=== PATIENT | male | born 1960 | race Hispanic/Latino ===

== ENCOUNTER 2017-12-07 10:29 | Inpatient (IN) | payer OTHER ==
[2017-12-07 11:51] LABS: Absolute Lymphocytes (CBC) 1.6 K/uL (0.7-4.9); Absolute Monocytes 0.4 K/uL (0.1-1.3); Absolute Neutrophil 6.9 K/uL (1.8-8.0); Basophils % 0.6 % (0-1.3); Eosinophils % 3.2 % (0-4.4); Hematocrit 33.4 % (39.6-49.0); Lymphocytes % 16.8 % (15.3-44.8); MCH 28.4 pg (27.0-35.0); MCV 85.5 fL (80-100); MPV 9.4 fL (7.6-11.3); Monocytes % 4.8 % (3.3-12.3); RBC Red Blood Cell Count 3.91 M/uL (4.33-5.43)
[2017-12-07 11:57] LABS: Protime INR 0.93
[2017-12-07 12:02] LABS: Potassium 3.6 mEq/L (3.6-5.0)
[2017-12-07] MEDS ORDERED: FENTANYL CITR 100 MCG/2 ML ONE (12:09)
--- NOTE | 2017-12-07 12:12 | RAD REPORT ---
EXAM DESCRIPTION: Bill Single View12/07/2017 11:59 am CLINICAL HISTORY: Chest pain COMPARISON: 2016 FINDINGS: The left base is hazy. The right lung appears clear. . The heart is normal size IMPRESSION: The left base is hazy. This could be secondary to pleural thickening or small pleural ef fusion.
--- NOTE | 2017-12-07 12:24 | RAD REPORT ---
EXAM DESCRIPTION: CT - Head Brain Wo Cont - 12/07/2017 12:04 pm CLINICAL HISTORY: Alteration of consciousness/memory loss COMPARISON: December 2016 TECHNIQUE: Computed axial tomography of the head was obtained. IV contrast was not requested. All CT scans are performed using dose optimization technique as appropriate and may include automated exposure control or mA/KV adjustment according to patient size. FINDINGS: An intracranial bleed is not seen . The ventricles are normal in caliber. No extra-axial fluid collection is noted. An 8 centimeter low-density areas present within predominantly the left occipital lobe. It portions o f the left temporal and left parietal lobes. Fluid within the sinuses/ mastoids is not seen. IMPRESSION: Large prominently left occipital lobe infarct. It appears relatively acute. The exam was discussed with the Sam Castro in the Emergency Room 12:20 p.m. December 07, 2017
[2017-12-07] MEDS ORDERED: CLOPIDOGREL 75 MG TABLET ONE (12:52)
[2017-12-07] MEDS ORDERED: ONDANSETRON 4 MG/2 ML VIAL ONE (12:52)
[2017-12-07] MEDS ORDERED: ASPIRIN 81 MG CHEWABLE TABLET ONE (12:52)
[2017-12-07] MEDS ORDERED: MEPERIDINE HCL 50 MG/ML AMP ONE ×2 (12:52→17:01)
[2017-12-07] MEDS ORDERED: FOLIC ACID 5 MG/ML VIAL ONE (12:54)
--- NOTE | 2017-12-07 13:07 | EDPHYS ---
Physician Documentation [facility] Name: Sami Garcias Age: 57 yrs Sex: Male : 1960 Arrival Date: 12/07/2017 Time: 10:32 Bed 25 Private MD: Michael Marshall E ED Physician Saeid Li HPI: 12/07 12:50 This 57 yrs old Male presents to ER via Ambulatory with complaints of jr8 Confusion. 12:51 The patient's problem is reported as altered mental status, confused, weakness, in the jr8 right upper extremity. Onset: The symptoms/episode began/occurred acutely, 2 day(s) ago. Duration: This was a single incident. Context: the episode(s) was witnessed, by family. The symptoms are alleviated by nothing. The symptoms are aggravated by nothing. Associated signs and symptoms: The patient has no apparent associated signs or symptoms. Severity of symptoms: At their worst the symptoms were moderate in the emergency department the symptoms are unchanged. Patient's baseline: Neuro: alert and fully oriented, Motor: no deficits, Ambulation: unable to walk, uses wheelchair, Speech: normal. The patient has not experienced similar symptoms in the past. The patient has been recently seen by a physician:. Family stated that on Sunday he had sudden onset of right arm weakness and confusion. Weakness lasted for approximately 10-15 minutes but had continued to have confused episodes. Had gone to [facility] for evaluation but discharged patient. Came today because of confusion that has yet to resolve . Historical: - Allergies: 10:46 BACLOFEN; hj 10:46 Latex, Natural Rubber; hj - Home Meds: 10:46 metformin 1,000 mg Oral tr24 1 tab twice a day [Active]; Lantus 100 unit/mL Sub-Q soln hj 28 unit daily [Active]; Humalog 100 unit/mL Sub-Q crtg 7 unit with meals [Active]; carvedilol 3.125 mg Oral tab 1 tab 2 times per day [Active]; bumetanide 1 mg Oral tab 2 tabs once daily [Active]; atorvastatin 40 mg Oral tab once daily [Active]; aspirin 81 mg Oral TbEC 1 tab once daily [Active]; - PMHx: 10:46 blood clots in legs; Diabetes - IDDM; dka; failed heart cath; heart blockage; hj Hypertension; sepsis with L leg; - PSHx: 10:46 Below the knee amputations sabrina; open heart sx- single bypass; staph sx; hj - Immunization history:: Adult Immunizations up to date. - Social history:: Smoking status: Patient uses tobacco products. ROS: 12:51 Eyes: Negative for injury, pain, redness, and discharge, ENT: Negative for injury, jr8 pain, and discharge, Neck: Negative for injury, pain, and swelling, Cardiovascular: Negative for chest pain, palpitations, and edema, Respiratory: Negative for shortness of breath, cough, wheezing, and pleuritic chest pain, Abdomen/GI: Negative for abdominal pain, nausea, vomiting, diarrhea, and constipation, Back: Negative for injury and pain, MS/Extremity: Negative for injury and deformity, Skin: Negative for injury, rash, and discoloration. 12:51 Neuro: Positive for altered mental status, weakness. Exam: 12:51 Radiologist reports: Large subacute CVA noted jr8 12:51 Head/Face: Normocephalic, atraumatic. Eyes: Pupils equal round and reactive to light, extra-ocular motions intact. Lids and lashes normal. Conjunctiva and sclera are non-icteric and not injected. Cornea within normal limits. Periorbital areas with no swelling, redness, or edema. ENT: Nares patent. No nasal discharge, no septal abnormalities noted. Tympanic membranes are normal and external auditory canals are clear. Oropharynx with no redness, swelling, or masses, exudates, or evidence of obstruction, uvula midline. Mucous membranes moist. Neck: Trachea midline, no thyromegaly or masses palpated, and no cervical lymphadenopathy. Supple, full range of motion without nuchal rigidity, or vertebral point tenderness. No Meningismus. Cardiovascular: Regular rate and rhythm with a normal S1 and S2. No gallops, murmurs, or rubs. Normal PMI, no JVD. No pulse deficits. Respiratory: Lungs have equal breath sounds bilaterally, clear to auscultation and percussion. No rales, rhonchi or wheezes noted. No increased work of breathing, no retractions or nasal flaring. Abdomen/GI: Soft, non-tender, with normal bowel sounds. No distension or tympany. No guarding or rebound. No evidence of tenderness throughout. Back: No spinal tenderness. No costovertebral tenderness. Full range of motion. Skin: Warm, dry with normal turgor. Normal color with no rashes, no lesions, and no evidence of cellulitis. MS/ Extremity: Pulses equal, no cyanosis. Neurovascular intact. Full, normal range of motion. 12:51 Neuro: Orientation: to person, place \T\ time. Mentation: points of confusion , Memory: is normal, Cranial nerves: CN I not tested, CN II- XII are normal as tested, visual rosas are intact. extraocular movements are intact, Facial palsy and sensory deficits are absent. Nystagmus is absent. Speech is clear and appropriate. Tongue strength is normal, Cerebellar function: dysmetria is noted on the right, Motor: moves all fours, Sensation: no obvious gross deficits, Gait: not tested. seizure activity, is not displayed by the patient, Abnormal movements: there are no abnormal movements. Vital Signs: 10:46 BP 145 / 81; Pulse 70; Resp 18; Temp 98.8; Pulse Ox 100% on R/A; Weight 108.86 kg; Height 6 ft. 5 in. (195.58 cm); Pain 8/10; 11:00 BP 161 / 88; Pulse 72; Resp 18; Pulse Ox 99% on R/A; aj1 12:00 BP 153 / 84; Pulse 97; Resp 18; Pulse Ox 100% on R/A; aj1 13:00 BP 142 / 69; Pulse 70; Resp 18; Pulse Ox 100% on R/A; aj1 14:00 BP 160 / 82; Pulse 82; Resp 18; Pulse Ox 99% ; aj1 15:30 BP 145 / 80; Pulse 78; Resp 18; Pulse Ox 99% ; aj1 16:30 BP 152 / 87; Pulse 73; Resp 18; Pulse Ox 95% on R/A; aj1 17:30 BP 170 / 86; Pulse 70; Resp 18; Pulse Ox 100% ; aj1 18:30 BP 174 / 89; Pulse 71; Resp 18; Pulse Ox 100% on R/A; aj1 19:30 BP 169 / 86; Pulse 73; Resp 18; Pulse Ox 100% on R/A; aj1 10:46 Body Mass Index 28.46 (108.86 kg, 195.58 cm) NIH Stroke Scale Scores: 12:51 NIHSS Score: 2 jr8 MDM: 10:58 Patient medically screened. [facility] 12:51 Data reviewed: vital signs, nurses notes, lab test result(s), EKG, radiologic studies, [facility] CT scan, MRI, plain films, and as a result, I will admit patient. Data interpreted: Pulse oximetry: on room air is 100 %. Interpretation: normal. Counseling: I had a detailed discussion with the patient and/or guardian regarding: the historical points, exam findings, and any diagnostic results supporting the discharge/admit diagnosis, lab results, radiology results, the need for further work-up and treatment in the hospital. Physician consultation: Bebeto Medel MD was called at 13:06, was contacted at 13:06, regarding consult, patient's condition, and will see patient. 12/07 11:19 Order name: BNP [facility] 12/07 11:19 Order name: Basic Metabolic Panel; Complete Time: 12:11 [facility] 12/07 11:19 Order name: CBC with Diff; Complete Time: 12:11 [facility] 12/07 11:19 Order name: Protime (+inr); Complete Time: 12:11 [facility] 12/07 11:19 Order name: Ptt, Activated; Complete Time: 12:11 [facility] 12/07 11:19 Order name: Urine Microscopic Only; Complete Time: 17:15 [facility] 12/07 11:19 Order name: Stroke CXR 1 View; Complete Time: 12:20 [facility] 12/07 11:19 Order name: TS; Complete Time: 12:48 [facility] 12/07 11:19 Order name: CT Head Brain wo Cont; Complete Time: 12:28 [facility] 12/07 11:20 Order name: BNP B-Type Natriuretic Peptide; Complete Time: 12:20 [facility] 12/07 12:31 Order name: MRI - Brain Wo Cont [facility] 12/07 13:41 Order name: Carotid Artery Bilateral; Complete Time: 14:42 [facility] 12/07 16:56 Order name: Urine Dipstick--Ancillary (enter results) 12/07 17:03 Order name: Urine Dipstick-Ancillary; Complete Time: 17:15 [facility] 12/07 11:19 Order name: EKG; Complete Time: 11:20 [facility] 12/07 13:27 Order name: CONS Physician Consult [facility] 12/07 13:41 Order name: Echo with Doppler [facility] 12/07 13:41 Order name: NPO [facility] 12/07 13:41 Order name: Stroke Protocol [facility] 12/07 15:56 Order name: MRI; Complete Time: 16:10 [facility] 12/07 16:01 Order name: MRI; Complete Time: 16:10 [facility] 12/07 11:19 Order name: Accucheck; Complete Time: 11:37 [facility] 12/07 11:19 Order name: Cardiac monitoring; Complete Time: 11:38 [facility] 12/07 11:19 Order name: EKG - Nurse/Tech; Complete Time: 11:38 [facility] 12/07 11:19 Order name: IV Saline Lock; Complete Time: 11:37 [facility] 12/07 11:19 Order name: Labs collected and sent; Complete Time: 11:37 [facility] 12/07 11:19 Order name: NPO; Complete Time: 11:37 [facility] 12/07 11:19 Order name: O2 Per Protocol; Complete Time: 11:37 [facility] 12/07 11:19 Order name: O2 Sat Monitoring; Complete Time: 11:37 [facility] 12/07 11:19 Order name: Stroke Swallow Screen; Complete Time: 17:24 [facility] 12/07 11:19 Order name: Urine Dipstick-Ancillary (obtain specimen); Complete Time: 17:24 [facility] 12/07 13:41 Order name: Physical Therapy Consult [facility] 12/07 13:41 Order name: Social Service Consult [facility] 12/07 13:41 Order name: Speech Therapy Consult [facility] Administered Medications: 12:13 Drug: fentaNYL (PF) 25 mcg Route: IVP; Site: right forearm; aj1 12:20 CANCELLED (Physician Discretion): PlaVIX 300 mg PO once 13:03 Drug: Aspirin Chewable Tablet 162 mg Route: PO; aj1 20:09 Follow up: Response: No adverse reaction aj1 13:03 Drug: PlaVIX 75 mg Route: PO; aj1 20:08 Follow up: Response: No adverse reaction aj1 13:03 Drug: Demerol 50 mg Route: IVP; Site: right antecubital; aj1 20:09 Follow up: Response: No adverse reaction aj1 13:03 Drug: Zofran 4 mg Route: IVP; Site: right antecubital; aj1 20:08 Follow up: Response: No adverse reaction aj1 13:04 Drug: foLIC Acid 1 mg Route: IVPB; Site: right antecubital; aj1 20:09 Follow up: IV Status: Completed infusion aj1 17:11 Drug: Demerol 50 mg Route: IVP; Site: right antecubital; aj1 19:51 Follow up: Response: No adverse reaction aj1 19:51 Drug: [place] 10 mg-325 mg 1 tabs Route: PO; aj1 20:08 Follow up: Response: No adverse reaction aj1 Point of Care Testing: Blood Glucose: 20:06 Blood Glucose: 370 mg/dL; aj1 Ranges: Critical Glucose Levels:Adult <50 mg/dl or >400 mg/dl <40 mg/dl or >180 mg/dl Disposition: 12/07/17 13:07 Hospitalization ordered by Alissa Howard for Inpatient Admission. Preliminary diagnosis is Cerebral infarction. - Bed requested for Intensive Care Unit. - Status is Inpatient Admission. aj1 - Condition is Fair. - Problem is new. - Symptoms are unchanged. UTI on Admission? No NIH Stroke Scale - NIH Stroke Score Date: 12/07/2017 Time: 12:51 Total Score = 2 1a. Level of Consciousness (LOC) - 0(Alert) 1b. Level of Consciousness (LOC) (Year \T\ Age) - 0(Both) 1c. LOC Commands (Open \T\ Closes Eyes/Intraoperative Neuro Tech) - 0(Both) 2. Best Gaze (Lateral Gaze Paresis) - 0(Normal) 3. Visual Field Loss - 0(No visual loss) 4. Facial Palsy - 0(Normal) 5a. Left Arm: Motor (10-second hold) - 0(No drift) 5b. Right Arm: Motor (10-second hold) - 0(No drift) 6a. Left Leg: Motor (5-second hold - always test supine) - 0(No drift) 6b. Right Leg: Motor (5-second hold - always test supine) - 0(No drift) 7. Limb Ataxia (finger/nose \T\ heel/[place] - test with eyes open) - 1(Present in one limb) 8. Sensory Loss (pinprick arms/legs/face) - 0(Normal) 9. Best Language: Aphasia (description/naming/reading) - 1(Mild to moderate aphasia) 10. Dysarthria (speech clarity - read or repeat words) - 0(Normal) 11. Extinction and Inattention (visual/tactile/auditory/spatial/personal) - 0(No abnormality) Initials: jr8 Addendum: 12/15/2017 19:59 Co-signature as Attending Physician, Saeid Li MD I agree with the kdr assessment and plan of care. Signatures: Dispatcher [employer] EDMS Rosanne Strange RN RN aj1 Chelsie Foster RN RN dw Saeid Li MD MD [facility] Sam Castro PA PA jr8 Reggie Brown RN RN Shu See Corrections: (The following items were deleted from the chart) 12/07 12:20 12:20 PlaVIX 300 mg PO once ordered. jr8 jr8 13:09 13:07 Hospitalization Ordered by Alissa Howard MD for Inpatient Admission. eb Preliminary diagnosis is Cerebral infarction. Bed requested for Telemetry/MedSurg (Inpatient). Status is Inpatient Admission. Condition is Fair. Problem is new. Symptoms are unchanged. UTI on Admission? No. jr8 16:11 13:09 12/07/2017 13:07 Hospitalization Ordered by Alissa Howard MD for jr8 Inpatient Admission. Preliminary diagnosis is Cerebral infarction. Bed requested for Telemetry/MedSurg (Inpatient). Status is Inpatient Admission. Condition is Fair. Problem is new. Symptoms are unchanged. UTI on Admission? No. eb 17:25 16:11 12/07/2017 13:07 Hospitalization Ordered by Alissa Howard MD for dw Inpatient Admission. Preliminary diagnosis is Cerebral infarction. Bed requested for Intensive Care Unit. Status is Inpatient Admission. Condition is Fair. Problem is new. Symptoms are unchanged. UTI on Admission? No. jr8 20:41 17:25 12/07/2017 13:07 Hospitalization Ordered by Alissa Howard MD for aj1 Inpatient Admission. Preliminary diagnosis is Cerebral infarction. Bed requested for Intensive Care Unit. Status is Inpatient Admission. Condition is Fair. Problem is new. Symptoms are unchanged. UTI on Admission? No. dw
--- NOTE | 2017-12-07 13:07 | ER ---
Nurse's Notes [facility] Name: Sami Garcias Age: 57 yrs Sex: Male : 1960 Arrival Date: 12/07/2017 Time: 10:32 Bed 25 Private MD: Michael Marshall E Diagnosis: Cerebral infarction Presentation: 12/07 10:40 Presenting complaint: fiance, he started having confusion episode 2 days ago, he's R hj arm is weak, went to [place], was D/C'd, per pt, reports weakness on L arm, bilateral BKA: reports headache, reports chills;. Transition of care: patient was not received from another setting of care. Onset of symptoms was December 05, 2017. Initial Sepsis Screen: Does the patient meet any 2 criteria? No. Patient's initial sepsis screen is negative. Does the patient have a suspected source of infection? No. Patient's initial sepsis screen is negative. Care prior to arrival: None. 10:40 Method Of Arrival: Ambulatory 10:40 Acuity: THAD 3 hj Triage Assessment: 10:46 General: Appears in no apparent distress. uncomfortable, Behavior is cooperative, hj appropriate for age, drowsy. Pain: Complains of pain in head. Historical: - Allergies: 10:46 BACLOFEN; hj 10:46 Latex, Natural Rubber; hj - Home Meds: 10:46 metformin 1,000 mg Oral tr24 1 tab twice a day [Active]; Lantus 100 unit/mL Sub-Q soln hj 28 unit daily [Active]; Humalog 100 unit/mL Sub-Q crtg 7 unit with meals [Active]; carvedilol 3.125 mg Oral tab 1 tab 2 times per day [Active]; bumetanide 1 mg Oral tab 2 tabs once daily [Active]; atorvastatin 40 mg Oral tab once daily [Active]; aspirin 81 mg Oral TbEC 1 tab once daily [Active]; - PMHx: 10:46 blood clots in legs; Diabetes - IDDM; dka; failed heart cath; heart blockage; hj Hypertension; sepsis with L leg; - PSHx: 10:46 Below the knee amputations sabrina; open heart sx- single bypass; staph sx; hj - Immunization history:: Adult Immunizations up to date. - Social history:: Smoking status: Patient uses tobacco products. Screenin:00 Abuse screen: Denies threats or abuse. Denies injuries from another. Nutritional aj1 screening: No deficits noted. Tuberculosis screening: No symptoms or risk factors identified. 12:30 Patient has been NPO before screening. The patient is alert, able to follow commands. aj1 The patient does not exhibit slurred or garbled speech The patient is not exhibiting difficulty speaking. The patient does not exhibit difficulty understanding words. The patient is able to swallow own secretions with no drooling or need for suction. Patient tolerated one teaspoon of water. No drooling, immediate coughing, gurgling, or clearing of the throat was noted. The patient tolerated 90mL of water. No drooling, immediate coughing, gurgling, or clearing of the throat was noted. The patient passed the bedside swallow screening. Oral medications may be given as ordered. Contact Physician for further diet orders. Provider notified of bedside swallow screening results: Sam RIVAS. 16:28 Fall Risk No fall in past 12 months (0 pts). Secondary diagnosis (15 points) CVA, IV aj1 access (20 points). Ambulatory Aid- None/Bed Rest/Nurse Assist (0 pts). Gait- Impaired (20 pts.). Mental Status- Oriented to own ability (0 pts). Total Burr Fall Scale indicates High Risk Score (45 or more points). Fall prevention measures have been instituted. Side Rails Up X 2 Family Present and informed to notify staff if the need to leave the bedside As available patient and family educated on Fall Prevention Program and Strategies. Assessment: 11:00 General: Appears in no apparent distress. uncomfortable, Behavior is calm, cooperative. aj1 Pain: Complains of pain in forehead, right eye and left eye Pain does not radiate. Pain currently is 10 out of 10 on a pain scale. Quality of pain is described as aching. Neuro: Level of Consciousness is awake, alert, obeys commands, Oriented to person, place, time, situation, Food Service Manager are equal bilaterally Moves all extremities. Full function Speech slow. Facial symmetry appears normal, Pupils are PERRLA, Numbness in right arm and left arm Reports headache Patient's states that he has been confused, had periods where he was severely weak on the right side, had trouble doing basic things such as using his wheelchair or eating cereal. . Cardiovascular: Denies chest pain, Heart tones S1 S2 present Patient's skin is warm and dry. Rhythm is sinus rhythm. Respiratory: Airway is patent Respiratory effort is even, unlabored, Respiratory pattern is regular, symmetrical, Breath sounds are clear bilaterally. GI: No signs and/or symptoms were reported involving the gastrointestinal system. : No signs and/or symptoms were reported regarding the genitourinary system. EENT: No signs and/or symptoms were reported regarding the EENT system. Derm: No signs and/or symptoms reported regarding the dermatologic system. Skin is pale. Musculoskeletal: Range of motion: intact in all extremities. 12:18 Reassessment: Patient appears in no apparent distress at this time. No changes from aj1 previously documented assessment. Patient and/or family updated on plan of care and expected duration. Pain level reassessed. Patient is alert, oriented x 3, equal unlabored respirations, skin warm/dry/pink. 13:00 Reassessment: Patient appears in no apparent distress at this time. No changes from aj1 previously documented assessment. Patient and/or family updated on plan of care and expected duration. Pain level reassessed. Patient is alert, oriented x 3, equal unlabored respirations, skin warm/dry/pink. 14:00 Reassessment: Patient appears in no apparent distress at this time. No changes from aj1 previously documented assessment. Patient and/or family updated on plan of care and expected duration. Pain level reassessed. Patient is alert, oriented x 3, equal unlabored respirations, skin warm/dry/pink. Neuro: Level of Consciousness is awake, alert, obeys commands, Oriented to person, place, time, situation, Food Service Manager are equal bilaterally Moves all extremities. Full function Facial symmetry appears normal, Pupils are PERRLA, Numbness in right arm and left arm. 14:14 Reassessment: Patient transported to MRI via stretcher. aj1 15:30 Reassessment: Patient appears in no apparent distress at this time. No changes from aj1 previously documented assessment. Patient and/or family updated on plan of care and expected duration. Pain level reassessed. Patient is alert, oriented x 3, equal unlabored respirations, skin warm/dry/pink. 15:32 Reassessment: Speech therapy at bedside. aj1 16:27 Reassessment: Patient appears in no apparent distress at this time. No changes from aj1 previously documented assessment. Patient and/or family updated on plan of care and expected duration. Pain level reassessed. Patient is alert, oriented x 3, equal unlabored respirations, skin warm/dry/pink. 16:27 Reassessment: Echo at bedside. aj1 17:43 Reassessment: Patient appears in no apparent distress at this time. No changes from aj1 previously documented assessment. Patient and/or family updated on plan of care and expected duration. Pain level reassessed. Patient is alert, oriented x 3, equal unlabored respirations, skin warm/dry/pink. Neuro: Level of Consciousness is awake, alert, obeys commands, Oriented to person, place, time, situation, Food Service Manager are equal bilaterally Moves all extremities. Full function Speech is normal, Facial symmetry appears normal, Pupils are PERRLA, Numbness in right arm and left arm. 18:32 Reassessment: Patient appears in no apparent distress at this time. No changes from aj1 previously documented assessment. Patient and/or family updated on plan of care and expected duration. Pain level reassessed. Patient is alert, oriented x 3, equal unlabored respirations, skin warm/dry/pink. Neuro: Level of Consciousness is awake, alert, obeys commands, Oriented to person, place, time, situation, Food Service Manager are equal bilaterally Moves all extremities. Full function Speech is normal, Facial symmetry appears normal, Pupils are PERRLA. 19:30 Reassessment: Patient states that he is hurting again and needs some pain medication. aj1 No pain medication noted in [employer] orders. Notified Dr. Rowe of patient request, order received. 19:53 Reassessment: Patient is upset that he was ordered [place] for his pain. States "This aj1 isn't going to help at all. I take way more than this at home everyday. I know the pain I'm in this isn't going to help!" Patient agreed to take [place] and see if it helps rather than waiting for staff to contact admitting physician again. Vital Signs: 10:46 BP 145 / 81; Pulse 70; Resp 18; Temp 98.8; Pulse Ox 100% on R/A; Weight 108.86 kg; hj Height 6 ft. 5 in. (195.58 cm); Pain 8/10; 11:00 BP 161 / 88; Pulse 72; Resp 18; Pulse Ox 99% on R/A; aj1 12:00 BP 153 / 84; Pulse 97; Resp 18; Pulse Ox 100% on R/A; aj1 13:00 BP 142 / 69; Pulse 70; Resp 18; Pulse Ox 100% on R/A; aj1 14:00 BP 160 / 82; Pulse 82; Resp 18; Pulse Ox 99% ; aj1 15:30 BP 145 / 80; Pulse 78; Resp 18; Pulse Ox 99% ; aj1 16:30 BP 152 / 87; Pulse 73; Resp 18; Pulse Ox 95% on R/A; aj1 17:30 BP 170 / 86; Pulse 70; Resp 18; Pulse Ox 100% ; aj1 18:30 BP 174 / 89; Pulse 71; Resp 18; Pulse Ox 100% on R/A; aj1 19:30 BP 169 / 86; Pulse 73; Resp 18; Pulse Ox 100% on R/A; aj1 10:46 Body Mass Index 28.46 (108.86 kg, 195.58 cm) NIH Stroke Scale Scores: 12:51 NIHSS Score: 2 [facility] ED Course: 10:32 Patient arrived in ED. mr 10:33 Michael Marshall MD is Private Physician. mr 10:44 Triage completed. hj 10:46 Arm band placed on right wrist. hj 10:58 Sam Castro PA is PHCP. jr8 10:58 Saeid Li MD is Attending Physician. jr8 11:00 Patient has correct armband on for positive identification. Bed in low position. Call aj1 light in reach. Side rails up X 1. pvc monitor on. Pulse ox on. NIBP on. 11:00 No provider procedures requiring assistance completed. aj1 11:37 Rosanne Strange, RN is Primary Nurse. aj1 11:44 Initial lab(s) drawn, by me, sent to lab. T\\T\\S collected, blood band applied to patient. jb1 Inserted saline lock: 22 gauge in right antecubital area, using aseptic technique. Blood collected. 12:00 Stroke CXR 1 View In Process Unspecified. EDMS 12:01 EKG done, reviewed by Sam RIVAS. tc 12:05 CT Head Brain wo Cont In Process Unspecified. EDMS 13:06 Alissa Howard MD is Hospitalizing Provider. jr8 14:11 Patient moved to MRI via stretcher. ka 15:40 MRI completed. Patient tolerated well. em2 15:44 Patient moved back from MRI. em2 16:28 Patient admitted, IV remains in place. aj1 20:40 Report given to Courtney Lawrence RN in ICU. aj1 Administered Medications: 12:13 Drug: fentaNYL (PF) 25 mcg Route: IVP; Site: right forearm; aj1 12:20 CANCELLED (Physician Discretion): PlaVIX 300 mg PO once jr8 13:03 Drug: Aspirin Chewable Tablet 162 mg Route: PO; aj1 20:09 Follow up: Response: No adverse reaction aj1 13:03 Drug: PlaVIX 75 mg Route: PO; aj1 20:08 Follow up: Response: No adverse reaction aj1 13:03 Drug: Demerol 50 mg Route: IVP; Site: right antecubital; aj1 20:09 Follow up: Response: No adverse reaction aj1 13:03 Drug: Zofran 4 mg Route: IVP; Site: right antecubital; aj1 20:08 Follow up: Response: No adverse reaction aj1 13:04 Drug: foLIC Acid 1 mg Route: IVPB; Site: right antecubital; aj1 20:09 Follow up: IV Status: Completed infusion aj1 17:11 Drug: Demerol 50 mg Route: IVP; Site: right antecubital; aj1 19:51 Follow up: Response: No adverse reaction aj1 19:51 Drug: [place] 10 mg-325 mg 1 tabs Route: PO; aj1 20:08 Follow up: Response: No adverse reaction aj1 Point of Care Testing: Blood Glucose: 20:06 Blood Glucose: 370 mg/dL; aj1 Ranges: Outcome: 13:07 Decision to Hospitalize by Provider. jr8 20:40 Admitted to ICU accompanied by nurse, via stretcher, room 2, on monitor, with chart. aj1 20:40 Condition: stable 20:40 Discharge instructions given to patient, Instructed on the need for admit, Demonstrated understanding of instructions. 20:41 Patient left the ED. aj1 NIH Stroke Scale - NIH Stroke Score Date: 12/07/2017 Time: 12:51 Total Score = 2 1a. Level of Consciousness (LOC) - 0(Alert) 1b. Level of Consciousness (LOC) (Year \\T\\ Age) - 0(Both) 1c. LOC Commands (Open \\T\\ Closes Eyes/Shredder Tender Peat) - 0(Both) 2. Best Gaze (Lateral Gaze Paresis) - 0(Normal) 3. Visual Field Loss - 0(No visual loss) 4. Facial Palsy - 0(Normal) 5a. Left Arm: Motor (10-second hold) - 0(No drift) 5b. Right Arm: Motor (10-second hold) - 0(No drift) 6a. Left Leg: Motor (5-second hold - always test supine) - 0(No drift) 6b. Right Leg: Motor (5-second hold - always test supine) - 0(No drift) 7. Limb Ataxia (finger/nose \\T\\ heel/[place] - test with eyes open) - 1(Present in one limb) 8. Sensory Loss (pinprick arms/legs/face) - 0(Normal) 9. Best Language: Aphasia (description/naming/reading) - 1(Mild to moderate aphasia) 10. Dysarthria (speech clarity - read or repeat words) - 0(Normal) 11. Extinction and Inattention (visual/tactile/auditory/spatial/personal) - 0(No abnormality) Initials: jr8 Signatures: Dispatcher [employer] Eduardo Rowland jb1 Rosanne Strange RN RN aj1 Dorene Billingsley Josh, PA PA jr8 Yeison Carter em2 Sammie Thompson, computer network support specialist EKG Ttc Reggie Brown RN RN hj Aguilera, Katelyn ka Corrections: (The following items were deleted from the chart) 10:49 10:46 Pulse 70bpm; Resp 18bpm; Pulse Ox 100% RA; Temp 98.8F; 108.86 kg; Height hj 6 ft. 5 in.; BMI: 28.4; Pain 03/22; hj 19:53 19:52 Reassessment: Patient states that he is hurting again and needs some pain aj1 medication. No pain medication noted in [employer] orders. Notified Dr. Rowe of patient request, order received aj1
[2017-12-07] MEDS ORDERED: ACETAMINOPHEN 500 MG TAB PO PRN (13:33)
[2017-12-07] MEDS ORDERED: GLUCAGON 1 MG/VIAL IM PRN (13:47)
[2017-12-07] MEDS ORDERED: D50W 25 GM/50 ML SYRINGE IV PRN (13:47)
--- NOTE | 2017-12-07 14:40 | RAD REPORT ---
EXAM DESCRIPTION: RACHAEL - SREEKANTH - 12/07/2017 2:09 pm CLINICAL HISTORY: Stroke COMPARISON: None. TECHNIQUE: Real-time sonographic evaluation of both carotid systems was performed. Doppler interroga tion was performed with waveform tracing bilaterally. FINDINGS: Normal high resistance waveforms are noted in both external carotid arteries. The common c arotid arteries and internal carotid arteries show normal low resistance waveforms. Plaquing changes are present in the right internal carotid, left distal common carotid and left proxi mal internal carotid artery's. . Right internal carotid artery peak systolic velocity was 116 cm/seco nd. No abnormal velocity elevation in the left internal carotid artery. The right internal carotid pe ak systolic velocity is not within a hemodynamically significant range. However, the ICA/CCA ratio is abnormal at 1.9 due to a relatively low common carotid artery velocity. A 0.8 left-side ICA/CCA rati o noted. Left external carotid velocity is elevated though stenosis of an external carotid artery is generally not clinically significant. Antegrade flow seen in both vertebral arteries. Velocity values and ratios were recorded and are retained in the patient's imaging records. IMPRESSION: Bilateral calcified and noncalcified plaquing changes are present. Although the right-side ICA/CCA ratio is abnormally elevated, true hemodynamically significant stenos is is doubtful. No evidence of a hemodynamically significant stenosis on the left.
--- NOTE | 2017-12-07 15:56 | RAD REPORT ---
EXAM DESCRIPTION: MRI - MRA Head Wo Cont - 12/07/2017 3:42 pm CLINICAL HISTORY: Left-sided stroke COMPARISON: None. TECHNIQUE: Axial and coronal 3D [id number] image acquisition was performed. 3D rotational images were generated with source and reconstruction images reviewed. FINDINGS: Exam is limited by motion degradation. Vertebrobasilar tortuosity is present without stenosis. There is truncation of the left posterior cer ebral artery at its origin. This matches the large left DIE TESTER distribution infarction on the MRI examin ation. Patient has a moderate-sized posterior communicating artery on the left. Superior cerebellar a rteries are unremarkable in appearance. There is evidence for significant atherosclerotic change within the horizontal and vertical petrous p ortions of the left internal carotid artery. Significant atherosclerotic changes are present as well with greater than 50% stenosis at the right M1 middle cerebral artery origin and at the right A1 -A2 anterior cerebral artery junction. No aneurysm or vascular malformation. 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 This matches the MRI study that showed a CVA in the vascular distribution of the left DIE TESTER. Significant atherosclerotic changes in the petrous portion of the left internal carotid artery, origi n of the right middle cerebral artery and the right anterior cerebral artery A1 -A2 junction.
--- NOTE | 2017-12-07 16:01 | RAD REPORT ---
EXAM DESCRIPTION: MRI - Brain Wo Cont - 12/07/2017 3:42 pm CLINICAL HISTORY: CVA, abnormal CT study COMPARISON: CT head December 07, 2017 TECHNIQUE: Sagittal T1-weighted images were obtained along with axial PD, heavily T2-weighted and T2 -FLAIR images. Axial DWI and ADC mapping sequences were also obtained along with coronal heavily T2-w eighted images. FINDINGS: Diffusion-weighted imaging shows extensive abnormal signal in the medial aspect of the lef t occipital lobe continuing anteriorly to involve most of the medial margin of the temporal lobe. The re are few punctate areas of signal abnormality more superiorly in the medial left occipital lobe as well as into the splenium of the corpus callosum on the left and punctate areas of signal abnormality in the medial left thalamus. All of the diffusion signal abnormalities have a corresponding diminish ed signal on ADC mapping sequence. There is corresponding hyperintense T2/IR signal as well as hypoin tense T1 signal. Findings are those of an acute stroke in the left posterior cerebral artery distribu tion and involving thalamo perforating branches from the posterior communicating artery Elsewhere in the brain parenchyma there is no acute infarction. Atrophy changes are mild to moderate but relatively prominent for patient age. Scattered chronic ischemic changes in the cerebral white ma tter. There is mild edema along the stroke pathway. This does not cause midline shift or significant mass effect. No extra-axial fluid collections. No globe or orbital content abnormality seen. Mastoid air cells and paranasal sinuses are clear. IMPRESSION: Acute nonhemorrhagic CVA involving the left posterior cerebral artery distribution an ad jacent thalamo perforating branches. There is edema along the course of this CVA but no significant mass effect.
--- NOTE | 2017-12-07 16:25 | EKG ---
Test Date: 2017-12-07 Test Time: 11:39:21 Delicatessen Manager: KENNEDY MEASUREMENT RESULTS: Intervals: Rate: 71 DE: 192 QRSD: 128 QT: 410 QTc: 445 [place]: P: 39 DE: 192 QRS: -50 T: 148 INTERPRETIVE STATEMENTS: Sinus rhythm with occasional premature ventricular complexes Left axis deviation Left ventricular hypertrophy with QRS widening and repolarization abnormality Abnormal ECG Compared to ECG 05/29/2016 12:06:07 Ventricular premature complex(es) now present Left-axis deviation now present Left ventricular hypertrophy now present Early repolarization now present Myocardial infarct finding no longer present ST (T wave) deviation no longer present Possible ischemia no longer present Electronically Signed On 12-07-17 16:23:33 CDT by Xander Ruelas
[2017-12-07] MEDS: INSULIN -REGULAR HUMAN 50 UNIT/0.5 ML ML SQ SCH ×2 (16:30→21:33)
[2017-12-07 17:02] LABS: Urine Blood 2+ (NEG); Urine Glucose 2+ (NEG); Urine Protein 3+ (NEG)
[2017-12-07 17:08] LABS: Urine Bacteria <20 /HPF (NONE SEEN); Urine Culture Reflex Order REFLEXED; Urine RBC <5 /HPF (NONE SEEN)
--- NOTE | 2017-12-07 17:55 | P.HP ---
Certification for Inpatient Patient admitted to: Inpatient With expected LOS: >2 Midnights Patient will require the following post-hospital care: None Practitioner: I am a practitioner with admitting privileges, knowledge of patient current condition, hospital course, and medical plan of care. Services: Services provided to patient in accordance with Admission requirements found in Title 42 Section 412.3 of the Code of Federal Regulations Patient History Date of Service: 12/07/17 Primary Care Provider: Dr Marshall Reason for admission: Stroke History of Present Illness: This is a 57-year-old male with significant past medical history of diabetes, hypertension, CAD, vasculopathy, who presented to the ED complaining of having some altered mental status confusion weakness in the right upper extremity with started about 2 days ago. Patient at baseline is unable to walk we uses wheelchair to get around the house however he has been feeling so weak that he is not been able to do that and is well. Family stated that on sunday he had sudden onset of right arm weakness and confusion. Weakness lasted for approximately 10-15 min but had continued to have confusion throughout the 2 days. Patient did go to [facility] for evaluation however was discharged home. The family brought the patient over to the hospital as his symptoms were not getting resolved especially the confusion. The patient also had some problem with speech. Which now per family is getting better. patient is currently a smoker and smoke for over 10 years. Occ alcohol. In the ER patient had extensive workup done which was consistent with a large CVA on the left side and thus medical team was consulted to admit the patient for further workup. Allergies hydromorphone HCl [From Dilaudid] Allergy (Severe, Verified 10/25/14 12:25) Nausea/Vomiting morphine Allergy (Severe, Verified 10/25/14 12:25) Nausea/Vomiting latex Allergy (Verified 12/14/14 17:33) Rash Latex, Natural Rubber Allergy (Verified 05/29/16 17:55) Unknown BACLOFEN Allergy (Uncoded 01/22/17 14:45) Unknown No Allergy (Uncoded 11/09/15 20:22) Unknown Home Medications: Atorvastatin Calcium [Lipitor] 20 mg PO DAILY 05/29/16 Dextroamphetamine/Amphetamine [Adderall 30 mg Tablet] 30 mg PO BID 05/29/16 Insulin Glargine Human [Lantus*] 28 units SQ BEDTIME 05/29/16 Insulin Lispro [Humalog] 7 units SQ AC 05/29/16 Metformin HCl [Glucophage] 1,000 mg PO BID 05/29/16 Bumetanide [Bumex] 2 mg PO BID 05/30/16 Carisoprodol [Soma] 350 mg PO TID 05/30/16 Hydrocodone 10/APAP 325 [[place] [id number]*] 2 tab PO TID 05/30/16 - Past Medical/Surgical History Diabetic: Yes -: DM -: HTN -: herniation of neck -: [place] insufficiency, HD -: UTI -: OSTEOMYELITIS -: CELLULITIS -: MRSA blood/wound -: left shoulder rotator cuff tear -: sabrina leg below knee amputation -: I&D, debridement sabrina feet -: bypass -: staph infection on back I&D. -: staph infection to scrotum I&D. - Family History Father -: Heart disease, Hypertension, Diabetes Mother -: Heart disease, Hypertension, Diabetes Brother -: Heart disease, Hypertension, Diabetes Sister -: Diabetes - Social History Alcohol use: No CD- Drugs: No Caffeine use: Yes Review of Systems General: As per HPI Physical Examination - Physical Exam General: Alert, In no apparent distress, Oriented x2 (Oritented to Person and place. Not to time) HEENT: Atraumatic Neck: Supple Respiratory: Clear to auscultation bilaterally, Normal air movement Cardiovascular: Regular rate/rhythm, Normal S1 S2 Gastrointestinal: Normal bowel sounds, Soft and benign, Non-distended Musculoskeletal: No clubbing Integumentary: No rashes Neurological: Normal gait, Normal speech, Normal tone, Sensation intact, Cranial nerves 3-12 intact, Normal reflexes 2+, Other (Dymetria noted. ) - Studies Laboratory Data (last 24 hrs) 12/07/17 11:40: PT 11.0, INR 0.93, APTT 28.5 12/07/17 11:40: WBC 9.3, Hgb 11.1 L, Hct 33.4 L, Plt Count 244 12/07/17 11:40: Sodium 131 L, Potassium 3.6, BUN 17, Creatinine 1.56 H, Glucose 325 H 12/07/17 11:40: B-Natriuretic Peptide 585 H Assessment and Plan - Problems (Diagnosis) (1) CVA (cerebral vascular accident) Current Visit: Yes Status: Acute Plan: Subacute Infarct on the left Cerebral region -Neurology consulted. Appreciated reccs -ASA, plavix, Lipitor and Resume Home medication -PT/OT and Speech consulted. -CM consult for Inpatient rehab placement -Carotid, MRI and ECHO pending -Will f/u with Lab work as well Qualifiers: CVA mechanism: stenosis Precerebral and cerebral artery: middle cerebral artery Laterality of affected vessel: left Qualified Code(s): I63.512 - Cerebral infarction due to unspecified occlusion or stenosis of left middle cerebral artery (2) CAD (coronary artery disease) Current Visit: Yes Status: Chronic Plan: Restart Home medication Qualifiers: Coronary Disease-Associated Artery/Lesion type: [place] artery [place] vs. transplanted heart: [place] heart Associated angina: with stable angina Qualified Code(s): I25.118 - Atherosclerotic heart disease of [place] coronary artery with other forms of angina pectoris (3) DM type 2 (diabetes mellitus, type 2) Onset Date: 05/31/16 Current Visit: No Status: Chronic Plan: Will place on ISS Qualifiers: Diabetes mellitus terminal worker insulin use: with care home use Diabetes mellitus complication status: with neurologic complications Diabetes mellitus complication detail: with polyneuropathy Qualified Code(s): E11.42 - Type 2 diabetes mellitus with diabetic polyneuropathy; Z79.4 - [facility] (current) use of insulin; Z79.4 - terminal system operator (current) use of insulin; Z79.4 - [facility] ( current) use of insulin; Z79.4 - [facility] (current) use of insulin (4) Hypertension Onset Date: 12/15/14 Current Visit: No Status: Chronic Plan: Restart on Home medication Qualifiers: Hypertension type: essential hypertension Qualified Code(s): I10 - Essential (primary) hypertension (5) Chronic pain syndrome Onset Date: 08/03/14 Current Visit: No Status: Chronic - Advance Directives Does patient have a Living Will: Yes Does patient have a Durable POA for Healthcare: Yes
[2017-12-07] MEDS ORDERED: HYDROCODONE/APAP 10/325 TAB ONE (19:47)
[2017-12-07] MEDS: ATORVASTATIN 80 MG TAB PO SCH (21:33)
[2017-12-07] MEDS: HYDROCODONE/APAP 10/325 TAB PO PRN (21:34)
[2017-12-07 22:39] VITALS: BMI 27.3
[2017-12-08] MEDS: HYDROCODONE/APAP 10/325 TAB PO PRN ×4 (01:59→22:50)
[2017-12-08 06:18] LABS: Absolute Lymphocytes (CBC) 1.8 K/uL (0.7-4.9); Absolute Monocytes 0.5 K/uL (0.1-1.3); Absolute Neutrophil 6.8 K/uL (1.8-8.0); Basophils % 0.6 % (0-1.3); Eosinophils % 3.4 % (0-4.4); Hematocrit 32.2 % (39.6-49.0); Lymphocytes % 19.1 % (15.3-44.8); MCV 85.5 fL (80-100); MPV 9.4 fL (7.6-11.3); Monocytes % 5.7 % (3.3-12.3); RBC Red Blood Cell Count 3.77 M/uL (4.33-5.43)
[2017-12-08 06:33] LABS: Albumin 2.2 g/dL (3.2-5.5); Bilirubin Total 0.4 mg/dL (0.3-1.2); Potassium 3.6 mEq/L (3.6-5.0)
[2017-12-08 07:22] LABS: Magnesium 1.7 mg/dL (1.8-2.5); Phosphorus 3.3 mg/dL (2.5-4.3)
[2017-12-08] MEDS: INSULIN -REGULAR HUMAN 50 UNIT/0.5 ML ML SQ SCH ×4 (08:05→22:43)
[2017-12-08] MEDS: ASPIRIN EC 81 MG TAB PO SCH (08:07)
[2017-12-08] MEDS: CLOPIDOGREL 75 MG TABLET PO SCH (08:07)
[2017-12-08] MEDS: ONDANSETRON 4 MG/2 ML VIAL IV PRN ×2 (08:20→14:48)
[2017-12-08] MEDS: NA CHLORIDE 0.9% 1,000 ML IV SCH ×2 (10:51→22:50)
--- NOTE | 2017-12-08 12:24 | P.PN ---
Subjective Date of Service: 12/08/17 Primary Care Provider: Dr Marshall Chief Complaint: Stroke Pt seen and examined at bedside with RN. Doing well overall. No c/o overnight. Worked with PT and has been doing well. Review of Systems General: As per HPI Physical Examination - Vital Signs Temperature: 97.3 F Blood Pressure: 157/78 Pulse: 75 Respirations: 16 Pulse Ox (%): 96 - Physical Exam General: Alert, In no apparent distress, Oriented x3 HEENT: Atraumatic Neck: Supple, JVD not distended Respiratory: Clear to auscultation bilaterally, Normal air movement Cardiovascular: Regular rate/rhythm, Normal S1 S2 Gastrointestinal: Normal bowel sounds, No tenderness Musculoskeletal: Other (BL BKA) Integumentary: No rashes Neurological: Normal speech, Normal strength at 5/5 x4 extr, Normal tone, Sensation intact, Normal affect Lymphatics: No axilla or inguinal lymphadenopathy - Studies Medications List Reviewed: Yes Assessment & Plan - Problems (Diagnosis) (1) CVA (cerebral vascular accident) Current Visit: Yes Status: Acute Plan: Subacute Infarct on the left Cerebral region -Neurology consulted. Appreciated reccs -ASA, plavix, Lipitor and Resume Home medication -PT/OT and Speech consulted. -CM consult for Inpatient rehab placement -MRA and MRI consistent with Left EXPOSURE MACHINE OPERATOR occulsion and Atherosclerosis at the MCA. -ECHO pending. Qualifiers: CVA mechanism: stenosis Precerebral and cerebral artery: middle cerebral artery Laterality of affected vessel: left Qualified Code(s): I63.512 - Cerebral infarction due to unspecified occlusion or stenosis of left middle cerebral artery (2) CAD (coronary artery disease) Current Visit: Yes Status: Chronic Plan: Restart Home medication Qualifiers: Coronary Disease-Associated Artery/Lesion type: [place] artery [place] vs. transplanted heart: [place] heart Associated angina: with stable angina Qualified Code(s): I25.118 - Atherosclerotic heart disease of [place] coronary artery with other forms of angina pectoris (3) DM type 2 (diabetes mellitus, type 2) Onset Date: 05/31/16 Current Visit: No Status: Chronic Plan: Will place on ISS Qualifiers: Diabetes mellitus chcf insulin use: with chcf use Diabetes mellitus complication status: with neurologic complications Diabetes mellitus complication detail: with polyneuropathy Qualified Code(s): E11.42 - Type 2 diabetes mellitus with diabetic polyneuropathy; Z79.4 - laborer marine terminal (current) use of insulin; Z79.4 - care home (current) use of insulin; Z79.4 - care home ( current) use of insulin; Z79.4 - care home (current) use of insulin (4) Hypertension Onset Date: 12/15/14 Current Visit: No Status: Chronic Plan: Restart on Home medication Qualifiers: Hypertension type: essential hypertension Qualified Code(s): I10 - Essential (primary) hypertension (5) Chronic pain syndrome Onset Date: 08/03/14 Current Visit: No Status: Chronic Discharge Plan: Other Plan to discharge in: 48 Hours - Code Status/Comfort Care Code Status Assessed: Yes Critical Care: No
[2017-12-08] MEDS ORDERED: CARVEDILOL 3.125 MG TAB PO ONE (16:18)
[2017-12-08] MEDS: ENOXAPARIN 40 MG/0.4 ML SQ SCH (16:38)
--- NOTE | 2017-12-08 18:04 | CON ---
Date of Consultation: 12/08/2017 Time: 1330. Reason For Consultation: Stroke. History: A 57-year-old gentleman with a history of diabetes and hypertension and bilateral [id number] amputation. He was in his usual state of health until Sunday when noted sudden onset of right arm weakness and some confusion, he could not roll his wheelchair probably, but problem improved quite rapidly within 5-10 minutes. EMS was summoned and he was brought to the Emergency Department in [facility] where the family tells me that he did not even have a CT scan. He was seen, treated, and released, and continued to notice that the patient was confused, had word-finding difficulties, did not seem himself and remained fairly constant throughout the day and then by Sunday when the problem had not resolved, she decided to bring him to the emergency department where a CT scan demonstrated hypodensity in left occipital region. Brain MRI confirmed a proximal HOUSING SPECIALIST stroke with involvement of the thalamus as well as truncation of the left HOUSING SPECIALIST on MRA, no stenosis in the vertebrobasilar system proper, had significant intracranial atherosclerosis in the middle cerebral arteries, right greater than left. The patient has not gotten worse, although he has not really improved either. Consultation was requested. Past Medical History: As alluded to. Medications: Routine home medications; carvedilol, aspirin, Lipitor 40, Bumex, Soma, insulin, [place], and metformin. Here, he is on both Plavix and aspirin. Allergies: DILAUDID, MORPHINE, LATEX, BACLOFEN. Social History: . Does not drive. Smokes. Normally has bilateral lower extremity prosthesis to ambulate. Family History: Noncontributory. Review of Systems: General: Headache on the left. Eyes: Vision loss on the right. Also with a history of proliferative diabetic retinopathy. Ears, Nose, and Throat: No dysphagia. Cardiovascular: Hypertension. Pulmonary: Negative. GI: Negative. : Negative. Musculoskeletal: Bilateral sukbt-fsj-[id number] amputation. Neurologic: As noted. Psychiatric: Negative. Endocrine: Diabetes. Hematologic: Negative. Physical Examination: Vital Signs: 97.3, 75, 16, 157/78. General: Pleasant gentleman, lying in bed, in no distress. Awake, alert, oriented. Follows commands. No definitive aphasia on NIH testing, but does have some slight word-finding difficulties consistent with a deep thalamic type aphasia. HEENT: Pupils reactive. Ocular motion full. Dense right homonymous and hemianopia to confrontation. Decreased right nasolabial fold. Extremities: Examination of his extremities reveals drift in the right upper extremity with 4/5 interphalangeal weakness on the right. Interphalangeal weakness is more consistent with an ulnar neuropathy. Cortical extinction on the right on sensory exam. Reflexes are absent. Cannot check Babinski. No tviauj-ssig-wkduaz ataxia. Stroke scale is 6. Impression: Cerebral infarction, proximal HOUSING SPECIALIST stroke. Plan: Agree with aspirin and Plavix. There is no proximal basilar stenosis on MRA Unfortunately, at this juncture, greater than 72 hour infarct by the time he presented, he was not a candidate for tPA. Continue with good glycemic control, intensive statin therapy, speech therapy evaluation, DVT prophylaxis. May be a good candidate for inpatient rehab. We will continue to follow with you. PAULINE Voice ID: [id number] Report ID: [id number] [place]
[2017-12-08] MEDS: FENTANYL CITR 100 MCG/2 ML IV PRN (20:47)
[2017-12-08] MEDS: BUMETANIDE 1 MG TABLET PO SCH (20:50)
[2017-12-08] MEDS: TOPIRAMATE 25 MG TAB PO SCH (20:52)
[2017-12-08] MEDS: CARVEDILOL 3.125 MG TAB PO SCH (20:52)
[2017-12-08] MEDS: ATORVASTATIN 80 MG TAB PO SCH (20:52)
[2017-12-09] MEDS: FENTANYL CITR 100 MCG/2 ML IV PRN ×3 (03:10→19:42)
[2017-12-09] MEDS: ONDANSETRON 4 MG/2 ML VIAL IV PRN ×2 (03:11→15:42)
[2017-12-09 06:37] LABS: Albumin 2.1 g/dL (3.2-5.5); Bilirubin Total 0.4 mg/dL (0.3-1.2); Magnesium 1.5 mg/dL (1.8-2.5); Potassium 3.7 mEq/L (3.6-5.0); Protein, Total 4.8 g/dL (6.0-8.3); Thyroid Stimulating Hormone 1.6 uIU/mL (0.34-5.60)
[2017-12-09 07:39] LABS: Absolute Lymphocytes (CBC) 1.6 K/uL (0.7-4.9); Absolute Monocytes 0.5 K/uL (0.1-1.3); Absolute Neutrophil 7.1 K/uL (1.8-8.0); Basophils % 0.6 % (0-1.3); Hematocrit 32.5 % (39.6-49.0); Lymphocytes % 16.8 % (15.3-44.8); MCH 28.4 pg (27.0-35.0); MCV 85.6 fL (80-100); MPV 9.6 fL (7.6-11.3); Monocytes % 5.7 % (3.3-12.3)
[2017-12-09] MEDS: CLOPIDOGREL 75 MG TABLET PO SCH (08:56)
[2017-12-09] MEDS: BUMETANIDE 1 MG TABLET PO SCH ×2 (08:56→20:28)
[2017-12-09] MEDS: TOPIRAMATE 25 MG TAB PO SCH ×3 (08:56→20:26)
[2017-12-09] MEDS: ASPIRIN EC 81 MG TAB PO SCH (08:56)
[2017-12-09] MEDS: CARVEDILOL 3.125 MG TAB PO SCH ×2 (08:59→20:27)
[2017-12-09] MEDS: INSULIN -REGULAR HUMAN 50 UNIT/0.5 ML ML SQ SCH ×4 (09:00→21:42)
[2017-12-09 09:57] LABS: Blood Morphology Comment NOT SEEN (NOT SEEN); Platelet Estimate ADEQ; Urine White Blood Cell Casts OK
--- NOTE | 2017-12-09 10:49 | P.PN ---
Subjective Date of Service: 12/09/17 Primary Care Provider: Dr Marshall Chief Complaint: Stroke Pt seen and examined at bedside with RN. Doing well overall. No c/o overnight. Worked with PT and has been doing well. Review of Systems General: As per HPI Physical Examination - Vital Signs Temperature: 97.6 F Blood Pressure: 163/80 Pulse: 81 Respirations: 15 Pulse Ox (%): 95 - Physical Exam General: Alert, In no apparent distress HEENT: Atraumatic, PERRLA, EOMI Neck: Supple, JVD not distended Respiratory: Clear to auscultation bilaterally, Normal air movement Cardiovascular: Regular rate/rhythm, Normal S1 S2 Gastrointestinal: Normal bowel sounds, No tenderness Musculoskeletal: No tenderness Integumentary: No rashes, Other (BL BKA) Neurological: Normal speech, Normal tone, Normal affect Lymphatics: No axilla or inguinal lymphadenopathy - Studies Medications List Reviewed: Yes Assessment & Plan - Problems (Diagnosis) (1) CVA (cerebral vascular accident) Current Visit: Yes Status: Acute Plan: Subacute Infarct on the left Cerebral region -Neurology consulted. Appreciated reccs -ASA, plavix, Lipitor -PT/OT and Speech consulted. -CM consult for Inpatient rehab placement -MRA and MRI consistent with Left TRAFFIC PERSONNEL SUPERVISOR occulsion and Atherosclerosis at the MCA. -ECHO pending. Qualifiers: CVA mechanism: stenosis Precerebral and cerebral artery: middle cerebral artery Laterality of affected vessel: left Qualified Code(s): I63.512 - Cerebral infarction due to unspecified occlusion or stenosis of left middle cerebral artery (2) CAD (coronary artery disease) Current Visit: Yes Status: Chronic Plan: Restart Home medication Qualifiers: Coronary Disease-Associated Artery/Lesion type: [place] artery [place] vs. transplanted heart: [place] heart Associated angina: with stable angina Qualified Code(s): I25.118 - Atherosclerotic heart disease of [place] coronary artery with other forms of angina pectoris (3) DM type 2 (diabetes mellitus, type 2) Onset Date: 05/31/16 Current Visit: No Status: Chronic Plan: Will place on ISS Qualifiers: Diabetes mellitus chcf insulin use: with chcf use Diabetes mellitus complication status: with neurologic complications Diabetes mellitus complication detail: with polyneuropathy Qualified Code(s): E11.42 - Type 2 diabetes mellitus with diabetic polyneuropathy; Z79.4 - [facility] (current) use of insulin; Z79.4 - detention (current) use of insulin; Z79.4 - detention ( current) use of insulin; Z79.4 - detention (current) use of insulin (4) Hypertension Onset Date: 12/15/14 Current Visit: No Status: Chronic Plan: Restart on Home medication Qualifiers: Hypertension type: essential hypertension Qualified Code(s): I10 - Essential (primary) hypertension (5) Chronic pain syndrome Onset Date: 08/03/14 Current Visit: No Status: Chronic Discharge Plan: Other (Inpatient Rehab) Plan to discharge in: 24 Hours - Code Status/Comfort Care Code Status Assessed: Yes Critical Care: No
[2017-12-09 10:56] VITALS: O2SAT 95
[2017-12-09] MEDS: NICOTINE 7 MG/PAT TD SCH (12:11)
[2017-12-09] MEDS: NA CHLORIDE 0.9% 1,000 ML IV SCH (12:19)
[2017-12-09] MEDS: HYDROCODONE/APAP 10/325 TAB PO PRN ×2 (12:19→20:27)
--- NOTE | 2017-12-09 15:57 | PN ---
Date of Progress Note: 12/09/2017 Time: 1350. Reason: Stroke. Interval History: The patient is stable. No new problems. Still awaiting results to further workup . Vision loss is unchanged. Physical Examination: General: He is awake, alert. HEENT: Dense right homonymous hemianopia. Ocular motion full. Face symmetric. Extremities: Strength 4+, interphalangeal weakness on the right. Cortical extinction on the right. Reflexes are absent. Bilateral wgwwk-[id number]-cpop amputations. Impression: Cerebral infarction. Plan: PT evaluation and echocardiogram in the morning. We will continue to follow. ROB/MODL Voice ID: [id number] Report ID: [id number]
[2017-12-09] MEDS: ENOXAPARIN 40 MG/0.4 ML SQ SCH (16:40)
[2017-12-09] MEDS: ATORVASTATIN 80 MG TAB PO SCH (20:27)
[2017-12-09] MEDS ORDERED: METOPROLOL TAR 50 MG TAB PO ONE (23:10)
[2017-12-10] MEDS: FENTANYL CITR 100 MCG/2 ML IV PRN ×4 (00:09→14:25)
[2017-12-10] MEDS: NA CHLORIDE 0.9% 1,000 ML IV SCH (00:09)
[2017-12-10] MEDS: ONDANSETRON 4 MG/2 ML VIAL IV PRN (01:40)
[2017-12-10] MEDS: HYDROCODONE/APAP 10/325 TAB PO PRN (01:40)
[2017-12-10 05:46] LABS: Absolute Lymphocytes (CBC) 1.7 K/uL (0.7-4.9); Absolute Monocytes 0.6 K/uL (0.1-1.3); Absolute Neutrophil 4.7 K/uL (1.8-8.0); Basophils % 0.6 % (0-1.3); Eosinophils % 3.2 % (0-4.4); Hematocrit 31.5 % (39.6-49.0); Lymphocytes % 23.8 % (15.3-44.8); MCH 28.5 pg (27.0-35.0); MCV 85.5 fL (80-100); MPV 9.6 fL (7.6-11.3); Monocytes % 7.6 % (3.3-12.3); RBC Red Blood Cell Count 3.69 M/uL (4.33-5.43)
[2017-12-10 06:11] LABS: Albumin 2.3 g/dL (3.2-5.5); Bilirubin Total 0.5 mg/dL (0.3-1.2); Potassium 4.1 mEq/L (3.6-5.0); Protein, Total 5.3 g/dL (6.0-8.3)
--- NOTE | 2017-12-10 08:13 | ECHO ---
HEIGHT: 6 ft 5 in WEIGHT: 230 lb 5 oz DATE OF STUDY: 12/07/[address]: Alissa Howard MD 2-DIMENSIONAL: YES M.MODE: YES DOPPLER: YES COLOR FLOW: YES TDS: YES PORTABLE: NO DEFINITY: NO BUBBLE STUDY: NO DIAGNOSIS: STROKE CARDIAC HISTORY: CATHERIZATION: NO SURGERY: YES PROSTHETIC VALVE: NO PACEMAKER: NO MEASUREMENTS (cm) DIASTOLIC (NORMALS) SYSTOLIC (NORMALS) IVSd 1.4 (0.6-1.2) LA Diam (1.9-4.0) LVEF 59% LVIDd 4.4 (3.5-5.7) LVIDs 3.0 (2.0-3.5) %FS 31% LVPWd 1.4 (0.6-1.2) Ao Diam 3.5 (2.0-3.7) 2 DIMENSIONAL ASSESSMENT: RIGHT ATRIUM: NORMAL LEFT ATRIUM: NORMAL RIGHT VENTRICLE: NORMAL LEFT VENTRICLE: NORMAL TRICUSPID VALVE: NORMAL MITRAL VALVE: MITRAL ANNULAR CALCIFICATION PULMONIC VALVE: NORMAL AORTIC VALVE: NORMAL PERICARDIAL EFFUSION: NONE AORTIC ROOT: NORMAL LEFT VENTRICULAR WALL MOTION: NORMAL DOPPLER/COLOR FLOW: MILD MITRAL AND TRICUSPID REGURGITATION. COMMENTS: MILD MITRAL AND TRICUSPID REGURGITATION. NORMAL LEFT VENTRICULAR SIZE AND FUNCTINO. TECHNICALLY DIFFICULT STUDY. MITRAL ANNULAR CALCIFICATION. TECHNOLOGIST: Peggy PORTER
--- NOTE | 2017-12-10 09:36 | P.PN ---
Subjective Date of Service: 12/10/17 Primary Care Provider: Dr Marshall Chief Complaint: Stroke Subjective: Improving (Patient doing well this time. No significant weakness noted. Slight confusion) Physical Examination - Vital Signs Temperature: 97.6 F Blood Pressure: 162/81 Pulse: 68 Respirations: 18 Pulse Ox (%): 97 - Physical Exam General: Alert, In no apparent distress, Other (Overall improved. Slight confusion noted.) HEENT: Atraumatic, Mucous membr. moist/pink, Other (Vision loss improved.) Neck: Supple Respiratory: Clear to auscultation bilaterally, Normal air movement Cardiovascular: Normal pulses, Regular rate/rhythm Gastrointestinal: Normal bowel sounds, Soft and benign, Non-distended, No masses , No rebound, No guarding Musculoskeletal: No erythema, No tenderness, No warmth, Other (Below-knee amputations bilateral) Integumentary: No tenderness/swelling, No erythema, No warmth, No cyanosis Neurological: Normal speech, Normal tone, Normal affect, Abnormal strength ( Some weakness to the right side.) - Studies Medications List Reviewed: Yes Assessment & Plan - Problems (Diagnosis) (1) Hyperlipidemia Current Visit: Yes Status: Chronic Plan: Will continue with Lipitor. Patient to be assessed for inpatient rehab. Qualifiers: Hyperlipidemia type: unspecified Qualified Code(s): E78.5 - Hyperlipidemia , unspecified (2) Chronic renal disease Current Visit: Yes Status: Chronic Plan: Patient with history of chronic renal disease. Medications will need to be renally dosed. Will monitor closely. Overall stable. Qualifiers: Chronic kidney disease stage: stage 2 (mild) Qualified Code(s): N18.2 - Chronic kidney disease, stage 2 (mild) (3) CHF (congestive heart failure) Current Visit: Yes Status: Suspected Plan: Will monitor closely. ECHO reviewed. Patient currently on Bumex. Will continue with a 1500 cc per day fluid restriction. Qualifiers: Heart failure type: diastolic Heart failure chronicity: chronic Qualified Code(s): I50.32 - Chronic diastolic (congestive) heart failure (4) CVA (cerebral vascular accident) Current Visit: Yes Status: Acute Plan: Left posterior cerebral artery distribution CVA noted. Will continue physical therapy and occupational therapy. Will check to see if the patient qualifies for inpatient rehab. Patient on aspirin and Plavix. Qualifiers: CVA mechanism: stenosis Precerebral and cerebral artery: middle cerebral artery Laterality of affected vessel: left Qualified Code(s): I63.512 - Cerebral infarction due to unspecified occlusion or stenosis of left middle cerebral artery (5) CAD (coronary artery disease) Current Visit: Yes Status: Chronic Plan: Will continue with current medications. Qualifiers: Coronary Disease-Associated Artery/Lesion type: [place] artery [place] vs. transplanted heart: [place] heart Associated angina: with stable angina Qualified Code(s): I25.118 - Atherosclerotic heart disease of [place] coronary artery with other forms of angina pectoris (6) Anemia Onset Date: 05/31/16 Current Visit: No Status: Chronic Plan: This is likely chronic disease. Will check iron and B12 studies. Qualifiers: Anemia type: other cause (7) Diabetes mellitus Onset Date: 10/26/14 Current Visit: No Status: Chronic Plan: Patient needs better diabetic control. Will continue with basal insulin. Will monitor closely and adjust. Patient previously taking metformin. This will be discontinued due to renal disease. Qualifiers: Diabetes mellitus type: type 2 Diabetes mellitus laborer marine terminal insulin use: with correction use Diabetes mellitus complication status: with other specified complication Qualified Code(s): E11.69 - Type 2 diabetes mellitus with other specified complication; Z79.4 - [facility] (current) use of insulin; Z79.4 - terminal operator (current) use of insulin; Z79.4 - [facility] (current) use of insulin; Z79.4 - terminal operator (current) use of insulin (8) Chronic pain syndrome Onset Date: 08/03/14 Current Visit: No Status: Chronic Plan: Will continue with pain control medication (9) Hypertension Onset Date: 12/15/14 Current Visit: No Status: Chronic Plan: Will continue with carvedilol. Qualifiers: Hypertension type: essential hypertension Qualified Code(s): I10 - Essential (primary) hypertension Discharge Plan: Other (Inpatient rehab) Plan to discharge in: 24 Hours Time Spent Managing Pts Care (In Minutes): 55
[2017-12-10] MEDS: TOPIRAMATE 25 MG TAB PO SCH ×2 (09:58→13:20)
[2017-12-10] MEDS: CLOPIDOGREL 75 MG TABLET PO SCH (09:58)
[2017-12-10] MEDS: CARVEDILOL 3.125 MG TAB PO SCH (09:58)
[2017-12-10] MEDS: ASPIRIN EC 81 MG TAB PO SCH (09:59)
[2017-12-10] MEDS: NICOTINE 7 MG/PAT TD SCH (10:00)
[2017-12-10] MEDS: INSULIN -REGULAR HUMAN 50 UNIT/0.5 ML ML SQ SCH ×2 (10:09→13:18)
[2017-12-10] MEDS: BUMETANIDE 1 MG TABLET PO SCH (10:14)
[2017-12-10] MEDS ORDERED: Magnesium Sulfate 2gm IVPB 2 G/50 ML BAG IV ONE (12:16)
[2017-12-10 13:36] VITALS: BP 138/79; TEMP 97.4
[2017-12-10] MEDS ORDERED: INSULIN DETEMIR 100 UNIT/1 ML INSULIN SQ SCH (21:00)
--- NOTE | 2017-12-18 14:36 | P.DS ---
Admission Date: 12/07/17 Discharge Date: 12/10/17 Primary Care Provider: Dr Marshall Disposition: TRANSFER TO INPATIENT REHAB Discharge Condition: GOOD Reason for Admission: Stroke Consultations: Neurology - Problems (1) Hyperlipidemia Onset Date: 12/10/17 Status: Chronic Qualifiers: Hyperlipidemia type: unspecified Qualified Code(s): E78.5 - Hyperlipidemia , unspecified (2) Chronic renal disease Onset Date: 12/10/17 Status: Chronic Qualifiers: Chronic kidney disease stage: stage 2 (mild) Qualified Code(s): N18.2 - Chronic kidney disease, stage 2 (mild) (3) CHF (congestive heart failure) Onset Date: 12/10/17 Status: Suspected Qualifiers: Heart failure type: diastolic Heart failure chronicity: chronic Qualified Code(s): I50.32 - Chronic diastolic (congestive) heart failure (4) CVA (cerebral vascular accident) Onset Date: 12/10/17 Status: Acute Qualifiers: CVA mechanism: stenosis Precerebral and cerebral artery: middle cerebral artery Laterality of affected vessel: left Qualified Code(s): I63.512 - Cerebral infarction due to unspecified occlusion or stenosis of left middle cerebral artery (5) CAD (coronary artery disease) Onset Date: 12/10/17 Status: Chronic Qualifiers: Coronary Disease-Associated Artery/Lesion type: kn[place] artery [place] vs. transplanted heart: knik heart Associated angina: with stable angina Qualified Code(s): I25.118 - Atherosclerotic heart disease of knik coronary artery with other forms of angina pectoris (6) Anemia Onset Date: 05/31/16 Status: Chronic Qualifiers: Anemia type: other cause (7) Diabetes mellitus Onset Date: 10/26/14 Status: Chronic Qualifiers: Diabetes mellitus type: type 2 Diabetes mellitus care home insulin use: with care home use Diabetes mellitus complication status: with other specified complication Qualified Code(s): E11.69 - Type 2 diabetes mellitus with other specified complication; Z79.4 - moth exterminator (current) use of insulin; Z79.4 - residential (current) use of insulin; Z79.4 - moth exterminator (current) use of insulin; Z79.4 - residential (current) use of insulin (8) Chronic pain syndrome Onset Date: 08/03/14 Status: Chronic (9) Hypertension Onset Date: 12/15/14 Status: Chronic Qualifiers: Hypertension type: essential hypertension Qualified Code(s): I10 - Essential (primary) hypertension Brief History of Present Illness: 57-year-old female present emergency room with right upper extremity weakness and confusion. Patient found to have CVA. Patient was admitted for further evaluation. Patient has multiple medical problems. Hospital Course: Patient presented with right arm weakness and confusion. Patient found to have left posterior cerebral artery distribution CVA. Patient evaluated by neurology. At discharge to inpatient rehab the patient will continue with aspirin 81 mg daily and Plavix 75 mg 1 pill daily. Lipitor has been increased to 80 mg 1 pill daily. Patient will continue with physical therapy, speech therapy and occupational therapy. Patient with history of bilateral below-knee amputations, diabetes, hypertension, hyperlipidemia. Tobacco cessation addressed in detail. Patient has diabetes. This remained stable during her stay. Patient will continue with his regular regimen of Lantus 28 units at bedtime. Patient also sliding scale. Metformin has been discontinued due to his chronic renal disease is to maintain blood sugars less 140 fasting and less than 200 after meals. Further adjustment can be done by his PCP. Patient has hypertension. This remained stable during her stay. Patient will continue with carvedilol 3.125 mg 1 pill twice daily. Recommendation is to maintain blood pressures less 150/80. Further adjustment can be done by his PCP. Patient has hyperlipidemia. Lipitor has been increased to 80 mg 1 pill once daily. Patient with history of chronic pain. Patient will continue with [place] as needed for pain. Patient with tobacco abuse. Patient will be provided nicotine patch to be use. Tobacco cessation education will be provided. Patient with chronic renal disease. This will need to be monitored as an outpatient. Recommendation to recheck lab-BMP in 1 week. Patient will continue with Bumex 1 mg 1 pill twice daily. Patient continue with a 1500 cc per day fluid restriction. Future medications will need to be renally dosed. Recommendation on no further use of nonsteroidal anti-inflammatories. Patient with bilateral below-knee amputations. Patient will continue with therapy. Patient likely has underlying diastolic CHF. Patient continue with a 1500 cc per day fluid restriction and Bumex 1 mg 1 pill twice daily. Further adjustment can be done by his PCP. Patient with anemia likely of chronic disease is to recheck CBC in 1-2 weeks to follow up and monitor. Patient may continue with DVT prophylaxis in inpatient rehab. Vital Signs/Physical Exam: Temp Pulse Resp BP Pulse Ox 97.4 F 68 18 138/79 97 12/10/17 12:00 12/10/17 12:00 12/10/17 12:00 12/10/17 12:00 12/10/17 12:00 General: Alert, In no apparent distress, Cooperative HEENT: Atraumatic Neck: Supple Respiratory: Clear to auscultation bilaterally, Normal air movement Cardiovascular: Normal pulses, Regular rate/rhythm Gastrointestinal: Normal bowel sounds, Soft and benign, Non-distended, No masses , No rebound, No guarding Musculoskeletal: Other ( upper extremity weakness improved) Laboratory Data at Discharge: WBC 7.3 K/uL (4.3-10.9) D 12/10/17 05:03 Hgb 10.5 g/dL (13.6-17.9) L 12/10/17 05:03 Hct 31.5 % (39.6-49.0) L 12/10/17 05:03 Plt Count 261 K/uL (152-406) 12/10/17 05:03 PT 11.0 SECONDS (9.5-12.5) 12/07/17 11:40 INR 0.93 12/07/17 11:40 APTT 28.5 SECONDS (24.3-36.9) 12/07/17 11:40 Sodium 132 mEq/L (135-145) L 12/10/17 05:03 Potassium 4.1 mEq/L (3.6-5.0) 12/10/17 05:03 BUN 16 mg/dL (6-20) 12/10/17 05:03 Creatinine 1.67 mg/dL (0.61-1.24) H 12/10/17 05:03 Glucose 146 mg/dL (65-120) H 12/10/17 05:03 Phosphorus 3.3 mg/dL (2.5-4.3) 12/08/17 05:50 Magnesium 1.5 mg/dL (1.8-2.5) L 12/10/17 05:03 Total Bilirubin 0.5 mg/dL (0.3-1.2) 12/10/17 05:03 AST 12 IU/L (10-42) 12/10/17 05:03 ALT 8 IU/L (10-60) L 12/10/17 05:03 Alkaline Phosphatase 60 IU/L (42-121) 12/10/17 05:03 B-Natriuretic Peptide 585 pg/ml (<=100) H 12/07/17 11:40 Triglycerides 214 mg/dL (35-160) H 12/08/17 05:50 Cholesterol 141 mg/dL (<200) 12/08/17 05:50 HDL Cholesterol 26 mg/dL (27-67) L 12/08/17 05:50 Cholesterol/HDL Ratio 5.42 12/08/17 05:50 Home Medications: Insulin Glargine Human [Lantus*] 28 units SQ BEDTIME 05/29/16 Insulin Lispro [Humalog] 7 units SQ AC 05/29/16 Hydrocodone 10/APAP 325 [[place] 10/325*] 2 tab PO TID 05/30/16 Aspirin [Aspirin EC 81 MG] 1 tab PO DAILY 12/07/17 Carvedilol 1 tab PO BID 12/07/17 Atorvastatin Calcium [Lipitor] 80 mg PO BEDTIME #30 tab 12/10/17 Clopidogrel Bisulfate [Plavix*] 75 mg PO DAILY #30 tablet 12/10/17 Folic Acid 1 mg PO DAILY #30 tablet 12/10/17 Nicotine [Nicoderm*] 7 mg TD DAILY #30 patch.td24 12/10/17 Amox/Clavulanate [Augmentin 500-125 mg Tab] 500 mg PO BID #3 tab 12/18/17 Bumetanide [Bumex] 0.5 mg PO BID #30 tablet 12/18/17 New Medications: Atorvastatin Calcium [Lipitor] 80 mg PO BEDTIME #30 tab Clopidogrel Bisulfate [Plavix*] 75 mg PO DAILY #30 tablet Folic Acid 1 mg PO DAILY #30 tablet Nicotine [Nicoderm*] 7 mg TD DAILY #30 patch.td24 Patient Discharge Instructions: 1. Patient will be transferred to inpatient rehab to continue his rehabilitation and care. 2. Patient presented with right arm weakness and confusion. Patient found to have left posterior cerebral artery distribution CVA. Patient evaluated by neurology. At discharge to inpatient rehab the patient will continue with aspirin 81 mg daily and Plavix 75 mg 1 pill daily. Lipitor has been increased to 80 mg 1 pill daily. Patient will continue with physical therapy, speech therapy and occupational therapy. Patient with history of bilateral below-knee amputations , diabetes, hypertension, hyperlipidemia. Tobacco cessation addressed in detail. 3. Patient has diabetes. Patient will continue with his regular regimen of Lantus 28 units at bedtime. Patient also sliding scale. Metformin has been discontinued due to his chronic renal disease is to maintain blood sugars less 140 fasting and less than 200 after meals. Further adjustment can be done by his PCP. 4. Patient has hypertension. Patient will continue with carvedilol 3.125 mg 1 pill twice daily. Recommendation is to maintain blood pressures less 150/80. Further adjustment can be done by his PCP. 5. Patient has hyperlipidemia. Lipitor has been increased to 80 mg 1 pill once daily. 6. Patient with history of chronic pain. Patient will continue with [place] as needed for pain. 7. Patient with tobacco abuse. Patient will be provided nicotine patch to be use. Tobacco cessation education will be provided. 8. Patient with chronic renal disease. This will need to be monitored as an outpatient. Recommendation to recheck lab-BMP in 1 week. Patient will continue with Bumex 1 mg 1 pill twice daily. Patient continue with a 1500 cc per day fluid restriction. Future medications will need to be renally dosed. Recommendation on no further use of nonsteroidal anti-inflammatories. 9. Patient with bilateral below-knee amputations. Patient will continue with therapy. 10. Patient likely has underlying diastolic CHF. Patient continue with a 1500 cc per day fluid restriction and Bumex 1 mg 1 pill twice daily. Further adjustment can be done by his PCP. 11. Patient with anemia likely of chronic disease is to recheck CBC in 1-2 weeks to follow up and monitor. 12. Patient may continue with DVT prophylaxis in inpatient rehab. Diet: Continue current diet Activity: Fall precautions Time spent managing pt's care (in minutes): 55
== END 2017-12-10 15:31 | DRG 65 ==
LOC: ER 10:29 → ERHOLD 13:07 → 3RD-ICU 19:33 → 4TH 12-08 10:50
PROVIDERS: ADMIT Family Medicine; ATTEND Family Medicine
DX: I63.9 Cerebral infarction, unspecified (principal); I13.0 Hypertensive heart and chronic kidney disease with heart failure and stage 1 through stage 4 chronic kidney disease, or unspecified chronic kidney disease; I50.32 Chronic diastolic (congestive) heart failure; E11.22 Type 2 diabetes mellitus with diabetic chronic kidney disease; N18.2 Chronic kidney disease, stage 2 (mild); Z79.4 Long term (current) use of insulin; G89.4 Chronic pain syndrome; E78.5 Hyperlipidemia, unspecified; F17.210 Nicotine dependence, cigarettes, uncomplicated; Z89.512 Acquired absence of left leg below knee; Z89.511 Acquired absence of right leg below knee; D64.9 Anemia, unspecified; I25.10 Atherosclerotic heart disease of native coronary artery without angina pectoris; Z91.040 Latex allergy status
CPT/HCPCS: 36415; 70450; 70544; 70551; 71045; 80048; 80053; 80061; 81003; 81015; 82306; 82607; 82962; 83735; 83880; 84100; 84443; 85025; 85610; 85652; 85730; 86850; 86900; 86901; 87077; 87086; 87088; 87186; 93005; 93306; 93880; 97163; 99285; A9577; J1650; J2175; J2405; J3010; J3475; J7030

== ENCOUNTER 2017-12-10 09:28 | Inpatient (IN) | payer OTHER ==
--- NOTE | 2017-12-10 14:21 | R.PREADM ---
SCREENING DATE AND TIME 12/10/2017 10:48 (CDT) ANTICIPATED REHAB ADMISSION DATE 12/12/2017 REFERRING FACILITY [facility] REFERRAL DATE AND TIME 12/10/2017 10:49 (CDT) ACUTE ADMIT DATE 12/07/2017 Previous Rehabilitation(s): No. REFERRING PHYSICIAN PRES REHAB FACILITY [facility] CLINICAL LIAISON Candace Shaikh PHYSICIAN REVIEWER Dr. Mandeep Nicole M.D. MR# [id number] NAME KAMERON KOHLI ADDRESS [address] [facility] PHONE [facility] [id number] DATE OF 1960 AGE 57 SSN# [id number] GENDER male MARITAL STATUS Single (Never ) RACE ADMIT FROM 02 - [facility] PRE-HOSPITAL LIVING SETTING 01 - Home (private home/apt. board/care, assisted living, fpc, transitional living) HOME TYPE AND DETAILS Type of home: single family house # of steps to enter the residence: 0 # of steps within the residence: 0 # of levels in the residence: 1 PRE-HOSPITAL LIVING WITH Family/Relatives FAMILY SUPPORT Yes PRIMARY FAMILY CONTACT NAME Lizzy Vanessa PRIMARY FAMILY CONTACT PHONE PHONE PRIMARY FAMILY CONTACT ON ADM.? no IS PRIMARY FAMILY CONTACT AUTH. REP.? no 1ST EMERGENCY CONTACT Lizzy Vanessa 1ST CONTACT PHONE PHONE 1ST CONTACT ON ADM. no IS 1ST CONTACT AUTH. REP.? no PHONE 2ND CONTACT ON ADM.? no PATIENT EMPLOYMENT STATUS Employed [employer] PAYOR INFORMATION: 1ST PAYOR NAME MEDICARE 1ST PAYOR PHONE 1ST PAYOR INJURY/ILLNESS DUE TO ACCIDENT? No ANOTHER GREEN PARTY RESPONSIBLE? 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 COMORBID REHAB/ACUTE DIAGNOSES: - N/A diabetes mellitus type 2 hypertension CONGESTIVE HEART FAILURE coronary artery disease HYPERLIPIDEMIA chronic renal disease INTERVENTIONS: - Hypertension Fluid management Medications VS RISK FOR COMPLICATIONS: - Hypertension CVA Hypotension OH TIA SUMMARY OF ACUTE HOSPITALIZATION: Pt. is a 57 yo Right-handed male. On 12/07/2017 Pt. presented to [facility] with sudden onset of right-side weakn ess. On 12/07/2017 he was admitted to [facility] with diagnosis acute nonhemorrhagic CVA involving the left posterior cerebral artery distribution an adjecent thalamo perforating branch es. His impairment category is Stroke 01 - Right Body (Left Brain) (01.2). Pre-morbidly, Pt. was independent/mod-I in Sphincter Control, Transfers Control, Communication, Socia l Cognition, Self-Care, and Locomotion; and he had good Sphincter Control. Currently, he has deficits of Endurance, Safety Awareness, Transfers Control, Communication, Social C ognition, Balance, Locomotion, and Self-Care. Pt. is now referred to [facility] for acute in-patient rehabilitation in order to maximize patient's functional independence in activities of daily living, strength, ROM, and mobi lity. Patient has realistic goal of being discharged at assistance level 4-Zainab to reside at Home with Fam issa/Relatives. PAST MEDICAL HISTORY CONGESTIVE HEART FAILURE HYPERLIPIDEMIA chronic renal disease coronary artery disease diabetes mellitus type 2 hypertension bilateral BKA MEDICATION ALLERGIES: hydromorphone morphine latex allergy latex, natural rubber allergy baclofen ENVIRONMENTAL ALLERGIES: - Substance Allergies None Known - Other Allergies None Known CODE STATUS: Other (details in "Legal Documents") WEIGHT/HEIGHT/BMI: WEIGHT 230 lbs HEIGHT 6' 5" BMI 27.3 DIET: - Diet Type Regular - Diet - Solid Texture Regular - Diet - Liquid Texture Regular - Tube Feed N/A REVIEW OF SYSTEMS: - Gen Alert and awake Lying in bed No apparent distress Oriented to: person, time, and place - Vital Signs Vital signs stable, afebrile - CVS RRR VITAL SIGNS Temperature: 97.6 F SBP/DBP: 162/81 Pulse: 18 Resp: 18 Vital signs stable, afebrile CURRENT SPHINCTER CONTROL: Pre-hospital bladder status: continent # of bladder accidents in the last 7 days prior to screenin Pre-hospital bowel status: continent # of bowel accidents in the last 7 days prior to screenin Last Bowel Movement Date: 12/10/2017 DETAILED CURRENT FUNCTIONAL STATUS: - Bladder accident frequency: Ind - No accidents in the past 7 days - Bowel accident frequency: Ind - No accidents in the past 7 days - Walking score based on distance walked: 0(N/A) - Wheelchair score based on distance traveled: 0(N/A) FUNCTIONAL STATUS: - Self-Care A. Eating Ind Ind B. Grooming Rush Rush C. Bathing Rush Rush D. Dressing - Upper Rush Rush E. Dressing - Lower Rush Zainab F. Toileting Rush Ind - Sphincter Control G: Bladder control Ind Ind H: Bowel control Ind Ind - Transfers Control I. Bed/Chair/Wheelchair Rush Zainab J. Toilet Rush Zainab K. Tub/Shower Rush Zainab - Locomotion L. Walk/Wheelchair (W) Rush Zainab M. Stairs ADNO ADNO - Communication N. Comprehension (B) Ind sup O. Expression (B) Ind sup - Social Cognition P. Social Interaction Ind sup Q. Problem Solving Ind sup R. Memory Ind sup - Endurance Fair - Balance Fair - Safety Awareness Fair CURRENT FUNC. DEFICITS: Endurance, Safety Awareness, Transfers Control, Communication, Social Cognition, Balance, Locomotion, and Self-Care THERAPY NOTES FROM ACUTE CARE: Attached. SPECIAL NEEDS: - Safety Concerns Skin breakdown precautions needed due to skin breakdown risk PRECAUTIONS: - Weight Bearing Precaution NWB both LE PATIENT NEEDS ACTIVE AND ONGOING THERAPEUTIC INTERVENTION OF MULTIPLE THERAPY DISCIPLINES, INCLUDING: - Occupational Therapy Evaluate and Treat. Cognitive Retraining. Visual Perceptual Training. - Speech Therapy Memory Strategies. Expressive Language Skills. Speech Intelligibility Training. Cognitive Training. R eceptive Language Skills. - Physical Therapy Evaluate and Treat. PATIENT NEEDS CLOSE MEDICAL SUPERVISION BY A REHABILITATION PHYSICIAN FOR: Bowel and Bladder Management Coordination of Treatment Team Diabetes Management Medical and Co-Morbidity Management PATIENT REQUIRES 24X7 REHAB NURSING FOR MEDICAL AND FUNCTIONAL MGT. OF THE FOLLOWING DEFICITS: ADL's Ambulation Bowel and Bladder Management Cognition Communication Disease Management Medication Management Patient/Family Education Providing Safe Environment Transfers PATIENT REQUIRES INTENSIVE, COORDINATED INTERDISCIPLINARY APPROACH TO REHAB: Arranging Home Equipment/Services Discharge Planning Family Intervention/Training Buckle Inspector/Case Management PATIENT REHAB POTENTIAL: Expected level of measurable improvement will be of a practical value to patient's functional capacit y or adaptations to impairments Has a viable Discharge Plan Medically appropriate; condition is sufficiently stable to participate in intensive rehab program Patient is able and expected to receive 3 hours of individualized therapy daily on at least 5 of ever y 7 days Patient's prognosis for significant practical improvement within a reasonable period of time appears Good DISCHARGE PLAN: - Estimated Length of Stay (days) 17. - Consensus on plan Discharge plan has been discussed with primary caregiver. Patient/Family is in agreement with the kelly n. Primary caregiver is in agreement with the plan. - Patient/Family Goals Return home with assistance. - Planned Living Setting Upon Discharge Home, to live with Family/Relatives. RECOMMENDED CARE LEVEL: IRF RECOMMENDATION DETAILS: Recommended Admission to Comprehensive Rehabilitation Program to Increase Functional [place] SCREENER'S COMPLETENESS CONFIRMATION: - Screening Confirmation The patient data collection on this preadmission screening form is finished PHYSICIANS REVIEW AND ADMISSION DETERMINATION Admit - Based on my review of the Pre-Admission Screening results, in my medical judgment and experie nce, I concur with the findings and recommend admission to [facility], as this patient requires an IRF level of care. SIGNATURE PANEL: Clinical Liaison - [electronically] signed by Vale Biggs on 12/10/2017 at 11:39 (CDT) Clinical Liaison - [electronically] signed by Candace Shaikh on 12/10/2017 at 11:43 (CDT) Physician Reviewer - [electronically] signed by Dr. Mandeep Nicole M.D. on 12/10/2017 at 13:23 (CDT )
[2017-12-10] MEDS ORDERED: GLUCAGON 1 MG/VIAL IM PRN (16:28)
[2017-12-10] MEDS ORDERED: D50W 25 GM/50 ML SYRINGE IV PRN (16:28)
[2017-12-10] MEDS: INSULIN LISPRO 100 UNIT/1 ML SQ SCH (17:21)
[2017-12-10] MEDS: CARVEDILOL 3.125 MG TAB PO SCH (17:21)
[2017-12-10] MEDS ORDERED: PNEUMOCOCCAL VACCINE 0.5 ML IMVAC ONE (19:00)
[2017-12-10] MEDS: HYDROCODONE/APAP 10/325 TAB PO SCH (21:00)
[2017-12-10] MEDS: INSULIN DETEMIR 100 UNIT/1 ML INSULIN SQ SCH ×2 (21:00→22:24)
[2017-12-10] MEDS: ATORVASTATIN 80 MG TAB PO SCH (22:23)
[2017-12-10] MEDS: BUMETANIDE 1 MG TABLET PO SCH (22:23)
--- NOTE | 2017-12-11 04:29 | FAST ---
SHIFT START DATE/TIME: 12/10/2017 19:00 (CDT) SHIFT END DATE/TIME: 12/11/2017 07:00 (CDT) NAME KAMERON KOHLI DATE OF : 1960 DATE OF ADMISSION: 12/10/2017 15:50 (CDT) PHONE: AGE: 57 N# [id number] GENDER: Male ENCOUNTER PHYSICIAN: Dr. Mandeep Nicole M.D. 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 EATING: EATING - STEP 1: Does the patient require assistance when eating? Yes. EATING - STEP 2: Does the patient require the assistance of a helper? Yes. EATING - STEP 3: Does the patient perform half or more of the eating tasks? Yes. EATING - STEP 4: Does the patient need only supervision, cuing, coaxing OR help to apply an orthosis OR help to cut fo od, open containers, pour liquids, or butter bread? No. EATING - SCORE: 4-MIN GROOMING: Comb/brush hair Oral care Wash, rinse, and dry face Wash, rinse, and dry hands GROOMING - STEP 1: Does the patient require assistance when grooming? Yes. GROOMING - STEP 2: Does the patient require the assistance of a helper? Yes. GROOMING - STEP 3: How much assistance does the patient require from the helper? More than incidental help GROOMING - STEP 4: How many grooming tasks does the patient perform WITHOUT the assistance of the helper? Half or more o f the grooming tasks GROOMING - SCORE: 3-MOD BATHING: Activity did not occur on this shift BATHING - SCORE: 0-UNK DRESSING - UPPER BODY: Patient is not dressing in public clothing ARTICLES SCORE Total number of steps: 0 DRESSING - UPPER BODY - SCORE: 0-UNK DRESSING - LOWER BODY: Patient is not dressing in public clothing ARTICLES SCORE Total number of steps: 0 DRESSING - LOWER BODY - SCORE: 0-UNK TOILETING: TOILETING - STEP 1: Does the patient require assistance with toileting? Yes. TOILETING - STEP 2: Does the patient require the assistance of a helper? Yes. TOILETING - STEP 3: How much assistance does the patient require from the helper? Hands-on assistance from the helper TOILETING - STEP 4: Of the 3 tasks: 1) Adjusting clothing prior to use, 2) Cleansing of perineal area, 3) Adjusting clot donita after use; How many tasks does the patient perform WITHOUT assistance of the helper? Two tasks TOILETING - SCORE: 3-MOD BLADDER MANAGEMENT: BLADDER MANAGEMENT - STEP 1: Does the patient control the bladder completely and intentionally without equipment or devices or med ications, and is always continent? No. BLADDER MANAGEMENT - STEP 2: Does the patient require the assistance of a helper? Yes. BLADDER MANAGEMENT - STEP 3: How much assistance does the patient require from the helper? Patient requires contact assistance fro m the helper BLADDER MANAGEMENT - STEP 4: How much contact assistance does the patient require from the helper? Patient requires minimal assist ance to maintain an external device - by positioning, and the patient performs 75% or more of bladder management tasks, while the helper provides less than 25% of the assistance to position patient on / off bedpan BLADDER MANAGEMENT - SCORE: 4-MIN BLADDER MANAGEMENT - FREQUENCY OF ACCIDENTS: BLADDER MANAGEMENT(FA) - STEP 1: How many accidents has the patient had during the current shift? 1 BOWEL MANAGEMENT: Activity did not occur on this shift BOWEL MANAGEMENT - SCORE: 7-IND TRANSFERS: BED, CHAIR, WHEELCHAIR: Activity did not occur on this shift TRANSFERS: BED, CHAIR, WHEELCHAIR - SCORE: 0-UNK TRANSFERS: TOILET: Activity did not occur on this shift TRANSFERS: TOILET - SCORE: 0-UNK TRANSFERS: SHOWER: Activity did not occur on this shift TRANSFERS: SHOWER - SCORE: 0-UNK TRANSFERS: TUB: Activity did not occur on this shift TRANSFERS: TUB - SCORE: 0-UNK LOCOMOTION: WALK: Activity did not occur on this shift LOCOMOTION: WALK - SCORE: 0-UNK LOCOMOTION: WHEELCHAIR: Activity did not occur on this shift LOCOMOTION: WHEELCHAIR - SCORE: 0-UNK COMPREHENSION: COMPREHENSION: TYPE: Both COMPREHENSION - STEP 1: Does the patient require help to understand complex and abstract ideas (such as current events, finan gurinder, discharge planning, medical issues, relationships, etc)? Yes. COMPREHENSION - STEP 2: Does the patient require help to understand questions or statements about basic needs or ideas (such as hunger, thirst, sleep, safety, daily schedule, room location, or discomfort) half or more of the t annia? Yes. COMPREHENSION - STEP 3: Is the patient basically able to understand and respond appropriately and consistently? Yes. COMPREHENSION - SCORE: 2-MAX EXPRESSION EXPRESSION: TYPE: Both EXPRESSION - STEP 1: Does the patient require help expressing complex and abstract ideas (such as current events, finances , discharge planning, medical issues, relationships, etc)? Yes. EXPRESSION - STEP 2: Does the patient require help to express basic necessities or ideas (such as hunger, thirst, sleep, s afety, daily schedule, room location, or discomfort) half or more of the time? Yes. EXPRESSION - STEP 3: Is the patient basically unable to express or does s/he express inappropriately or inconsistently oz pite prompting? No. EXPRESSION - SCORE: 2-MAX SOCIAL INTERACTION: SOCIAL INTERACTION - STEP 1: Does the patient require a helper to interact with others in social and therapeutic situations? Yes. SOCIAL INTERACTION - STEP 2: Does the patient interact appropriately half or more of the time? No. SOCIAL INTERACTION - STEP 3: How often does the patient interact appropriately? More than 25% of the time SOCIAL INTERACTION - SCORE: 2-MAX PROBLEM SOLVING: PROBLEM SOLVING - STEP 1: Does the patient need help to solve complex problems such as managing a checking account or confronti ng interpersonal problems? Yes. PROBLEM SOLVING - STEP 2: Does the patient solve basic routine problems half or more of the time? No. PROBLEM SOLVING - STEP 3: Does the patient need help to solve problems all the time or is s/he unable to solve problems? Yes. P atient needs help to solve problems all the time or is unable to solve problems PROBLEM SOLVING - SCORE: 1-DEP MEMORY: MEMORY - STEP 1: Does the patient need help to remember frequently encountered people, daily routines, and executing r equests? Yes. MEMORY - STEP 2: How often does the patient need help to remember frequently encountered people, daily routines, and e xecuting requests? More than 50% of the time MEMORY - STEP 3: Does the patient need help to remember all of the time OR does s/he not effectively recognize and rem ember? No. Patient does not need help all the time MEMORY - SCORE: 2-MAX SIGNATURE PANEL: The following modified sections: Eating - Score, Grooming - Score, Bathing - Score, Dressing - Upper Body - Score, Dressing - Lower Body - Score, Toileting - Score, Bladder Management - Score, Bowel Man agement - Score, Transfers: Bed, Chair, Wheelchair - Score, Transfers: Toilet - Score, Transfers: Gladys wer - Score, Transfers: Tub - Score, Locomotion: Walk - Score, Locomotion: Wheelchair - Score, Compre hension - Score, Expression - Score, Social Interaction - Score, Problem Solving - Score, Memory - Sc ore were [electronically] signed by Nasreen Amezquita CLynnNYue on SunDec 11 2017 03:31:10 T-0500 ( Central Daylight Time)
[2017-12-11] MEDS: CARVEDILOL 3.125 MG TAB PO SCH ×2 (05:19→17:02)
[2017-12-11 06:25] LABS: Absolute Lymphocytes (CBC) 1.5 K/uL (0.7-4.9); Absolute Monocytes 0.6 K/uL (0.1-1.3); Absolute Neutrophil 5.6 K/uL (1.8-8.0); Basophils % 0.5 % (0-1.3); Lymphocytes % 19.3 % (15.3-44.8); MCH 29.4 pg (27.0-35.0); MCV 85.2 fL (80-100); MPV 9.3 fL (7.6-11.3); Monocytes % 7.3 % (3.3-12.3); RBC Red Blood Cell Count 3.64 M/uL (4.33-5.43)
[2017-12-11 06:27] LABS: Albumin 2.3 g/dL (3.2-5.5); Magnesium 1.8 mg/dL (1.8-2.5); Potassium 3.9 mEq/L (3.6-5.0); Prealbumin 18.3 mg/dl (18-38)
[2017-12-11 06:57] LABS: Urine Appearance TURBID; Urine Bilirubin NEGATIVE (NEG); Urine Blood TRACE (NEG); Urine Color YELLOW; Urine Glucose NEGATIVE (NEG); Urine Protein 2+ (NEG); Urine Urobilinogen 0.2 mg/dL (0.2-1.0)
[2017-12-11 07:08] LABS: Urine Bacteria <20 /HPF (NONE SEEN); Urine Culture Reflex Order REFLEXED; Urine RBC <5 /HPF (NONE SEEN)
[2017-12-11] MEDS: INSULIN LISPRO 100 UNIT/1 ML SQ SCH ×3 (08:30→17:02)
[2017-12-11] MEDS: NICOTINE 7 MG/PAT TD SCH ×2 (08:32→16:15)
[2017-12-11] MEDS: BUMETANIDE 1 MG TABLET PO SCH ×2 (08:32→20:37)
[2017-12-11] MEDS: ASPIRIN EC 81 MG TAB PO SCH (08:32)
[2017-12-11] MEDS: HYDROCODONE/APAP 10/325 TAB PO SCH ×3 (08:33→20:37)
[2017-12-11] MEDS: CLOPIDOGREL 75 MG TABLET PO SCH (08:33)
[2017-12-11] MEDS: FOLIC ACID 1 MG TABLET PO SCH (08:33)
[2017-12-11 09:39] VITALS: BMI 45.7
--- NOTE | 2017-12-11 16:05 | FAST ---
ENCOUNTER DATE AND TIME: 12/11/2017 08:00 (CDT) NAME KAMERON KOHLI DATE OF : 1960 DATE OF ADMISSION: 12/10/2017 15:50 (CDT) PHONE: AGE: 57 N# [id number] GENDER: Male ENCOUNTER PHYSICIAN: Dr. Mandeep Nicole M.D. 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 EATING: Activity did not occur on this shift EATING - SCORE: 0-UNK GROOMING: Activity did not occur on this shift GROOMING - SCORE: 0-UNK BATHING: Abdomen Buttocks Chest Left arm Left upper leg Perineal area Right arm Right upper leg BATHING - STEP 1: Does the patient require assistance when bathing? Yes. BATHING - STEP 2: Does the patient require the assistance of a helper? Yes. BATHING - STEP 3: How much assistance does the patient require from the helper? More than just incidental help BATHING - STEP 4: What percent of the body parts did the patient bathe WITHOUT the helper? Less than half of the body p arts BATHING - SCORE: 2-MAX DRESSING - UPPER BODY: T-shirt/pullover shirt (four steps) ARTICLES SCORE Total number of steps: 4 DRESSING - UPPER BODY - STEP 1: Does the patient require help when dressing above the waist? Yes. DRESSING - UPPER BODY - STEP 2: Does the patient require the assistance of a helper? Yes. DRESSING - UPPER BODY - STEP 3: Does the helper touch the patient while dressing? No. DRESSING - UPPER BODY - SCORE: 5-SUP DRESSING - LOWER BODY: Elastic waist pants (three steps) Underwear (three steps) ARTICLES SCORE Total number of steps: 6 DRESSING - LOWER BODY - STEP 1: Does the patient require help when dressing below the waist? Yes. DRESSING - LOWER BODY - STEP 2: Does the patient require the assistance of a helper? Yes. DRESSING - LOWER BODY - STEP 3: Does the helper touch the patient while dressing? Yes. DRESSING - LOWER BODY - STEP 4: How many of the total steps does the patient complete on his/her own? 0 DRESSING - LOWER BODY - STEP 5: Does patient require total assistance for dressing below the waist such as the helper holding clothin g and performing basically all the activities? Yes. DRESSING - LOWER BODY - SCORE: 1-DEP TOILETING: Activity did not occur on this shift TOILETING - SCORE: 0-UNK BLADDER MANAGEMENT: Activity did not occur on this shift BLADDER MANAGEMENT - SCORE: 7-IND BOWEL MANAGEMENT: Activity did not occur on this shift BOWEL MANAGEMENT - SCORE: 7-IND TRANSFERS: BED, CHAIR, WHEELCHAIR: Activity did not occur on this shift TRANSFERS: BED, CHAIR, WHEELCHAIR - SCORE: 0-UNK TRANSFERS: TOILET: Activity did not occur on this shift TRANSFERS: TOILET - SCORE: 0-UNK TRANSFERS: SHOWER: TRANSFERS: SHOWER - STEP 1: Does the patient require assistance with shower transfers? Yes. TRANSFERS: SHOWER - STEP 2: Does the patient require the assistance of a helper? Yes. TRANSFERS: SHOWER - STEP 3: How much assistance does the patient require from the helper? More than incidental help TRANSFERS: SHOWER - STEP 4: How much more help does the patient require from the helper? Lifting the patient up AND down from the wheelchair onto the shower chair TRANSFERS: SHOWER - SCORE: 2-MAX TRANSFERS: TUB: Activity did not occur on this shift TRANSFERS: TUB - SCORE: 0-UNK LOCOMOTION: WALK: Activity did not occur on this shift LOCOMOTION: WALK - SCORE: 0-UNK LOCOMOTION: WHEELCHAIR: Activity did not occur on this shift LOCOMOTION: WHEELCHAIR - SCORE: 0-UNK LOCOMOTION: STAIRS: Activity did not occur on this shift LOCOMOTION: STAIRS - SCORE: 0-UNK COMPREHENSION: COMPREHENSION: TYPE: Both COMPREHENSION - STEP 1: Does the patient require help to understand complex and abstract ideas (such as current events, finan gurinder, discharge planning, medical issues, relationships, etc)? Yes. COMPREHENSION - STEP 2: Does the patient require help to understand questions or statements about basic needs or ideas (such as hunger, thirst, sleep, safety, daily schedule, room location, or discomfort) half or more of the t annia? No. COMPREHENSION - STEP 3: How often does the patient need help to understand directions and conversation about basic needs? 10% - 24% of the time COMPREHENSION - SCORE: 4-MIN EXPRESSION EXPRESSION: TYPE: Both EXPRESSION - STEP 1: Does the patient require help expressing complex and abstract ideas (such as current events, finances , discharge planning, medical issues, relationships, etc)? Yes. EXPRESSION - STEP 2: Does the patient require help to express basic necessities or ideas (such as hunger, thirst, sleep, s afety, daily schedule, room location, or discomfort) half or more of the time? No. EXPRESSION - STEP 3: How often does the patient need help to express directions and conversation about basic needs? 10-24% of the time EXPRESSION - SCORE: 4-MIN SOCIAL INTERACTION: SOCIAL INTERACTION - STEP 1: Does the patient require a helper to interact with others in social and therapeutic situations? Yes. SOCIAL INTERACTION - STEP 2: Does the patient interact appropriately half or more of the time? Yes. SOCIAL INTERACTION - STEP 3: How often does the patient need help to interact appropriately? Less than 10% of the time SOCIAL INTERACTION - SCORE: 5-SUP PROBLEM SOLVING: PROBLEM SOLVING - STEP 1: Does the patient need help to solve complex problems such as managing a checking account or confronti ng interpersonal problems? Yes. PROBLEM SOLVING - STEP 2: Does the patient solve basic routine problems half or more of the time? No. PROBLEM SOLVING - STEP 3: Does the patient need help to solve problems all the time or is s/he unable to solve problems? No. Vignesh treviño can sometimes solve problems PROBLEM SOLVING - SCORE: 2-MAX MEMORY: MEMORY - STEP 1: Does the patient need help to remember frequently encountered people, daily routines, and executing r equests? Yes. MEMORY - STEP 2: How often does the patient need help to remember frequently encountered people, daily routines, and e xecuting requests? More than 50% of the time MEMORY - STEP 3: Does the patient need help to remember all of the time OR does s/he not effectively recognize and rem ember? No. Patient does not need help all the time MEMORY - SCORE: 2-MAX SIGNATURE PANEL: The following modified sections: Eating - Score, Grooming - Score, Bathing - Score, Dressing - Upper Body - Score, Toileting - Score, Dressing - Lower Body - Score, Transfers: Bed, Chair, Wheelchair - S core, Transfers: Toilet - Score, Transfers: Tub - Score, Transfers: Shower - Score, Comprehension - S core, Expression - Score, Social Interaction - Score, Problem Solving - Score, Memory - Score were [e lectronically] signed by Lanette Loaiza OT on SunDec 11 2017 15:07:40 GMT-0500 (Central Daylight T annia)
--- NOTE | 2017-12-11 16:39 | FAST ---
SHIFT START DATE/TIME: 12/11/2017 07:00 (CDT) SHIFT END DATE/TIME: 12/11/2017 19:00 (CDT) NAME KAMERON KOHLI DATE OF : 1960 DATE OF ADMISSION: 12/10/2017 15:50 (CDT) PHONE: AGE: 57 [facility]# [id number] GENDER: Male ENCOUNTER PHYSICIAN: Dr. Mandeep Nicole M.D. 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 EATING: EATING - STEP 1: Does the patient require assistance when eating? Yes. EATING - STEP 2: Does the patient require the assistance of a helper? Yes. EATING - STEP 3: Does the patient perform half or more of the eating tasks? Yes. EATING - STEP 4: Does the patient need only supervision, cuing, coaxing OR help to apply an orthosis OR help to cut fo od, open containers, pour liquids, or butter bread? No. EATING - SCORE: 4-MIN GROOMING: Activity did not occur on this shift GROOMING - SCORE: 0-UNK BATHING: Activity did not occur on this shift BATHING - SCORE: 0-UNK DRESSING - UPPER BODY: Activity did not occur on this shift ARTICLES SCORE Total number of steps: 0 DRESSING - UPPER BODY - SCORE: 0-UNK DRESSING - LOWER BODY: Activity did not occur on this shift ARTICLES SCORE Total number of steps: 0 DRESSING - LOWER BODY - SCORE: 0-UNK TOILETING: TOILETING - STEP 1: Does the patient require assistance with toileting? Yes. TOILETING - STEP 2: Does the patient require the assistance of a helper? Yes. TOILETING - STEP 3: How much assistance does the patient require from the helper? Hands-on assistance from the helper TOILETING - STEP 4: Of the 3 tasks: 1) Adjusting clothing prior to use, 2) Cleansing of perineal area, 3) Adjusting clot donita after use; How many tasks does the patient perform WITHOUT assistance of the helper? Two tasks TOILETING - SCORE: 3-MOD BLADDER MANAGEMENT: BLADDER MANAGEMENT - STEP 1: Does the patient control the bladder completely and intentionally without equipment or devices or med ications, and is always continent? No. BLADDER MANAGEMENT - STEP 2: Does the patient require the assistance of a helper? No, patient requires and independently uses an a ssistive device, such as a urinal, bedpan, bedside commode, catheter, absorbent pad, or collecting de vice BLADDER MANAGEMENT - SCORE: 6-EILEEN BOWEL MANAGEMENT: Activity did not occur on this shift BOWEL MANAGEMENT - SCORE: 7-IND TRANSFERS: BED, CHAIR, WHEELCHAIR: TRANSFERS: BED, CHAIR, WHEELCHAIR - STEP 1: Does the patient require assistance with bed, chair, or wheelchair transfers? Yes. TRANSFERS: BED, CHAIR, WHEELCHAIR - STEP 2: Does the patient require the assistance of a helper? Yes. TRANSFERS: BED, CHAIR, WHEELCHAIR - STEP 3: How much assistance does the patient require from the helper? Lifting of the patient TRANSFERS: BED, CHAIR, WHEELCHAIR - STEP 4: Does the helper lift the patient ONLY up? ONLY down? Up AND Down? ONLY up. TRANSFERS: BED, CHAIR, WHEELCHAIR - SCORE: 3-MOD TRANSFERS: TOILET: Activity did not occur on this shift TRANSFERS: TOILET - SCORE: 0-UNK TRANSFERS: SHOWER: Activity did not occur on this shift TRANSFERS: SHOWER - SCORE: 0-UNK TRANSFERS: TUB: Activity did not occur on this shift TRANSFERS: TUB - SCORE: 0-UNK LOCOMOTION: WALK: Activity did not occur on this shift LOCOMOTION: WALK - SCORE: 0-UNK LOCOMOTION: WHEELCHAIR: Activity did not occur on this shift LOCOMOTION: WHEELCHAIR - SCORE: 0-UNK COMPREHENSION: COMPREHENSION - STEP 1: Does the patient require help to understand complex and abstract ideas (such as current events, finan gurinder, discharge planning, medical issues, relationships, etc)? Yes. COMPREHENSION - STEP 2: Does the patient require help to understand questions or statements about basic needs or ideas (such as hunger, thirst, sleep, safety, daily schedule, room location, or discomfort) half or more of the t annia? Yes. COMPREHENSION - STEP 3: Is the patient basically able to understand and respond appropriately and consistently? Yes. COMPREHENSION - SCORE: 2-MAX EXPRESSION EXPRESSION - STEP 1: Does the patient require help expressing complex and abstract ideas (such as current events, finances , discharge planning, medical issues, relationships, etc)? Yes. EXPRESSION - STEP 2: Does the patient require help to express basic necessities or ideas (such as hunger, thirst, sleep, s afety, daily schedule, room location, or discomfort) half or more of the time? Yes. EXPRESSION - STEP 3: Is the patient basically unable to express or does s/he express inappropriately or inconsistently oz pite prompting? No. EXPRESSION - SCORE: 2-MAX SOCIAL INTERACTION: SOCIAL INTERACTION - STEP 1: Does the patient require a helper to interact with others in social and therapeutic situations? Yes. SOCIAL INTERACTION - STEP 2: Does the patient interact appropriately half or more of the time? Yes. SOCIAL INTERACTION - STEP 3: How often does the patient need help to interact appropriately? 25-49% of the time SOCIAL INTERACTION - SCORE: 3-MOD PROBLEM SOLVING: PROBLEM SOLVING - STEP 1: Does the patient need help to solve complex problems such as managing a checking account or confronti ng interpersonal problems? Yes. PROBLEM SOLVING - STEP 2: Does the patient solve basic routine problems half or more of the time? No. PROBLEM SOLVING - STEP 3: Does the patient need help to solve problems all the time or is s/he unable to solve problems? No. Vignesh treviño can sometimes solve problems PROBLEM SOLVING - SCORE: 2-MAX MEMORY: MEMORY - STEP 1: Does the patient need help to remember frequently encountered people, daily routines, and executing r equests? Yes. MEMORY - STEP 2: How often does the patient need help to remember frequently encountered people, daily routines, and e xecuting requests? More than 50% of the time MEMORY - STEP 3: Does the patient need help to remember all of the time OR does s/he not effectively recognize and rem ember? No. Patient does not need help all the time MEMORY - SCORE: 2-MAX SIGNATURE PANEL: The following modified sections: Eating - Score, Grooming - Score, Bathing - Score, Dressing - Upper Body - Score, Dressing - Lower Body - Score, Toileting - Score, Bladder Management - Score, Bowel Man agement - Score, Transfers: Bed, Chair, Wheelchair - Score, Transfers: Toilet - Score, Transfers: Gladys wer - Score, Transfers: Tub - Score, Locomotion: Walk - Score, Locomotion: Wheelchair - Score, Compre hension - Score, Expression - Score, Social Interaction - Score, Problem Solving - Score, Memory - Sc ore were [electronically] signed by Garcia Khan on SunDec 11 2017 15:41:21 GMT-0500 (Central Daylight Time)
--- NOTE | 2017-12-11 18:31 | FAST ---
ENCOUNTER DATE AND TIME: 12/11/2017 08:00 (CDT) NAME KAMERON KOHLI DATE OF : 1960 DATE OF ADMISSION: 12/10/2017 15:50 (CDT) PHONE: AGE: 57 N# [id number] GENDER: Male ENCOUNTER PHYSICIAN: Dr. Mandeep Nicole M.D. 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 EATING: Activity did not occur on this shift EATING - SCORE: 0-UNK GROOMING: Activity did not occur on this shift GROOMING - SCORE: 0-UNK BATHING: Activity did not occur on this shift BATHING - SCORE: 0-UNK DRESSING - UPPER BODY: Activity did not occur on this shift Patient is not dressing in public clothing ARTICLES SCORE Total number of steps: 0 DRESSING - UPPER BODY - SCORE: 0-UNK DRESSING - LOWER BODY: Activity did not occur on this shift Patient is not dressing in public clothing ARTICLES SCORE Total number of steps: 0 DRESSING - LOWER BODY - SCORE: 0-UNK TOILETING: Activity did not occur on this shift TOILETING - SCORE: 0-UNK BLADDER MANAGEMENT: Activity did not occur on this shift BLADDER MANAGEMENT - SCORE: 7-IND BOWEL MANAGEMENT: Activity did not occur on this shift BOWEL MANAGEMENT - SCORE: 7-IND TRANSFERS: BED, CHAIR, WHEELCHAIR: Activity did not occur on this shift TRANSFERS: BED, CHAIR, WHEELCHAIR - SCORE: 0-UNK TRANSFERS: TOILET: Activity did not occur on this shift TRANSFERS: TOILET - SCORE: 0-UNK TRANSFERS: SHOWER: Activity did not occur on this shift TRANSFERS: SHOWER - SCORE: 0-UNK TRANSFERS: TUB: Activity did not occur on this shift TRANSFERS: TUB - SCORE: 0-UNK LOCOMOTION: WALK: Activity did not occur on this shift LOCOMOTION: WALK - SCORE: 0-UNK LOCOMOTION: WHEELCHAIR: Activity did not occur on this shift LOCOMOTION: WHEELCHAIR - SCORE: 0-UNK LOCOMOTION: STAIRS: Activity did not occur on this shift LOCOMOTION: STAIRS - SCORE: 0-UNK COMPREHENSION: COMPREHENSION - STEP 1: Does the patient require help to understand complex and abstract ideas (such as current events, finan gurinder, discharge planning, medical issues, relationships, etc)? Yes. COMPREHENSION - STEP 2: Does the patient require help to understand questions or statements about basic needs or ideas (such as hunger, thirst, sleep, safety, daily schedule, room location, or discomfort) half or more of the t annia? Yes. COMPREHENSION - STEP 3: Is the patient basically able to understand and respond appropriately and consistently? Yes. COMPREHENSION - SCORE: 2-MAX EXPRESSION EXPRESSION - STEP 1: Does the patient require help expressing complex and abstract ideas (such as current events, finances , discharge planning, medical issues, relationships, etc)? Yes. EXPRESSION - STEP 2: Does the patient require help to express basic necessities or ideas (such as hunger, thirst, sleep, s afety, daily schedule, room location, or discomfort) half or more of the time? Yes. EXPRESSION - STEP 3: Is the patient basically unable to express or does s/he express inappropriately or inconsistently oz pite prompting? No. EXPRESSION - SCORE: 2-MAX SOCIAL INTERACTION: SOCIAL INTERACTION - STEP 1: Does the patient require a helper to interact with others in social and therapeutic situations? Yes. SOCIAL INTERACTION - STEP 2: Does the patient interact appropriately half or more of the time? Yes. SOCIAL INTERACTION - STEP 3: How often does the patient need help to interact appropriately? 25-49% of the time SOCIAL INTERACTION - SCORE: 3-MOD PROBLEM SOLVING: PROBLEM SOLVING - STEP 1: Does the patient need help to solve complex problems such as managing a checking account or confronti ng interpersonal problems? Yes. PROBLEM SOLVING - STEP 2: Does the patient solve basic routine problems half or more of the time? No. PROBLEM SOLVING - STEP 3: Does the patient need help to solve problems all the time or is s/he unable to solve problems? Yes. P atient needs help to solve problems all the time or is unable to solve problems PROBLEM SOLVING - SCORE: 1-DEP MEMORY: MEMORY - STEP 1: Does the patient need help to remember frequently encountered people, daily routines, and executing r equests? Yes. MEMORY - STEP 2: How often does the patient need help to remember frequently encountered people, daily routines, and e xecuting requests? More than 50% of the time MEMORY - STEP 3: Does the patient need help to remember all of the time OR does s/he not effectively recognize and rem ember? Yes. Patient needs help to remember ALL the time OR does not effectively recognize and remembe r MEMORY - SCORE: 1-DEP SIGNATURE PANEL: The following modified sections: Comprehension - Score, Expression - Score, Social Interaction - Scor e, Problem Solving - Score, Memory - Score were [electronically] signed by CHACHO Renae on Sun 17:33:01 GMT-0500 (Central Daylight Time)
--- NOTE | 2017-12-11 18:42 | FAST ---
ENCOUNTER DATE AND TIME: 12/11/2017 08:00 (CDT) NAME KAMERON KOHLI DATE OF : 1960 DATE OF ADMISSION: 12/10/2017 15:50 (CDT) PHONE: AGE: 57 N# [id number] GENDER: Male ENCOUNTER PHYSICIAN: Dr. Mandeep Nicole M.D. 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 EATING: Activity did not occur on this shift EATING - SCORE: 0-UNK GROOMING: Activity did not occur on this shift GROOMING - SCORE: 0-UNK BATHING: Activity did not occur on this shift BATHING - SCORE: 0-UNK DRESSING - UPPER BODY: Activity did not occur on this shift Patient is not dressing in public clothing ARTICLES SCORE Total number of steps: 0 DRESSING - UPPER BODY - SCORE: 0-UNK DRESSING - LOWER BODY: Activity did not occur on this shift Patient is not dressing in public clothing ARTICLES SCORE Total number of steps: 0 DRESSING - LOWER BODY - SCORE: 0-UNK TOILETING: Activity did not occur on this shift TOILETING - SCORE: 0-UNK BLADDER MANAGEMENT: Activity did not occur on this shift BLADDER MANAGEMENT - SCORE: 7-IND BOWEL MANAGEMENT: Activity did not occur on this shift BOWEL MANAGEMENT - SCORE: 7-IND TRANSFERS: BED, CHAIR, WHEELCHAIR: TRANSFERS: BED, CHAIR, WHEELCHAIR - STEP 1: Does the patient require assistance with bed, chair, or wheelchair transfers? Yes. TRANSFERS: BED, CHAIR, WHEELCHAIR - STEP 2: Does the patient require the assistance of a helper? Yes. TRANSFERS: BED, CHAIR, WHEELCHAIR - STEP 3: How much assistance does the patient require from the helper? Lifting of the patient TRANSFERS: BED, CHAIR, WHEELCHAIR - STEP 4: Does the helper lift the patient ONLY up? ONLY down? Up AND Down? ONLY up. TRANSFERS: BED, CHAIR, WHEELCHAIR - SCORE: 3-MOD TRANSFERS: TOILET: Activity did not occur on this shift TRANSFERS: TOILET - SCORE: 0-UNK TRANSFERS: SHOWER: Activity did not occur on this shift TRANSFERS: SHOWER - SCORE: 0-UNK TRANSFERS: TUB: Activity did not occur on this shift TRANSFERS: TUB - SCORE: 0-UNK LOCOMOTION: WALK: Patient walks less than 50 feet LOCOMOTION: WALK - SCORE: 1-DEP LOCOMOTION: WHEELCHAIR: LOCOMOTION: WHEELCHAIR - STEP 1: Does the patient need help to go 150 feet in a wheelchair? Yes. LOCOMOTION: WHEELCHAIR - STEP 2: How much assistance does the patient need from the helper? Patient goes less than 150 feet - but more than 50 feet - with the assistance of only one helper LOCOMOTION: WHEELCHAIR - SCORE: 2-MAX LOCOMOTION: STAIRS: Activity did not occur on this shift LOCOMOTION: STAIRS - SCORE: 0-UNK COMPREHENSION: COMPREHENSION - SCORE: 0-UNK EXPRESSION EXPRESSION - SCORE: 0-UNK SOCIAL INTERACTION: SOCIAL INTERACTION - SCORE: 0-UNK PROBLEM SOLVING: PROBLEM SOLVING - SCORE: 0-UNK MEMORY: MEMORY - SCORE: 0-UNK SIGNATURE PANEL: The following modified sections: Transfers: Bed, Chair, Wheelchair - Score, Transfers: Toilet - Score , Locomotion: Walk - Score, Locomotion: Wheelchair - Score, Locomotion: Stairs - Score were [electron carrington] signed by Carroll Bentley PT on SunDec 11 2017 17:44:11 T-0500 (Central Daylight Time)
--- NOTE | 2017-12-11 18:49 | R.HP ---
FACILITY: [facility] ENCOUNTER DATE AND TIME: 12/11/2017 17:42 (CDT) MR#: [id number] NAME KAMERON KOHLI [address]: [address] [address] CITY: [place] [address] PHONE: DATE OF : 1960 AGE: 57 SSN# [id number] GENDER: Male DEXTERITY Right-handed MARITAL STATUS Single (Never ) [facility]PITAL LIVING SETTING 01 - Home (private home/apt. board/care, assisted living, half-way, transitional living) PRE-HOSPITAL LIVING WITH Family/Relatives ENCOUNTER PHYSICIAN: Dr. Mandeep Nicole M.D. 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 SECONDARY/COMORBID DIAGNOSES (TIERED): - N/A diabetes mellitus type 2 hypertension CONGESTIVE HEART FAILURE coronary artery disease HYPERLIPIDEMIA chronic renal disease HISTORY OF PRESENT ILLNESS (HPI): Pt. is a 57 yo Right-handed male. On 12/07/2017 Pt. presented to [facility] with sudden onset of right-side weakn ess. On 12/07/2017 he was admitted to [facility] with diagnosis acute nonhemorrhagic CVA involving the left posterior cerebral artery distribution an adjecent thalamo perforating branch es. His impairment category is Stroke 01 - Right Body (Left Brain) (01.2). Pre-morbidly, Pt. was independent/mod-I in Sphincter Control, Transfers Control, Communication, Socia l Cognition, Self-Care, and Locomotion; and he had good Sphincter Control. Currently, he has deficits of Endurance, Safety Awareness, Transfers Control, Communication, Social C ognition, Balance, Locomotion, and Self-Care. Pt. is now referred to [facility] for acute in-patient rehabilitation in order to maximize patient's functional independence in activities of daily living, strength, ROM, and mobi lity. Patient has realistic goal of being discharged at assistance level 4-Zainab to reside at Home with Fam issa/Relatives. MEDICATION ALLERGIES: hydromorphone morphine latex allergy latex, natural rubber allergy baclofen ENVIRONMENTAL ALLERGIES: - Substance Allergies None Known - Other Allergies None Known PAST MEDICAL HISTORY: CONGESTIVE HEART FAILURE HYPERLIPIDEMIA chronic renal disease coronary artery disease diabetes mellitus type 2 hypertension bilateral BKA FAMILY HISTORY: Family history is not contributory. SOCIAL HISTORY: - Home Living Family/Relatives REVIEW OF SYSTEMS: - Gen No Chills No Fatigue No Fever - Eyes No Double Vision No itchiness - ENMT No Difficulty Swallowing - CVS No Chest Discomfort No Chest Pain No Fatigue No Weight Gain - Resp No Cough No Shortness of Breath - GI Continent No Abdominal Pain No Constipation No Diarrhea - Continent No Kidney Pain No Painful Urination No Urinary Urgency - MSK No Joint Pain No Muscle Cramps No Stiffness Bilateral below knee amputations - Skin No Itching No Rash No Suspicious Lesions - Neuro Coordination Difficulty Difficulty with Concentration Memory Loss No Seizures Weakness - Psych No Anxiety No Depression No HIV Exposure No Persistent Infections No Seasonal Allergies - Endo No Cold/Heat Intolerance No Excessive Hunger No Excessive Thirst No Excessive Urination PHYSICAL EXAM - Gen Alert and awake Lying in bed No apparent distress Oriented to: person, time, and place - Skin No skin breakdown. Normacephalic - Eyes Right visual field deficit. - Neck No abnormalities - CVS RRR - Chest Clear - Resp Clear to auscultation - Abd Soft - GI Non distended Deferred - No abnormalities - Ext Bilateral below the knee amputation. - MSK Mild diffuse upper extremity weakness 5-/5. - Neuro Mild diffuse upper extremity weakness 5-/5. - Psych No abnormalities VITAL SIGNS Temperature: 97.6 F SBP/DBP: 162/81 Pulse: 18 Resp: 18 NURSING: - Shower allowing shower - Lab Results blood Sugar Check ACHS - Bladder care per protocol - Skin care per protocol PRECAUTIONS: - Weight Bearing Precaution NWB both LE ACTIVITIES OOB only with supervision FUNCTIONAL STATUS: - Self-Care A. Eating Ind Ind B. Grooming Rush Rush C. Bathing Rush Rush D. Dressing - Upper Rush Rush E. Dressing - Lower Rush Zainab F. Toileting Rush Ind - Sphincter Control G: Bladder control Ind Ind H: Bowel control Ind Ind - Transfers Control I. Bed/Chair/Wheelchair Rush Zainab J. Toilet Rush Zainab K. Tub/Shower Rush Zainab - Locomotion L. Walk/Wheelchair (W) Rush Zainab M. Stairs ADNO ADNO - Communication N. Comprehension (B) Ind sup O. Expression (B) Ind sup - Social Cognition P. Social Interaction Ind sup Q. Problem Solving Ind sup R. Memory Ind sup - Endurance Fair - Balance Fair - Safety Awareness Fair CURRENT [facility]. DEFICITS: Endurance, Safety Awareness, Transfers Control, Communication, Social Cognition, Balance, Locomotion, and Self-Care ASSESSMENT: Pt. is a 57 yo Right-handed male.On 12/07/2017 Pt. presented to [facility] with sudden onset of right-side weakness.On 12/07/2017 he was admitted to [facility] with diagnosis acute nonhemorrhagic CVA involving the left posterior cerebral artery distr ibution an adjecent thalamo perforating branches.His impairment category is Stroke 01 - Right Body ( Left Brain) (01.2).Pre-morbidly, Pt. was independent/mod-I in Sphincter Control, Transfers Control, C ommunication, Social Cognition, Self-Care, and Locomotion; and he had good Sphincter Control.Currentl y, he has deficits of Endurance, Safety Awareness, Transfers Control, Communication, Social Cognition , Balance, Locomotion, and Self-Care.Pt. is now referred to [facility] for acu te in-patient rehabilitation in order to maximize patient's functional independence in activities of daily living, strength, ROM, and mobility.- Rehab Goal Patient has realistic goal of being discharged at assistance level 4-Zainab to reside at Home with Fam issa/Relatives. REHAB PLAN: for Dementia, TBI, Stroke, or others - Physical Therapy Gait dysfunction - to improve, our physical therapists will perform initial evaluation of pt's statu s upon admission and devise an individualized program for Gait Training, and Wheel Chair mobility Inability to transfer - to improve, our physical therapists will perform initial evaluation of pt's status upon admission and devise an individualized program for Bed mobility Need for home safety evaluation - to improve, our physical therapists will perform initial evaluatio n of pt's status upon admission and devise an individualized program for Home Evaluation Need in caregiver upon discharge - to improve, our physical therapists will perform initial evaluati on of pt's status upon admission and devise an individualized program for Caregiver Training New precaution - to improve, our physical therapists will perform initial evaluation of pt's status upon admission and devise an individualized program for Patient precaution education Poor balance - to improve, our physical therapists will perform initial evaluation of pt's status up on admission and devise an individualized program for Balance Training Poor endurance - to improve, our physical therapists will perform initial evaluation of pt's status upon admission and devise an individualized program for Endurance Training Weakness - to improve, our physical therapists will perform initial evaluation of pt's status upon a dmission and devise an individualized program for Aquatic Therapy, Neuromuscular Reeducation, and Str engthening - Occupational Therapy ADL deficits - to improve, our occupation therapists will perform initial evaluation of pt's status upon admission and devise an individualized program for Bathing, Bed mobility, Community Reintegratio n, Cooking, Dressing, Eating, Fine Motor Skills, Grooming, Homemaking, Kitchen Mobility, Laundry, Pat ient Education, Safety Awareness, Splinting - Positioning, Transfers(Toilet, Tub, Shower), and Wheel Chair Management Cognitive deficits - to improve, our occupation therapists will perform initial evaluation of pt's s tatus upon admission and devise an individualized program for Cognition - orientation Need for wound care center consultant - to improve, our occupation therapists will perform initial evaluation of pt's status upon admission and devise an individualized program for Caregiver Training Weakness - to improve, our occupation therapists will perform initial evaluation of pt's status upon admission and devise an individualized program for Aquatic Therapy, Balance, Endurance, UE ROM, and UE strengthening MEDICAL PLAN: - Lab Results blood Sugar Check ACHS - Bladder care per protocol - Weight Bearing Precaution WBAT right LE - Skin care per protocol - Diet - Solid Texture Start Regular - Shower allowing shower DISCHARGE PLAN: - Estimated Length of Stay (days) 17. - Consensus on plan Discharge plan has been discussed with primary caregiver. Patient/Family is in agreement with the kelly n. Primary caregiver is in agreement with the plan. - Patient/Family Goals Return home with assistance. - Planned Living Setting Upon Discharge Home, to live with Family/Relatives. SIGNATURE PANEL: (CDT)
--- NOTE | 2017-12-11 18:50 | PAPE ---
PATIENT: [facility] MR# [id number] REFERRING DOCTOR DALILA EVALUATION DATE AND TIME 12/11/2017 17:51 (CDT) NAME KAMERON KOHLI DATE OF 1960 AGE 57 PHONE N# [id number] GENDER male EVALUATING PHYSICIAN Dr. Mandeep Nicole M.D. 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 ONSET DATE 12/07/2017 SECONDARY/COMORBID DIAGNOSES TIERED: - N/A diabetes mellitus type 2 hypertension CONGESTIVE HEART FAILURE coronary artery disease HYPERLIPIDEMIA chronic renal disease POST-ADMISSION FUNCTIONAL/MEDICAL STATUS: - Bladder Same accident frequency: Ind - No accidents in the past 7 days - Bowel Same accident frequency: Ind - No accidents in the past 7 days - Walking Same score based on distance walked: 0(N/A) - Wheelchair Same score based on distance traveled: 0(N/A) STATUS CHANGE EVALUATION: No change in Functional or Medical Status is identified compared with Pre-Admission screening. PATIENT NEEDS CLOSE MEDICAL SUPERVISION BY A REHABILITATION PHYSICIAN FOR: Bowel and Bladder Management Coordination of Treatment Team Diabetes Management Medical and Co-Morbidity Management PATIENT REQUIRES 24X7 REHAB NURSING FOR MEDICAL AND FUNCTIONAL MGT. OF THE FOLLOWING DEFICITS: ADL's Ambulation Bowel and Bladder Management Cognition Communication Disease Management Medication Management Patient/Family Education Providing Safe Environment Transfers PATIENT REQUIRES INTENSIVE, COORDINATED INTERDISCIPLINARY APPROACH TO REHAB: Arranging Home Equipment/Services Discharge Planning Family Intervention/Training Supervisor Mixing/Case Management LIST OF IDENTIFIED AND POTENTIAL PROBLEMS: Alteration in leisure activities Bladder, Incontinence Blood Pressure, Hypertension/hypotension Issues Bowel, Incontinence Diabetes, Hyperglycemia/hypoglycemia Issues Fluid volume overload related to Congestive Heart Failure (CHF) Infection, Actual or Potential Mobility Impaired Pain, Alteration in Comfort Self Care Deficit Skin Integrity, Actual or Potential Urinary Tract Infection (UTI), Actual or Potential RISK FOR COMPLICATIONS - Hypertension CVA. Hypotension. OR. TIA. INTERVENTIONS - Hypertension PATIENT COULD BE AT RISK FOR COMPLICATIONS FROM ADVERSE MEDICAL CONDITIONS DUE TO HIS/HER COMORBIDITI ES AND THE RIGORS OF THE INTENSIVE REHABILLITATION PROGRAM. METHODS OR INTERVENTIONS TO AVOID COMPLIC ATIONS INCLUDE: - Bleeding Stroke patients assessed for lethargy or change in status. - Infection Clinical staff to assess and manage the signs and symptoms of infection including fever, redness, war mth, etc. - Urinary Tract Infection - Aspiration Clinical staff will assess and manage coughing, drooling, congestion. - Falls Patient will be evaluated for Fall Precautions and will be placed on Fall Precautions as indicated pe r protocol. - Skin Breakdown Nursing will assess skin daily using assessment tool and will place on Skin Breakdown Precautions as indicated per protocol. - Pain Clinical staff may employ non-medication methods such as massage, distraction, decrease stimulus, etc . as needed. Clinical staff will assess patient's pain level every shift per protocol to assess and e nsure pain management effectiveness. Medications will be given and the pain level re-assessed. PRELIMINARY PLAN OF CARE: - Physical Therapy Patient needs Physical Therapy for a daily minimum of 1.5 hours at least 5 out of 7 days, to improve: Mobility, Strengthening, Transfers, Stretching, ROM, Endurance, Ability to manage stairs, Gait, and Balance. - Speech Therapy Patient needs Speech Therapy for a daily minimum of 0.5 hours at least 5 out of 7 days, to improve: S wallowing, Cognition, Language Skills, and Compensatory Strategies. - Rehabilitation Nursing Patient requires 24x7 Rehabilitation Nursing for: Pain Issues, Identifying and preventing risk factor s, Monitoring and reporting current medical conditions, Assisting with ambulation and transfer, Mary ting with all ADL-s, Teaching patients about disease process and medications, Family teaching, Provid ing safe environment, Bowel and Bladder Issues, Skin Integrity, and Medication Management. Patient needs Supervisor Mixing and/or Case Management for: Discharge Planning, Arranging Home Equipmen t or Services, and Family Interventions. - Dietary and Nutrition Services Patient needs Dietary and Nutrition Services for: Adequate Nutrition, Nutritional Supplements, and Nu tritional Education. - Occupational Therapy Patient needs Occupational Therapy for a daily minimum of 1.5 hours at least 5 out of 7 days, to impr ove Activities of Daily Living, including: Eating, Grooming, Bathing, Dressing, Toileting, Toilet Tra nsfers, Community Reintegration, Higher functional activities, Adaptive Equipment, Splinting, Househo ld Tasks, and Other activities as determined. POTENTIAL FUNCTIONAL GOALS FOR PATIENT TO ACHIEVE BY DISCHARGE: - Safety Precaution Patient will remain free from falls or injury at time of discharge. - Bed Mobility Patient will perform bed mobility at 4-Zainab level of assistance. - Transfers Patient will complete transfers from bed to chair at 4-Zainab level of assistance. - Mobility Patient will ambulate 150 ft with 4-Zainab level of assistance with RW. PATIENT REHAB POTENTIAL Expected level of measurable improvement will be of a practical value to patient's functional capacit y or adaptations to impairments Has a viable Discharge Plan Medically appropriate; condition is sufficiently stable to participate in intensive rehab program Patient is able and expected to receive 3 hours of individualized therapy daily on at least 5 of ever y 7 days Patient's prognosis for significant practical improvement within a reasonable period of time appears Good DISCHARGE PLAN: - Estimated Length of Stay (days) 17. - Consensus on plan Discharge plan has been discussed with primary caregiver. Patient/Family is in agreement with the kelly n. Primary caregiver is in agreement with the plan. - Patient/Family Goals Return home with assistance. - Planned Living Setting Upon Discharge Home, to live with Family/Relatives. CONCLUSION ON REHABILITATION NECESSITY: I have evaluated patient's pre-admission functional status and, comparing it to the patient's post-ad mission functional status now, I conclude that the pre-admission assessment was accurate. Patient's c ondition on admission supports the medical necessity of admission to IR[facility]. It is safe to proceed with patient's therapy program. SIGNATURE PANEL: (CDT)
[2017-12-11] MEDS: ATORVASTATIN 80 MG TAB PO SCH (20:37)
[2017-12-11] MEDS: PROMOD 30 ML DOSE PO SCH (20:38)
[2017-12-11] MEDS: INSULIN DETEMIR 100 UNIT/1 ML INSULIN SQ SCH (22:50)
--- NOTE | 2017-12-12 04:31 | FAST ---
SHIFT START DATE/TIME: 12/11/2017 19:00 (CDT) SHIFT END DATE/TIME: 12/12/2017 07:00 (CDT) NAME KAMERON KOHLI DATE OF : 1960 DATE OF ADMISSION: 12/10/2017 15:50 (CDT) PHONE: AGE: 57 N# [id number] GENDER: Male ENCOUNTER PHYSICIAN: Dr. Mandeep Nicole M.D. 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 EATING: Activity did not occur on this shift EATING - SCORE: 0-UNK GROOMING: Activity did not occur on this shift GROOMING - SCORE: 0-UNK BATHING: Activity did not occur on this shift BATHING - SCORE: 0-UNK DRESSING - UPPER BODY: Patient is not dressing in public clothing ARTICLES SCORE Total number of steps: 0 DRESSING - UPPER BODY - SCORE: 0-UNK DRESSING - LOWER BODY: Patient is not dressing in public clothing ARTICLES SCORE Total number of steps: 0 DRESSING - LOWER BODY - SCORE: 0-UNK TOILETING: TOILETING - STEP 1: Does the patient require assistance with toileting? Yes. TOILETING - STEP 2: Does the patient require the assistance of a helper? Yes. TOILETING - STEP 3: How much assistance does the patient require from the helper? Hands-on assistance from the helper TOILETING - STEP 4: Of the 3 tasks: 1) Adjusting clothing prior to use, 2) Cleansing of perineal area, 3) Adjusting clot donita after use; How many tasks does the patient perform WITHOUT assistance of the helper? Two tasks TOILETING - SCORE: 3-MOD BLADDER MANAGEMENT: BLADDER MANAGEMENT - STEP 1: Does the patient control the bladder completely and intentionally without equipment or devices or med ications, and is always continent? No. BLADDER MANAGEMENT - STEP 2: Does the patient require the assistance of a helper? Yes. BLADDER MANAGEMENT - STEP 3: How much assistance does the patient require from the helper? Patient requires contact assistance fro m the helper BLADDER MANAGEMENT - STEP 4: How much contact assistance does the patient require from the helper? Patient requires moderate benito tance, and performs 50% to 75% of bladder management tasks - Proctor positions AND holds urinal or bed dow BLADDER MANAGEMENT - SCORE: 3-MOD BOWEL MANAGEMENT: Activity did not occur on this shift BOWEL MANAGEMENT - SCORE: 7-IND TRANSFERS: BED, CHAIR, WHEELCHAIR: TRANSFERS: BED, CHAIR, WHEELCHAIR - STEP 1: Does the patient require assistance with bed, chair, or wheelchair transfers? Yes. TRANSFERS: BED, CHAIR, WHEELCHAIR - STEP 2: Does the patient require the assistance of a helper? Yes. TRANSFERS: BED, CHAIR, WHEELCHAIR - STEP 3: How much assistance does the patient require from the helper? Steadying/guiding assistance TRANSFERS: BED, CHAIR, WHEELCHAIR - SCORE: 4-MIN TRANSFERS: TOILET: Activity did not occur on this shift TRANSFERS: TOILET - SCORE: 0-UNK TRANSFERS: SHOWER: Activity did not occur on this shift TRANSFERS: SHOWER - SCORE: 0-UNK TRANSFERS: TUB: Activity did not occur on this shift TRANSFERS: TUB - SCORE: 0-UNK LOCOMOTION: WALK: Activity did not occur on this shift LOCOMOTION: WALK - SCORE: 0-UNK LOCOMOTION: WHEELCHAIR: Activity did not occur on this shift LOCOMOTION: WHEELCHAIR - SCORE: 0-UNK COMPREHENSION: COMPREHENSION - STEP 1: Does the patient require help to understand complex and abstract ideas (such as current events, finan gurinder, discharge planning, medical issues, relationships, etc)? Yes. COMPREHENSION - STEP 2: Does the patient require help to understand questions or statements about basic needs or ideas (such as hunger, thirst, sleep, safety, daily schedule, room location, or discomfort) half or more of the t annia? Yes. COMPREHENSION - STEP 3: Is the patient basically able to understand and respond appropriately and consistently? Yes. COMPREHENSION - SCORE: 2-MAX EXPRESSION EXPRESSION - STEP 1: Does the patient require help expressing complex and abstract ideas (such as current events, finances , discharge planning, medical issues, relationships, etc)? Yes. EXPRESSION - STEP 2: Does the patient require help to express basic necessities or ideas (such as hunger, thirst, sleep, s afety, daily schedule, room location, or discomfort) half or more of the time? Yes. EXPRESSION - STEP 3: Is the patient basically unable to express or does s/he express inappropriately or inconsistently oz pite prompting? No. EXPRESSION - SCORE: 2-MAX SOCIAL INTERACTION: SOCIAL INTERACTION - STEP 1: Does the patient require a helper to interact with others in social and therapeutic situations? Yes. SOCIAL INTERACTION - STEP 2: Does the patient interact appropriately half or more of the time? No. SOCIAL INTERACTION - STEP 3: How often does the patient interact appropriately? More than 25% of the time SOCIAL INTERACTION - SCORE: 2-MAX PROBLEM SOLVING: PROBLEM SOLVING - STEP 1: Does the patient need help to solve complex problems such as managing a checking account or confronti ng interpersonal problems? Yes. PROBLEM SOLVING - STEP 2: Does the patient solve basic routine problems half or more of the time? Yes. PROBLEM SOLVING - STEP 3: How often does the patient need help to solve basic routine problems? 25%-49% of the time PROBLEM SOLVING - SCORE: 3-MOD MEMORY: MEMORY - STEP 1: Does the patient need help to remember frequently encountered people, daily routines, and executing r equests? Yes. MEMORY - STEP 2: How often does the patient need help to remember frequently encountered people, daily routines, and e xecuting requests? 25% - 49% of the time MEMORY - SCORE: 3-MOD SIGNATURE PANEL: The following modified sections: Eating - Score, Grooming - Score, Dressing - Upper Body - Score, Gabriel ssing - Lower Body - Score, Toileting - Score, Bladder Management - Score, Bowel Management - Score, Transfers: Bed, Chair, Wheelchair - Score, Transfers: Toilet - Score, Transfers: Shower - Score, Gutierrez sfers: Tub - Score, Locomotion: Walk - Score, Locomotion: Wheelchair - Score, Comprehension - Score, Expression - Score, Social Interaction - Score, Problem Solving - Score, Memory - Score were [electro nically] signed by Natalie Brewer CNA on SunDec 12 2017 02:36:26 GMT-0500 (Central Daylight Time)
[2017-12-12] MEDS: CARVEDILOL 3.125 MG TAB PO SCH ×2 (05:24→08:30)
[2017-12-12] MEDS: HYDROCODONE/APAP 10/325 TAB PO SCH (07:41)
[2017-12-12] MEDS: FOLIC ACID 1 MG TABLET PO SCH (08:00)
[2017-12-12] MEDS: PROMOD 30 ML DOSE PO SCH ×2 (08:23→20:23)
[2017-12-12] MEDS: CLOPIDOGREL 75 MG TABLET PO SCH (08:25)
[2017-12-12] MEDS: ASPIRIN EC 81 MG TAB PO SCH (08:25)
[2017-12-12] MEDS: BUMETANIDE 1 MG TABLET PO SCH ×2 (08:34→20:23)
[2017-12-12] MEDS: NICOTINE 7 MG/PAT TD SCH (08:40)
[2017-12-12] MEDS: INSULIN LISPRO 100 UNIT/1 ML SQ SCH ×3 (08:40→17:36)
--- NOTE | 2017-12-12 16:48 | FAST ---
ENCOUNTER DATE AND TIME: 12/12/2017 08:00 (CDT) NAME KAMERON KOHLI DATE OF : 1960 DATE OF ADMISSION: 12/10/2017 15:50 (CDT) PHONE: AGE: 57 N# [id number] GENDER: Male ENCOUNTER PHYSICIAN: Dr. Mandeep Nicole M.D. 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 EATING: Activity did not occur on this shift EATING - SCORE: 0-UNK GROOMING: Activity did not occur on this shift GROOMING - SCORE: 0-UNK BATHING: Activity did not occur on this shift BATHING - SCORE: 0-UNK DRESSING - UPPER BODY: Activity did not occur on this shift Patient is not dressing in public clothing ARTICLES SCORE Total number of steps: 0 DRESSING - UPPER BODY - SCORE: 0-UNK DRESSING - LOWER BODY: Activity did not occur on this shift Patient is not dressing in public clothing ARTICLES SCORE Total number of steps: 0 DRESSING - LOWER BODY - SCORE: 0-UNK TOILETING: Activity did not occur on this shift TOILETING - SCORE: 0-UNK BLADDER MANAGEMENT: Activity did not occur on this shift BLADDER MANAGEMENT - SCORE: 7-IND BOWEL MANAGEMENT: Activity did not occur on this shift BOWEL MANAGEMENT - SCORE: 7-IND TRANSFERS: BED, CHAIR, WHEELCHAIR: Activity did not occur on this shift TRANSFERS: BED, CHAIR, WHEELCHAIR - SCORE: 0-UNK TRANSFERS: TOILET: Activity did not occur on this shift TRANSFERS: TOILET - SCORE: 0-UNK TRANSFERS: SHOWER: Activity did not occur on this shift TRANSFERS: SHOWER - SCORE: 0-UNK TRANSFERS: TUB: Activity did not occur on this shift TRANSFERS: TUB - SCORE: 0-UNK LOCOMOTION: WALK: Activity did not occur on this shift LOCOMOTION: WALK - SCORE: 0-UNK LOCOMOTION: WHEELCHAIR: Activity did not occur on this shift LOCOMOTION: WHEELCHAIR - SCORE: 0-UNK LOCOMOTION: STAIRS: Activity did not occur on this shift LOCOMOTION: STAIRS - SCORE: 0-UNK COMPREHENSION: COMPREHENSION - STEP 1: Does the patient require help to understand complex and abstract ideas (such as current events, finan gurinder, discharge planning, medical issues, relationships, etc)? Yes. COMPREHENSION - STEP 2: Does the patient require help to understand questions or statements about basic needs or ideas (such as hunger, thirst, sleep, safety, daily schedule, room location, or discomfort) half or more of the t annia? Yes. COMPREHENSION - STEP 3: Is the patient basically able to understand and respond appropriately and consistently? Yes. COMPREHENSION - SCORE: 2-MAX EXPRESSION EXPRESSION - STEP 1: Does the patient require help expressing complex and abstract ideas (such as current events, finances , discharge planning, medical issues, relationships, etc)? Yes. EXPRESSION - STEP 2: Does the patient require help to express basic necessities or ideas (such as hunger, thirst, sleep, s afety, daily schedule, room location, or discomfort) half or more of the time? Yes. EXPRESSION - STEP 3: Is the patient basically unable to express or does s/he express inappropriately or inconsistently oz pite prompting? No. EXPRESSION - SCORE: 2-MAX SOCIAL INTERACTION: SOCIAL INTERACTION - STEP 1: Does the patient require a helper to interact with others in social and therapeutic situations? Yes. SOCIAL INTERACTION - STEP 2: Does the patient interact appropriately half or more of the time? Yes. SOCIAL INTERACTION - STEP 3: How often does the patient need help to interact appropriately? 25-49% of the time SOCIAL INTERACTION - SCORE: 3-MOD PROBLEM SOLVING: PROBLEM SOLVING - STEP 1: Does the patient need help to solve complex problems such as managing a checking account or confronti ng interpersonal problems? Yes. PROBLEM SOLVING - STEP 2: Does the patient solve basic routine problems half or more of the time? No. PROBLEM SOLVING - STEP 3: Does the patient need help to solve problems all the time or is s/he unable to solve problems? No. Vignesh treviño can sometimes solve problems PROBLEM SOLVING - SCORE: 2-MAX MEMORY: MEMORY - STEP 1: Does the patient need help to remember frequently encountered people, daily routines, and executing r equests? Yes. MEMORY - STEP 2: How often does the patient need help to remember frequently encountered people, daily routines, and e xecuting requests? More than 50% of the time MEMORY - STEP 3: Does the patient need help to remember all of the time OR does s/he not effectively recognize and rem ember? Yes. Patient needs help to remember ALL the time OR does not effectively recognize and remembe r MEMORY - SCORE: 1-DEP SIGNATURE PANEL: The following modified sections: Comprehension - Score, Expression - Score, Social Interaction - Scor e, Problem Solving - Score, Memory - Score were [electronically] signed by CHACHO Renae on Sun 15:50:53 GMT-0500 (Central Daylight Time)
--- NOTE | 2017-12-12 16:50 | FAST ---
ENCOUNTER DATE AND TIME: 12/12/2017 08:00 (CDT) NAME KAMERON KOHLI DATE OF : 1960 DATE OF ADMISSION: 12/10/2017 15:50 (CDT) PHONE: AGE: 57 N# [id number] GENDER: Male ENCOUNTER PHYSICIAN: Dr. Mandeep Nicole M.D. 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 EATING: Activity did not occur on this shift EATING - SCORE: 0-UNK GROOMING: Activity did not occur on this shift GROOMING - SCORE: 0-UNK BATHING: Activity did not occur on this shift BATHING - SCORE: 0-UNK DRESSING - UPPER BODY: Activity did not occur on this shift Patient is not dressing in public clothing ARTICLES SCORE Total number of steps: 0 DRESSING - UPPER BODY - SCORE: 0-UNK DRESSING - LOWER BODY: Activity did not occur on this shift Patient is not dressing in public clothing ARTICLES SCORE Total number of steps: 0 DRESSING - LOWER BODY - SCORE: 0-UNK TOILETING: Activity did not occur on this shift TOILETING - SCORE: 0-UNK BLADDER MANAGEMENT: Activity did not occur on this shift BLADDER MANAGEMENT - SCORE: 7-IND BOWEL MANAGEMENT: Activity did not occur on this shift BOWEL MANAGEMENT - SCORE: 7-IND TRANSFERS: BED, CHAIR, WHEELCHAIR: TRANSFERS: BED, CHAIR, WHEELCHAIR - STEP 1: Does the patient require assistance with bed, chair, or wheelchair transfers? Yes. TRANSFERS: BED, CHAIR, WHEELCHAIR - STEP 2: Does the patient require the assistance of a helper? Yes. TRANSFERS: BED, CHAIR, WHEELCHAIR - STEP 3: How much assistance does the patient require from the helper? Lifting of the legs TRANSFERS: BED, CHAIR, WHEELCHAIR - STEP 4: How many legs does the patient require the helper to lift? both legs TRANSFERS: BED, CHAIR, WHEELCHAIR - SCORE: 3-MOD TRANSFERS: TOILET: Activity did not occur on this shift TRANSFERS: TOILET - SCORE: 0-UNK TRANSFERS: SHOWER: Activity did not occur on this shift TRANSFERS: SHOWER - SCORE: 0-UNK TRANSFERS: TUB: Activity did not occur on this shift TRANSFERS: TUB - SCORE: 0-UNK LOCOMOTION: WALK: Activity did not occur on this shift LOCOMOTION: WALK - SCORE: 0-UNK LOCOMOTION: WHEELCHAIR: LOCOMOTION: WHEELCHAIR - STEP 1: Does the patient need help to go 150 feet in a wheelchair? Yes. LOCOMOTION: WHEELCHAIR - STEP 2: How much assistance does the patient need from the helper? Only incidental help such as around corner s or over thresholds LOCOMOTION: WHEELCHAIR - SCORE: 4-MIN LOCOMOTION: STAIRS: Activity did not occur on this shift LOCOMOTION: STAIRS - SCORE: 0-UNK COMPREHENSION: COMPREHENSION - SCORE: 0-UNK EXPRESSION EXPRESSION - SCORE: 0-UNK SOCIAL INTERACTION: SOCIAL INTERACTION - SCORE: 0-UNK PROBLEM SOLVING: PROBLEM SOLVING - SCORE: 0-UNK MEMORY: MEMORY - SCORE: 0-UNK SIGNATURE PANEL: The following modified sections: Transfers: Bed, Chair, Wheelchair - Score, Transfers: Toilet - Score , Locomotion: Walk - Score, Locomotion: Wheelchair - Score, Locomotion: Stairs - Score were [bev shultz] signed by Nomi Marks PTA on SunDec 12 2017 15:53:07 T-0500 (Central Daylight Time)
[2017-12-12] MEDS: HYDROCODONE/APAP 10/325 TAB PO PRN (17:35)
[2017-12-12] MEDS ORDERED: PNEUMOCOCCAL VACCINE 0.5 ML IMVAC ONE (19:00)
[2017-12-12] MEDS: ATORVASTATIN 80 MG TAB PO SCH (20:23)
[2017-12-12] MEDS: TAMSULOSIN 0.4 MG SR CAP PO SCH (20:23)
[2017-12-12] MEDS: LORAZEPAM 0.5 MG TABLET PO PRN (20:23)
[2017-12-12] MEDS: INSULIN DETEMIR 100 UNIT/1 ML INSULIN SQ SCH (20:24)
--- NOTE | 2017-12-12 21:07 | R.PN ---
ENCOUNTER DATE AND TIME: 12/12/2017 20:05 (CDT) NAME KAMERON KOHLI DATE OF : 1960 DATE OF ADMISSION: 12/10/2017 15:50 (CDT) acute nonhemorrhagic CVA involving the left posterior cerebral artery distribution an adjecent thalam o perforating branchesCHIEF COMPLAINT: Left LEATHER WHITENER stroke SUBJECTIVE: Pt denied any Shortness of Breath. Pt denied any depression. Propelled wheelchair 520' with contact guard assistance. VITAL SIGNS Temperature: 97.6 F SBP/DBP: 112/63 Pulse: 65 Resp: 16 SBP/DBP: 115/62 MEDICATION ALLERGIES: hydromorphone morphine latex allergy latex, natural rubber allergy baclofen ENVIRONMENTAL ALLERGIES: - Substance Allergies None Known - Other Allergies None Known NURSING: - Shower allowing shower - Lab Results blood Sugar Check ACHS - Bladder care per protocol - Skin care per protocol PRECAUTIONS: - Weight Bearing Precaution NWB both LE ACTIVITIES OOB only with supervision THERAPIES: - Occupational Therapy Evaluate and Treat. Cognitive Retraining. Visual Perceptual Training. - Speech Therapy Memory Strategies. Expressive Language Skills. Speech Intelligibility Training. Cognitive Training. R eceptive Language Skills. - Physical Therapy Evaluate and Treat. PHYSICAL EXAM - Gen Alert and awake Lying in bed No apparent distress Oriented to: person, time, and place - Skin No skin breakdown. Normacephalic - Eyes Right visual field deficit. - Neck No abnormalities - CVS RRR - Chest Clear - Resp Clear to auscultation - Abd Soft - GI Non distended Deferred - No abnormalities - Ext Bilateral below the knee amputation. - MSK Mild diffuse upper extremity weakness 5-/5. - Neuro Mild diffuse upper extremity weakness 5-/5. - Psych No abnormalities ASSESSMENT: Pt. is a 57 yo Right-handed male.On 12/07/2017 Pt. presented to [facility] with sudden onset of right-side weakness.On 12/07/2017 he was admitted to [facility] with diagnosis acute nonhemorrhagic CVA involving the left posterior cerebral artery distr ibution an adjecent thalamo perforating branches.His impairment category is Stroke 01 - Right Body ( Left Brain) (01.2).Pre-morbidly, Pt. was independent/mod-I in Sphincter Control, Transfers Control, C ommunication, Social Cognition, Self-Care, and Locomotion; and he had good Sphincter Control.Currentl y, he has deficits of Endurance, Safety Awareness, Transfers Control, Communication, Social Cognition , Balance, Locomotion, and Self-Care.Pt. is now referred to [facility] for acu te in-patient rehabilitation in order to maximize patient's functional independence in activities of daily living, strength, ROM, and mobility.- Rehab Goal Patient has realistic goal of being discharged at assistance level 4-Zainab to reside at Home with Fam issa/Relatives. MDM/PLAN: - Lab Results blood Sugar Check ACHS for Dementia, TBI, Stroke, or others - Bladder care per protocol - Physical Therapy Gait dysfunction - to improve, our physical therapists will perform initial evaluation of pt's status upon admission and devise an individualized program for Gait Training, and Wheel Chair mobility Inability to transfer - to improve, our physical therapists will perform initial evaluation of pt's s tatus upon admission and devise an individualized program for Bed mobility Need for home safety evaluation - to improve, our physical therapists will perform initial evaluation of pt's status upon admission and devise an individualized program for Home Evaluation Need in caregiver upon discharge - to improve, our physical therapists will perform initial evaluatio n of pt's status upon admission and devise an individualized program for Caregiver Training New precaution - to improve, our physical therapists will perform initial evaluation of pt's status u maria isabel admission and devise an individualized program for Patient precaution education Poor balance - to improve, our physical therapists will perform initial evaluation of pt's status upo n admission and devise an individualized program for Balance Training Poor endurance - to improve, our physical therapists will perform initial evaluation of pt's status u maria isabel admission and devise an individualized program for Endurance Training Weakness - to improve, our physical therapists will perform initial evaluation of pt's status upon ad mission and devise an individualized program for Aquatic Therapy, Neuromuscular Reeducation, and Stre ngthening - Weight Bearing Precaution WBAT right LE - Skin care per protocol - Diet - Solid Texture Continue Regular - Shower allowing shower - Occupational Therapy ADL deficits - to improve, our occupation therapists will perform initial evaluation of pt's status u maria isabel admission and devise an individualized program for Bathing, Bed mobility, Community Reintegration , Cooking, Dressing, Eating, Fine Motor Skills, Grooming, Homemaking, Kitchen Mobility, Laundry, Tori ent Education, Safety Awareness, Splinting - Positioning, Transfers(Toilet, Tub, Shower), and Wheel C hair Management Cognitive deficits - to improve, our occupation therapists will perform initial evaluation of pt's st atus upon admission and devise an individualized program for Cognition - orientation Need for care trainer - to improve, our occupation therapists will perform initial evaluation of pt's s tatus upon admission and devise an individualized program for Caregiver Training Weakness - to improve, our occupation therapists will perform initial evaluation of pt's status upon admission and devise an individualized program for Aquatic Therapy, Balance, Endurance, UE ROM, and U E strengthening FUNCTIONAL STATUS: UPDATED AT WEEKLY TEAM CONFERENCE - Bladder Same accident frequency: 7-Ind - No accidents in the past 7 days - Bowel Same accident frequency: 7-Ind - No accidents in the past 7 days - Walking Same score based on distance walked: 0(N/A) - Wheelchair Same score based on distance traveled: 0(N/A) FUNCTIONAL STATUS: - Self-Care A. Eating Ind B. Grooming Rush C. Bathing Rush D. Dressing - Upper Rush E. Dressing - Lower Zainab F. Toileting Ind - Sphincter Control G: Bladder control Ind H: Bowel control Ind - Transfers Control I. Bed/Chair/Wheelchair Zainab J. Toilet Zainab K. Tub/Shower Zainab - Locomotion L. Walk/Wheelchair (W) Zainab M. Stairs ADNO - Communication N. Comprehension (B) sup O. Expression (B) sup - Social Cognition P. Social Interaction sup Q. Problem Solving sup R. Memory sup - Endurance Fair - Balance Fair - Safety Awareness Fair CURRENT FUNC. DEFICITS: Endurance, Safety Awareness, Transfers Control, Communication, Social Cognition, Balance, Locomotion, and Self-Care SIGNATURE PANEL: (CDT)
[2017-12-12] MEDS ORDERED: ZIPRASIDONE 20 MG CAP PO PRN (21:22)
[2017-12-13] MEDS: HYDROCODONE/APAP 10/325 TAB PO PRN ×2 (02:23→21:21)
--- NOTE | 2017-12-13 04:13 | FAST ---
SHIFT START DATE/TIME: 12/12/2017 19:00 (CDT) SHIFT END DATE/TIME: 12/13/2017 07:00 (CDT) NAME KAMERON KOHLI DATE OF : 1960 DATE OF ADMISSION: 12/10/2017 15:50 (CDT) PHONE: AGE: 57 N# [id number] GENDER: Male ENCOUNTER PHYSICIAN: Dr. Mandeep Nicole M.D. 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 EATING: Activity did not occur on this shift EATING - SCORE: 0-UNK GROOMING: Activity did not occur on this shift GROOMING - SCORE: 0-UNK BATHING: Activity did not occur on this shift BATHING - SCORE: 0-UNK DRESSING - UPPER BODY: Patient is not dressing in public clothing ARTICLES SCORE Total number of steps: 0 DRESSING - UPPER BODY - SCORE: 0-UNK DRESSING - LOWER BODY: Patient is not dressing in public clothing ARTICLES SCORE Total number of steps: 0 DRESSING - LOWER BODY - SCORE: 0-UNK TOILETING: Activity did not occur on this shift TOILETING - SCORE: 0-UNK BLADDER MANAGEMENT: [place] removes incontinent device (Depends, pull ups, etc.); cleans the patient after accident / inco ntinent episode; and, applies new incontinent device. BLADDER MANAGEMENT - SCORE: 1-DEP BLADDER MANAGEMENT - FREQUENCY OF ACCIDENTS: BLADDER MANAGEMENT(FA) - STEP 1: How many accidents has the patient had during the current shift? 2 BOWEL MANAGEMENT: [place] removes incontinent device (depends, pull ups, etc.); cleans the patient after accident / inco ntinent episode; and, applies new device (depends, pull-ups, padding, etc.). BOWEL MANAGEMENT - SCORE: 1-DEP BOWEL MANAGEMENT - FREQUENCY OF ACCIDENTS: BOWEL MANAGEMENT(FA) - STEP 1: How many accidents has the patient had during the current shift? 1 TRANSFERS: BED, CHAIR, WHEELCHAIR: Activity did not occur on this shift TRANSFERS: BED, CHAIR, WHEELCHAIR - SCORE: 0-UNK TRANSFERS: TOILET: Activity did not occur on this shift TRANSFERS: TOILET - SCORE: 0-UNK TRANSFERS: SHOWER: Activity did not occur on this shift TRANSFERS: SHOWER - SCORE: 0-UNK TRANSFERS: TUB: Activity did not occur on this shift TRANSFERS: TUB - SCORE: 0-UNK LOCOMOTION: WALK: Activity did not occur on this shift LOCOMOTION: WALK - SCORE: 0-UNK LOCOMOTION: WHEELCHAIR: Activity did not occur on this shift LOCOMOTION: WHEELCHAIR - SCORE: 0-UNK COMPREHENSION: COMPREHENSION - STEP 1: Does the patient require help to understand complex and abstract ideas (such as current events, finan gurinder, discharge planning, medical issues, relationships, etc)? Yes. COMPREHENSION - STEP 2: Does the patient require help to understand questions or statements about basic needs or ideas (such as hunger, thirst, sleep, safety, daily schedule, room location, or discomfort) half or more of the t annia? Yes. COMPREHENSION - STEP 3: Is the patient basically able to understand and respond appropriately and consistently? No, patient i s basically UNABLE to understand, OR responds inappropriately/inconsistently despite prompting COMPREHENSION - SCORE: 1-DEP EXPRESSION EXPRESSION - STEP 1: Does the patient require help expressing complex and abstract ideas (such as current events, finances , discharge planning, medical issues, relationships, etc)? Yes. EXPRESSION - STEP 2: Does the patient require help to express basic necessities or ideas (such as hunger, thirst, sleep, s afety, daily schedule, room location, or discomfort) half or more of the time? Yes. EXPRESSION - STEP 3: Is the patient basically unable to express or does s/he express inappropriately or inconsistently oz pite prompting? No. EXPRESSION - SCORE: 2-MAX SOCIAL INTERACTION: SOCIAL INTERACTION - STEP 1: Does the patient require a helper to interact with others in social and therapeutic situations? Yes. SOCIAL INTERACTION - STEP 2: Does the patient interact appropriately half or more of the time? No. SOCIAL INTERACTION - STEP 3: How often does the patient interact appropriately? Less than 25% of the time SOCIAL INTERACTION - SCORE: 1-DEP PROBLEM SOLVING: PROBLEM SOLVING - STEP 1: Does the patient need help to solve complex problems such as managing a checking account or confronti ng interpersonal problems? Yes. PROBLEM SOLVING - STEP 2: Does the patient solve basic routine problems half or more of the time? No. PROBLEM SOLVING - STEP 3: Does the patient need help to solve problems all the time or is s/he unable to solve problems? No. Vignesh kamila can sometimes solve problems PROBLEM SOLVING - SCORE: 2-MAX MEMORY: MEMORY - STEP 1: Does the patient need help to remember frequently encountered people, daily routines, and executing r equests? Yes. MEMORY - STEP 2: How often does the patient need help to remember frequently encountered people, daily routines, and e xecuting requests? More than 50% of the time MEMORY - STEP 3: Does the patient need help to remember all of the time OR does s/he not effectively recognize and rem ember? Yes. Patient needs help to remember ALL the time OR does not effectively recognize and remembe r MEMORY - SCORE: 1-DEP SIGNATURE PANEL: The following modified sections: Eating - Score, Grooming - Score, Dressing - Upper Body - Score, Gabriel ssing - Lower Body - Score, Toileting - Score, Bladder Management - Score, Bowel Management - Score, Transfers: Bed, Chair, Wheelchair - Score, Transfers: Toilet - Score, Transfers: Shower - Score, Gutierrez sfers: Tub - Score, Locomotion: Walk - Score, Locomotion: Wheelchair - Score, Comprehension - Score, Expression - Score, Social Interaction - Score, Problem Solving - Score, Memory - Score were [electro nically] signed by Natalie Brewer CNA on SunDec 13 2017 03:15:49 GMT-0500 (Central Daylight Time)
[2017-12-13] MEDS: CARVEDILOL 3.125 MG TAB PO SCH ×2 (05:54→17:38)
[2017-12-13 06:15] LABS: Absolute Lymphocytes (CBC) 1.2 K/uL (0.7-4.9); Absolute Monocytes 0.6 K/uL (0.1-1.3); Absolute Neutrophil 5.2 K/uL (1.8-8.0); Basophils % 0.5 % (0-1.3); Eosinophils % 4.1 % (0-4.4); Hematocrit 30.2 % (39.6-49.0); Lymphocytes % 16.4 % (15.3-44.8); MCH 29.6 pg (27.0-35.0); MCV 84.5 fL (80-100); MPV 9.1 fL (7.6-11.3); Monocytes % 8.3 % (3.3-12.3); RBC Red Blood Cell Count 3.57 M/uL (4.33-5.43)
[2017-12-13 06:39] LABS: Potassium 3.7 mEq/L (3.6-5.0)
[2017-12-13] MEDS: INSULIN LISPRO 100 UNIT/1 ML SQ SCH ×3 (07:30→17:38)
[2017-12-13] MEDS ORDERED: FUROSEMIDE 20 MG TABLET PO SCH (08:00)
[2017-12-13] MEDS ORDERED: NA CHLORIDE 0.9% 1,000 ML IV SCH (08:00)
[2017-12-13] MEDS: BUMETANIDE 1 MG TABLET PO SCH ×2 (08:49→20:42)
[2017-12-13] MEDS: CLOPIDOGREL 75 MG TABLET PO SCH (08:49)
[2017-12-13] MEDS: ASPIRIN EC 81 MG TAB PO SCH (08:49)
[2017-12-13] MEDS: NICOTINE 7 MG/PAT TD SCH (08:49)
[2017-12-13] MEDS: FOLIC ACID 1 MG TABLET PO SCH (08:50)
[2017-12-13] MEDS: PROMOD 30 ML DOSE PO SCH ×2 (08:50→20:43)
[2017-12-13] MEDS ORDERED: PNEUMOCOCCAL VACCINE 0.5 ML IMVAC ONE (10:00)
--- NOTE | 2017-12-13 15:27 | FAST ---
SHIFT START DATE/TIME: 12/13/2017 07:00 (CDT) SHIFT END DATE/TIME: 12/13/2017 19:00 (CDT) NAME KAMERON KOHLI DATE OF : 1960 DATE OF ADMISSION: 12/10/2017 15:50 (CDT) PHONE: AGE: 57 N# [id number] GENDER: Male ENCOUNTER PHYSICIAN: Dr. Mandeep Nicole M.D. 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 EATING: EATING - STEP 1: Does the patient require assistance when eating? Yes. EATING - STEP 2: Does the patient require the assistance of a helper? Yes. EATING - STEP 3: Does the patient perform half or more of the eating tasks? Yes. EATING - STEP 4: Does the patient need only supervision, cuing, coaxing OR help to apply an orthosis OR help to cut fo od, open containers, pour liquids, or butter bread? Yes. EATING - SCORE: 5-SUP GROOMING: Activity did not occur on this shift GROOMING - SCORE: 0-UNK BATHING: Activity did not occur on this shift BATHING - SCORE: 0-UNK DRESSING - UPPER BODY: Activity did not occur on this shift ARTICLES SCORE Total number of steps: 0 DRESSING - UPPER BODY - SCORE: 0-UNK DRESSING - LOWER BODY: Activity did not occur on this shift ARTICLES SCORE Total number of steps: 0 DRESSING - LOWER BODY - SCORE: 0-UNK TOILETING: Activity did not occur on this shift TOILETING - SCORE: 0-UNK BLADDER MANAGEMENT: [place] removes incontinent device (Depends, pull ups, etc.); cleans the patient after accident / inco ntinent episode; and, applies new incontinent device. BLADDER MANAGEMENT - SCORE: 1-DEP BLADDER MANAGEMENT - FREQUENCY OF ACCIDENTS: BLADDER MANAGEMENT(FA) - STEP 1: How many accidents has the patient had during the current shift? 2 BOWEL MANAGEMENT: Activity did not occur on this shift BOWEL MANAGEMENT - SCORE: 7-IND TRANSFERS: BED, CHAIR, WHEELCHAIR: TRANSFERS: BED, CHAIR, WHEELCHAIR - STEP 1: Does the patient require assistance with bed, chair, or wheelchair transfers? Yes. TRANSFERS: BED, CHAIR, WHEELCHAIR - STEP 2: Does the patient require the assistance of a helper? Yes. TRANSFERS: BED, CHAIR, WHEELCHAIR - STEP 3: How much assistance does the patient require from the helper? Only supervision TRANSFERS: BED, CHAIR, WHEELCHAIR - SCORE: 5-SUP TRANSFERS: TOILET: Activity did not occur on this shift TRANSFERS: TOILET - SCORE: 0-UNK TRANSFERS: SHOWER: Activity did not occur on this shift TRANSFERS: SHOWER - SCORE: 0-UNK TRANSFERS: TUB: Activity did not occur on this shift TRANSFERS: TUB - SCORE: 0-UNK LOCOMOTION: WALK: Activity did not occur on this shift LOCOMOTION: WALK - SCORE: 0-UNK LOCOMOTION: WHEELCHAIR: Activity did not occur on this shift LOCOMOTION: WHEELCHAIR - SCORE: 0-UNK COMPREHENSION: COMPREHENSION - STEP 1: Does the patient require help to understand complex and abstract ideas (such as current events, finan gurinder, discharge planning, medical issues, relationships, etc)? Yes. COMPREHENSION - STEP 2: Does the patient require help to understand questions or statements about basic needs or ideas (such as hunger, thirst, sleep, safety, daily schedule, room location, or discomfort) half or more of the t annia? Yes. COMPREHENSION - STEP 3: Is the patient basically able to understand and respond appropriately and consistently? Yes. COMPREHENSION - SCORE: 2-MAX EXPRESSION EXPRESSION: TYPE: Both EXPRESSION - STEP 1: Does the patient require help expressing complex and abstract ideas (such as current events, finances , discharge planning, medical issues, relationships, etc)? Yes. EXPRESSION - STEP 2: Does the patient require help to express basic necessities or ideas (such as hunger, thirst, sleep, s afety, daily schedule, room location, or discomfort) half or more of the time? Yes. EXPRESSION - STEP 3: Is the patient basically unable to express or does s/he express inappropriately or inconsistently oz pite prompting? Yes. Patient is basically unable to express. EXPRESSION - SCORE: 1-DEP SOCIAL INTERACTION: SOCIAL INTERACTION - STEP 1: Does the patient require a helper to interact with others in social and therapeutic situations? Yes. SOCIAL INTERACTION - STEP 2: Does the patient interact appropriately half or more of the time? No. SOCIAL INTERACTION - STEP 3: How often does the patient interact appropriately? More than 25% of the time SOCIAL INTERACTION - SCORE: 2-MAX PROBLEM SOLVING: PROBLEM SOLVING - SCORE: 0-UNK MEMORY: MEMORY - STEP 1: Does the patient need help to remember frequently encountered people, daily routines, and executing r equests? Yes. MEMORY - STEP 2: How often does the patient need help to remember frequently encountered people, daily routines, and e xecuting requests? More than 50% of the time MEMORY - STEP 3: Does the patient need help to remember all of the time OR does s/he not effectively recognize and rem ember? No. Patient does not need help all the time MEMORY - SCORE: 2-MAX SIGNATURE PANEL: The following modified sections: Eating - Score, Grooming - Score, Bathing - Score, Dressing - Upper Body - Score, Dressing - Lower Body - Score, Toileting - Score, Bladder Management - Score, Bowel Man agement - Score, Transfers: Bed, Chair, Wheelchair - Score, Transfers: Toilet - Score, Transfers: Gladys wer - Score, Transfers: Tub - Score, Locomotion: Walk - Score, Locomotion: Wheelchair - Score, Compre hension - Score, Expression - Score, Social Interaction - Score, Problem Solving - Score, Memory - Sc ore were [electronically] signed by Kerry Pagan C.N.A. on SunDec 13 2017 14:29:56 T-0500 (Centra [place] Daylight Time)
--- NOTE | 2017-12-13 15:30 | FAST ---
SHIFT START DATE/TIME: 12/12/2017 07:00 (CDT) SHIFT END DATE/TIME: 12/12/2017 19:00 (CDT) NAME KAMERON KOHLI DATE OF : 1960 DATE OF ADMISSION: 12/10/2017 15:50 (CDT) PHONE: AGE: 57 N# [id number] GENDER: Male ENCOUNTER PHYSICIAN: Dr. Mandeep Nicole M.D. 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 EATING: EATING - STEP 1: Does the patient require assistance when eating? Yes. EATING - STEP 2: Does the patient require the assistance of a helper? Yes. EATING - STEP 3: Does the patient perform half or more of the eating tasks? Yes. EATING - STEP 4: Does the patient need only supervision, cuing, coaxing OR help to apply an orthosis OR help to cut fo od, open containers, pour liquids, or butter bread? Yes. EATING - SCORE: 5-SUP GROOMING: Activity did not occur on this shift GROOMING - SCORE: 0-UNK BATHING: Activity did not occur on this shift BATHING - SCORE: 0-UNK DRESSING - UPPER BODY: Activity did not occur on this shift ARTICLES SCORE Total number of steps: 0 DRESSING - UPPER BODY - SCORE: 0-UNK DRESSING - LOWER BODY: Activity did not occur on this shift ARTICLES SCORE Total number of steps: 0 DRESSING - LOWER BODY - SCORE: 0-UNK TOILETING: Activity did not occur on this shift TOILETING - SCORE: 0-UNK BLADDER MANAGEMENT: [place] removes incontinent device (Depends, pull ups, etc.); cleans the patient after accident / inco ntinent episode; and, applies new incontinent device. BLADDER MANAGEMENT - SCORE: 1-DEP BLADDER MANAGEMENT - FREQUENCY OF ACCIDENTS: BLADDER MANAGEMENT(FA) - STEP 1: How many accidents has the patient had during the current shift? 1 BOWEL MANAGEMENT: [place] removes incontinent device (depends, pull ups, etc.); cleans the patient after accident / inco ntinent episode; and, applies new device (depends, pull-ups, padding, etc.). BOWEL MANAGEMENT - SCORE: 1-DEP BOWEL MANAGEMENT - FREQUENCY OF ACCIDENTS: BOWEL MANAGEMENT(FA) - STEP 1: How many accidents has the patient had during the current shift? 1 TRANSFERS: BED, CHAIR, WHEELCHAIR: TRANSFERS: BED, CHAIR, WHEELCHAIR - STEP 1: Does the patient require assistance with bed, chair, or wheelchair transfers? Yes. TRANSFERS: BED, CHAIR, WHEELCHAIR - STEP 2: Does the patient require the assistance of a helper? Yes. TRANSFERS: BED, CHAIR, WHEELCHAIR - STEP 3: How much assistance does the patient require from the helper? Steadying/guiding assistance TRANSFERS: BED, CHAIR, WHEELCHAIR - SCORE: 4-MIN TRANSFERS: TOILET: Activity did not occur on this shift TRANSFERS: TOILET - SCORE: 0-UNK TRANSFERS: SHOWER: Activity did not occur on this shift TRANSFERS: SHOWER - SCORE: 0-UNK TRANSFERS: TUB: Activity did not occur on this shift TRANSFERS: TUB - SCORE: 0-UNK LOCOMOTION: WALK: Activity did not occur on this shift LOCOMOTION: WALK - SCORE: 0-UNK LOCOMOTION: WHEELCHAIR: Activity did not occur on this shift LOCOMOTION: WHEELCHAIR - SCORE: 0-UNK COMPREHENSION: COMPREHENSION: TYPE: Both COMPREHENSION - STEP 1: Does the patient require help to understand complex and abstract ideas (such as current events, finan gurinder, discharge planning, medical issues, relationships, etc)? Yes. COMPREHENSION - STEP 2: Does the patient require help to understand questions or statements about basic needs or ideas (such as hunger, thirst, sleep, safety, daily schedule, room location, or discomfort) half or more of the t annia? Yes. COMPREHENSION - STEP 3: Is the patient basically able to understand and respond appropriately and consistently? Yes. COMPREHENSION - SCORE: 2-MAX EXPRESSION EXPRESSION: TYPE: Both EXPRESSION - STEP 1: Does the patient require help expressing complex and abstract ideas (such as current events, finances , discharge planning, medical issues, relationships, etc)? Yes. EXPRESSION - STEP 2: Does the patient require help to express basic necessities or ideas (such as hunger, thirst, sleep, s afety, daily schedule, room location, or discomfort) half or more of the time? Yes. EXPRESSION - STEP 3: Is the patient basically unable to express or does s/he express inappropriately or inconsistently oz pite prompting? No. EXPRESSION - SCORE: 2-MAX SOCIAL INTERACTION: SOCIAL INTERACTION - STEP 1: Does the patient require a helper to interact with others in social and therapeutic situations? Yes. SOCIAL INTERACTION - STEP 2: Does the patient interact appropriately half or more of the time? No. SOCIAL INTERACTION - STEP 3: How often does the patient interact appropriately? Less than 25% of the time SOCIAL INTERACTION - SCORE: 1-DEP PROBLEM SOLVING: PROBLEM SOLVING - STEP 1: Does the patient need help to solve complex problems such as managing a checking account or confronti ng interpersonal problems? Yes. PROBLEM SOLVING - STEP 2: Does the patient solve basic routine problems half or more of the time? No. PROBLEM SOLVING - STEP 3: Does the patient need help to solve problems all the time or is s/he unable to solve problems? No. Vignesh treviño can sometimes solve problems PROBLEM SOLVING - SCORE: 2-MAX MEMORY: MEMORY - STEP 1: Does the patient need help to remember frequently encountered people, daily routines, and executing r equests? Yes. MEMORY - STEP 2: How often does the patient need help to remember frequently encountered people, daily routines, and e xecuting requests? More than 50% of the time MEMORY - STEP 3: Does the patient need help to remember all of the time OR does s/he not effectively recognize and rem ember? No. Patient does not need help all the time MEMORY - SCORE: 2-MAX SIGNATURE PANEL: The following modified sections: Eating - Score, Grooming - Score, Bathing - Score, Dressing - Upper Body - Score, Dressing - Lower Body - Score, Toileting - Score, Bladder Management - Score, Bowel Man agement - Score, Transfers: Bed, Chair, Wheelchair - Score, Transfers: Toilet - Score, Transfers: Gladys wer - Score, Transfers: Tub - Score, Locomotion: Walk - Score, Locomotion: Wheelchair - Score, Expres edenilson - Score, Social Interaction - Score, Problem Solving - Score, Memory - Score, Comprehension - Sc ore were [electronically] signed by Kerry Pagan C.N.A. on SunDec 13 2017 14:32:07 T-0500 (Centra [place] Daylight Time)
--- NOTE | 2017-12-13 16:51 | FAST ---
ENCOUNTER DATE AND TIME: 12/13/2017 08:00 (CDT) NAME KAMERON KOHLI DATE OF : 1960 DATE OF ADMISSION: 12/10/2017 15:50 (CDT) PHONE: AGE: 57 N# [id number] GENDER: Male ENCOUNTER PHYSICIAN: Dr. Mandeep Nicole M.D. 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 EATING: Activity did not occur on this shift EATING - SCORE: 0-UNK GROOMING: Activity did not occur on this shift GROOMING - SCORE: 0-UNK BATHING: Activity did not occur on this shift BATHING - SCORE: 0-UNK DRESSING - UPPER BODY: Activity did not occur on this shift Patient is not dressing in public clothing ARTICLES SCORE Total number of steps: 0 DRESSING - UPPER BODY - SCORE: 0-UNK DRESSING - LOWER BODY: Activity did not occur on this shift Patient is not dressing in public clothing ARTICLES SCORE Total number of steps: 0 DRESSING - LOWER BODY - SCORE: 0-UNK TOILETING: Activity did not occur on this shift TOILETING - SCORE: 0-UNK BLADDER MANAGEMENT: Activity did not occur on this shift BLADDER MANAGEMENT - SCORE: 7-IND BOWEL MANAGEMENT: Activity did not occur on this shift BOWEL MANAGEMENT - SCORE: 7-IND TRANSFERS: BED, CHAIR, WHEELCHAIR: Activity did not occur on this shift TRANSFERS: BED, CHAIR, WHEELCHAIR - SCORE: 0-UNK TRANSFERS: TOILET: Activity did not occur on this shift TRANSFERS: TOILET - SCORE: 0-UNK TRANSFERS: SHOWER: Activity did not occur on this shift TRANSFERS: SHOWER - SCORE: 0-UNK TRANSFERS: TUB: Activity did not occur on this shift TRANSFERS: TUB - SCORE: 0-UNK LOCOMOTION: WALK: Activity did not occur on this shift LOCOMOTION: WALK - SCORE: 0-UNK LOCOMOTION: WHEELCHAIR: Activity did not occur on this shift LOCOMOTION: WHEELCHAIR - SCORE: 0-UNK LOCOMOTION: STAIRS: Activity did not occur on this shift LOCOMOTION: STAIRS - SCORE: 0-UNK COMPREHENSION: COMPREHENSION - STEP 1: Does the patient require help to understand complex and abstract ideas (such as current events, finan gurinder, discharge planning, medical issues, relationships, etc)? Yes. COMPREHENSION - STEP 2: Does the patient require help to understand questions or statements about basic needs or ideas (such as hunger, thirst, sleep, safety, daily schedule, room location, or discomfort) half or more of the t annia? No. COMPREHENSION - STEP 3: How often does the patient need help to understand directions and conversation about basic needs? 10% - 24% of the time COMPREHENSION - SCORE: 4-MIN EXPRESSION EXPRESSION - STEP 1: Does the patient require help expressing complex and abstract ideas (such as current events, finances , discharge planning, medical issues, relationships, etc)? Yes. EXPRESSION - STEP 2: Does the patient require help to express basic necessities or ideas (such as hunger, thirst, sleep, s afety, daily schedule, room location, or discomfort) half or more of the time? No. EXPRESSION - STEP 3: How often does the patient need help to express directions and conversation about basic needs? Less t dale 10% of the time EXPRESSION - SCORE: 5-SUP SOCIAL INTERACTION: SOCIAL INTERACTION - STEP 1: Does the patient require a helper to interact with others in social and therapeutic situations? Yes. SOCIAL INTERACTION - STEP 2: Does the patient interact appropriately half or more of the time? Yes. SOCIAL INTERACTION - STEP 3: How often does the patient need help to interact appropriately? 10-24% of the time SOCIAL INTERACTION - SCORE: 4-MIN PROBLEM SOLVING: PROBLEM SOLVING - STEP 1: Does the patient need help to solve complex problems such as managing a checking account or confronti ng interpersonal problems? Yes. PROBLEM SOLVING - STEP 2: Does the patient solve basic routine problems half or more of the time? Yes. PROBLEM SOLVING - STEP 3: How often does the patient need help to solve basic routine problems? 25%-49% of the time PROBLEM SOLVING - SCORE: 3-MOD MEMORY: MEMORY - STEP 1: Does the patient need help to remember frequently encountered people, daily routines, and executing r equests? Yes. MEMORY - STEP 2: How often does the patient need help to remember frequently encountered people, daily routines, and e xecuting requests? More than 50% of the time MEMORY - STEP 3: Does the patient need help to remember all of the time OR does s/he not effectively recognize and rem ember? No. Patient does not need help all the time MEMORY - SCORE: 2-MAX SIGNATURE PANEL: The following modified sections: Comprehension - Score, Expression - Score, Social Interaction - Scor e, Problem Solving - Score, Memory - Score were [electronically] signed by CHACHO Renae on Sun 15:53:27 GMT-0500 (Central Daylight Time)
--- NOTE | 2017-12-13 17:47 | FAST ---
ENCOUNTER DATE AND TIME: 12/13/2017 08:00 (CDT) NAME KAMERON KOHLI DATE OF : 1960 DATE OF ADMISSION: 12/10/2017 15:50 (CDT) PHONE: AGE: 57 N# [id number] GENDER: Male ENCOUNTER PHYSICIAN: Dr. Mandeep Nicole M.D. 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 EATING: Activity did not occur on this shift EATING - SCORE: 0-UNK GROOMING: Activity did not occur on this shift GROOMING - SCORE: 0-UNK BATHING: Activity did not occur on this shift BATHING - SCORE: 0-UNK DRESSING - UPPER BODY: Activity did not occur on this shift Patient is not dressing in public clothing ARTICLES SCORE Total number of steps: 0 DRESSING - UPPER BODY - SCORE: 0-UNK DRESSING - LOWER BODY: Activity did not occur on this shift Patient is not dressing in public clothing ARTICLES SCORE Total number of steps: 0 DRESSING - LOWER BODY - SCORE: 0-UNK TOILETING: Activity did not occur on this shift TOILETING - SCORE: 0-UNK BLADDER MANAGEMENT: Activity did not occur on this shift BLADDER MANAGEMENT - SCORE: 7-IND BOWEL MANAGEMENT: Activity did not occur on this shift BOWEL MANAGEMENT - SCORE: 7-IND TRANSFERS: BED, CHAIR, WHEELCHAIR: TRANSFERS: BED, CHAIR, WHEELCHAIR - STEP 1: Does the patient require assistance with bed, chair, or wheelchair transfers? Yes. TRANSFERS: BED, CHAIR, WHEELCHAIR - STEP 2: Does the patient require the assistance of a helper? Yes. TRANSFERS: BED, CHAIR, WHEELCHAIR - STEP 3: How much assistance does the patient require from the helper? Lifting of the patient TRANSFERS: BED, CHAIR, WHEELCHAIR - STEP 4: Does the helper lift the patient ONLY up? ONLY down? Up AND Down? ONLY up. TRANSFERS: BED, CHAIR, WHEELCHAIR - SCORE: 3-MOD TRANSFERS: TOILET: Activity did not occur on this shift TRANSFERS: TOILET - SCORE: 0-UNK TRANSFERS: SHOWER: Activity did not occur on this shift TRANSFERS: SHOWER - SCORE: 0-UNK TRANSFERS: TUB: Activity did not occur on this shift TRANSFERS: TUB - SCORE: 0-UNK LOCOMOTION: WALK: LOCOMOTION: WALK - STEP 1: Does the patient need help to walk 150 feet? Yes. LOCOMOTION: WALK - STEP 2: How much assistance does the patient require to walk a minimum of 150 feet? Only incidental help such as contact guarding or steadying LOCOMOTION: WALK - SCORE: 4-MIN LOCOMOTION: WHEELCHAIR: Activity did not occur on this shift LOCOMOTION: WHEELCHAIR - SCORE: 0-UNK LOCOMOTION: STAIRS: Activity did not occur on this shift LOCOMOTION: STAIRS - SCORE: 0-UNK COMPREHENSION: COMPREHENSION - SCORE: 0-UNK EXPRESSION EXPRESSION - SCORE: 0-UNK SOCIAL INTERACTION: SOCIAL INTERACTION - SCORE: 0-UNK PROBLEM SOLVING: PROBLEM SOLVING - SCORE: 0-UNK MEMORY: MEMORY - SCORE: 0-UNK SIGNATURE PANEL: The following modified sections: Transfers: Bed, Chair, Wheelchair - Score, Transfers: Toilet - Score , Locomotion: Walk - Score, Locomotion: Wheelchair - Score, Locomotion: Stairs - Score were [electron [place]] signed by Carroll Bentley PT on SunDec 13 2017 16:48:55 GMT-0500 (Central Daylight Time)
[2017-12-13] MEDS: TAMSULOSIN 0.4 MG SR CAP PO SCH (20:42)
[2017-12-13] MEDS: CIPROFLOXACIN HCL 500 MG TAB PO SCH (20:42)
[2017-12-13] MEDS: ATORVASTATIN 80 MG TAB PO SCH (20:43)
[2017-12-13] MEDS: INSULIN DETEMIR 100 UNIT/1 ML INSULIN SQ SCH (20:43)
--- NOTE | 2017-12-13 20:44 | R.PN ---
ENCOUNTER DATE AND TIME: 12/13/2017 19:42 (CDT) NAME KAMERON KOHLI DATE OF : 1960 DATE OF ADMISSION: 12/10/2017 15:50 (CDT) acute nonhemorrhagic CVA involving the left posterior cerebral artery distribution an adjecent thalam o perforating branchesCHIEF COMPLAINT: Left DIE SIZER stroke SUBJECTIVE: Pt denied any Shortness of Breath. Pt denied any depression. Ambulated 300' with contact guard assistance using a rolling walker. VITAL SIGNS Temperature: 97.6 F SBP/DBP: 146/69 Pulse: 70 Resp: 16 SBP/DBP: 115/62 MEDICATION ALLERGIES: hydromorphone morphine latex allergy latex, natural rubber allergy baclofen ENVIRONMENTAL ALLERGIES: - Substance Allergies None Known - Other Allergies None Known NURSING: - Shower allowing shower - Lab Results blood Sugar Check ACHS - Bladder care per protocol - Skin care per protocol PRECAUTIONS: - Weight Bearing Precaution NWB both LE ACTIVITIES OOB only with supervision THERAPIES: - Occupational Therapy Evaluate and Treat. Cognitive Retraining. Visual Perceptual Training. - Speech Therapy Memory Strategies. Expressive Language Skills. Speech Intelligibility Training. Cognitive Training. R eceptive Language Skills. - Physical Therapy Evaluate and Treat. PHYSICAL EXAM - Gen Alert and awake Lying in bed No apparent distress Oriented to: person, time, and place - Skin No skin breakdown. Normacephalic - Eyes Right visual field deficit. - Neck No abnormalities - CVS RRR - Chest Clear - Resp Clear to auscultation - Abd Soft - GI Non distended Deferred - No abnormalities - Ext Bilateral below the knee amputation. - MSK Mild diffuse upper extremity weakness 5-/5. - Neuro Mild diffuse upper extremity weakness 5-/5. - Psych No abnormalities ASSESSMENT: Pt. is a 57 yo Right-handed male.On 12/07/2017 Pt. presented to [facility] with sudden onset of right-side weakness.On 12/07/2017 he was admitted to [facility] with diagnosis acute nonhemorrhagic CVA involving the left posterior cerebral artery distr ibution an adjecent thalamo perforating branches.His impairment category is Stroke 01 - Right Body ( Left Brain) (01.2).Pre-morbidly, Pt. was independent/mod-I in Sphincter Control, Transfers Control, C ommunication, Social Cognition, Self-Care, and Locomotion; and he had good Sphincter Control.Currentl y, he has deficits of Endurance, Safety Awareness, Transfers Control, Communication, Social Cognition , Balance, Locomotion, and Self-Care.Pt. is now referred to [facility] for acu te in-patient rehabilitation in order to maximize patient's functional independence in activities of daily living, strength, ROM, and mobility.- Rehab Goal Patient has realistic goal of being discharged at assistance level 4-Zainab to reside at Home with Fam issa/Relatives. MDM/PLAN: - Lab Results blood Sugar Check ACHS for Dementia, TBI, Stroke, or others - Bladder care per protocol - Physical Therapy Gait dysfunction - to improve, our physical therapists will perform initial evaluation of pt's statu s upon admission and devise an individualized program for Gait Training, and Wheel Chair mobility Inability to transfer - to improve, our physical therapists will perform initial evaluation of pt's status upon admission and devise an individualized program for Bed mobility Need for home safety evaluation - to improve, our physical therapists will perform initial evaluatio n of pt's status upon admission and devise an individualized program for Home Evaluation Need in caregiver upon discharge - to improve, our physical therapists will perform initial evaluati on of pt's status upon admission and devise an individualized program for Caregiver Training New precaution - to improve, our physical therapists will perform initial evaluation of pt's status upon admission and devise an individualized program for Patient precaution education Poor balance - to improve, our physical therapists will perform initial evaluation of pt's status up on admission and devise an individualized program for Balance Training Poor endurance - to improve, our physical therapists will perform initial evaluation of pt's status upon admission and devise an individualized program for Endurance Training Weakness - to improve, our physical therapists will perform initial evaluation of pt's status upon a dmission and devise an individualized program for Aquatic Therapy, Neuromuscular Reeducation, and Str engthening - Weight Bearing Precaution WBAT right LE - Skin care per protocol - Diet - Solid Texture Continue Regular - Shower allowing shower - Occupational Therapy ADL deficits - to improve, our occupation therapists will perform initial evaluation of pt's status upon admission and devise an individualized program for Bathing, Bed mobility, Community Reintegratio n, Cooking, Dressing, Eating, Fine Motor Skills, Grooming, Homemaking, Kitchen Mobility, Laundry, Pat ient Education, Safety Awareness, Splinting - Positioning, Transfers(Toilet, Tub, Shower), and Wheel Chair Management Cognitive deficits - to improve, our occupation therapists will perform initial evaluation of pt's s tatus upon admission and devise an individualized program for Cognition - orientation Need for animal care worker - to improve, our occupation therapists will perform initial evaluation of pt's status upon admission and devise an individualized program for Caregiver Training Weakness - to improve, our occupation therapists will perform initial evaluation of pt's status upon admission and devise an individualized program for Aquatic Therapy, Balance, Endurance, UE ROM, and UE strengthening FUNCTIONAL STATUS: UPDATED AT WEEKLY TEAM CONFERENCE - Bladder Same accident frequency: 7-Ind - No accidents in the past 7 days - Bowel Same accident frequency: 7-Ind - No accidents in the past 7 days - Walking Same score based on distance walked: 0(N/A) - Wheelchair Same score based on distance traveled: 0(N/A) FUNCTIONAL STATUS: - Self-Care A. Eating Ind B. Grooming Rush C. Bathing Rush D. Dressing - Upper Rush E. Dressing - Lower Zainab F. Toileting Ind - Sphincter Control G: Bladder control Ind H: Bowel control Ind - Transfers Control I. Bed/Chair/Wheelchair Zainab J. Toilet Zainab K. Tub/Shower Zainab - Locomotion L. Walk/Wheelchair (W) Zainab M. Stairs ADNO - Communication N. Comprehension (B) sup O. Expression (B) sup - Social Cognition P. Social Interaction sup Q. Problem Solving sup R. Memory sup - Endurance Fair - Balance Fair - Safety Awareness Fair CURRENT FUNC. DEFICITS: Endurance, Safety Awareness, Transfers Control, Communication, Social Cognition, Balance, Locomotion, and Self-Care SIGNATURE PANEL: (CDT)
[2017-12-13] MEDS: LORAZEPAM 0.5 MG TABLET PO PRN (21:21)
--- NOTE | 2017-12-14 03:16 | FAST ---
SHIFT START DATE/TIME: 12/13/2017 19:00 (CDT) SHIFT END DATE/TIME: 12/14/2017 07:00 (CDT) NAME KAMERON KOHLI DATE OF : 1960 DATE OF ADMISSION: 12/10/2017 15:50 (CDT) PHONE: AGE: 57 N# [id number] GENDER: Male ENCOUNTER PHYSICIAN: Dr. Mandeep Nicole M.D. 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 EATING: Activity did not occur on this shift EATING - SCORE: 0-UNK GROOMING: Activity did not occur on this shift GROOMING - SCORE: 0-UNK BATHING: Activity did not occur on this shift BATHING - SCORE: 0-UNK DRESSING - UPPER BODY: Patient is not dressing in public clothing ARTICLES SCORE Total number of steps: 0 DRESSING - UPPER BODY - SCORE: 0-UNK DRESSING - LOWER BODY: Patient is not dressing in public clothing ARTICLES SCORE Total number of steps: 0 DRESSING - LOWER BODY - SCORE: 0-UNK TOILETING: TOILETING - STEP 1: Does the patient require assistance with toileting? Yes. TOILETING - STEP 2: Does the patient require the assistance of a helper? Yes. TOILETING - STEP 3: How much assistance does the patient require from the helper? Hands-on assistance from the helper TOILETING - STEP 4: Of the 3 tasks: 1) Adjusting clothing prior to use, 2) Cleansing of perineal area, 3) Adjusting clot donita after use; How many tasks does the patient perform WITHOUT assistance of the helper? No tasks; h elper performs all three tasks TOILETING - SCORE: 1-DEP BLADDER MANAGEMENT: [place] removes incontinent device (Depends, pull ups, etc.); cleans the patient after accident / inco ntinent episode; and, applies new incontinent device. BLADDER MANAGEMENT - SCORE: 1-DEP BLADDER MANAGEMENT - FREQUENCY OF ACCIDENTS: BLADDER MANAGEMENT(FA) - STEP 1: How many accidents has the patient had during the current shift? 2 BOWEL MANAGEMENT: [place] removes incontinent device (depends, pull ups, etc.); cleans the patient after accident / inco ntinent episode; and, applies new device (depends, pull-ups, padding, etc.). BOWEL MANAGEMENT - SCORE: 1-DEP BOWEL MANAGEMENT - FREQUENCY OF ACCIDENTS: BOWEL MANAGEMENT(FA) - STEP 1: How many accidents has the patient had during the current shift? 1 TRANSFERS: BED, CHAIR, WHEELCHAIR: TRANSFERS: BED, CHAIR, WHEELCHAIR - STEP 1: Does the patient require assistance with bed, chair, or wheelchair transfers? Yes. TRANSFERS: BED, CHAIR, WHEELCHAIR - STEP 2: Does the patient require the assistance of a helper? Yes. TRANSFERS: BED, CHAIR, WHEELCHAIR - STEP 3: How much assistance does the patient require from the helper? Steadying/guiding assistance TRANSFERS: BED, CHAIR, WHEELCHAIR - SCORE: 4-MIN TRANSFERS: TOILET: Activity did not occur on this shift TRANSFERS: TOILET - SCORE: 0-UNK TRANSFERS: SHOWER: Activity did not occur on this shift TRANSFERS: SHOWER - SCORE: 0-UNK TRANSFERS: TUB: Activity did not occur on this shift TRANSFERS: TUB - SCORE: 0-UNK LOCOMOTION: WALK: Activity did not occur on this shift LOCOMOTION: WALK - SCORE: 0-UNK LOCOMOTION: WHEELCHAIR: Activity did not occur on this shift LOCOMOTION: WHEELCHAIR - SCORE: 0-UNK COMPREHENSION: COMPREHENSION - STEP 1: Does the patient require help to understand complex and abstract ideas (such as current events, finan gurinder, discharge planning, medical issues, relationships, etc)? Yes. COMPREHENSION - STEP 2: Does the patient require help to understand questions or statements about basic needs or ideas (such as hunger, thirst, sleep, safety, daily schedule, room location, or discomfort) half or more of the t annia? No. COMPREHENSION - STEP 3: How often does the patient need help to understand directions and conversation about basic needs? 25% - 49% of the time COMPREHENSION - SCORE: 3-MOD EXPRESSION EXPRESSION - STEP 1: Does the patient require help expressing complex and abstract ideas (such as current events, finances , discharge planning, medical issues, relationships, etc)? Yes. EXPRESSION - STEP 2: Does the patient require help to express basic necessities or ideas (such as hunger, thirst, sleep, s afety, daily schedule, room location, or discomfort) half or more of the time? No. EXPRESSION - STEP 3: How often does the patient need help to express directions and conversation about basic needs? 25-49% of the time EXPRESSION - SCORE: 3-MOD SOCIAL INTERACTION: SOCIAL INTERACTION - STEP 1: Does the patient require a helper to interact with others in social and therapeutic situations? No. SOCIAL INTERACTION - STEP 2: Does the patient need extra time in social situations, OR does s/he interact with staff, other patien ts, and family members ONLY in structured environments, OR does s/he require medication for social in teraction? Yes, patient needs extra time SOCIAL INTERACTION - SCORE: 6-EILEEN PROBLEM SOLVING: PROBLEM SOLVING - STEP 1: Does the patient need help to solve complex problems such as managing a checking account or confronti ng interpersonal problems? Yes. PROBLEM SOLVING - STEP 2: Does the patient solve basic routine problems half or more of the time? Yes. PROBLEM SOLVING - STEP 3: How often does the patient need help to solve basic routine problems? 25%-49% of the time PROBLEM SOLVING - SCORE: 3-MOD MEMORY: MEMORY - STEP 1: Does the patient need help to remember frequently encountered people, daily routines, and executing r equests? Yes. MEMORY - STEP 2: How often does the patient need help to remember frequently encountered people, daily routines, and e xecuting requests? 25% - 49% of the time MEMORY - SCORE: 3-MOD SIGNATURE PANEL: The following modified sections: Eating - Score, Grooming - Score, Dressing - Upper Body - Score, Gabriel ssing - Lower Body - Score, Toileting - Score, Bladder Management - Score, Bowel Management - Score, Transfers: Bed, Chair, Wheelchair - Score, Transfers: Toilet - Score, Transfers: Shower - Score, Gutierrez sfers: Tub - Score, Locomotion: Walk - Score, Locomotion: Wheelchair - Score, Comprehension - Score, Expression - Score, Social Interaction - Score, Problem Solving - Score, Memory - Score were [electro nically] signed by Natalie Brewer CNA on SunDec 14 2017 02:18:25 GMT-0500 (Central Daylight Time)
[2017-12-14] MEDS: CARVEDILOL 3.125 MG TAB PO SCH ×2 (05:38→17:32)
[2017-12-14 07:23] LABS: Potassium 4.2 mEq/L (3.6-5.0)
[2017-12-14] MEDS: NICOTINE 7 MG/PAT TD SCH ×2 (07:53→16:01)
[2017-12-14] MEDS: INSULIN LISPRO 100 UNIT/1 ML SQ SCH ×3 (07:54→16:42)
[2017-12-14] MEDS: HYDROCODONE/APAP 10/325 TAB PO PRN (08:10)
[2017-12-14] MEDS: CIPROFLOXACIN HCL 500 MG TAB PO SCH (08:11)
[2017-12-14] MEDS: FOLIC ACID 1 MG TABLET PO SCH (08:11)
[2017-12-14] MEDS: CLOPIDOGREL 75 MG TABLET PO SCH (08:11)
[2017-12-14] MEDS: ASPIRIN EC 81 MG TAB PO SCH (08:11)
[2017-12-14] MEDS: BUMETANIDE 1 MG TABLET PO SCH ×2 (08:11→21:19)
[2017-12-14] MEDS: PROMOD 30 ML DOSE PO SCH ×2 (08:12→21:18)
--- NOTE | 2017-12-14 09:44 | P.RH.PN ---
Estimated Length of Stay: 19 Expected Discharge Date: 12/28/17 Discharge Disposition Plan: Home Family Support: Yes Vital Signs: Last Vital Signs Temp 97.4 F 12/14/17 08:00 Pulse 74 12/14/17 08:11 Resp 18 12/14/17 08:00 BP 158/74 H 12/14/17 08:11 Pulse Ox 94 12/14/17 08:00 Laboratory: Laboratory Last Values WBC 7.4 K/uL (4.3-10.9) 12/13/17 05:49 RBC 3.57 M/uL (4.33-5.43) L 12/13/17 05:49 Hgb 10.6 g/dL (13.6-17.9) L 12/13/17 05:49 Hct 30.2 % (39.6-49.0) L 12/13/17 05:49 MCV 84.5 fL (80-100) 12/13/17 05:49 MCH 29.6 pg (27.0-35.0) 12/13/17 05:49 MCHC 35.0 g/dL (32.0-36.0) 12/13/17 05:49 RDW 15.1 % (12.1-15.2) 12/13/17 05:49 Plt Count 332 K/uL (152-406) 12/13/17 05:49 MPV 9.1 fL (7.6-11.3) 12/13/17 05:49 Plt Distribution Width Cancelled 12/12/17 16:32 Absolute Nucleated RBC Cancelled 12/12/17 16:32 Neutrophils % 70.7 % (41.7-73.7) 12/13/17 05:49 Lymphocytes % 16.4 % (15.3-44.8) 12/13/17 05:49 Monocytes % 8.3 % (3.3-12.3) 12/13/17 05:49 Eosinophils % 4.1 % (0-4.4) 12/13/17 05:49 Basophils % 0.5 % (0-1.3) 12/13/17 05:49 Nucleated RBC % Cancelled 12/12/17 16:32 Absolute Neutrophils 5.2 K/uL (1.8-8.0) 12/13/17 05:49 Absolute Lymphocytes 1.2 K/uL (0.7-4.9) 12/13/17 05:49 Absolute Monocytes 0.6 K/uL (0.1-1.3) 12/13/17 05:49 Absolute Eosinophils 0.3 K/uL (0-0.5) 12/13/17 05:49 Absolute Basophils 0.0 K/uL (0-0.5) 12/13/17 05:49 Sodium 132 mEq/L (135-145) L 12/14/17 06:32 Potassium 4.2 mEq/L (3.6-5.0) 12/14/17 06:32 Chloride 103 mEq/L (101-111) 12/14/17 06:32 Carbon Dioxide 23 mEq/L (21-31) 12/14/17 06:32 Anion Gap Cancelled 12/12/17 16:32 BUN 32 mg/dL (6-20) H 12/14/17 06:32 Creatinine 1.87 mg/dL (0.61-1.24) H 12/14/17 06:32 Estimated GFR 38 mL/min (=/>90) L 12/14/17 06:32 Glucose 275 mg/dL (65-120) H 12/14/17 06:32 POC Glucose 231 mg/dl (65-120) H 12/14/17 07:33 Calcium 8.5 mg/dL (8.5-10.5) 12/14/17 06:32 Magnesium 1.8 mg/dL (1.8-2.5) 12/11/17 05:47 Albumin 2.3 g/dL (3.2-5.5) L 12/11/17 05:47 Prealbumin 18.3 mg/dl (18-38) 12/11/17 05:47 Urine Color Yellow 12/11/17 05:20 Urine Appearance Turbid 12/11/17 05:20 Urine pH 6.0 (5.0-7.0) 12/11/17 05:20 Ur Specific [place] 1.010 (1.005-1.030) 12/11/17 05:20 Urine Ketones Negative (NEG) 12/11/17 05:20 Urine Blood Trace (NEG) H 12/11/17 05:20 Urine Nitrite Negative (NEG) 12/11/17 05:20 Urine Bilirubin Negative (NEG) 12/11/17 05:20 Urine Urobilinogen 0.2 mg/dL (0.2-1.0) 12/11/17 05:20 Ur Leukocyte Esterase Negative (NEG) 12/11/17 05:20 Urine RBC <5 /HPF (NONE SEEN) 12/11/17 05:20 Urine WBC >50 /HPF (<5) H 12/11/17 05:20 Ur Squamous Epith Cells <5 /HPF (NONE SEEN) 12/11/17 05:20 Urine Bacteria <20 /HPF (NONE SEEN) 12/11/17 05:20 Ur Microscopic Review Cancelled 12/11/17 05:20 Urine Culture Reflexed Reflexed 12/11/17 05:20 Urine Glucose Negative (NEG) 12/11/17 05:20 Urine Total Protein 2+ (NEG) H 12/11/17 05:20 Weight: 250 lb Wound Present: No Closed Surgical Incision Present: No Negative Pressure Wound Therapy Present: No Physician Update: He continues to be very impulsive and inappropriate with staff. He may shout at staff and the other patients. He still requires ongoing medical management for diabetes, hypertension and stoke. Medical Issues: urine culture: staph aureus- ciprofloxacin 500mg BID started Pain Issues: on [place] 10/325 Q4 PRN Functional Improvement: pt participates in therapy session and is demonstrating progress. Carry over from session to session may be limited due to poor cognition and memory. Skilled PT services continue to be necessary to address issues. Functional Improvement Occupational Therapy: PATIENT REFUSES TO ATTEMPT LB DRESSING ON HIS OWN, AND IS NOT SAFE WHEN STANDING STATIC TO MANAGE CLOTHES. DUE TO POOR VISUAL DIFFICULTIES, WELL PROBLEM SOLVING HE REQUIRES ASSISTANCE WITH DIRECTION AND INITIATION OF TASKS. Speech Therapy Update: Pt. presents with significant cognitive linguistic deficts. Verbal perseverations with phrases/sentences are frequent throughout the session and patient was unaware of their occurance. Patient presents with no recall after 2-3 minutes, intact repetition, poor ability to name items in categories or objects in the room. Patient successfully completed 2 step commands but was not able to even attempt a 3 step command. Patient was oriented to his own name and general location (e.g. in a hospital), however was not oriented to year, month, day, , situation, or physical location. Problem solving during initial evaluation was at Max A however when observed in functional environment patient required Min A. Patient is primarily unaware of his cognitive linguistic deficits and demonstrates poor safety awareness. Summary: Patient's care plan and longterm goals have been reviewed and revised as necessary. Please see the Rehabilitation Signature page for all necessary signatures.
--- NOTE | 2017-12-14 12:27 | FAST ---
ENCOUNTER DATE AND TIME: 12/14/2017 08:00 (CDT) NAME KAMERON KOHLI DATE OF : 1960 DATE OF ADMISSION: 12/10/2017 15:50 (CDT) PHONE: AGE: 57 N# [id number] GENDER: Male ENCOUNTER PHYSICIAN: Dr. Mandeep Nicole M.D. 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 EATING: Activity did not occur on this shift EATING - SCORE: 0-UNK GROOMING: Activity did not occur on this shift GROOMING - SCORE: 0-UNK BATHING: Activity did not occur on this shift BATHING - SCORE: 0-UNK DRESSING - UPPER BODY: Activity did not occur on this shift Patient is not dressing in public clothing ARTICLES SCORE Total number of steps: 0 DRESSING - UPPER BODY - SCORE: 0-UNK DRESSING - LOWER BODY: Activity did not occur on this shift Patient is not dressing in public clothing ARTICLES SCORE Total number of steps: 0 DRESSING - LOWER BODY - SCORE: 0-UNK TOILETING: Activity did not occur on this shift TOILETING - SCORE: 0-UNK BLADDER MANAGEMENT: Activity did not occur on this shift BLADDER MANAGEMENT - SCORE: 7-IND BOWEL MANAGEMENT: Activity did not occur on this shift BOWEL MANAGEMENT - SCORE: 7-IND TRANSFERS: BED, CHAIR, WHEELCHAIR: Activity did not occur on this shift TRANSFERS: BED, CHAIR, WHEELCHAIR - SCORE: 0-UNK TRANSFERS: TOILET: Activity did not occur on this shift TRANSFERS: TOILET - SCORE: 0-UNK TRANSFERS: SHOWER: Activity did not occur on this shift TRANSFERS: SHOWER - SCORE: 0-UNK TRANSFERS: TUB: Activity did not occur on this shift TRANSFERS: TUB - SCORE: 0-UNK LOCOMOTION: WALK: Activity did not occur on this shift LOCOMOTION: WALK - SCORE: 0-UNK LOCOMOTION: WHEELCHAIR: Activity did not occur on this shift LOCOMOTION: WHEELCHAIR - SCORE: 0-UNK LOCOMOTION: STAIRS: Activity did not occur on this shift LOCOMOTION: STAIRS - SCORE: 0-UNK COMPREHENSION: COMPREHENSION - STEP 1: Does the patient require help to understand complex and abstract ideas (such as current events, finan gurinder, discharge planning, medical issues, relationships, etc)? Yes. COMPREHENSION - STEP 2: Does the patient require help to understand questions or statements about basic needs or ideas (such as hunger, thirst, sleep, safety, daily schedule, room location, or discomfort) half or more of the t annia? No. COMPREHENSION - STEP 3: How often does the patient need help to understand directions and conversation about basic needs? 10% - 24% of the time COMPREHENSION - SCORE: 4-MIN EXPRESSION EXPRESSION - STEP 1: Does the patient require help expressing complex and abstract ideas (such as current events, finances , discharge planning, medical issues, relationships, etc)? Yes. EXPRESSION - STEP 2: Does the patient require help to express basic necessities or ideas (such as hunger, thirst, sleep, s afety, daily schedule, room location, or discomfort) half or more of the time? No. EXPRESSION - STEP 3: How often does the patient need help to express directions and conversation about basic needs? 10-24% of the time EXPRESSION - SCORE: 4-MIN SOCIAL INTERACTION: SOCIAL INTERACTION - STEP 1: Does the patient require a helper to interact with others in social and therapeutic situations? Yes. SOCIAL INTERACTION - STEP 2: Does the patient interact appropriately half or more of the time? Yes. SOCIAL INTERACTION - STEP 3: How often does the patient need help to interact appropriately? 10-24% of the time SOCIAL INTERACTION - SCORE: 4-MIN PROBLEM SOLVING: PROBLEM SOLVING - STEP 1: Does the patient need help to solve complex problems such as managing a checking account or confronti ng interpersonal problems? Yes. PROBLEM SOLVING - STEP 2: Does the patient solve basic routine problems half or more of the time? Yes. PROBLEM SOLVING - STEP 3: How often does the patient need help to solve basic routine problems? 25%-49% of the time PROBLEM SOLVING - SCORE: 3-MOD MEMORY: MEMORY - STEP 1: Does the patient need help to remember frequently encountered people, daily routines, and executing r equests? Yes. MEMORY - STEP 2: How often does the patient need help to remember frequently encountered people, daily routines, and e xecuting requests? More than 50% of the time MEMORY - STEP 3: Does the patient need help to remember all of the time OR does s/he not effectively recognize and rem ember? No. Patient does not need help all the time MEMORY - SCORE: 2-MAX SIGNATURE PANEL: The following modified sections: Comprehension - Score, Expression - Score, Social Interaction - Scor e, Problem Solving - Score, Memory - Score were [electronically] signed by CHACHO Renae on Sun 11:29:23 T-0500 (Central Daylight Time)
--- NOTE | 2017-12-14 14:35 | FAST ---
ENCOUNTER DATE AND TIME: 12/14/2017 08:00 (CDT) NAME KAMERON KOHLI DATE OF : 1960 DATE OF ADMISSION: 12/10/2017 15:50 (CDT) PHONE: AGE: 57 N# [id number] GENDER: Male ENCOUNTER PHYSICIAN: Dr. Mandeep Nicole M.D. 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 EATING: Activity did not occur on this shift EATING - SCORE: 0-UNK GROOMING: Wash, rinse, and dry hands GROOMING - STEP 1: Does the patient require assistance when grooming? Yes. GROOMING - STEP 2: Does the patient require the assistance of a helper? Yes. GROOMING - STEP 3: How much assistance does the patient require from the helper? Cuing, coaxing, instructions, or encour agement for completion of grooming GROOMING - SCORE: 5-SUP BATHING: Activity did not occur on this shift BATHING - SCORE: 0-UNK DRESSING - UPPER BODY: Activity did not occur on this shift ARTICLES SCORE Total number of steps: 0 DRESSING - UPPER BODY - SCORE: 0-UNK DRESSING - LOWER BODY: Activity did not occur on this shift ARTICLES SCORE Total number of steps: 0 DRESSING - LOWER BODY - SCORE: 0-UNK TOILETING: TOILETING - STEP 1: Does the patient require assistance with toileting? Yes. TOILETING - STEP 2: Does the patient require the assistance of a helper? Yes. TOILETING - STEP 3: How much assistance does the patient require from the helper? Hands-on assistance from the helper TOILETING - STEP 4: Of the 3 tasks: 1) Adjusting clothing prior to use, 2) Cleansing of perineal area, 3) Adjusting clot donita after use; How many tasks does the patient perform WITHOUT assistance of the helper? Three tasks with steadying assistance from the helper TOILETING - SCORE: 4-MIN BLADDER MANAGEMENT: Activity did not occur on this shift BLADDER MANAGEMENT - SCORE: 7-IND BOWEL MANAGEMENT: Activity did not occur on this shift BOWEL MANAGEMENT - SCORE: 7-IND TRANSFERS: BED, CHAIR, WHEELCHAIR: Activity did not occur on this shift TRANSFERS: BED, CHAIR, WHEELCHAIR - SCORE: 0-UNK TRANSFERS: TOILET: TRANSFERS: TOILET - STEP 1: Does the patient require assistance with toilet transfers? Yes. TRANSFERS: TOILET - STEP 2: Does the patient require the assistance of a helper? Yes. TRANSFERS: TOILET - STEP 3: How much assistance does the patient require from the helper? Patient performs half or more of the tr ansferring tasks TRANSFERS: TOILET - STEP 4: Does the patient need only incidental help such as contact guard or steadying during toilet transfer? Yes. TRANSFERS: TOILET - SCORE: 4-MIN TRANSFERS: SHOWER: Activity did not occur on this shift TRANSFERS: SHOWER - SCORE: 0-UNK TRANSFERS: TUB: Activity did not occur on this shift TRANSFERS: TUB - SCORE: 0-UNK LOCOMOTION: WALK: Activity did not occur on this shift LOCOMOTION: WALK - SCORE: 0-UNK LOCOMOTION: WHEELCHAIR: Activity did not occur on this shift LOCOMOTION: WHEELCHAIR - SCORE: 0-UNK LOCOMOTION: STAIRS: Activity did not occur on this shift LOCOMOTION: STAIRS - SCORE: 0-UNK COMPREHENSION: COMPREHENSION - STEP 1: Does the patient require help to understand complex and abstract ideas (such as current events, finan gurinder, discharge planning, medical issues, relationships, etc)? Yes. COMPREHENSION - STEP 2: Does the patient require help to understand questions or statements about basic needs or ideas (such as hunger, thirst, sleep, safety, daily schedule, room location, or discomfort) half or more of the t annia? No. COMPREHENSION - STEP 3: How often does the patient need help to understand directions and conversation about basic needs? 25% - 49% of the time COMPREHENSION - SCORE: 3-MOD EXPRESSION EXPRESSION: TYPE: Both EXPRESSION - STEP 1: Does the patient require help expressing complex and abstract ideas (such as current events, finances , discharge planning, medical issues, relationships, etc)? Yes. EXPRESSION - STEP 2: Does the patient require help to express basic necessities or ideas (such as hunger, thirst, sleep, s afety, daily schedule, room location, or discomfort) half or more of the time? No. EXPRESSION - STEP 3: How often does the patient need help to express directions and conversation about basic needs? 25-49% of the time EXPRESSION - SCORE: 3-MOD SOCIAL INTERACTION: SOCIAL INTERACTION - STEP 1: Does the patient require a helper to interact with others in social and therapeutic situations? Yes. SOCIAL INTERACTION - STEP 2: Does the patient interact appropriately half or more of the time? Yes. SOCIAL INTERACTION - STEP 3: How often does the patient need help to interact appropriately? 25-49% of the time SOCIAL INTERACTION - SCORE: 3-MOD PROBLEM SOLVING: PROBLEM SOLVING - STEP 1: Does the patient need help to solve complex problems such as managing a checking account or confronti ng interpersonal problems? Yes. PROBLEM SOLVING - STEP 2: Does the patient solve basic routine problems half or more of the time? No. PROBLEM SOLVING - STEP 3: Does the patient need help to solve problems all the time or is s/he unable to solve problems? No. Vignesh treviño can sometimes solve problems PROBLEM SOLVING - SCORE: 2-MAX MEMORY: MEMORY - STEP 1: Does the patient need help to remember frequently encountered people, daily routines, and executing r equests? Yes. MEMORY - STEP 2: How often does the patient need help to remember frequently encountered people, daily routines, and e xecuting requests? More than 50% of the time MEMORY - STEP 3: Does the patient need help to remember all of the time OR does s/he not effectively recognize and rem ember? No. Patient does not need help all the time MEMORY - SCORE: 2-MAX SIGNATURE PANEL: The following modified sections: Eating - Score, Grooming - Score, Bathing - Score, Dressing - Upper Body - Score, Dressing - Lower Body - Score, Toileting - Score, Transfers: Bed, Chair, Wheelchair - S core, Transfers: Toilet - Score, Transfers: Shower - Score, Transfers: Tub - Score, Comprehension - S core, Expression - Score, Social Interaction - Score, Problem Solving - Score, Memory - Score were [e lectronically] signed by Saba Barriga OT on SunDec 14 2017 13:37:18 T-0500 ([facility] Time)
[2017-12-14] MEDS: HYDROCODONE/APAP 5/325 MG TAB PO PRN ×2 (15:05→22:02)
--- NOTE | 2017-12-14 16:30 | FAST ---
ENCOUNTER DATE AND TIME: 12/14/2017 08:00 (CDT) NAME KAMERON KOHLI DATE OF : 1960 DATE OF ADMISSION: 12/10/2017 15:50 (CDT) PHONE: AGE: 57 N# [id number] GENDER: Male ENCOUNTER PHYSICIAN: Dr. Mandeep Nicole M.D. 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 EATING: Activity did not occur on this shift EATING - SCORE: 0-UNK GROOMING: Activity did not occur on this shift GROOMING - SCORE: 0-UNK BATHING: Activity did not occur on this shift BATHING - SCORE: 0-UNK DRESSING - UPPER BODY: Activity did not occur on this shift Patient is not dressing in public clothing ARTICLES SCORE Total number of steps: 0 DRESSING - UPPER BODY - SCORE: 0-UNK DRESSING - LOWER BODY: Activity did not occur on this shift Patient is not dressing in public clothing ARTICLES SCORE Total number of steps: 0 DRESSING - LOWER BODY - SCORE: 0-UNK TOILETING: Activity did not occur on this shift TOILETING - SCORE: 0-UNK BLADDER MANAGEMENT: Activity did not occur on this shift BLADDER MANAGEMENT - SCORE: 7-IND BOWEL MANAGEMENT: Activity did not occur on this shift BOWEL MANAGEMENT - SCORE: 7-IND TRANSFERS: BED, CHAIR, WHEELCHAIR: TRANSFERS: BED, CHAIR, WHEELCHAIR - STEP 1: Does the patient require assistance with bed, chair, or wheelchair transfers? Yes. TRANSFERS: BED, CHAIR, WHEELCHAIR - STEP 2: Does the patient require the assistance of a helper? Yes. TRANSFERS: BED, CHAIR, WHEELCHAIR - STEP 3: How much assistance does the patient require from the helper? Only supervision TRANSFERS: BED, CHAIR, WHEELCHAIR - SCORE: 5-SUP TRANSFERS: TOILET: Activity did not occur on this shift TRANSFERS: TOILET - SCORE: 0-UNK TRANSFERS: SHOWER: Activity did not occur on this shift TRANSFERS: SHOWER - SCORE: 0-UNK TRANSFERS: TUB: Activity did not occur on this shift TRANSFERS: TUB - SCORE: 0-UNK LOCOMOTION: WALK: Activity did not occur on this shift LOCOMOTION: WALK - SCORE: 0-UNK LOCOMOTION: WHEELCHAIR: Activity did not occur on this shift LOCOMOTION: WHEELCHAIR - SCORE: 0-UNK LOCOMOTION: STAIRS: Activity did not occur on this shift LOCOMOTION: STAIRS - SCORE: 0-UNK COMPREHENSION: COMPREHENSION - SCORE: 0-UNK EXPRESSION EXPRESSION - SCORE: 0-UNK SOCIAL INTERACTION: SOCIAL INTERACTION - SCORE: 0-UNK PROBLEM SOLVING: PROBLEM SOLVING - SCORE: 0-UNK MEMORY: MEMORY - SCORE: 0-UNK SIGNATURE PANEL: The following modified sections: Transfers: Bed, Chair, Wheelchair - Score, Transfers: Toilet - Score , Locomotion: Wheelchair - Score, Locomotion: Walk - Score, Locomotion: Stairs - Score were [electron ically] signed by Carroll Bentley PT on SunDec 14 2017 15:32:11 T-0500 (Central Daylight Time)
[2017-12-14] MEDS: TAMSULOSIN 0.4 MG SR CAP PO SCH (21:19)
[2017-12-14] MEDS: ATORVASTATIN 80 MG TAB PO SCH (21:19)
[2017-12-14] MEDS: AMOX/K CLAV 500 MG TAB PO SCH (21:19)
[2017-12-14] MEDS: INSULIN DETEMIR 100 UNIT/1 ML INSULIN SQ SCH (21:23)
[2017-12-14] MEDS: LORAZEPAM 0.5 MG TABLET PO PRN (22:03)
--- NOTE | 2017-12-15 03:20 | FAST ---
SHIFT START DATE/TIME: 12/14/2017 19:00 (CDT) SHIFT END DATE/TIME: 12/15/2017 07:00 (CDT) NAME KAMERON KOHLI DATE OF : 1960 DATE OF ADMISSION: 12/10/2017 15:50 (CDT) PHONE: AGE: 57 N# [id number] GENDER: Male ENCOUNTER PHYSICIAN: Dr. Mandeep Nicole M.D. 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 EATING: Activity did not occur on this shift EATING - SCORE: 0-UNK GROOMING: Activity did not occur on this shift GROOMING - SCORE: 0-UNK BATHING: Activity did not occur on this shift BATHING - SCORE: 0-UNK DRESSING - UPPER BODY: Patient is not dressing in public clothing ARTICLES SCORE Total number of steps: 0 DRESSING - UPPER BODY - SCORE: 0-UNK DRESSING - LOWER BODY: Patient is not dressing in public clothing ARTICLES SCORE Total number of steps: 0 DRESSING - LOWER BODY - SCORE: 0-UNK TOILETING: TOILETING - STEP 1: Does the patient require assistance with toileting? Yes. TOILETING - STEP 2: Does the patient require the assistance of a helper? Yes. TOILETING - STEP 3: How much assistance does the patient require from the helper? Hands-on assistance from the helper TOILETING - STEP 4: Of the 3 tasks: 1) Adjusting clothing prior to use, 2) Cleansing of perineal area, 3) Adjusting clot donita after use; How many tasks does the patient perform WITHOUT assistance of the helper? No tasks; h elper performs all three tasks TOILETING - SCORE: 1-DEP BLADDER MANAGEMENT: [place] removes incontinent device (Depends, pull ups, etc.); cleans the patient after accident / inco ntinent episode; and, applies new incontinent device. BLADDER MANAGEMENT - SCORE: 1-DEP BLADDER MANAGEMENT - FREQUENCY OF ACCIDENTS: BLADDER MANAGEMENT(FA) - STEP 1: How many accidents has the patient had during the current shift? 1 BOWEL MANAGEMENT: Activity did not occur on this shift BOWEL MANAGEMENT - SCORE: 7-IND TRANSFERS: BED, CHAIR, WHEELCHAIR: TRANSFERS: BED, CHAIR, WHEELCHAIR - STEP 1: Does the patient require assistance with bed, chair, or wheelchair transfers? Yes. TRANSFERS: BED, CHAIR, WHEELCHAIR - STEP 2: Does the patient require the assistance of a helper? Yes. TRANSFERS: BED, CHAIR, WHEELCHAIR - STEP 3: How much assistance does the patient require from the helper? Steadying/guiding assistance TRANSFERS: BED, CHAIR, WHEELCHAIR - SCORE: 4-MIN TRANSFERS: TOILET: Activity did not occur on this shift TRANSFERS: TOILET - SCORE: 0-UNK TRANSFERS: SHOWER: Activity did not occur on this shift TRANSFERS: SHOWER - SCORE: 0-UNK TRANSFERS: TUB: Activity did not occur on this shift TRANSFERS: TUB - SCORE: 0-UNK LOCOMOTION: WALK: Activity did not occur on this shift LOCOMOTION: WALK - SCORE: 0-UNK LOCOMOTION: WHEELCHAIR: Activity did not occur on this shift LOCOMOTION: WHEELCHAIR - SCORE: 0-UNK COMPREHENSION: COMPREHENSION: TYPE: Both COMPREHENSION - STEP 1: Does the patient require help to understand complex and abstract ideas (such as current events, finan gurinder, discharge planning, medical issues, relationships, etc)? Yes. COMPREHENSION - STEP 2: Does the patient require help to understand questions or statements about basic needs or ideas (such as hunger, thirst, sleep, safety, daily schedule, room location, or discomfort) half or more of the t annia? No. COMPREHENSION - STEP 3: How often does the patient need help to understand directions and conversation about basic needs? 25% - 49% of the time COMPREHENSION - SCORE: 3-MOD EXPRESSION EXPRESSION: TYPE: Both EXPRESSION - STEP 1: Does the patient require help expressing complex and abstract ideas (such as current events, finances , discharge planning, medical issues, relationships, etc)? Yes. EXPRESSION - STEP 2: Does the patient require help to express basic necessities or ideas (such as hunger, thirst, sleep, s afety, daily schedule, room location, or discomfort) half or more of the time? No. EXPRESSION - STEP 3: How often does the patient need help to express directions and conversation about basic needs? 25-49% of the time EXPRESSION - SCORE: 3-MOD SOCIAL INTERACTION: SOCIAL INTERACTION - STEP 1: Does the patient require a helper to interact with others in social and therapeutic situations? No. SOCIAL INTERACTION - STEP 2: Does the patient need extra time in social situations, OR does s/he interact with staff, other patien ts, and family members ONLY in structured environments, OR does s/he require medication for social in teraction? Yes, patient needs extra time SOCIAL INTERACTION - SCORE: 6-EILEEN PROBLEM SOLVING: PROBLEM SOLVING - STEP 1: Does the patient need help to solve complex problems such as managing a checking account or confronti ng interpersonal problems? Yes. PROBLEM SOLVING - STEP 2: Does the patient solve basic routine problems half or more of the time? Yes. PROBLEM SOLVING - STEP 3: How often does the patient need help to solve basic routine problems? 25%-49% of the time PROBLEM SOLVING - SCORE: 3-MOD MEMORY: MEMORY - STEP 1: Does the patient need help to remember frequently encountered people, daily routines, and executing r equests? Yes. MEMORY - STEP 2: How often does the patient need help to remember frequently encountered people, daily routines, and e xecuting requests? 25% - 49% of the time MEMORY - SCORE: 3-MOD
[2017-12-15] MEDS: CARVEDILOL 3.125 MG TAB PO SCH ×2 (05:03→17:18)
[2017-12-15] MEDS: INSULIN LISPRO 100 UNIT/1 ML SQ SCH ×3 (07:32→16:32)
[2017-12-15] MEDS: AMOX/K CLAV 500 MG TAB PO SCH ×2 (08:28→20:25)
[2017-12-15] MEDS: FOLIC ACID 1 MG TABLET PO SCH (08:28)
[2017-12-15] MEDS: HYDROCODONE/APAP 5/325 MG TAB PO PRN ×2 (08:28→15:23)
[2017-12-15] MEDS: CLOPIDOGREL 75 MG TABLET PO SCH (08:28)
[2017-12-15] MEDS: ASPIRIN EC 81 MG TAB PO SCH (08:28)
[2017-12-15] MEDS: BUMETANIDE 1 MG TABLET PO SCH ×2 (08:28→20:24)
[2017-12-15] MEDS: PROMOD 30 ML DOSE PO SCH ×2 (08:29→20:25)
[2017-12-15] MEDS: NICOTINE 7 MG/PAT TD SCH (08:29)
--- NOTE | 2017-12-15 10:17 | FAST ---
SHIFT START DATE/TIME: 12/15/2017 07:00 (CDT) SHIFT END DATE/TIME: 12/15/2017 19:00 (CDT) NAME KAMERON KOHLI DATE OF : 1960 DATE OF ADMISSION: 12/10/2017 15:50 (CDT) PHONE: AGE: 57 N# [id number] GENDER: Male ENCOUNTER PHYSICIAN: Dr. Mandeep Nicole M.D. 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 EATING: EATING - STEP 1: Does the patient require assistance when eating? Yes. EATING - STEP 2: Does the patient require the assistance of a helper? Yes. EATING - STEP 3: Does the patient perform half or more of the eating tasks? Yes. EATING - STEP 4: Does the patient need only supervision, cuing, coaxing OR help to apply an orthosis OR help to cut fo od, open containers, pour liquids, or butter bread? No. EATING - SCORE: 4-MIN GROOMING: Wash, rinse, and dry hands GROOMING - STEP 1: Does the patient require assistance when grooming? Yes. GROOMING - STEP 2: Does the patient require the assistance of a helper? No. The patient only requires an assistive devic e, OR takes more than reasonable time to groom, OR there is a concern for safety as the patient groom s GROOMING - SCORE: 6-EILEEN BATHING: Activity did not occur on this shift BATHING - SCORE: 0-UNK DRESSING - UPPER BODY: Activity did not occur on this shift ARTICLES SCORE Total number of steps: 0 DRESSING - UPPER BODY - SCORE: 0-UNK DRESSING - LOWER BODY: Activity did not occur on this shift ARTICLES SCORE Total number of steps: 0 DRESSING - LOWER BODY - SCORE: 0-UNK TOILETING: TOILETING - STEP 1: Does the patient require assistance with toileting? Yes. TOILETING - STEP 2: Does the patient require the assistance of a helper? Yes. TOILETING - STEP 3: How much assistance does the patient require from the helper? Hands-on assistance from the helper TOILETING - STEP 4: Of the 3 tasks: 1) Adjusting clothing prior to use, 2) Cleansing of perineal area, 3) Adjusting clot donita after use; How many tasks does the patient perform WITHOUT assistance of the helper? Two tasks TOILETING - SCORE: 3-MOD BLADDER MANAGEMENT: BLADDER MANAGEMENT - STEP 1: Does the patient control the bladder completely and intentionally without equipment or devices or med ications, and is always continent? No. BLADDER MANAGEMENT - STEP 2: Does the patient require the assistance of a helper? No, patient requires and independently uses an a ssistive device, such as a urinal, bedpan, bedside commode, catheter, absorbent pad, or collecting de vice BLADDER MANAGEMENT - SCORE: 6-EILEEN BOWEL MANAGEMENT: BOWEL MANAGEMENT - STEP 1: Does the patient control bowels completely and intentionally without equipment devices or medications AND is always continent? No. BOWEL MANAGEMENT - STEP 2: Does the patient require the assistance of a helper? No, patient requires and manages independently a n assistive device such as a bedpan, bedside commode, absorbent pad, incontinent device, or collectin g device BOWEL MANAGEMENT - SCORE: 6-EILEEN TRANSFERS: BED, CHAIR, WHEELCHAIR: TRANSFERS: BED, CHAIR, WHEELCHAIR - STEP 1: Does the patient require assistance with bed, chair, or wheelchair transfers? Yes. TRANSFERS: BED, CHAIR, WHEELCHAIR - STEP 2: Does the patient require the assistance of a helper? Yes. TRANSFERS: BED, CHAIR, WHEELCHAIR - STEP 3: How much assistance does the patient require from the helper? Lifting of the patient TRANSFERS: BED, CHAIR, WHEELCHAIR - STEP 4: Does the helper lift the patient ONLY up? ONLY down? Up AND Down? ONLY up. TRANSFERS: BED, CHAIR, WHEELCHAIR - SCORE: 3-MOD TRANSFERS: TOILET: TRANSFERS: TOILET - STEP 1: Does the patient require assistance with toilet transfers? Yes. TRANSFERS: TOILET - STEP 2: Does the patient require the assistance of a helper? Yes. TRANSFERS: TOILET - STEP 3: How much assistance does the patient require from the helper? Patient performs half or more of the tr ansferring tasks TRANSFERS: TOILET - STEP 4: Does the patient need only incidental help such as contact guard or steadying during toilet transfer? No. Patient needs more than incidental help TRANSFERS: TOILET - SCORE: 3-MOD TRANSFERS: SHOWER: Activity did not occur on this shift TRANSFERS: SHOWER - SCORE: 0-UNK TRANSFERS: TUB: Activity did not occur on this shift TRANSFERS: TUB - SCORE: 0-UNK LOCOMOTION: WALK: Activity did not occur on this shift LOCOMOTION: WALK - SCORE: 0-UNK LOCOMOTION: WHEELCHAIR: Activity did not occur on this shift LOCOMOTION: WHEELCHAIR - SCORE: 0-UNK COMPREHENSION: COMPREHENSION - STEP 1: Does the patient require help to understand complex and abstract ideas (such as current events, finan gurinder, discharge planning, medical issues, relationships, etc)? Yes. COMPREHENSION - STEP 2: Does the patient require help to understand questions or statements about basic needs or ideas (such as hunger, thirst, sleep, safety, daily schedule, room location, or discomfort) half or more of the t annia? Yes. COMPREHENSION - STEP 3: Is the patient basically able to understand and respond appropriately and consistently? Yes. COMPREHENSION - SCORE: 2-MAX EXPRESSION EXPRESSION - STEP 1: Does the patient require help expressing complex and abstract ideas (such as current events, finances , discharge planning, medical issues, relationships, etc)? Yes. EXPRESSION - STEP 2: Does the patient require help to express basic necessities or ideas (such as hunger, thirst, sleep, s afety, daily schedule, room location, or discomfort) half or more of the time? Yes. EXPRESSION - STEP 3: Is the patient basically unable to express or does s/he express inappropriately or inconsistently oz pite prompting? No. EXPRESSION - SCORE: 2-MAX SOCIAL INTERACTION: SOCIAL INTERACTION - STEP 1: Does the patient require a helper to interact with others in social and therapeutic situations? Yes. SOCIAL INTERACTION - STEP 2: Does the patient interact appropriately half or more of the time? Yes. SOCIAL INTERACTION - STEP 3: How often does the patient need help to interact appropriately? 25-49% of the time SOCIAL INTERACTION - SCORE: 3-MOD PROBLEM SOLVING: PROBLEM SOLVING - STEP 1: Does the patient need help to solve complex problems such as managing a checking account or confronti ng interpersonal problems? Yes. PROBLEM SOLVING - STEP 2: Does the patient solve basic routine problems half or more of the time? No. PROBLEM SOLVING - STEP 3: Does the patient need help to solve problems all the time or is s/he unable to solve problems? No. Vignesh treviño can sometimes solve problems PROBLEM SOLVING - SCORE: 2-MAX MEMORY: MEMORY - STEP 1: Does the patient need help to remember frequently encountered people, daily routines, and executing r equests? Yes. MEMORY - STEP 2: How often does the patient need help to remember frequently encountered people, daily routines, and e xecuting requests? More than 50% of the time MEMORY - STEP 3: Does the patient need help to remember all of the time OR does s/he not effectively recognize and rem ember? No. Patient does not need help all the time MEMORY - SCORE: 2-MAX SIGNATURE PANEL: The following modified sections: Eating - Score, Grooming - Score, Bathing - Score, Dressing - Upper Body - Score, Dressing - Lower Body - Score, Toileting - Score, Bladder Management - Score, Bowel Man agement - Score, Transfers: Bed, Chair, Wheelchair - Score, Transfers: Toilet - Score, Transfers: Gladys wer - Score, Transfers: Tub - Score, Locomotion: Walk - Score, Locomotion: Wheelchair - Score, Compre hension - Score, Expression - Score, Social Interaction - Score, Problem Solving - Score, Memory - Sc ore were [electronically] signed by Garcia Khan on Sat Dec 15 2017 09:19:14 GMT-0500 (Central Daylight Time)
--- NOTE | 2017-12-15 13:25 | FAST ---
ENCOUNTER DATE AND TIME: 12/15/2017 08:00 (CDT) NAME KAMERON KOHLI DATE OF : 1960 DATE OF ADMISSION: 12/10/2017 15:50 (CDT) PHONE: AGE: 57 N# [id number] GENDER: Male ENCOUNTER PHYSICIAN: Dr. Mandeep Nicole M.D. 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 EATING: Activity did not occur on this shift EATING - SCORE: 0-UNK GROOMING: Activity did not occur on this shift GROOMING - SCORE: 0-UNK BATHING: Activity did not occur on this shift BATHING - SCORE: 0-UNK DRESSING - UPPER BODY: Activity did not occur on this shift Patient is not dressing in public clothing ARTICLES SCORE Total number of steps: 0 DRESSING - UPPER BODY - SCORE: 0-UNK DRESSING - LOWER BODY: Activity did not occur on this shift Patient is not dressing in public clothing ARTICLES SCORE Total number of steps: 0 DRESSING - LOWER BODY - SCORE: 0-UNK TOILETING: Activity did not occur on this shift TOILETING - SCORE: 0-UNK BLADDER MANAGEMENT: Activity did not occur on this shift BLADDER MANAGEMENT - SCORE: 7-IND BOWEL MANAGEMENT: Activity did not occur on this shift BOWEL MANAGEMENT - SCORE: 7-IND TRANSFERS: BED, CHAIR, WHEELCHAIR: TRANSFERS: BED, CHAIR, WHEELCHAIR - STEP 1: Does the patient require assistance with bed, chair, or wheelchair transfers? Yes. TRANSFERS: BED, CHAIR, WHEELCHAIR - STEP 2: Does the patient require the assistance of a helper? Yes. TRANSFERS: BED, CHAIR, WHEELCHAIR - STEP 3: How much assistance does the patient require from the helper? Steadying/guiding assistance TRANSFERS: BED, CHAIR, WHEELCHAIR - SCORE: 4-MIN TRANSFERS: TOILET: Activity did not occur on this shift TRANSFERS: TOILET - SCORE: 0-UNK TRANSFERS: SHOWER: Activity did not occur on this shift TRANSFERS: SHOWER - SCORE: 0-UNK TRANSFERS: TUB: Activity did not occur on this shift TRANSFERS: TUB - SCORE: 0-UNK LOCOMOTION: WALK: LOCOMOTION: WALK - STEP 1: Does the patient need help to walk 150 feet? Yes. LOCOMOTION: WALK - STEP 2: How much assistance does the patient require to walk a minimum of 150 feet? Only incidental help such as contact guarding or steadying LOCOMOTION: WALK - SCORE: 4-MIN LOCOMOTION: WHEELCHAIR: LOCOMOTION: WHEELCHAIR - STEP 1: Does the patient need help to go 150 feet in a wheelchair? Yes. LOCOMOTION: WHEELCHAIR - STEP 2: How much assistance does the patient need from the helper? Only supervision, cuing, or coaxing LOCOMOTION: WHEELCHAIR - SCORE: 5-SUP LOCOMOTION: STAIRS: Activity did not occur on this shift LOCOMOTION: STAIRS - SCORE: 0-UNK COMPREHENSION: COMPREHENSION - SCORE: 0-UNK EXPRESSION EXPRESSION - SCORE: 0-UNK SOCIAL INTERACTION: SOCIAL INTERACTION - SCORE: 0-UNK PROBLEM SOLVING: PROBLEM SOLVING - SCORE: 0-UNK MEMORY: MEMORY - SCORE: 0-UNK SIGNATURE PANEL: The following modified sections: Transfers: Bed, Chair, Wheelchair - Score, Transfers: Toilet - Score , Locomotion: Walk - Score, Locomotion: Wheelchair - Score, Locomotion: Stairs - Score were [bev shultz] signed by Saba Duarte PTA on Sat Dec 15 2017 12:26:58 GMT-0500 (Central Daylight Time)
--- NOTE | 2017-12-15 16:39 | FAST ---
ENCOUNTER DATE AND TIME: 12/15/2017 08:00 (CDT) NAME KAMERON KOHLI DATE OF : 1960 DATE OF ADMISSION: 12/10/2017 15:50 (CDT) PHONE: AGE: 57 N# [id number] GENDER: Male ENCOUNTER PHYSICIAN: Dr. Mandeep Nicole M.D. 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 EATING: Activity did not occur on this shift EATING - SCORE: 0-UNK GROOMING: Comb/brush hair Oral care Patient shaved GROOMING - STEP 1: Does the patient require assistance when grooming? Yes. GROOMING - STEP 2: Does the patient require the assistance of a helper? Yes. GROOMING - STEP 3: How much assistance does the patient require from the helper? Only prior equipment preparation/set up from the helper GROOMING - SCORE: 5-SUP BATHING: Abdomen Buttocks Chest Left arm Left upper leg Perineal area Right arm Right upper leg BATHING - STEP 1: Does the patient require assistance when bathing? Yes. BATHING - STEP 2: Does the patient require the assistance of a helper? Yes. BATHING - STEP 3: How much assistance does the patient require from the helper? More than just incidental help BATHING - STEP 4: What percent of the body parts did the patient bathe WITHOUT the helper? Half or more of the body par ts BATHING - SCORE: 3-MOD DRESSING - UPPER BODY: T-shirt/pullover shirt (four steps) ARTICLES SCORE Total number of steps: 4 DRESSING - UPPER BODY - STEP 1: Does the patient require help when dressing above the waist? No. DRESSING - UPPER BODY - SCORE: 7-IND DRESSING - LOWER BODY: Elastic waist pants (three steps) Slip-on shoe - Left foot (one step) Slip-on shoe - Right foot (one step) Sock - Left foot (one step) Sock - Right foot (one step) ARTICLES SCORE Total number of steps: 7 DRESSING - LOWER BODY - STEP 1: Does the patient require help when dressing below the waist? Yes. DRESSING - LOWER BODY - STEP 2: Does the patient require the assistance of a helper? Yes. DRESSING - LOWER BODY - STEP 3: Does the helper touch the patient while dressing? Yes. DRESSING - LOWER BODY - STEP 4: How many of the total steps does the patient complete on his/her own? 6 DRESSING - LOWER BODY - SCORE: 4-MIN TOILETING: Activity did not occur on this shift TOILETING - SCORE: 0-UNK BLADDER MANAGEMENT: Activity did not occur on this shift BLADDER MANAGEMENT - SCORE: 7-IND BOWEL MANAGEMENT: Activity did not occur on this shift BOWEL MANAGEMENT - SCORE: 7-IND TRANSFERS: BED, CHAIR, WHEELCHAIR: TRANSFERS: BED, CHAIR, WHEELCHAIR - STEP 1: Does the patient require assistance with bed, chair, or wheelchair transfers? Yes. TRANSFERS: BED, CHAIR, WHEELCHAIR - STEP 2: Does the patient require the assistance of a helper? No. Patient only requires an assistive device fo r bed, chair, wheelchair transfers such as a sliding board, grab bar, or brace, OR s/he takes more th an reasonable time, OR there is a safety concern when s/he performs the transfers TRANSFERS: BED, CHAIR, WHEELCHAIR - SCORE: 6-EILEEN TRANSFERS: TOILET: Activity did not occur on this shift TRANSFERS: TOILET - SCORE: 0-UNK TRANSFERS: SHOWER: TRANSFERS: SHOWER - STEP 1: Does the patient require assistance with shower transfers? Yes. TRANSFERS: SHOWER - STEP 2: Does the patient require the assistance of a helper? Yes. TRANSFERS: SHOWER - STEP 3: How much assistance does the patient require from the helper? Only incidental help such as contact gu arding or steadying during shower transfers, or help to lift one leg into the shower TRANSFERS: SHOWER - SCORE: 4-MIN TRANSFERS: SHOWER - COMMENTS: Min A with orthotics, mod A without TRANSFERS: TUB: Activity did not occur on this shift TRANSFERS: TUB - SCORE: 0-UNK LOCOMOTION: WALK: Activity did not occur on this shift LOCOMOTION: WALK - SCORE: 0-UNK LOCOMOTION: WHEELCHAIR: Activity did not occur on this shift LOCOMOTION: WHEELCHAIR - SCORE: 0-UNK LOCOMOTION: STAIRS: Activity did not occur on this shift LOCOMOTION: STAIRS - SCORE: 0-UNK COMPREHENSION: COMPREHENSION: TYPE: Both COMPREHENSION - STEP 1: Does the patient require help to understand complex and abstract ideas (such as current events, finan gurinder, discharge planning, medical issues, relationships, etc)? Yes. COMPREHENSION - STEP 2: Does the patient require help to understand questions or statements about basic needs or ideas (such as hunger, thirst, sleep, safety, daily schedule, room location, or discomfort) half or more of the t annia? Yes. COMPREHENSION - STEP 3: Is the patient basically able to understand and respond appropriately and consistently? Yes. COMPREHENSION - SCORE: 2-MAX EXPRESSION EXPRESSION: TYPE: Both EXPRESSION - STEP 1: Does the patient require help expressing complex and abstract ideas (such as current events, finances , discharge planning, medical issues, relationships, etc)? Yes. EXPRESSION - STEP 2: Does the patient require help to express basic necessities or ideas (such as hunger, thirst, sleep, s afety, daily schedule, room location, or discomfort) half or more of the time? No. EXPRESSION - STEP 3: How often does the patient need help to express directions and conversation about basic needs? 25-49% of the time EXPRESSION - SCORE: 3-MOD SOCIAL INTERACTION: SOCIAL INTERACTION - STEP 1: Does the patient require a helper to interact with others in social and therapeutic situations? Yes. SOCIAL INTERACTION - STEP 2: Does the patient interact appropriately half or more of the time? No. SOCIAL INTERACTION - STEP 3: How often does the patient interact appropriately? More than 25% of the time SOCIAL INTERACTION - SCORE: 2-MAX PROBLEM SOLVING: PROBLEM SOLVING - STEP 1: Does the patient need help to solve complex problems such as managing a checking account or confronti ng interpersonal problems? Yes. PROBLEM SOLVING - STEP 2: Does the patient solve basic routine problems half or more of the time? No. PROBLEM SOLVING - STEP 3: Does the patient need help to solve problems all the time or is s/he unable to solve problems? No. Pa kamila can sometimes solve problems PROBLEM SOLVING - SCORE: 2-MAX MEMORY: MEMORY - STEP 1: Does the patient need help to remember frequently encountered people, daily routines, and executing r equests? Yes. MEMORY - STEP 2: How often does the patient need help to remember frequently encountered people, daily routines, and e xecuting requests? 25% - 49% of the time MEMORY - SCORE: 3-MOD SIGNATURE PANEL: The following modified sections: Eating - Score, Grooming - Score, Bathing - Score, Dressing - Upper Body - Score, Dressing - Lower Body - Score, Toileting - Score, Transfers: Bed, Chair, Wheelchair - S core, Transfers: Toilet - Score, Transfers: Shower - Score, Transfers: Shower - Comments:, Transfers: Tub - Score, Comprehension - Score, Expression - Score, Social Interaction - Score, Problem Solving - Score, Memory - Score were [electronically] signed by LEEANNE Dickerson on Sat Dec 15 2017 15:41: 35 GMT-0500 (Central Daylight Time)
[2017-12-15] MEDS: TAMSULOSIN 0.4 MG SR CAP PO SCH (20:24)
[2017-12-15] MEDS: LORAZEPAM 0.5 MG TABLET PO PRN (20:25)
[2017-12-15] MEDS: INSULIN DETEMIR 100 UNIT/1 ML INSULIN SQ SCH (20:26)
[2017-12-15] MEDS: ATORVASTATIN 80 MG TAB PO SCH (20:27)
--- NOTE | 2017-12-16 05:14 | FAST ---
SHIFT START DATE/TIME: 12/15/2017 19:00 (CDT) SHIFT END DATE/TIME: 12/16/2017 07:00 (CDT) NAME KAMERON KOHLI DATE OF : 1960 DATE OF ADMISSION: 12/10/2017 15:50 (CDT) PHONE: AGE: 57 [facility]# [id number] GENDER: Male ENCOUNTER PHYSICIAN: Dr. Mandeep Nicole M.D. 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 EATING: EATING - STEP 1: Does the patient require assistance when eating? Yes. EATING - STEP 2: Does the patient require the assistance of a helper? Yes. EATING - STEP 3: Does the patient perform half or more of the eating tasks? Yes. EATING - STEP 4: Does the patient need only supervision, cuing, coaxing OR help to apply an orthosis OR help to cut fo od, open containers, pour liquids, or butter bread? No. EATING - SCORE: 4-MIN GROOMING: Oral care Wash, rinse, and dry face Wash, rinse, and dry hands GROOMING - STEP 1: Does the patient require assistance when grooming? Yes. GROOMING - STEP 2: Does the patient require the assistance of a helper? Yes. GROOMING - STEP 3: How much assistance does the patient require from the helper? Incidental touching assistance from the helper while grooming GROOMING - SCORE: 4-MIN BATHING: Activity did not occur on this shift BATHING - SCORE: 0-UNK DRESSING - UPPER BODY: Patient is not dressing in public clothing ARTICLES SCORE Total number of steps: 0 DRESSING - UPPER BODY - SCORE: 0-UNK DRESSING - LOWER BODY: Patient is not dressing in public clothing ARTICLES SCORE Total number of steps: 0 DRESSING - LOWER BODY - SCORE: 0-UNK TOILETING: TOILETING - STEP 1: Does the patient require assistance with toileting? Yes. TOILETING - STEP 2: Does the patient require the assistance of a helper? Yes. TOILETING - STEP 3: How much assistance does the patient require from the helper? Hands-on assistance from the helper TOILETING - STEP 4: Of the 3 tasks: 1) Adjusting clothing prior to use, 2) Cleansing of perineal area, 3) Adjusting clot donita after use; How many tasks does the patient perform WITHOUT assistance of the helper? Three tasks with steadying assistance from the helper TOILETING - SCORE: 4-MIN BLADDER MANAGEMENT: BLADDER MANAGEMENT - STEP 1: Does the patient control the bladder completely and intentionally without equipment or devices or med ications, and is always continent? No. BLADDER MANAGEMENT - STEP 2: Does the patient require the assistance of a helper? Yes. BLADDER MANAGEMENT - STEP 3: How much assistance does the patient require from the helper? Only set-up of equipment - such as plac ing it within reach of the patient or emptying a device - to maintain either satisfactory voiding pat tern or managing an external device, such as an absorbent pad, ileal device, or catheter BLADDER MANAGEMENT - SCORE: 5-SUP BLADDER MANAGEMENT - FREQUENCY OF ACCIDENTS: BLADDER MANAGEMENT(FA) - STEP 1: How many accidents has the patient had during the current shift? 0 BOWEL MANAGEMENT: Activity did not occur on this shift BOWEL MANAGEMENT - SCORE: 7-IND TRANSFERS: BED, CHAIR, WHEELCHAIR: TRANSFERS: BED, CHAIR, WHEELCHAIR - STEP 1: Does the patient require assistance with bed, chair, or wheelchair transfers? Yes. TRANSFERS: BED, CHAIR, WHEELCHAIR - STEP 2: Does the patient require the assistance of a helper? Yes. TRANSFERS: BED, CHAIR, WHEELCHAIR - STEP 3: How much assistance does the patient require from the helper? Steadying/guiding assistance TRANSFERS: BED, CHAIR, WHEELCHAIR - SCORE: 4-MIN TRANSFERS: TOILET: TRANSFERS: TOILET - STEP 1: Does the patient require assistance with toilet transfers? Yes. TRANSFERS: TOILET - STEP 2: Does the patient require the assistance of a helper? Yes. TRANSFERS: TOILET - STEP 3: How much assistance does the patient require from the helper? Patient performs half or more of the tr ansferring tasks TRANSFERS: TOILET - STEP 4: Does the patient need only incidental help such as contact guard or steadying during toilet transfer? Yes. TRANSFERS: TOILET - SCORE: 4-MIN TRANSFERS: SHOWER: Activity did not occur on this shift TRANSFERS: SHOWER - SCORE: 0-UNK TRANSFERS: TUB: Activity did not occur on this shift TRANSFERS: TUB - SCORE: 0-UNK LOCOMOTION: WALK: Activity did not occur on this shift LOCOMOTION: WALK - SCORE: 0-UNK LOCOMOTION: WHEELCHAIR: Activity did not occur on this shift LOCOMOTION: WHEELCHAIR - SCORE: 0-UNK COMPREHENSION: COMPREHENSION: TYPE: Both COMPREHENSION - STEP 1: Does the patient require help to understand complex and abstract ideas (such as current events, finan gurinder, discharge planning, medical issues, relationships, etc)? Yes. COMPREHENSION - STEP 2: Does the patient require help to understand questions or statements about basic needs or ideas (such as hunger, thirst, sleep, safety, daily schedule, room location, or discomfort) half or more of the t annia? No. COMPREHENSION - STEP 3: How often does the patient need help to understand directions and conversation about basic needs? 25% - 49% of the time COMPREHENSION - SCORE: 3-MOD EXPRESSION EXPRESSION: TYPE: Both EXPRESSION - STEP 1: Does the patient require help expressing complex and abstract ideas (such as current events, finances , discharge planning, medical issues, relationships, etc)? Yes. EXPRESSION - STEP 2: Does the patient require help to express basic necessities or ideas (such as hunger, thirst, sleep, s afety, daily schedule, room location, or discomfort) half or more of the time? No. EXPRESSION - STEP 3: How often does the patient need help to express directions and conversation about basic needs? 25-49% of the time EXPRESSION - SCORE: 3-MOD SOCIAL INTERACTION: SOCIAL INTERACTION - STEP 1: Does the patient require a helper to interact with others in social and therapeutic situations? Yes. SOCIAL INTERACTION - STEP 2: Does the patient interact appropriately half or more of the time? No. SOCIAL INTERACTION - STEP 3: How often does the patient interact appropriately? More than 25% of the time SOCIAL INTERACTION - SCORE: 2-MAX PROBLEM SOLVING: PROBLEM SOLVING - STEP 1: Does the patient need help to solve complex problems such as managing a checking account or confronti ng interpersonal problems? Yes. PROBLEM SOLVING - STEP 2: Does the patient solve basic routine problems half or more of the time? No. PROBLEM SOLVING - STEP 3: Does the patient need help to solve problems all the time or is s/he unable to solve problems? No. Pa tient can sometimes solve problems PROBLEM SOLVING - SCORE: 2-MAX MEMORY: MEMORY - STEP 1: Does the patient need help to remember frequently encountered people, daily routines, and executing r equests? Yes. MEMORY - STEP 2: How often does the patient need help to remember frequently encountered people, daily routines, and e xecuting requests? More than 50% of the time MEMORY - STEP 3: Does the patient need help to remember all of the time OR does s/he not effectively recognize and rem ember? No. Patient does not need help all the time MEMORY - SCORE: 2-MAX SIGNATURE PANEL: The following modified sections: Eating - Score, Grooming - Score, Bathing - Score, Dressing - Upper Body - Score, Dressing - Lower Body - Score, Toileting - Score, Bladder Management - Score, Bowel Man agement - Score, Transfers: Bed, Chair, Wheelchair - Score, Transfers: Toilet - Score, Transfers: Gladys wer - Score, Transfers: Tub - Score, Locomotion: Walk - Score, Locomotion: Wheelchair - Score, Compre hension - Score, Expression - Score, Social Interaction - Score, Problem Solving - Score, Memory - Sc ore were [electronically] signed by Nasreen Amezquita C.N.ALynn on SunDec 16 2017 04:16:38 T-0500 ( Central Daylight Time)
[2017-12-16] MEDS: CARVEDILOL 3.125 MG TAB PO SCH ×2 (05:29→17:03)
[2017-12-16] MEDS: INSULIN LISPRO 100 UNIT/1 ML SQ SCH ×3 (07:48→16:31)
[2017-12-16] MEDS: FOLIC ACID 1 MG TABLET PO SCH (08:31)
[2017-12-16] MEDS: BUMETANIDE 1 MG TABLET PO SCH ×2 (08:31→20:17)
[2017-12-16] MEDS: CLOPIDOGREL 75 MG TABLET PO SCH (08:31)
[2017-12-16] MEDS: ASPIRIN EC 81 MG TAB PO SCH (08:32)
[2017-12-16] MEDS: AMOX/K CLAV 500 MG TAB PO SCH ×2 (08:32→20:18)
[2017-12-16] MEDS: NICOTINE 7 MG/PAT TD SCH (08:32)
[2017-12-16] MEDS: PROMOD 30 ML DOSE PO SCH ×2 (08:32→20:24)
[2017-12-16] MEDS: HYDROCODONE/APAP 5/325 MG TAB PO PRN ×3 (08:33→20:18)
--- NOTE | 2017-12-16 15:16 | FAST ---
SHIFT START DATE/TIME: 12/16/2017 07:00 (CDT) SHIFT END DATE/TIME: 12/16/2017 19:00 (CDT) NAME KAMERON KOHLI DATE OF : 1960 DATE OF ADMISSION: 12/10/2017 15:50 (CDT) PHONE: AGE: 57 N# [id number] GENDER: Male ENCOUNTER PHYSICIAN: Dr. Mandeep Nicole M.D. 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 EATING: EATING - STEP 1: Does the patient require assistance when eating? Yes. EATING - STEP 2: Does the patient require the assistance of a helper? Yes. EATING - STEP 3: Does the patient perform half or more of the eating tasks? Yes. EATING - STEP 4: Does the patient need only supervision, cuing, coaxing OR help to apply an orthosis OR help to cut fo od, open containers, pour liquids, or butter bread? No. EATING - SCORE: 4-MIN GROOMING: Activity did not occur on this shift Comb/brush hair Oral care Wash, rinse, and dry face Wash, rinse, and dry hands GROOMING - SCORE: 0-UNK BATHING: Activity did not occur on this shift BATHING - SCORE: 0-UNK DRESSING - UPPER BODY: T-shirt/pullover shirt (four steps) ARTICLES SCORE Total number of steps: 4 DRESSING - UPPER BODY - STEP 1: Does the patient require help when dressing above the waist? Yes. DRESSING - UPPER BODY - STEP 2: Does the patient require the assistance of a helper? Yes. DRESSING - UPPER BODY - STEP 3: Does the helper touch the patient while dressing? Yes. DRESSING - UPPER BODY - STEP 4: How many of the total steps does the patient complete on his/her own? 4 DRESSING - UPPER BODY - SCORE: 4-MIN DRESSING - LOWER BODY: Elastic waist pants (three steps) Slip-on shoe - Left foot (one step) Slip-on shoe - Right foot (one step) Sock - Left foot (one step) Sock - Right foot (one step) ARTICLES SCORE Total number of steps: 7 DRESSING - LOWER BODY - STEP 1: Does the patient require help when dressing below the waist? Yes. DRESSING - LOWER BODY - STEP 2: Does the patient require the assistance of a helper? Yes. DRESSING - LOWER BODY - STEP 3: Does the helper touch the patient while dressing? Yes. DRESSING - LOWER BODY - STEP 4: How many of the total steps does the patient complete on his/her own? 4 DRESSING - LOWER BODY - SCORE: 3-MOD DRESSING - LOWER BODY - COMMENTS: Pt has prosthesis TOILETING: TOILETING - STEP 1: Does the patient require assistance with toileting? Yes. TOILETING - STEP 2: Does the patient require the assistance of a helper? Yes. TOILETING - STEP 3: How much assistance does the patient require from the helper? Hands-on assistance from the helper TOILETING - STEP 4: Of the 3 tasks: 1) Adjusting clothing prior to use, 2) Cleansing of perineal area, 3) Adjusting clot donita after use; How many tasks does the patient perform WITHOUT assistance of the helper? Two tasks TOILETING - SCORE: 3-MOD BLADDER MANAGEMENT: BLADDER MANAGEMENT - STEP 1: Does the patient control the bladder completely and intentionally without equipment or devices or med ications, and is always continent? No. BLADDER MANAGEMENT - STEP 2: Does the patient require the assistance of a helper? No, patient requires and independently uses an a ssistive device, such as a urinal, bedpan, bedside commode, catheter, absorbent pad, or collecting de vice BLADDER MANAGEMENT - SCORE: 6-EILEEN BOWEL MANAGEMENT: Activity did not occur on this shift BOWEL MANAGEMENT - SCORE: 7-IND TRANSFERS: BED, CHAIR, WHEELCHAIR: TRANSFERS: BED, CHAIR, WHEELCHAIR - STEP 1: Does the patient require assistance with bed, chair, or wheelchair transfers? Yes. TRANSFERS: BED, CHAIR, WHEELCHAIR - STEP 2: Does the patient require the assistance of a helper? Yes. TRANSFERS: BED, CHAIR, WHEELCHAIR - STEP 3: How much assistance does the patient require from the helper? Steadying/guiding assistance TRANSFERS: BED, CHAIR, WHEELCHAIR - SCORE: 4-MIN TRANSFERS: TOILET: TRANSFERS: TOILET - STEP 1: Does the patient require assistance with toilet transfers? Yes. TRANSFERS: TOILET - STEP 2: Does the patient require the assistance of a helper? Yes. TRANSFERS: TOILET - STEP 3: How much assistance does the patient require from the helper? Patient performs half or more of the tr ansferring tasks TRANSFERS: TOILET - STEP 4: Does the patient need only incidental help such as contact guard or steadying during toilet transfer? No. Patient needs more than incidental help TRANSFERS: TOILET - SCORE: 3-MOD TRANSFERS: SHOWER: Activity did not occur on this shift TRANSFERS: SHOWER - SCORE: 0-UNK TRANSFERS: TUB: Activity did not occur on this shift TRANSFERS: TUB - SCORE: 0-UNK LOCOMOTION: WALK: Activity did not occur on this shift LOCOMOTION: WALK - SCORE: 0-UNK LOCOMOTION: WHEELCHAIR: Activity did not occur on this shift LOCOMOTION: WHEELCHAIR - SCORE: 0-UNK COMPREHENSION: COMPREHENSION - STEP 1: Does the patient require help to understand complex and abstract ideas (such as current events, finan gurinder, discharge planning, medical issues, relationships, etc)? Yes. COMPREHENSION - STEP 2: Does the patient require help to understand questions or statements about basic needs or ideas (such as hunger, thirst, sleep, safety, daily schedule, room location, or discomfort) half or more of the t annia? No. COMPREHENSION - STEP 3: How often does the patient need help to understand directions and conversation about basic needs? 25% - 49% of the time COMPREHENSION - SCORE: 3-MOD EXPRESSION EXPRESSION - STEP 1: Does the patient require help expressing complex and abstract ideas (such as current events, finances , discharge planning, medical issues, relationships, etc)? Yes. EXPRESSION - STEP 2: Does the patient require help to express basic necessities or ideas (such as hunger, thirst, sleep, s afety, daily schedule, room location, or discomfort) half or more of the time? Yes. EXPRESSION - STEP 3: Is the patient basically unable to express or does s/he express inappropriately or inconsistently oz pite prompting? No. EXPRESSION - SCORE: 2-MAX SOCIAL INTERACTION: SOCIAL INTERACTION - STEP 1: Does the patient require a helper to interact with others in social and therapeutic situations? Yes. SOCIAL INTERACTION - STEP 2: Does the patient interact appropriately half or more of the time? Yes. SOCIAL INTERACTION - STEP 3: How often does the patient need help to interact appropriately? 25-49% of the time SOCIAL INTERACTION - SCORE: 3-MOD PROBLEM SOLVING: PROBLEM SOLVING - STEP 1: Does the patient need help to solve complex problems such as managing a checking account or confronti ng interpersonal problems? Yes. PROBLEM SOLVING - STEP 2: Does the patient solve basic routine problems half or more of the time? No. PROBLEM SOLVING - STEP 3: Does the patient need help to solve problems all the time or is s/he unable to solve problems? No. Vignesh riverayuni can sometimes solve problems PROBLEM SOLVING - SCORE: 2-MAX MEMORY: MEMORY - STEP 1: Does the patient need help to remember frequently encountered people, daily routines, and executing r equests? Yes. MEMORY - STEP 2: How often does the patient need help to remember frequently encountered people, daily routines, and e xecuting requests? More than 50% of the time MEMORY - STEP 3: Does the patient need help to remember all of the time OR does s/he not effectively recognize and rem ember? No. Patient does not need help all the time MEMORY - SCORE: 2-MAX SIGNATURE PANEL: The following modified sections: Eating - Score, Grooming - Score, Bathing - Score, Dressing - Upper Body - Score, Dressing - Lower Body - Score, Dressing - Lower Body - Comments:, Toileting - Score, Bl adder Management - Score, Bowel Management - Score, Transfers: Bed, Chair, Wheelchair - Score, Transf ers: Toilet - Score, Transfers: Shower - Score, Transfers: Tub - Score, Locomotion: Walk - Score, Loc omotion: Wheelchair - Score, Comprehension - Score, Expression - Score, Social Interaction - Score, P roblem Solving - Score, Memory - Score were [electronically] signed by Garcia Khan on SunDec 16 2017 14:18:21 T-0500 (Central Daylight Time)
[2017-12-16] MEDS: ATORVASTATIN 80 MG TAB PO SCH (20:18)
[2017-12-16] MEDS: TAMSULOSIN 0.4 MG SR CAP PO SCH (20:18)
[2017-12-16] MEDS: LORAZEPAM 0.5 MG TABLET PO PRN (20:18)
[2017-12-16] MEDS: INSULIN DETEMIR 100 UNIT/1 ML INSULIN SQ SCH (20:24)
--- NOTE | 2017-12-17 04:06 | FAST ---
SHIFT START DATE/TIME: 12/16/2017 19:00 (CDT) SHIFT END DATE/TIME: 12/17/2017 07:00 (CDT) NAME KAMERON KOHLI DATE OF : 1960 DATE OF ADMISSION: 12/10/2017 15:50 (CDT) PHONE: AGE: 57 [facility]# [id number] GENDER: Male ENCOUNTER PHYSICIAN: Dr. Mandeep Nicole M.D. 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 EATING: EATING - STEP 1: Does the patient require assistance when eating? Yes. EATING - STEP 2: Does the patient require the assistance of a helper? Yes. EATING - STEP 3: Does the patient perform half or more of the eating tasks? Yes. EATING - STEP 4: Does the patient need only supervision, cuing, coaxing OR help to apply an orthosis OR help to cut fo od, open containers, pour liquids, or butter bread? Yes. EATING - SCORE: 5-SUP GROOMING: Activity did not occur on this shift GROOMING - SCORE: 0-UNK BATHING: Activity did not occur on this shift BATHING - SCORE: 0-UNK DRESSING - UPPER BODY: Patient is not dressing in public clothing ARTICLES SCORE Total number of steps: 0 DRESSING - UPPER BODY - SCORE: 0-UNK DRESSING - LOWER BODY: Patient is not dressing in public clothing ARTICLES SCORE Total number of steps: 0 DRESSING - LOWER BODY - SCORE: 0-UNK TOILETING: TOILETING - STEP 1: Does the patient require assistance with toileting? Yes. TOILETING - STEP 2: Does the patient require the assistance of a helper? Yes. TOILETING - STEP 3: How much assistance does the patient require from the helper? Hands-on assistance from the helper TOILETING - STEP 4: Of the 3 tasks: 1) Adjusting clothing prior to use, 2) Cleansing of perineal area, 3) Adjusting clot donita after use; How many tasks does the patient perform WITHOUT assistance of the helper? Three tasks with steadying assistance from the helper TOILETING - SCORE: 4-MIN BLADDER MANAGEMENT: Wilmot removes incontinent device (Depends, pull ups, etc.); cleans the patient after accident / inco ntinent episode; and, applies new incontinent device. Patient spills the urinal and Wilmot changes patient's linen or clothing. Patient urinates on floor while walking to bathroom and Wilmot cleans up accident. BLADDER MANAGEMENT - SCORE: 1-DEP BLADDER MANAGEMENT - FREQUENCY OF ACCIDENTS: BLADDER MANAGEMENT(FA) - STEP 1: How many accidents has the patient had during the current shift? 2 BOWEL MANAGEMENT: Activity did not occur on this shift BOWEL MANAGEMENT - SCORE: 7-IND TRANSFERS: BED, CHAIR, WHEELCHAIR: TRANSFERS: BED, CHAIR, WHEELCHAIR - STEP 1: Does the patient require assistance with bed, chair, or wheelchair transfers? Yes. TRANSFERS: BED, CHAIR, WHEELCHAIR - STEP 2: Does the patient require the assistance of a helper? Yes. TRANSFERS: BED, CHAIR, WHEELCHAIR - STEP 3: How much assistance does the patient require from the helper? Steadying/guiding assistance TRANSFERS: BED, CHAIR, WHEELCHAIR - SCORE: 4-MIN TRANSFERS: TOILET: Activity did not occur on this shift TRANSFERS: TOILET - SCORE: 0-UNK TRANSFERS: SHOWER: Activity did not occur on this shift TRANSFERS: SHOWER - SCORE: 0-UNK TRANSFERS: TUB: Activity did not occur on this shift TRANSFERS: TUB - SCORE: 0-UNK LOCOMOTION: WALK: Activity did not occur on this shift LOCOMOTION: WALK - SCORE: 0-UNK LOCOMOTION: WHEELCHAIR: Activity did not occur on this shift LOCOMOTION: WHEELCHAIR - SCORE: 0-UNK COMPREHENSION: COMPREHENSION: TYPE: Both COMPREHENSION - STEP 1: Does the patient require help to understand complex and abstract ideas (such as current events, finan gurinder, discharge planning, medical issues, relationships, etc)? Yes. COMPREHENSION - STEP 2: Does the patient require help to understand questions or statements about basic needs or ideas (such as hunger, thirst, sleep, safety, daily schedule, room location, or discomfort) half or more of the t annia? Yes. COMPREHENSION - STEP 3: Is the patient basically able to understand and respond appropriately and consistently? Yes. COMPREHENSION - SCORE: 2-MAX EXPRESSION EXPRESSION: TYPE: Both EXPRESSION - STEP 1: Does the patient require help expressing complex and abstract ideas (such as current events, finances , discharge planning, medical issues, relationships, etc)? Yes. EXPRESSION - STEP 2: Does the patient require help to express basic necessities or ideas (such as hunger, thirst, sleep, s afety, daily schedule, room location, or discomfort) half or more of the time? No. EXPRESSION - STEP 3: How often does the patient need help to express directions and conversation about basic needs? 25-49% of the time EXPRESSION - SCORE: 3-MOD SOCIAL INTERACTION: SOCIAL INTERACTION - STEP 1: Does the patient require a helper to interact with others in social and therapeutic situations? Yes. SOCIAL INTERACTION - STEP 2: Does the patient interact appropriately half or more of the time? No. SOCIAL INTERACTION - STEP 3: How often does the patient interact appropriately? More than 25% of the time SOCIAL INTERACTION - SCORE: 2-MAX PROBLEM SOLVING: PROBLEM SOLVING - STEP 1: Does the patient need help to solve complex problems such as managing a checking account or confronti ng interpersonal problems? Yes. PROBLEM SOLVING - STEP 2: Does the patient solve basic routine problems half or more of the time? No. PROBLEM SOLVING - STEP 3: Does the patient need help to solve problems all the time or is s/he unable to solve problems? Yes. P atient needs help to solve problems all the time or is unable to solve problems PROBLEM SOLVING - SCORE: 1-DEP MEMORY: MEMORY - STEP 1: Does the patient need help to remember frequently encountered people, daily routines, and executing r equests? Yes. MEMORY - STEP 2: How often does the patient need help to remember frequently encountered people, daily routines, and e xecuting requests? More than 50% of the time MEMORY - STEP 3: Does the patient need help to remember all of the time OR does s/he not effectively recognize and rem ember? Yes. Patient needs help to remember ALL the time OR does not effectively recognize and remembe r MEMORY - SCORE: 1-DEP SIGNATURE PANEL: The following modified sections: Eating - Score, Grooming - Score, Bathing - Score, Dressing - Upper Body - Score, Dressing - Lower Body - Score, Toileting - Score, Bladder Management - Score, Bowel Man agement - Score, Transfers: Bed, Chair, Wheelchair - Score, Transfers: Toilet - Score, Transfers: Gladys wer - Score, Transfers: Tub - Score, Locomotion: Walk - Score, Locomotion: Wheelchair - Score, Compre hension - Score, Expression - Score, Social Interaction - Score, Problem Solving - Score, Memory - Sc ore were [electronically] signed by Nasreen Amezquita C.N.A. on SunDec 17 2017 02:43:39 GMT-0500 ( Central Daylight Time)
[2017-12-17] MEDS: CARVEDILOL 3.125 MG TAB PO SCH ×2 (05:23→17:38)
[2017-12-17] MEDS: INSULIN LISPRO 100 UNIT/1 ML SQ SCH ×3 (07:30→17:39)
[2017-12-17] MEDS: NICOTINE 7 MG/PAT TD SCH (08:00)
[2017-12-17] MEDS: HYDROCODONE/APAP 5/325 MG TAB PO PRN (08:14)
[2017-12-17] MEDS: BUMETANIDE 1 MG TABLET PO SCH ×2 (08:14→20:11)
[2017-12-17] MEDS: AMOX/K CLAV 500 MG TAB PO SCH ×2 (08:16→20:11)
[2017-12-17] MEDS: PROMOD 30 ML DOSE PO SCH ×2 (08:17→20:11)
[2017-12-17] MEDS: ASPIRIN EC 81 MG TAB PO SCH (08:17)
[2017-12-17] MEDS: CLOPIDOGREL 75 MG TABLET PO SCH (08:17)
[2017-12-17] MEDS: FOLIC ACID 1 MG TABLET PO SCH (08:19)
--- NOTE | 2017-12-17 15:02 | FAST ---
ENCOUNTER DATE AND TIME: 12/17/2017 08:00 (CDT) NAME KAMERON KOHLI DATE OF : 1960 DATE OF ADMISSION: 12/10/2017 15:50 (CDT) PHONE: AGE: 57 N# [id number] GENDER: Male ENCOUNTER PHYSICIAN: Dr. Mandeep Nicole M.D. 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 EATING: Activity did not occur on this shift EATING - SCORE: 0-UNK GROOMING: Activity did not occur on this shift GROOMING - SCORE: 0-UNK BATHING: Activity did not occur on this shift BATHING - SCORE: 0-UNK DRESSING - UPPER BODY: Activity did not occur on this shift Patient is not dressing in public clothing ARTICLES SCORE Total number of steps: 0 DRESSING - UPPER BODY - SCORE: 0-UNK DRESSING - LOWER BODY: Activity did not occur on this shift Patient is not dressing in public clothing ARTICLES SCORE Total number of steps: 0 DRESSING - LOWER BODY - SCORE: 0-UNK TOILETING: Activity did not occur on this shift TOILETING - SCORE: 0-UNK BLADDER MANAGEMENT: Activity did not occur on this shift BLADDER MANAGEMENT - SCORE: 7-IND BOWEL MANAGEMENT: Activity did not occur on this shift BOWEL MANAGEMENT - SCORE: 7-IND TRANSFERS: BED, CHAIR, WHEELCHAIR: TRANSFERS: BED, CHAIR, WHEELCHAIR - STEP 1: Does the patient require assistance with bed, chair, or wheelchair transfers? Yes. TRANSFERS: BED, CHAIR, WHEELCHAIR - STEP 2: Does the patient require the assistance of a helper? Yes. TRANSFERS: BED, CHAIR, WHEELCHAIR - STEP 3: How much assistance does the patient require from the helper? Only supervision TRANSFERS: BED, CHAIR, WHEELCHAIR - SCORE: 5-SUP TRANSFERS: TOILET: Activity did not occur on this shift TRANSFERS: TOILET - SCORE: 0-UNK TRANSFERS: SHOWER: Activity did not occur on this shift TRANSFERS: SHOWER - SCORE: 0-UNK TRANSFERS: TUB: Activity did not occur on this shift TRANSFERS: TUB - SCORE: 0-UNK LOCOMOTION: WALK: LOCOMOTION: WALK - STEP 1: Does the patient need help to walk 150 feet? Yes. LOCOMOTION: WALK - STEP 2: How much assistance does the patient require to walk a minimum of 150 feet? Only supervision, cuing, or coaxing LOCOMOTION: WALK - SCORE: 5-SUP LOCOMOTION: WHEELCHAIR: LOCOMOTION: WHEELCHAIR - STEP 1: Does the patient need help to go 150 feet in a wheelchair? Yes. LOCOMOTION: WHEELCHAIR - STEP 2: How much assistance does the patient need from the helper? Only supervision, cuing, or coaxing LOCOMOTION: WHEELCHAIR - SCORE: 5-SUP LOCOMOTION: STAIRS: LOCOMOTION: STAIRS - STEP 1: Does the patient need help to go up and down 12 to 14 stairs? Yes. LOCOMOTION: STAIRS - STEP 2: How much assistance does the patient need from the helper to go a minimum of 12 to 14 stairs? The pat ient goes less than 12 to 14 stairs - but more than 4 to 6 stairs LOCOMOTION: STAIRS - SCORE: 2-MAX COMPREHENSION: COMPREHENSION - SCORE: 0-UNK EXPRESSION EXPRESSION - SCORE: 0-UNK SOCIAL INTERACTION: SOCIAL INTERACTION - SCORE: 0-UNK PROBLEM SOLVING: PROBLEM SOLVING - SCORE: 0-UNK MEMORY: MEMORY - SCORE: 0-UNK SIGNATURE PANEL: The following modified sections: Transfers: Bed, Chair, Wheelchair - Score, Transfers: Toilet - Score , Locomotion: Walk - Score, Locomotion: Wheelchair - Score, Locomotion: Stairs - Score were [bev shultz] signed by Carroll Bentley PT on SunDec 17 2017 14:03:56 GMT-0500 (Central Daylight Time)
--- NOTE | 2017-12-17 15:05 | FAST ---
SHIFT START DATE/TIME: 12/17/2017 07:00 (CDT) SHIFT END DATE/TIME: 12/17/2017 19:00 (CDT) NAME KAMERON KOHLI DATE OF : 1960 DATE OF ADMISSION: 12/10/2017 15:50 (CDT) PHONE: AGE: 57 N# [id number] GENDER: Male ENCOUNTER PHYSICIAN: Dr. Mandeep Nicole M.D. 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 EATING: EATING - STEP 1: Does the patient require assistance when eating? Yes. EATING - STEP 2: Does the patient require the assistance of a helper? Yes. EATING - STEP 3: Does the patient perform half or more of the eating tasks? Yes. EATING - STEP 4: Does the patient need only supervision, cuing, coaxing OR help to apply an orthosis OR help to cut fo od, open containers, pour liquids, or butter bread? Yes. EATING - SCORE: 5-SUP GROOMING: Activity did not occur on this shift GROOMING - SCORE: 0-UNK BATHING: Activity did not occur on this shift BATHING - SCORE: 0-UNK DRESSING - UPPER BODY: Activity did not occur on this shift ARTICLES SCORE Total number of steps: 0 DRESSING - UPPER BODY - SCORE: 0-UNK DRESSING - LOWER BODY: Activity did not occur on this shift ARTICLES SCORE Total number of steps: 0 DRESSING - LOWER BODY - SCORE: 0-UNK TOILETING: TOILETING - STEP 1: Does the patient require assistance with toileting? Yes. TOILETING - STEP 2: Does the patient require the assistance of a helper? No. TOILETING - SCORE: 6-EILEEN BLADDER MANAGEMENT: Patient urinates on floor while walking to bathroom and Ladora cleans up accident. BLADDER MANAGEMENT - SCORE: 1-DEP BLADDER MANAGEMENT - COMMENTS: Pt urinates on floor while sitting up in w/c BLADDER MANAGEMENT - FREQUENCY OF ACCIDENTS: BLADDER MANAGEMENT(FA) - STEP 1: How many accidents has the patient had during the current shift? 3 BLADDER MANAGEMENT(FA) - COMMENTS: Sitting up in w/c- pt does not want to use urinal- pt urinates on floor BOWEL MANAGEMENT: Activity did not occur on this shift BOWEL MANAGEMENT - SCORE: 7-IND BOWEL MANAGEMENT - FREQUENCY OF ACCIDENTS: BOWEL MANAGEMENT(FA) - STEP 1: How many accidents has the patient had during the current shift? 0 TRANSFERS: BED, CHAIR, WHEELCHAIR: TRANSFERS: BED, CHAIR, WHEELCHAIR - STEP 1: Does the patient require assistance with bed, chair, or wheelchair transfers? Yes. TRANSFERS: BED, CHAIR, WHEELCHAIR - STEP 2: Does the patient require the assistance of a helper? Yes. TRANSFERS: BED, CHAIR, WHEELCHAIR - STEP 3: How much assistance does the patient require from the helper? Steadying/guiding assistance TRANSFERS: BED, CHAIR, WHEELCHAIR - SCORE: 4-MIN TRANSFERS: TOILET: TRANSFERS: TOILET - STEP 1: Does the patient require assistance with toilet transfers? Yes. TRANSFERS: TOILET - STEP 2: Does the patient require the assistance of a helper? Yes. TRANSFERS: TOILET - STEP 3: How much assistance does the patient require from the helper? Patient performs half or more of the tr ansferring tasks TRANSFERS: TOILET - STEP 4: Does the patient need only incidental help such as contact guard or steadying during toilet transfer? No. Patient needs more than incidental help TRANSFERS: TOILET - SCORE: 3-MOD TRANSFERS: SHOWER: Activity did not occur on this shift TRANSFERS: SHOWER - SCORE: 0-UNK TRANSFERS: TUB: Activity did not occur on this shift TRANSFERS: TUB - SCORE: 0-UNK LOCOMOTION: WALK: Activity did not occur on this shift LOCOMOTION: WALK - SCORE: 0-UNK LOCOMOTION: WHEELCHAIR: LOCOMOTION: WHEELCHAIR - STEP 1: Does the patient need help to go 150 feet in a wheelchair? Yes. LOCOMOTION: WHEELCHAIR - STEP 2: How much assistance does the patient need from the helper? Only supervision, cuing, or coaxing LOCOMOTION: WHEELCHAIR - SCORE: 5-SUP COMPREHENSION: COMPREHENSION: TYPE: Both COMPREHENSION - STEP 1: Does the patient require help to understand complex and abstract ideas (such as current events, finan gurinder, discharge planning, medical issues, relationships, etc)? Yes. COMPREHENSION - STEP 2: Does the patient require help to understand questions or statements about basic needs or ideas (such as hunger, thirst, sleep, safety, daily schedule, room location, or discomfort) half or more of the t annia? No. COMPREHENSION - STEP 3: How often does the patient need help to understand directions and conversation about basic needs? 25% - 49% of the time COMPREHENSION - SCORE: 3-MOD EXPRESSION EXPRESSION: TYPE: Both EXPRESSION - STEP 1: Does the patient require help expressing complex and abstract ideas (such as current events, finances , discharge planning, medical issues, relationships, etc)? Yes. EXPRESSION - STEP 2: Does the patient require help to express basic necessities or ideas (such as hunger, thirst, sleep, s afety, daily schedule, room location, or discomfort) half or more of the time? Yes. EXPRESSION - STEP 3: Is the patient basically unable to express or does s/he express inappropriately or inconsistently oz pite prompting? No. EXPRESSION - SCORE: 2-MAX SOCIAL INTERACTION: SOCIAL INTERACTION - STEP 1: Does the patient require a helper to interact with others in social and therapeutic situations? Yes. SOCIAL INTERACTION - STEP 2: Does the patient interact appropriately half or more of the time? Yes. SOCIAL INTERACTION - STEP 3: How often does the patient need help to interact appropriately? 25-49% of the time SOCIAL INTERACTION - SCORE: 3-MOD PROBLEM SOLVING: PROBLEM SOLVING - STEP 1: Does the patient need help to solve complex problems such as managing a checking account or confronti ng interpersonal problems? Yes. PROBLEM SOLVING - STEP 2: Does the patient solve basic routine problems half or more of the time? No. PROBLEM SOLVING - STEP 3: Does the patient need help to solve problems all the time or is s/he unable to solve problems? No. Pa nicolent can sometimes solve problems PROBLEM SOLVING - SCORE: 2-MAX MEMORY: MEMORY - STEP 1: Does the patient need help to remember frequently encountered people, daily routines, and executing r equests? Yes. MEMORY - STEP 2: How often does the patient need help to remember frequently encountered people, daily routines, and e xecuting requests? More than 50% of the time MEMORY - STEP 3: Does the patient need help to remember all of the time OR does s/he not effectively recognize and rem ember? No. Patient does not need help all the time MEMORY - SCORE: 2-MAX SIGNATURE PANEL: The following modified sections: Eating - Score, Grooming - Score, Bathing - Score, Dressing - Upper Body - Score, Dressing - Lower Body - Score, Toileting - Score, Toileting - Comments:, Bladder Manage ment - Score, Bladder Management - Comments:, Bladder Management(FA) - Comments:, Bowel Management - Score, Transfers: Bed, Chair, Wheelchair - Score, Transfers: Toilet - Score, Transfers: Shower - Scor e, Transfers: Tub - Score, Locomotion: Walk - Score, Locomotion: Wheelchair - Score, Comprehension - Score, Expression - Score, Social Interaction - Score, Problem Solving - Score, Memory - Score were [ electronically] signed by Kerry Pagan C.N.ALynn on SunDec 17 2017 14:07:09 GMT-0500 (Central Daylight Time)
--- NOTE | 2017-12-17 15:22 | FAST ---
ENCOUNTER DATE AND TIME: 12/17/2017 08:00 (CDT) NAME KAMERON KOHLI DATE OF : 1960 DATE OF ADMISSION: 12/10/2017 15:50 (CDT) PHONE: AGE: 57 N# [id number] GENDER: Male ENCOUNTER PHYSICIAN: Dr. Mandeep Nicole M.D. 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 EATING: Activity did not occur on this shift EATING - SCORE: 0-UNK GROOMING: Comb/brush hair Oral care Wash, rinse, and dry face Wash, rinse, and dry hands GROOMING - STEP 1: Does the patient require assistance when grooming? No. GROOMING - SCORE: 7-IND BATHING: Abdomen Buttocks Chest Left arm Left upper leg Perineal area Right arm Right upper leg BATHING - STEP 1: Does the patient require assistance when bathing? Yes. BATHING - STEP 2: Does the patient require the assistance of a helper? Yes. BATHING - STEP 3: How much assistance does the patient require from the helper? Only supervision, cuing, coaxing, instr uctions, encouragement BATHING - SCORE: 5-SUP DRESSING - UPPER BODY: T-shirt/pullover shirt (four steps) ARTICLES SCORE Total number of steps: 4 DRESSING - UPPER BODY - STEP 1: Does the patient require help when dressing above the waist? Yes. DRESSING - UPPER BODY - STEP 2: Does the patient require the assistance of a helper? Yes. DRESSING - UPPER BODY - STEP 3: Does the helper touch the patient while dressing? No. DRESSING - UPPER BODY - SCORE: 5-SUP DRESSING - LOWER BODY: Elastic waist pants (three steps) ARTICLES SCORE Total number of steps: 3 DRESSING - LOWER BODY - STEP 1: Does the patient require help when dressing below the waist? Yes. DRESSING - LOWER BODY - STEP 2: Does the patient require the assistance of a helper? Yes. DRESSING - LOWER BODY - STEP 3: Does the helper touch the patient while dressing? Yes. DRESSING - LOWER BODY - STEP 4: How many of the total steps does the patient complete on his/her own? 2 DRESSING - LOWER BODY - SCORE: 3-MOD TOILETING: Activity did not occur on this shift TOILETING - SCORE: 0-UNK BLADDER MANAGEMENT: Activity did not occur on this shift BLADDER MANAGEMENT - SCORE: 7-IND BOWEL MANAGEMENT: Activity did not occur on this shift BOWEL MANAGEMENT - SCORE: 7-IND TRANSFERS: BED, CHAIR, WHEELCHAIR: Activity did not occur on this shift TRANSFERS: BED, CHAIR, WHEELCHAIR - SCORE: 0-UNK TRANSFERS: TOILET: Activity did not occur on this shift TRANSFERS: TOILET - SCORE: 0-UNK TRANSFERS: SHOWER: TRANSFERS: SHOWER - STEP 1: Does the patient require assistance with shower transfers? Yes. TRANSFERS: SHOWER - STEP 2: Does the patient require the assistance of a helper? Yes. TRANSFERS: SHOWER - STEP 3: How much assistance does the patient require from the helper? Only supervision, cuing, coaxing, or he lp to set out transfer equipment or to lock brakes and/or lift foot rests TRANSFERS: SHOWER - SCORE: 5-SUP TRANSFERS: TUB: Activity did not occur on this shift TRANSFERS: TUB - SCORE: 0-UNK LOCOMOTION: WALK: Activity did not occur on this shift LOCOMOTION: WALK - SCORE: 0-UNK LOCOMOTION: WHEELCHAIR: Activity did not occur on this shift LOCOMOTION: WHEELCHAIR - SCORE: 0-UNK LOCOMOTION: STAIRS: Activity did not occur on this shift LOCOMOTION: STAIRS - SCORE: 0-UNK COMPREHENSION: COMPREHENSION: TYPE: Both COMPREHENSION - STEP 1: Does the patient require help to understand complex and abstract ideas (such as current events, finan gurinder, discharge planning, medical issues, relationships, etc)? No. COMPREHENSION - STEP 2: Does the patient need extra time, require an assistive device (such as glasses, hearing aids, or an a ugmentative communication system), OR does s/he have mild difficulty expressing complex and abstract ideas (including mild dysarthria or mild word-finding problems)? Yes. COMPREHENSION - SCORE: 6-EILEEN EXPRESSION EXPRESSION: TYPE: Both EXPRESSION - STEP 1: Does the patient require help expressing complex and abstract ideas (such as current events, finances , discharge planning, medical issues, relationships, etc)? Yes. EXPRESSION - STEP 2: Does the patient require help to express basic necessities or ideas (such as hunger, thirst, sleep, s afety, daily schedule, room location, or discomfort) half or more of the time? No. EXPRESSION - STEP 3: How often does the patient need help to express directions and conversation about basic needs? Less t dale 10% of the time EXPRESSION - SCORE: 5-SUP SOCIAL INTERACTION: SOCIAL INTERACTION - STEP 1: Does the patient require a helper to interact with others in social and therapeutic situations? No. SOCIAL INTERACTION - STEP 2: Does the patient need extra time in social situations, OR does s/he interact with staff, other patien ts, and family members ONLY in structured environments, OR does s/he require medication for social in teraction? Yes, patient requires medication for social interaction SOCIAL INTERACTION - SCORE: 6-EILEEN PROBLEM SOLVING: PROBLEM SOLVING - STEP 1: Does the patient need help to solve complex problems such as managing a checking account or confronti ng interpersonal problems? Yes. PROBLEM SOLVING - STEP 2: Does the patient solve basic routine problems half or more of the time? Yes. PROBLEM SOLVING - STEP 3: How often does the patient need help to solve basic routine problems? 10%-24% of the time PROBLEM SOLVING - SCORE: 4-MIN MEMORY: MEMORY - STEP 1: Does the patient need help to remember frequently encountered people, daily routines, and executing r equests? Yes. MEMORY - STEP 2: How often does the patient need help to remember frequently encountered people, daily routines, and e xecuting requests? 10% - 24% of the time MEMORY - SCORE: 4-MIN SIGNATURE PANEL: The following modified sections: Eating - Score, Grooming - Score, Bathing - Score, Dressing - Upper Body - Score, Dressing - Lower Body - Score, Toileting - Score, Transfers: Bed, Chair, Wheelchair - S core, Transfers: Toilet - Score, Transfers: Tub - Score, Transfers: Shower - Score, Comprehension - S core, Expression - Score, Social Interaction - Score, Problem Solving - Score, Memory - Score were [e lectronically] signed by Lanette Loaiza OT on SunDec 17 2017 14:24:06 GMT-0500 (Central Daylight T annia)
--- NOTE | 2017-12-17 17:51 | FAST ---
ENCOUNTER DATE AND TIME: 12/17/2017 08:00 (CDT) NAME KAMERON KOHLI DATE OF : 1960 DATE OF ADMISSION: 12/10/2017 15:50 (CDT) PHONE: AGE: 57 N# [id number] GENDER: Male ENCOUNTER PHYSICIAN: Dr. Mandeep Nicole M.D. 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 EATING: Activity did not occur on this shift EATING - SCORE: 0-UNK GROOMING: Activity did not occur on this shift GROOMING - SCORE: 0-UNK BATHING: Activity did not occur on this shift BATHING - SCORE: 0-UNK DRESSING - UPPER BODY: Activity did not occur on this shift Patient is not dressing in public clothing ARTICLES SCORE Total number of steps: 0 DRESSING - UPPER BODY - SCORE: 0-UNK DRESSING - LOWER BODY: Activity did not occur on this shift Patient is not dressing in public clothing ARTICLES SCORE Total number of steps: 0 DRESSING - LOWER BODY - SCORE: 0-UNK TOILETING: Activity did not occur on this shift TOILETING - SCORE: 0-UNK BLADDER MANAGEMENT: Activity did not occur on this shift BLADDER MANAGEMENT - SCORE: 7-IND BOWEL MANAGEMENT: Activity did not occur on this shift BOWEL MANAGEMENT - SCORE: 7-IND TRANSFERS: BED, CHAIR, WHEELCHAIR: Activity did not occur on this shift TRANSFERS: BED, CHAIR, WHEELCHAIR - SCORE: 0-UNK TRANSFERS: TOILET: Activity did not occur on this shift TRANSFERS: TOILET - SCORE: 0-UNK TRANSFERS: SHOWER: Activity did not occur on this shift TRANSFERS: SHOWER - SCORE: 0-UNK TRANSFERS: TUB: Activity did not occur on this shift TRANSFERS: TUB - SCORE: 0-UNK LOCOMOTION: WALK: Activity did not occur on this shift LOCOMOTION: WALK - SCORE: 0-UNK LOCOMOTION: WHEELCHAIR: Activity did not occur on this shift LOCOMOTION: WHEELCHAIR - SCORE: 0-UNK LOCOMOTION: STAIRS: Activity did not occur on this shift LOCOMOTION: STAIRS - SCORE: 0-UNK COMPREHENSION: COMPREHENSION - STEP 1: Does the patient require help to understand complex and abstract ideas (such as current events, finan gurinder, discharge planning, medical issues, relationships, etc)? Yes. COMPREHENSION - STEP 2: Does the patient require help to understand questions or statements about basic needs or ideas (such as hunger, thirst, sleep, safety, daily schedule, room location, or discomfort) half or more of the t annia? No. COMPREHENSION - STEP 3: How often does the patient need help to understand directions and conversation about basic needs? 10% - 24% of the time COMPREHENSION - SCORE: 4-MIN EXPRESSION EXPRESSION - STEP 1: Does the patient require help expressing complex and abstract ideas (such as current events, finances , discharge planning, medical issues, relationships, etc)? Yes. EXPRESSION - STEP 2: Does the patient require help to express basic necessities or ideas (such as hunger, thirst, sleep, s afety, daily schedule, room location, or discomfort) half or more of the time? No. EXPRESSION - STEP 3: How often does the patient need help to express directions and conversation about basic needs? 10-24% of the time EXPRESSION - SCORE: 4-MIN SOCIAL INTERACTION: SOCIAL INTERACTION - STEP 1: Does the patient require a helper to interact with others in social and therapeutic situations? Yes. SOCIAL INTERACTION - STEP 2: Does the patient interact appropriately half or more of the time? Yes. SOCIAL INTERACTION - STEP 3: How often does the patient need help to interact appropriately? 10-24% of the time SOCIAL INTERACTION - SCORE: 4-MIN PROBLEM SOLVING: PROBLEM SOLVING - STEP 1: Does the patient need help to solve complex problems such as managing a checking account or confronti ng interpersonal problems? Yes. PROBLEM SOLVING - STEP 2: Does the patient solve basic routine problems half or more of the time? Yes. PROBLEM SOLVING - STEP 3: How often does the patient need help to solve basic routine problems? 10%-24% of the time PROBLEM SOLVING - SCORE: 4-MIN MEMORY: MEMORY - STEP 1: Does the patient need help to remember frequently encountered people, daily routines, and executing r equests? Yes. MEMORY - STEP 2: How often does the patient need help to remember frequently encountered people, daily routines, and e xecuting requests? 25% - 49% of the time MEMORY - SCORE: 3-MOD SIGNATURE PANEL: The following modified sections: Comprehension - Score, Expression - Score, Social Interaction - Scor e, Problem Solving - Score, Memory - Score were [electronically] signed by CHACHO Renae on Sun 16:53:22 GMT-0500 (Central Daylight Time)
[2017-12-17] MEDS: TAMSULOSIN 0.4 MG SR CAP PO SCH (20:10)
[2017-12-17] MEDS: ATORVASTATIN 80 MG TAB PO SCH (20:10)
[2017-12-17] MEDS: LORAZEPAM 0.5 MG TABLET PO PRN (20:11)
[2017-12-17] MEDS: INSULIN DETEMIR 100 UNIT/1 ML INSULIN SQ SCH (20:11)
--- NOTE | 2017-12-17 21:41 | R.PN ---
ENCOUNTER DATE AND TIME: 12/17/2017 20:41 (CDT) NAME KAMERON KOHLI DATE OF : 1960 DATE OF ADMISSION: 12/10/2017 15:50 (CDT) acute nonhemorrhagic CVA involving the left posterior cerebral artery distribution an adjecent thalam o perforating branchesCHIEF COMPLAINT: Left CLINICAL NURSING INTERN stroke SUBJECTIVE: Pt denied any Shortness of Breath. Pt denied any depression. Ambulated 400' with standby assistance using a rolling walker. VITAL SIGNS Temperature: 97.6 F SBP/DBP: 154/68 Pulse: 70 Resp: 16 MEDICATION ALLERGIES: hydromorphone morphine latex allergy latex, natural rubber allergy baclofen ENVIRONMENTAL ALLERGIES: - Substance Allergies None Known - Other Allergies None Known NURSING: - Shower allowing shower - Lab Results blood Sugar Check ACHS - Bladder care per protocol - Skin care per protocol PRECAUTIONS: - Weight Bearing Precaution NWB both LE ACTIVITIES OOB only with supervision THERAPIES: - Occupational Therapy Evaluate and Treat. Cognitive Retraining. Visual Perceptual Training. - Speech Therapy Memory Strategies. Expressive Language Skills. Speech Intelligibility Training. Cognitive Training. R eceptive Language Skills. - Physical Therapy Evaluate and Treat. PHYSICAL EXAM - Gen Alert and awake Lying in bed No apparent distress Oriented to: person, time, and place - Skin No skin breakdown. Normacephalic - Eyes Right visual field deficit. - Neck No abnormalities - CVS RRR - Chest Clear - Resp Clear to auscultation - Abd Soft - GI Non distended Deferred - No abnormalities - Ext Bilateral below the knee amputation. - MSK Mild diffuse upper extremity weakness 5-/5. - Neuro Mild diffuse upper extremity weakness 5-/5. - Psych No abnormalities ASSESSMENT: Pt. is a 57 yo Right-handed male.On 12/07/2017 Pt. presented to [facility] with sudden onset of right-side weakness.On 12/07/2017 he was admitted to [facility] with diagnosis acute nonhemorrhagic CVA involving the left posterior cerebral artery distr ibution an adjecent thalamo perforating branches.His impairment category is Stroke 01 - Right Body ( Left Brain) (01.2).Pre-morbidly, Pt. was independent/mod-I in Sphincter Control, Transfers Control, C ommunication, Social Cognition, Self-Care, and Locomotion; and he had good Sphincter Control.Currentl y, he has deficits of Endurance, Safety Awareness, Transfers Control, Communication, Social Cognition , Balance, Locomotion, and Self-Care.Pt. is now referred to [facility] for acu te in-patient rehabilitation in order to maximize patient's functional independence in activities of daily living, strength, ROM, and mobility.- Rehab Goal Patient has realistic goal of being discharged at assistance level 4-Zainab to reside at Home with Fam issa/Relatives. MDM/PLAN: - Lab Results blood Sugar Check ACHS for Dementia, TBI, Stroke, or others - Bladder care per protocol - Physical Therapy Gait dysfunction - to improve, our physical therapists will perform initial evaluation of pt's statu s upon admission and devise an individualized program for Gait Training, and Wheel Chair mobility Inability to transfer - to improve, our physical therapists will perform initial evaluation of pt's status upon admission and devise an individualized program for Bed mobility Need for home safety evaluation - to improve, our physical therapists will perform initial evaluatio n of pt's status upon admission and devise an individualized program for Home Evaluation Need in caregiver upon discharge - to improve, our physical therapists will perform initial evaluati on of pt's status upon admission and devise an individualized program for Caregiver Training New precaution - to improve, our physical therapists will perform initial evaluation of pt's status upon admission and devise an individualized program for Patient precaution education Poor balance - to improve, our physical therapists will perform initial evaluation of pt's status up on admission and devise an individualized program for Balance Training Poor endurance - to improve, our physical therapists will perform initial evaluation of pt's status upon admission and devise an individualized program for Endurance Training Weakness - to improve, our physical therapists will perform initial evaluation of pt's status upon a dmission and devise an individualized program for Aquatic Therapy, Neuromuscular Reeducation, and Str engthening - Weight Bearing Precaution WBAT right LE - Skin care per protocol - Diet - Solid Texture Continue Regular - Shower allowing shower - Occupational Therapy ADL deficits - to improve, our occupation therapists will perform initial evaluation of pt's status upon admission and devise an individualized program for Bathing, Bed mobility, Community Reintegratio n, Cooking, Dressing, Eating, Fine Motor Skills, Grooming, Homemaking, Kitchen Mobility, Laundry, Pat ient Education, Safety Awareness, Splinting - Positioning, Transfers(Toilet, Tub, Shower), and Wheel Chair Management Cognitive deficits - to improve, our occupation therapists will perform initial evaluation of pt's s tatus upon admission and devise an individualized program for Cognition - orientation Need for pharmacy care coordinator - to improve, our occupation therapists will perform initial evaluation of pt's status upon admission and devise an individualized program for Caregiver Training Weakness - to improve, our occupation therapists will perform initial evaluation of pt's status upon admission and devise an individualized program for Aquatic Therapy, Balance, Endurance, UE ROM, and UE strengthening FUNCTIONAL STATUS: UPDATED AT WEEKLY TEAM CONFERENCE - Bladder Same accident frequency: 7-Ind - No accidents in the past 7 days - Bowel Same accident frequency: 7-Ind - No accidents in the past 7 days - Walking Same score based on distance walked: 0(N/A) - Wheelchair Same score based on distance traveled: 0(N/A) FUNCTIONAL STATUS: - Self-Care A. Eating Ind B. Grooming Rush C. Bathing Rush D. Dressing - Upper Rush E. Dressing - Lower Zainab F. Toileting Ind - Sphincter Control G: Bladder control Ind H: Bowel control Ind - Transfers Control I. Bed/Chair/Wheelchair Zainab J. Toilet Zainab K. Tub/Shower Zainab - Locomotion L. Walk/Wheelchair (W) Zainab M. Stairs ADNO - Communication N. Comprehension (B) sup O. Expression (B) sup - Social Cognition P. Social Interaction sup Q. Problem Solving sup R. Memory sup - Endurance Fair - Balance Fair - Safety Awareness Fair CURRENT FUNC. DEFICITS: Endurance, Safety Awareness, Transfers Control, Communication, Social Cognition, Balance, Locomotion, and Self-Care SIGNATURE PANEL: (CDT)
[2017-12-18] MEDS: HYDROCODONE/APAP 5/325 MG TAB PO PRN ×2 (01:04→08:13)
--- NOTE | 2017-12-18 03:10 | FAST ---
SHIFT START DATE/TIME: 12/17/2017 19:00 (CDT) SHIFT END DATE/TIME: 12/18/2017 07:00 (CDT) NAME KAMERON KOHLI DATE OF : 1960 DATE OF ADMISSION: 12/10/2017 15:50 (CDT) PHONE: AGE: 57 N# [id number] GENDER: Male ENCOUNTER PHYSICIAN: Dr. Mandeep Nicole M.D. 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 EATING: Activity did not occur on this shift EATING - SCORE: 0-UNK GROOMING: Activity did not occur on this shift GROOMING - SCORE: 0-UNK BATHING: Activity did not occur on this shift BATHING - SCORE: 0-UNK DRESSING - UPPER BODY: Patient is not dressing in public clothing ARTICLES SCORE Total number of steps: 0 DRESSING - UPPER BODY - SCORE: 0-UNK DRESSING - LOWER BODY: Patient is not dressing in public clothing ARTICLES SCORE Total number of steps: 0 DRESSING - LOWER BODY - SCORE: 0-UNK TOILETING: TOILETING - STEP 1: Does the patient require assistance with toileting? Yes. TOILETING - STEP 2: Does the patient require the assistance of a helper? Yes. TOILETING - STEP 3: How much assistance does the patient require from the helper? Hands-on assistance from the helper TOILETING - STEP 4: Of the 3 tasks: 1) Adjusting clothing prior to use, 2) Cleansing of perineal area, 3) Adjusting clot donita after use; How many tasks does the patient perform WITHOUT assistance of the helper? One task TOILETING - SCORE: 2-MAX BLADDER MANAGEMENT: [place] removes incontinent device (Depends, pull ups, etc.); cleans the patient after accident / inco ntinent episode; and, applies new incontinent device. BLADDER MANAGEMENT - SCORE: 1-DEP BLADDER MANAGEMENT - FREQUENCY OF ACCIDENTS: BLADDER MANAGEMENT(FA) - STEP 1: How many accidents has the patient had during the current shift? 1 BOWEL MANAGEMENT: Activity did not occur on this shift BOWEL MANAGEMENT - SCORE: 7-IND TRANSFERS: BED, CHAIR, WHEELCHAIR: Activity did not occur on this shift TRANSFERS: BED, CHAIR, WHEELCHAIR - SCORE: 0-UNK TRANSFERS: TOILET: Activity did not occur on this shift TRANSFERS: TOILET - SCORE: 0-UNK TRANSFERS: SHOWER: Activity did not occur on this shift TRANSFERS: SHOWER - SCORE: 0-UNK TRANSFERS: TUB: Activity did not occur on this shift TRANSFERS: TUB - SCORE: 0-UNK LOCOMOTION: WALK: Activity did not occur on this shift LOCOMOTION: WALK - SCORE: 0-UNK LOCOMOTION: WHEELCHAIR: Activity did not occur on this shift LOCOMOTION: WHEELCHAIR - SCORE: 0-UNK COMPREHENSION: COMPREHENSION - STEP 1: Does the patient require help to understand complex and abstract ideas (such as current events, finan gurinder, discharge planning, medical issues, relationships, etc)? Yes. COMPREHENSION - STEP 2: Does the patient require help to understand questions or statements about basic needs or ideas (such as hunger, thirst, sleep, safety, daily schedule, room location, or discomfort) half or more of the t annia? No. COMPREHENSION - STEP 3: How often does the patient need help to understand directions and conversation about basic needs? 25% - 49% of the time COMPREHENSION - SCORE: 3-MOD EXPRESSION EXPRESSION - STEP 1: Does the patient require help expressing complex and abstract ideas (such as current events, finances , discharge planning, medical issues, relationships, etc)? Yes. EXPRESSION - STEP 2: Does the patient require help to express basic necessities or ideas (such as hunger, thirst, sleep, s afety, daily schedule, room location, or discomfort) half or more of the time? No. EXPRESSION - STEP 3: How often does the patient need help to express directions and conversation about basic needs? 25-49% of the time EXPRESSION - SCORE: 3-MOD SOCIAL INTERACTION: SOCIAL INTERACTION - STEP 1: Does the patient require a helper to interact with others in social and therapeutic situations? No. SOCIAL INTERACTION - STEP 2: Does the patient need extra time in social situations, OR does s/he interact with staff, other patien ts, and family members ONLY in structured environments, OR does s/he require medication for social in teraction? Yes, patient needs extra time SOCIAL INTERACTION - SCORE: 6-EILEEN PROBLEM SOLVING: PROBLEM SOLVING - STEP 1: Does the patient need help to solve complex problems such as managing a checking account or confronti ng interpersonal problems? Yes. PROBLEM SOLVING - STEP 2: Does the patient solve basic routine problems half or more of the time? Yes. PROBLEM SOLVING - STEP 3: How often does the patient need help to solve basic routine problems? 25%-49% of the time PROBLEM SOLVING - SCORE: 3-MOD MEMORY: MEMORY - STEP 1: Does the patient need help to remember frequently encountered people, daily routines, and executing r equests? Yes. MEMORY - STEP 2: How often does the patient need help to remember frequently encountered people, daily routines, and e xecuting requests? 25% - 49% of the time MEMORY - SCORE: 3-MOD SIGNATURE PANEL: The following modified sections: Eating - Score, Grooming - Score, Dressing - Upper Body - Score, Gabriel ssing - Lower Body - Score, Toileting - Score, Bladder Management - Score, Bowel Management - Score, Transfers: Bed, Chair, Wheelchair - Score, Transfers: Toilet - Score, Transfers: Shower - Score, Gutierrez sfers: Tub - Score, Locomotion: Walk - Score, Locomotion: Wheelchair - Score, Comprehension - Score, Expression - Score, Social Interaction - Score, Problem Solving - Score, Memory - Score were [electro nically] signed by Natalie Brewer CNA on SunDec 18 2017 02:12:18 GMT-0500 (Central Daylight Time)
[2017-12-18] MEDS: CARVEDILOL 3.125 MG TAB PO SCH (05:20)
[2017-12-18 07:05] VITALS: BP 130/61; TEMP 97
[2017-12-18] MEDS: AMOX/K CLAV 500 MG TAB PO SCH (08:13)
[2017-12-18] MEDS: CLOPIDOGREL 75 MG TABLET PO SCH (08:13)
[2017-12-18] MEDS: BUMETANIDE 1 MG TABLET PO SCH (08:14)
[2017-12-18] MEDS: ASPIRIN EC 81 MG TAB PO SCH (08:14)
[2017-12-18] MEDS: FOLIC ACID 1 MG TABLET PO SCH (08:14)
[2017-12-18] MEDS: NICOTINE 7 MG/PAT TD SCH (08:15)
[2017-12-18] MEDS: INSULIN LISPRO 100 UNIT/1 ML SQ SCH ×2 (08:16→12:25)
[2017-12-18] MEDS: PROMOD 30 ML DOSE PO SCH (08:16)
--- NOTE | 2017-12-18 11:13 | FAST ---
ENCOUNTER DATE AND TIME: 12/13/2017 08:00 (CDT) NAME KAMERON KOHLI DATE OF : 1960 DATE OF ADMISSION: 12/10/2017 15:50 (CDT) PHONE: AGE: 57 N# [id number] GENDER: Male ENCOUNTER PHYSICIAN: Dr. Mandeep Nicole M.D. 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 EATING: Activity did not occur on this shift EATING - SCORE: 0-UNK GROOMING: Comb/brush hair Oral care Wash, rinse, and dry face Wash, rinse, and dry hands GROOMING - STEP 1: Does the patient require assistance when grooming? Yes. GROOMING - STEP 2: Does the patient require the assistance of a helper? Yes. GROOMING - STEP 3: How much assistance does the patient require from the helper? Cuing, coaxing, instructions, or encour agement for completion of grooming GROOMING - SCORE: 5-SUP BATHING: Abdomen Buttocks Chest Left arm Perineal area Right arm Right lower leg and foot Right upper leg BATHING - STEP 1: Does the patient require assistance when bathing? Yes. BATHING - STEP 2: Does the patient require the assistance of a helper? Yes. BATHING - STEP 3: How much assistance does the patient require from the helper? Only incidental help such as placement of a wash cloth in his/her hand a few times as s/he bathes OR help to bathe just one or two areas of the body BATHING - SCORE: 4-MIN DRESSING - UPPER BODY: T-shirt/pullover shirt (four steps) ARTICLES SCORE Total number of steps: 4 DRESSING - UPPER BODY - STEP 1: Does the patient require help when dressing above the waist? Yes. DRESSING - UPPER BODY - STEP 2: Does the patient require the assistance of a helper? Yes. DRESSING - UPPER BODY - STEP 3: Does the helper touch the patient while dressing? No. DRESSING - UPPER BODY - SCORE: 5-SUP DRESSING - LOWER BODY: Elastic waist pants (three steps) Underwear (three steps) ARTICLES SCORE Total number of steps: 6 DRESSING - LOWER BODY - STEP 1: Does the patient require help when dressing below the waist? Yes. DRESSING - LOWER BODY - STEP 2: Does the patient require the assistance of a helper? Yes. DRESSING - LOWER BODY - STEP 3: Does the helper touch the patient while dressing? Yes. DRESSING - LOWER BODY - STEP 4: How many of the total steps does the patient complete on his/her own? 0 DRESSING - LOWER BODY - STEP 5: Does patient require total assistance for dressing below the waist such as the helper holding clothin g and performing basically all the activities? Yes. DRESSING - LOWER BODY - SCORE: 1-DEP TOILETING: Activity did not occur on this shift TOILETING - SCORE: 0-UNK BLADDER MANAGEMENT: Activity did not occur on this shift BLADDER MANAGEMENT - SCORE: 7-IND BOWEL MANAGEMENT: Activity did not occur on this shift BOWEL MANAGEMENT - SCORE: 7-IND TRANSFERS: BED, CHAIR, WHEELCHAIR: Activity did not occur on this shift TRANSFERS: BED, CHAIR, WHEELCHAIR - SCORE: 0-UNK TRANSFERS: TOILET: Activity did not occur on this shift TRANSFERS: TOILET - SCORE: 0-UNK TRANSFERS: SHOWER: TRANSFERS: SHOWER - STEP 1: Does the patient require assistance with shower transfers? Yes. TRANSFERS: SHOWER - STEP 2: Does the patient require the assistance of a helper? Yes. TRANSFERS: SHOWER - STEP 3: How much assistance does the patient require from the helper? More than incidental help TRANSFERS: SHOWER - STEP 4: How much more help does the patient require from the helper? Lifting the patient either up OR down fr om the wheelchair onto the shower chair TRANSFERS: SHOWER - SCORE: 3-MOD TRANSFERS: TUB: Activity did not occur on this shift TRANSFERS: TUB - SCORE: 0-UNK LOCOMOTION: WALK: Activity did not occur on this shift LOCOMOTION: WALK - SCORE: 0-UNK LOCOMOTION: WHEELCHAIR: Activity did not occur on this shift LOCOMOTION: WHEELCHAIR - SCORE: 0-UNK LOCOMOTION: STAIRS: Activity did not occur on this shift LOCOMOTION: STAIRS - SCORE: 0-UNK COMPREHENSION: COMPREHENSION: TYPE: Both COMPREHENSION - STEP 1: Does the patient require help to understand complex and abstract ideas (such as current events, finan gurinder, discharge planning, medical issues, relationships, etc)? Yes. COMPREHENSION - STEP 2: Does the patient require help to understand questions or statements about basic needs or ideas (such as hunger, thirst, sleep, safety, daily schedule, room location, or discomfort) half or more of the t annia? No. COMPREHENSION - STEP 3: How often does the patient need help to understand directions and conversation about basic needs? Les s than 10% of the time COMPREHENSION - SCORE: 5-SUP EXPRESSION EXPRESSION: TYPE: Both EXPRESSION - STEP 1: Does the patient require help expressing complex and abstract ideas (such as current events, finances , discharge planning, medical issues, relationships, etc)? Yes. EXPRESSION - STEP 2: Does the patient require help to express basic necessities or ideas (such as hunger, thirst, sleep, s afety, daily schedule, room location, or discomfort) half or more of the time? No. EXPRESSION - STEP 3: How often does the patient need help to express directions and conversation about basic needs? 25-49% of the time EXPRESSION - SCORE: 3-MOD SOCIAL INTERACTION: SOCIAL INTERACTION - STEP 1: Does the patient require a helper to interact with others in social and therapeutic situations? Yes. SOCIAL INTERACTION - STEP 2: Does the patient interact appropriately half or more of the time? Yes. SOCIAL INTERACTION - STEP 3: How often does the patient need help to interact appropriately? 25-49% of the time SOCIAL INTERACTION - SCORE: 3-MOD PROBLEM SOLVING: PROBLEM SOLVING - STEP 1: Does the patient need help to solve complex problems such as managing a checking account or confronti ng interpersonal problems? Yes. PROBLEM SOLVING - STEP 2: Does the patient solve basic routine problems half or more of the time? Yes. PROBLEM SOLVING - STEP 3: How often does the patient need help to solve basic routine problems? 25%-49% of the time PROBLEM SOLVING - SCORE: 3-MOD MEMORY: MEMORY - STEP 1: Does the patient need help to remember frequently encountered people, daily routines, and executing r equests? Yes. MEMORY - STEP 2: How often does the patient need help to remember frequently encountered people, daily routines, and e xecuting requests? 25% - 49% of the time MEMORY - SCORE: 3-MOD SIGNATURE PANEL: The following modified sections: Eating - Score, Grooming - Score, Bathing - Score, Dressing - Upper Body - Score, Dressing - Lower Body - Score, Toileting - Score, Transfers: Bed, Chair, Wheelchair - S core, Transfers: Toilet - Score, Transfers: Tub - Score, Transfers: Shower - Score, Comprehension - S core, Expression - Score, Social Interaction - Score, Problem Solving - Score, Memory - Score were [e lectronically] signed by Lanette Loaiza OT on SunDec 18 2017 10:15:14 T-0500 (Central Daylight T annia)
--- NOTE | 2017-12-18 14:56 | FAST ---
SHIFT START DATE/TIME: 12/18/2017 07:00 (CDT) SHIFT END DATE/TIME: 12/18/2017 19:00 (CDT) NAME KAMERON KOHLI DATE OF : 1960 DATE OF ADMISSION: 12/10/2017 15:50 (CDT) PHONE: AGE: 57 N# [id number] GENDER: Male ENCOUNTER PHYSICIAN: Dr. Mandeep Nicole M.D. 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 EATING: EATING - STEP 1: Does the patient require assistance when eating? Yes. EATING - STEP 2: Does the patient require the assistance of a helper? Yes. EATING - STEP 3: Does the patient perform half or more of the eating tasks? Yes. EATING - STEP 4: Does the patient need only supervision, cuing, coaxing OR help to apply an orthosis OR help to cut fo od, open containers, pour liquids, or butter bread? No. EATING - SCORE: 4-MIN GROOMING: Activity did not occur on this shift GROOMING - SCORE: 0-UNK BATHING: Activity did not occur on this shift BATHING - SCORE: 0-UNK DRESSING - UPPER BODY: Activity did not occur on this shift ARTICLES SCORE Total number of steps: 0 DRESSING - UPPER BODY - SCORE: 0-UNK DRESSING - LOWER BODY: Activity did not occur on this shift ARTICLES SCORE Total number of steps: 0 DRESSING - LOWER BODY - SCORE: 0-UNK TOILETING: TOILETING - STEP 1: Does the patient require assistance with toileting? No. TOILETING - SCORE: 7-IND BLADDER MANAGEMENT: BLADDER MANAGEMENT - STEP 1: Does the patient control the bladder completely and intentionally without equipment or devices or med ications, and is always continent? No. BLADDER MANAGEMENT - STEP 2: Does the patient require the assistance of a helper? No, patient requires and independently uses an a ssistive device, such as a urinal, bedpan, bedside commode, catheter, absorbent pad, or collecting de vice BLADDER MANAGEMENT - SCORE: 6-EILEEN BLADDER MANAGEMENT - FREQUENCY OF ACCIDENTS: BLADDER MANAGEMENT(FA) - STEP 1: How many accidents has the patient had during the current shift? 0 BOWEL MANAGEMENT: Activity did not occur on this shift BOWEL MANAGEMENT - SCORE: 7-IND BOWEL MANAGEMENT - FREQUENCY OF ACCIDENTS: BOWEL MANAGEMENT(FA) - STEP 1: How many accidents has the patient had during the current shift? 0 TRANSFERS: BED, CHAIR, WHEELCHAIR: TRANSFERS: BED, CHAIR, WHEELCHAIR - STEP 1: Does the patient require assistance with bed, chair, or wheelchair transfers? Yes. TRANSFERS: BED, CHAIR, WHEELCHAIR - STEP 2: Does the patient require the assistance of a helper? Yes. TRANSFERS: BED, CHAIR, WHEELCHAIR - STEP 3: How much assistance does the patient require from the helper? Only supervision TRANSFERS: BED, CHAIR, WHEELCHAIR - SCORE: 5-SUP TRANSFERS: TOILET: TRANSFERS: TOILET - STEP 1: Does the patient require assistance with toilet transfers? Yes. TRANSFERS: TOILET - STEP 2: Does the patient require the assistance of a helper? No. Patient only requires an assistive device [place] as a grab bar or special seat, OR s/he takes more than reasonable time to perform toilet transfers , OR there is a safety concern when s/he performs toilet transfers. TRANSFERS: TOILET - SCORE: 6-EILEEN TRANSFERS: SHOWER: Activity did not occur on this shift TRANSFERS: SHOWER - SCORE: 0-UNK TRANSFERS: TUB: Activity did not occur on this shift TRANSFERS: TUB - SCORE: 0-UNK LOCOMOTION: WALK: Activity did not occur on this shift LOCOMOTION: WALK - SCORE: 0-UNK LOCOMOTION: WHEELCHAIR: LOCOMOTION: WHEELCHAIR - STEP 1: Does the patient need help to go 150 feet in a wheelchair? Yes. LOCOMOTION: WHEELCHAIR - STEP 2: How much assistance does the patient need from the helper? Only supervision, cuing, or coaxing LOCOMOTION: WHEELCHAIR - SCORE: 5-SUP COMPREHENSION: COMPREHENSION - STEP 1: Does the patient require help to understand complex and abstract ideas (such as current events, finan gurinder, discharge planning, medical issues, relationships, etc)? Yes. COMPREHENSION - STEP 2: Does the patient require help to understand questions or statements about basic needs or ideas (such as hunger, thirst, sleep, safety, daily schedule, room location, or discomfort) half or more of the t annia? No. COMPREHENSION - STEP 3: How often does the patient need help to understand directions and conversation about basic needs? 25% - 49% of the time COMPREHENSION - SCORE: 3-MOD EXPRESSION EXPRESSION: TYPE: Both EXPRESSION - STEP 1: Does the patient require help expressing complex and abstract ideas (such as current events, finances , discharge planning, medical issues, relationships, etc)? Yes. EXPRESSION - STEP 2: Does the patient require help to express basic necessities or ideas (such as hunger, thirst, sleep, s afety, daily schedule, room location, or discomfort) half or more of the time? No. EXPRESSION - STEP 3: How often does the patient need help to express directions and conversation about basic needs? 25-49% of the time EXPRESSION - SCORE: 3-MOD SOCIAL INTERACTION: SOCIAL INTERACTION - STEP 1: Does the patient require a helper to interact with others in social and therapeutic situations? Yes. SOCIAL INTERACTION - STEP 2: Does the patient interact appropriately half or more of the time? Yes. SOCIAL INTERACTION - STEP 3: How often does the patient need help to interact appropriately? 25-49% of the time SOCIAL INTERACTION - SCORE: 3-MOD PROBLEM SOLVING: PROBLEM SOLVING - STEP 1: Does the patient need help to solve complex problems such as managing a checking account or confronti ng interpersonal problems? Yes. PROBLEM SOLVING - STEP 2: Does the patient solve basic routine problems half or more of the time? Yes. PROBLEM SOLVING - STEP 3: How often does the patient need help to solve basic routine problems? 25%-49% of the time PROBLEM SOLVING - SCORE: 3-MOD MEMORY: MEMORY - STEP 1: Does the patient need help to remember frequently encountered people, daily routines, and executing r equests? Yes. MEMORY - STEP 2: How often does the patient need help to remember frequently encountered people, daily routines, and e xecuting requests? More than 50% of the time MEMORY - STEP 3: Does the patient need help to remember all of the time OR does s/he not effectively recognize and rem ember? No. Patient does not need help all the time MEMORY - SCORE: 2-MAX SIGNATURE PANEL: The following modified sections: Eating - Score, Grooming - Score, Bathing - Score, Dressing - Upper Body - Score, Dressing - Lower Body - Score, Toileting - Score, Bladder Management - Score, Bowel Man agement - Score, Transfers: Bed, Chair, Wheelchair - Score, Transfers: Toilet - Score, Transfers: Gladys wer - Score, Transfers: Tub - Score, Locomotion: Walk - Score, Locomotion: Wheelchair - Score, Compre hension - Score, Expression - Score, Social Interaction - Score, Problem Solving - Score, Memory - Sc ore were [electronically] signed by Kerry Pagan C.N.A. on SunDec 18 2017 13:58:21 T-0500 (Cent[facility] Day[facility] Time)
--- NOTE | 2017-12-18 15:16 | FAST ---
ENCOUNTER DATE AND TIME: 12/18/2017 08:00 (CDT) NAME KAMERON KOHLI DATE OF : 1960 DATE OF ADMISSION: 12/10/2017 15:50 (CDT) PHONE: AGE: 57 N# [id number] GENDER: Male ENCOUNTER PHYSICIAN: Dr. Mandeep Nicole M.D. 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 EATING: Activity did not occur on this shift EATING - SCORE: 0-UNK GROOMING: Activity did not occur on this shift GROOMING - SCORE: 0-UNK BATHING: Activity did not occur on this shift BATHING - SCORE: 0-UNK DRESSING - UPPER BODY: Activity did not occur on this shift ARTICLES SCORE Total number of steps: 0 DRESSING - UPPER BODY - SCORE: 0-UNK DRESSING - LOWER BODY: Activity did not occur on this shift ARTICLES SCORE Total number of steps: 0 DRESSING - LOWER BODY - SCORE: 0-UNK TOILETING: Activity did not occur on this shift TOILETING - SCORE: 0-UNK BLADDER MANAGEMENT: Activity did not occur on this shift BLADDER MANAGEMENT - SCORE: 7-IND BOWEL MANAGEMENT: Activity did not occur on this shift BOWEL MANAGEMENT - SCORE: 7-IND TRANSFERS: BED, CHAIR, WHEELCHAIR: Activity did not occur on this shift TRANSFERS: BED, CHAIR, WHEELCHAIR - SCORE: 0-UNK TRANSFERS: TOILET: Activity did not occur on this shift TRANSFERS: TOILET - SCORE: 0-UNK TRANSFERS: SHOWER: Activity did not occur on this shift TRANSFERS: SHOWER - SCORE: 0-UNK TRANSFERS: TUB: Activity did not occur on this shift TRANSFERS: TUB - SCORE: 0-UNK LOCOMOTION: WALK: Activity did not occur on this shift LOCOMOTION: WALK - SCORE: 0-UNK LOCOMOTION: WHEELCHAIR: Activity did not occur on this shift LOCOMOTION: WHEELCHAIR - SCORE: 0-UNK LOCOMOTION: STAIRS: Activity did not occur on this shift LOCOMOTION: STAIRS - SCORE: 0-UNK COMPREHENSION: COMPREHENSION - STEP 1: Does the patient require help to understand complex and abstract ideas (such as current events, finan gurinder, discharge planning, medical issues, relationships, etc)? No. COMPREHENSION - STEP 2: Does the patient need extra time, require an assistive device (such as glasses, hearing aids, or an a ugmentative communication system), OR does s/he have mild difficulty expressing complex and abstract ideas (including mild dysarthria or mild word-finding problems)? No. COMPREHENSION - SCORE: 0-UNK EXPRESSION EXPRESSION - SCORE: 0-UNK SOCIAL INTERACTION: SOCIAL INTERACTION - SCORE: 0-UNK PROBLEM SOLVING: PROBLEM SOLVING - SCORE: 0-UNK MEMORY: MEMORY - SCORE: 0-UNK SIGNATURE PANEL: The following modified sections: Eating - Score, Grooming - Score, Bathing - Score, Dressing - Upper Body - Score, Dressing - Lower Body - Score, Toileting - Score, Transfers: Bed, Chair, Wheelchair - S core, Transfers: Toilet - Score, Transfers: Shower - Score, Transfers: Tub - Score, Comprehension - S core, Expression - Score, Social Interaction - Score, Problem Solving - Score, Memory - Score were [e lectronically] signed by LEEANNE Pacheco on SunDec 18 2017 14:19:00 T-0500 ([facility] Time)
--- NOTE | 2017-12-18 16:13 | FAST ---
ENCOUNTER DATE AND TIME: 12/18/2017 08:00 (CDT) NAME KAMERON KOHLI DATE OF : 1960 DATE OF ADMISSION: 12/10/2017 15:50 (CDT) PHONE: AGE: 57 N# [id number] GENDER: Male ENCOUNTER PHYSICIAN: Dr. Mandeep Nicole M.D. 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 EATING: Activity did not occur on this shift EATING - SCORE: 0-UNK GROOMING: Activity did not occur on this shift GROOMING - SCORE: 0-UNK BATHING: Activity did not occur on this shift BATHING - SCORE: 0-UNK DRESSING - UPPER BODY: Activity did not occur on this shift Patient is not dressing in public clothing ARTICLES SCORE Total number of steps: 0 DRESSING - UPPER BODY - SCORE: 0-UNK DRESSING - LOWER BODY: Activity did not occur on this shift Patient is not dressing in public clothing ARTICLES SCORE Total number of steps: 0 DRESSING - LOWER BODY - SCORE: 0-UNK TOILETING: Activity did not occur on this shift TOILETING - SCORE: 0-UNK BLADDER MANAGEMENT: Activity did not occur on this shift BLADDER MANAGEMENT - SCORE: 7-IND BOWEL MANAGEMENT: Activity did not occur on this shift BOWEL MANAGEMENT - SCORE: 7-IND TRANSFERS: BED, CHAIR, WHEELCHAIR: TRANSFERS: BED, CHAIR, WHEELCHAIR - STEP 1: Does the patient require assistance with bed, chair, or wheelchair transfers? Yes. TRANSFERS: BED, CHAIR, WHEELCHAIR - STEP 2: Does the patient require the assistance of a helper? Yes. TRANSFERS: BED, CHAIR, WHEELCHAIR - STEP 3: How much assistance does the patient require from the helper? Only supervision TRANSFERS: BED, CHAIR, WHEELCHAIR - SCORE: 5-SUP TRANSFERS: TOILET: Activity did not occur on this shift TRANSFERS: TOILET - SCORE: 0-UNK TRANSFERS: SHOWER: Activity did not occur on this shift TRANSFERS: SHOWER - SCORE: 0-UNK TRANSFERS: TUB: Activity did not occur on this shift TRANSFERS: TUB - SCORE: 0-UNK LOCOMOTION: WALK: LOCOMOTION: WALK - STEP 1: Does the patient need help to walk 150 feet? Yes. LOCOMOTION: WALK - STEP 2: How much assistance does the patient require to walk a minimum of 150 feet? Only supervision, cuing, or coaxing LOCOMOTION: WALK - SCORE: 5-SUP LOCOMOTION: WHEELCHAIR: LOCOMOTION: WHEELCHAIR - STEP 1: Does the patient need help to go 150 feet in a wheelchair? Yes. LOCOMOTION: WHEELCHAIR - STEP 2: How much assistance does the patient need from the helper? Only supervision, cuing, or coaxing LOCOMOTION: WHEELCHAIR - SCORE: 5-SUP LOCOMOTION: STAIRS: Activity did not occur on this shift LOCOMOTION: STAIRS - SCORE: 0-UNK COMPREHENSION: COMPREHENSION - SCORE: 0-UNK EXPRESSION EXPRESSION - SCORE: 0-UNK SOCIAL INTERACTION: SOCIAL INTERACTION - SCORE: 0-UNK PROBLEM SOLVING: PROBLEM SOLVING - SCORE: 0-UNK MEMORY: MEMORY - SCORE: 0-UNK SIGNATURE PANEL: The following modified sections: Transfers: Bed, Chair, Wheelchair - Score, Transfers: Toilet - Score , Locomotion: Walk - Score, Locomotion: Wheelchair - Score, Locomotion: Stairs - Score were [bev shultz] signed by Nomi Marks PTA on SunDec 18 2017 15:15:08 GMT-0500 (Central Daylight Time)
--- NOTE | 2018-01-14 20:08 | R.DS ---
FACILITY [facility] MR# [id number] NAME KAMERON KOHLI [address]ESS [address] [place]IP [address] PHONE DATE OF 1960 AGE 57 SSN# [id number] GENDER Male DEXTERITY Right-handed MARITAL STATUS Single (Never ) RACE ENCOUNTER PHYSICIAN Dr. Mandeep Nicole M.D. 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 DISCHARGE COMORBIDITIES: - N/A diabetes mellitus type 2 hypertension CONGESTIVE HEART FAILURE coronary artery disease HYPERLIPIDEMIA chronic renal disease DATE OF ADMISSION 12/10/2017 15:50 (CDT) MEDICATION ALLERGIES: hydromorphone morphine latex allergy latex, natural rubber allergy baclofen ENVIRONMENTAL ALLERGIES: - Substance Allergies None Known - Other Allergies None Known NURSING: - Shower allowing shower - Lab Results blood Sugar Check ACHS - Bladder care per protocol - Skin care per protocol PRECAUTIONS: - Weight Bearing Precaution NWB both LE ACTIVITIES OOB only with supervision THERAPIES: - Occupational Therapy Evaluate and Treat Cognitive Retraining Visual Perceptual Training - Speech Therapy Memory Strategies Expressive Language Skills Speech Intelligibility Training Cognitive Training Receptive Language Skills - Physical Therapy Evaluate and Treat HISTORY OF PRESENT ILLNESS: Pt. is a 57 yo Right-handed male.On 12/07/2017 Pt. presented to [facility] with sudden onset of right-side weakness.On 12/07/2017 he was admitted to [facility] with diagnosis acute nonhemorrhagic CVA involving the left posterior cerebral artery distr ibution an adjecent thalamo perforating branches.His impairment category is Stroke 01 - Right Body ( Left Brain) (01.2).Pre-morbidly, Pt. was independent/mod-I in Self-Care and Sphincter Control; and he had good Sphincter Control.Currently, he has deficits of Endurance, Safety Awareness, Transfers Cont rol, Communication, Social Cognition, Balance, Locomotion, and Self-Care.Pt. is now referred to [facility] for acute in-patient rehabilitation in order to maximize patient's funct ional independence in activities of daily living, strength, ROM, and mobility.- Rehab Goal Patient has realistic goal of being discharged at assistance level 4-Zainab to reside at Home with Fam issa/Relatives. HOSPITAL COURSE: On 12/10/2017 Pt was changed to N/A Tube Feed. TUBE FEED: DIET - LIQUID TEXTURE: On 12/10/2017 Pt was upgraded to Regular Diet - Liquid Texture. DIET - SOLID TEXTURE: On 12/10/2017 Pt was upgraded to Regular Diet - Solid Texture. DIET TYPE: On 12/10/2017 Pt was upgraded to Regular Diet Type. WEIGHT BEARING PRECAUTION: On 12/10/2017 the following precautions were added for the patient: Weight Bearing Precaution - NWB b oth LE. On 12/11/2017 the following precautions were added for the patient: Weight Bearing Precaution - WBAT right LE. On 12/12/2017 the following precautions were removed for the patient: Weight Bearing Precaution - WB AT right LE. The following precautions were added for the patient: Weight Bearing Precaution - WBAT right LE. On 12/13/2017 the following precautions were removed for the patient: Weight Bearing Precaution - WBA T right LE. The following precautions were added for the patient: Weight Bearing Precaution - WBAT right LE. DISCHARGE PHYSICAL EXAM - Gen Alert and awake Lying in bed No apparent distress Oriented to: person, time, and place - Skin No skin breakdown. Normacephalic - Eyes Right visual field deficit. - Neck No abnormalities - CVS RRR - Chest Clear - Resp Clear to auscultation - Abd Soft - GI Non distended Deferred - No abnormalities - Ext Bilateral below the knee amputation. - MSK Mild diffuse upper extremity weakness 5-/5. - Neuro Mild diffuse upper extremity weakness 5-/5. - Psych No abnormalities FUNCTIONAL STATUS: - Self-Care A. Eating 7-Ind 7-Ind B. Grooming 6-Rush 7-Ind C. Bathing 6-Rush 6-Rush D. Dressing - Upper 6-Rush 5-sup E. Dressing - Lower 4-Zainab 3-modA F. Toileting 7-Ind 7-Ind - Sphincter Control G: Bladder control 7-Ind 7-Ind H: Bowel control 7-Ind 7-Ind - Transfers Control I. Bed/Chair/Wheelchair 4-Zainab 4-Zainab J. Toilet 4-Zainab 4-Zainab K. Tub/Shower 4-Zainab 4-Zainab - Locomotion L. Walk/Wheelchair (W) 4-Zainab 5-sup M. Stairs 0-ADNO 0-ADNO - Communication N. Comprehension (B) 5-sup 5-sup O. Expression (B) 5-sup 5-sup - Social Cognition P. Social Interaction 5-sup 5-sup Q. Problem Solving 5-sup 5-sup R. Memory 5-sup 5-sup - Endurance Fair - Balance Fair - Safety Awareness Fair DISCHARGE INSTRUCTIONS: - N/A Plavix 75 mg and Aspirin 81 mg daily. DISCHARGE PLAN, FOLLOW UP CARE PROVISIONS: - Estimated Length of Stay (days) 17. - Consensus on plan Discharge plan has been discussed with primary caregiver. Patient/Family is in agreement with the kelly n. Primary caregiver is in agreement with the plan. - Patient/Family Goals Return home with assistance. - Planned Living Setting Upon Discharge Home, to live with Family/Relatives. SIGNATURE PANEL: (CDT)
== END 2017-12-18 14:15 | disposition home or self-care (01) | DRG 57 ==
LOC: 5TH 15:50
PROVIDERS: ADMIT Psychiatry & Neurology Neurology with Special Qualifications in Child Neurology; ATTEND Psychiatry & Neurology Neurology with Special Qualifications in Child Neurology
DX: I69.351 Hemiplegia and hemiparesis following cerebral infarction affecting right dominant side (principal); I13.0 Hypertensive heart and chronic kidney disease with heart failure and stage 1 through stage 4 chronic kidney disease, or unspecified chronic kidney disease; I10 Essential (primary) hypertension; E78.5 Hyperlipidemia, unspecified; E11.22 Type 2 diabetes mellitus with diabetic chronic kidney disease; N18.9 Chronic kidney disease, unspecified; I50.9 Heart failure, unspecified; I25.2 Old myocardial infarction
CPT/HCPCS: 36415; 80048; 81001; 82040; 82962; 83735; 84134; 85025; 87077; 87086; 87088; 87186; 97542; J7030

== ENCOUNTER 2019-02-24 16:08 | Inpatient (IN) | payer OTHER ==
--- OUTSIDE RECORDS SUMMARY | 2019-02-24 16:11 | XMS REPORT ---
:1960 Author Organization [facility] Address [address] [place] [address] Care Team Providers Name Role Phone Unavailable Unavailable Unavailable Problems This patient has no known problems. Allergies, Adverse Reactions, Alerts This patient has no known allergies or adverse reactions. Medications This patient has no known medications.
[2019-02-24 16:51] LABS: Absolute Lymphocytes (CBC) 1.3 K/uL (0.7-4.9); Basophils % 0.8 % (0-1.3); Hematocrit 39.8 % (39.6-49.0); Lymphocytes % 16.9 % (15.3-44.8); MPV 9.2 fL (7.6-11.3); RBC Red Blood Cell Count 4.69 M/uL (4.33-5.43)
[2019-02-24] MEDS ORDERED: NA CHLORIDE 0.9% 500 ML ONE (16:55)
[2019-02-24] MEDS ORDERED: INSULIN -REGULAR HUMAN 50 UNIT/0.5 ML ML ONE (16:55)
[2019-02-24 16:58] LABS: Protime INR 1.02
--- NOTE | 2019-02-24 17:07 | RAD REPORT ---
EXAM DESCRIPTION: RAD - Chest Single View - 02/24/2019 4:53 pm CLINICAL HISTORY: Cough COMPARISON: November 2017 TECHNIQUE: AP portable chest image was obtained 1647 hours . FINDINGS: No failure, infiltrate or new mass lesion. Lung parenchymal changes in the left base are n ot clearly different from comparison. There is slight left costophrenic angle blunting also seen as s table. Heart and vasculature are normal. No measurable pleural effusion and no pneumothorax. No acute bony abnormality seen. No acute aortic findings suspected. IMPRESSION: No acute cardiopulmonary process. Left base chronic interstitial and pleural changes not significantly different from comparison.
[2019-02-24 17:15] LABS: Potassium 3.7 mmol/L (3.5-5.1)
[2019-02-24 17:16] LABS: Albumin 2.1 g/dL (3.4-5.0); Bilirubin Direct 0.1 mg/dL (0-0.2); Bilirubin Total 0.4 mg/dL (0.2-1.0); Magnesium 2.2 mg/dL (1.8-2.4); Protein, Total 6.3 g/dL (6.4-8.2); Troponin (Emerg Dept Use Only) 0.06 ng/mL (0.0-0.045)
--- NOTE | 2019-02-24 17:28 | RAD REPORT ---
EXAM DESCRIPTION: US - Extremity Venous Uni Ltd - 02/24/2019 5:17 pm CLINICAL HISTORY: Leg pain and swelling COMPARISON: None. TECHNIQUE: Real-time sonographic evaluation of the right lower extremity deep venous systems was per formed. FINDINGS: Normal compressibility, flow augmentation, phasic flow and spontaneous flow are identified in the right lower extremity common femoral, superficial femoral, popliteal and posterior tibial vei ns. No intraluminal filling defects seen. IMPRESSION: No DVT in the right lower extremity.
--- NOTE | 2019-02-24 17:29 | RAD REPORT ---
EXAM DESCRIPTION: US - UPPER EXTREMITY VENOUS UNILATE - 02/24/2019 5:17 pm CLINICAL HISTORY: Right arm pain and swelling COMPARISON: None. TECHNIQUE: Real-time sonographic evaluation of the right upper extremity deep venous systems was per formed. FINDINGS: Echogenic material is present within the right subclavian vein extending laterally into th e axillary vein and brachial vein. Patient was in significant pain limiting ability to optimally comp ress the vasculature. Internal jugular vein is clear. IMPRESSION: Acute right upper extremity deep venous thrombosis involving brachial, axillary and subc lavian veins.
[2019-02-24] MEDS ORDERED: ONDANSETRON 4 MG/2 ML VIAL ONE (17:47)
[2019-02-24] MEDS ORDERED: MORPHINE 4 MG/ML SYR ONE ×2 (17:47→18:47)
--- NOTE | 2019-02-24 18:16 | EDPHYS ---
Physician Documentation [facility] Name: Sami Garcias Age: 58 yrs Sex: Male : 1960 Arrival Date: 02/24/2019 Time: 16:10 Bed 28 Private MD: ED Physician Abraham Mendieta HPI: 02/24 16:29 This 58 yrs old Male presents to ER via EMS with complaints of RUE swelling. massimo 16:29 The patient or guardian complains of decreased range of motion, pain, that is acute. massimo The complaints affect the right bicep, dorsal aspect of right forearm, right tricep and palmar aspect of right forearm. Modifying factors: The symptoms are alleviated by nothing. the symptoms are aggravated by nothing. The patient presents with pain, swelling. Historical: - Allergies: 16:19 BACLOFEN; ss 16:19 Latex, Natural Rubber; ss - Home Meds: 16:19 enalapril maleate 10 mg Oral tab 1 tab once daily [Active]; clopidogrel 75 mg oral tab ss 1 tab once daily [Active]; carvedilol 3.125 mg oral tab 1 tab 2 times per day [Active]; atorvastatin 20 mg oral tab 1 tab [Active]; folic acid 400 mcg Oral tab 1 tab once daily [Active]; [place] 10-325 mg Oral tab unknown frequency [Active]; Soma 350 mg Oral tab [Active]; Lantus 100 unit/mL Sub-Q soln 27 unit nightly [Active]; - PMHx: 16:19 blood clots in legs; dka; Diabetes - IDDM; failed heart cath; heart blockage; ss Hypertension; sepsis with L leg; - PSHx: 16:19 Below the knee amputations sabrina; open heart sx- single bypass; staph sx; ss - Immunization history:: Adult Immunizations up to date. - Family history:: not pertinent. - Ebola Screening: : Patient negative for fever greater than or equal to 101.5 degrees Fahrenheit, and additional compatible Ebola Virus Disease symptoms Patient denies exposure to infectious person Patient denies travel to an Ebola-affected area in the 21 days before illness onset No symptoms or risks identified at this time. - Social history:: Smoking status: . ROS: 16:29 Constitutional: Negative for fever, chills, and weight loss, Eyes: Negative for injury, massimo pain, redness, and discharge, ENT: Negative for injury, pain, and discharge, Neck: Negative for injury, pain, and swelling, Cardiovascular: Negative for chest pain, palpitations, and edema, Respiratory: Negative for shortness of breath, cough, wheezing, and pleuritic chest pain, Abdomen/GI: Negative for abdominal pain, nausea, vomiting, diarrhea, and constipation, Back: Negative for injury and pain, : Negative for injury, bleeding, discharge, and swelling, Skin: Negative for injury, rash, and discoloration, Neuro: Negative for headache, weakness, numbness, tingling, and seizure, Psych: Negative for depression, anxiety, suicide ideation, homicidal ideation, and hallucinations, Allergy/Immunology: Negative for hives, rash, and allergies, Endocrine: Negative for neck swelling, polydipsia, polyuria, polyphagia, and marked weight changes, Hematologic/Lymphatic: Negative for swollen nodes, abnormal bleeding, and unusual bruising. 16:29 MS/extremity: Positive for decreased range of motion, pain, swelling, of the right arm and right leg. Exam: 16:29 Constitutional: This is a well developed, well nourished patient who is awake, alert, massimo and in no acute distress. Head/Face: Normocephalic, atraumatic. Eyes: Pupils equal round and reactive to light, extra-ocular motions intact. Lids and lashes normal. Conjunctiva and sclera are non-icteric and not injected. Cornea within normal limits. Periorbital areas with no swelling, redness, or edema. ENT: Nares patent. No nasal discharge, no septal abnormalities noted. Tympanic membranes are normal and external auditory canals are clear. Oropharynx with no redness, swelling, or masses, exudates, or evidence of obstruction, uvula midline. Mucous membranes moist. Neck: Trachea midline, no thyromegaly or masses palpated, and no cervical lymphadenopathy. Supple, full range of motion without nuchal rigidity, or vertebral point tenderness. No Meningismus. Chest/axilla: Normal chest wall appearance and motion. Nontender with no deformity. No lesions are appreciated. Cardiovascular: Regular rate and rhythm with a normal S1 and S2. No gallops, murmurs, or rubs. Normal PMI, no JVD. No pulse deficits. Respiratory: Lungs have equal breath sounds bilaterally, clear to auscultation and percussion. No rales, rhonchi or wheezes noted. No increased work of breathing, no retractions or nasal flaring. Abdomen/GI: Soft, non-tender, with normal bowel sounds. No distension or tympany. No guarding or rebound. No evidence of tenderness throughout. Back: No spinal tenderness. No costovertebral tenderness. Full range of motion. Male : Normal genitalia with no discharge or lesions. Skin: Warm, dry with normal turgor. Normal color with no rashes, no lesions, and no evidence of cellulitis. Neuro: Awake and alert, GCS 15, oriented to person, place, time, and situation. Cranial nerves II-XII grossly intact. Motor strength 5/5 in all extremities. Sensory grossly intact. Cerebellar exam normal. Normal gait. Psych: Awake, alert, with orientation to person, place and time. Behavior, mood, and affect are within normal limits. 16:29 Musculoskeletal/extremity: Extremities: noted in the right arm and right leg: swelling, tenderness, ROM: no acute changes, Circulation is intact in all extremities. Sensation intact. Compartment Syndrome exam of affected extremity: is normal. DVT Exam: no tenderness, negative Homans' sign noted on exam, no appreciated bluish discoloration, no erythema, no increased warmth, pain, swelling. Vital Signs: 16:10 BP 126 / 84; Pulse 79; Resp 19 S; Temp 97.8(O); Pulse Ox 96% on R/A; Weight 108.86 kg ca1 (R); 17:24 BP 157 / 97; Pulse 75; Resp 19 S; Pulse Ox 96% on R/A; Pain 10/10; ca1 18:00 Weight 96.8 kg (M); ca1 18:35 BP 159 / 91; Pulse 77; Resp 17; Pulse Ox 99% on R/A; ca1 19:23 BP 129 / 66; Pulse 79; Resp 17 S; Temp 98.3(A); Pulse Ox 97% on R/A; ca1 20:02 BP 135 / 79; Pulse 93; Resp 17 S; Pulse Ox 95% on R/A; ca1 MDM: 16:11 Patient medically screened. [facility] 16:40 Data reviewed: vital signs, nurses notes, lab test result(s), EKG, radiologic studies, [facility] plain films. 02/24 16:21 Order name: Glucose, Ancillary Testing; Complete Time: 16:25 [facility] 02/24 16:29 Order name: Basic Metabolic Panel; Complete Time: 18:07 [facility] 02/24 16:29 Order name: CBC with Diff; Complete Time: 18:07 [facility] 02/24 16:29 Order name: LFT's; Complete Time: 18:07 [facility] 02/24 16:29 Order name: Magnesium; Complete Time: 18:07 [facility] 02/24 16:29 Order name: NT PRO-BNP; Complete Time: 18:07 [facility] 02/24 16:29 Order name: PT-INR; Complete Time: 18:07 [facility] 02/24 16:29 Order name: Troponin (emerg Dept Use Only); Complete Time: 18:07 [facility] 02/24 16:29 Order name: XRAY Chest (1 view); Complete Time: 18:07 [facility] 02/24 16:29 Order name: Urine Culture [facility] 02/24 17:20 Order name: Glucose, Ancillary Testing; Complete Time: 18:07 [facility] 02/24 19:08 Order name: Glucose, Ancillary Testing [facility] 02/24 19:11 Order name: Urine Dipstick--Ancillary (enter results) [facility] 02/24 19:13 Order name: Urine Dipstick-Ancillary [facility] 02/24 16:29 Order name: EKG; Complete Time: 16:30 [facility] 02/24 16:29 Order name: Cardiac monitoring; Complete Time: 16:35 [facility] 02/24 16:29 Order name: EKG - Nurse/Tech; Complete Time: 16:35 [facility] 02/24 16:29 Order name: US Extremity Venous Unilateral Ltd; Complete Time: 18:07 [facility] 02/24 16:34 Order name: UPPER EXTREMITY VENOUS UNILATE; Complete Time: 18:07 [facility] 02/24 16:29 Order name: IV Saline Lock; Complete Time: 16:50 [facility] 02/24 16:29 Order name: Labs collected and sent; Complete Time: 16:50 [facility] 02/24 16:29 Order name: O2 Per Protocol; Complete Time: 16:35 [facility] 02/24 16:29 Order name: O2 Sat Monitoring; Complete Time: 16:35 [facility] 02/24 16:29 Order name: Urine Dipstick-Ancillary (obtain specimen); Complete Time: 19:16 [facility] Administered Medications: 16:45 Drug: NS 0.9% 500 ml Route: IV; Rate: bolus; Site: left antecubital; ca1 17:26 Follow up: Response: No adverse reaction; IV Status: Completed infusion ca1 16:48 Drug: Insulin Regular Human 10 units {Co-Signature: ca1 (Dana Medley RN).} Route: IVP; ss Site: left antecubital; 17:27 Follow up: Response: No adverse reaction; Blood sugar is lowered ca1 17:25 Drug: Zofran 4 mg Route: IVP; Site: left antecubital; ca1 18:54 Follow up: Response: No adverse reaction; Nausea is decreased ca1 17:27 Drug: morphine 4 mg Route: IVP; Site: left antecubital; ca1 18:00 Follow up: Response: No adverse reaction; Pain is unchanged, physician notified ca1 18:25 Drug: Aspirin 81 mg Route: PO; ca1 19:17 Follow up: Response: No adverse reaction ca1 18:25 Drug: PlaVIX 75 mg Route: PO; ca1 19:17 Follow up: Response: No adverse reaction; Pain is decreased ca1 18:30 Drug: morphine 4 mg Route: IVP; Site: left antecubital; ca1 19:18 Follow up: Response: No adverse reaction ca1 18:35 Drug: Pepcid 20 mg Route: IVP; Site: left antecubital; ca1 19:17 Follow up: Response: No adverse reaction ca1 18:49 Drug: Heparin (DVT/PE- Bolus per protocol) - HEParin 80 units/kg {Co-Signature: ss ca1 (Rita Schultz RN).} Route: IVP; Site: left antecubital; 19:16 Follow up: Response: No adverse reaction ca1 18:52 Drug: Heparin (DVT/PE Drip) 18 units/kg/hr - (HEParin 01001 units, D5W 500 ml) ca1 {Co-Signature: ss (Rita Schultz RN).} Route: IV; Rate: per protocol; Site: left antecubital; 19:16 Follow up: IV Status: Infusion continued upon admission ca1 Point of Care Testing: Blood Glucose: 16:19 Blood Glucose: 402 mg/dL; ss 17:20 Blood Glucose: 368 mg/dL; ca1 19:19 Blood Glucose: 291 mg/dL; ca1 Ranges: Critical Glucose Levels:Adult <50 mg/dl or >400 mg/dl <40 mg/dl or >180 mg/dl Disposition: 02/24/19 18:15 Hospitalization ordered by Alissa Howard for Inpatient Admission. Preliminary diagnosis are Acute kidney failure, Type 1 diabetes mellitus, Acute embolism and thrombosis of deep veins of right upper extremity, Pressure ulcer of buttock, Weakness, Other interstitial pulmonary diseases with fibrosis. - Bed requested for Telemetry/MedSurg (Inpatient). - Status is Inpatient Admission. ca1 - Condition is Fair. - Problem is new. - Symptoms have improved. UTI on Admission? No Signatures: Dispatcher [employer] EDMS Nikky Hendrix Corey, MD MD cha Smirch, Shelby, RN RN ss Dana Medley RN RN ca1 Dana Medley RN ca1 Rita Schultz RN ss Corrections: (The following items were deleted from the chart) 16:34 16:31 Extremity Venous Uni Ltd+[email or web address].RAD.BRZ ordered. EDAL EDAL 18:18 18:15 Hospitalization Ordered by Alissa Howard MD for Inpatient Admission. Preliminary massimo diagnosis is Acute kidney failure; Type 1 diabetes mellitus; Acute embolism and thrombosis of deep veins of right upper extremity; Pressure ulcer of buttock; Weakness. Bed requested for Telemetry/MedSurg (Inpatient). Status is Inpatient Admission. Condition is Fair. Problem is new. Symptoms have improved. UTI on Admission? No. massimo 18:44 18:18 02/24/2019 18:15 Hospitalization Ordered by Alissa Howard MD for Inpatient bd Admission. Preliminary diagnosis is Acute kidney failure; Type 1 diabetes mellitus; Acute embolism and thrombosis of deep veins of right upper extremity; Pressure ulcer of buttock; Weakness; Other interstitial pulmonary diseases with fibrosis. Bed requested for Telemetry/MedSurg (Inpatient). Status is Inpatient Admission. Condition is Fair. Problem is new. Symptoms have improved. UTI on Admission? No. massimo 20:19 18:44 02/24/2019 18:15 Hospitalization Ordered by Alissa Howard MD for Inpatient ca1 Admission. Preliminary diagnosis is Acute kidney failure; Type 1 diabetes mellitus; Acute embolism and thrombosis of deep veins of right upper extremity; Pressure ulcer of buttock; Weakness; Other interstitial pulmonary diseases with fibrosis. Bed requested for Telemetry/MedSurg (Inpatient). Status is Inpatient Admission. Condition is Fair. Problem is new. Symptoms have improved. UTI on Admission? No. bd
--- NOTE | 2019-02-24 18:16 | ER ---
Nurse's Notes [facility] Name: Sami Garcias Age: 58 yrs Sex: Male : 1960 Arrival Date: 02/24/2019 Time: 16:10 Bed 28 Private MD: Diagnosis: Acute kidney failure;Type 1 diabetes mellitus;Acute embolism and thrombosis of deep veins of right upper extremity;Pressure ulcer of buttock;Weakness;Other interstitial pulmonary diseases with fibrosis Presentation: 02/24 16:10 Presenting complaint: EMS states: RUE swelling and fatigue x 1 week and sacral pressure ss wound that has gotten worse. Transition of care: patient was not received from another setting of care. Onset of symptoms is unknown. Risk Assessment: Do you want to hurt yourself or someone else? Patient reports no desire to harm self or others. Initial Sepsis Screen: Does the patient meet any 2 criteria? No. Patient's initial sepsis screen is negative. Does the patient have a suspected source of infection? No. Patient's initial sepsis screen is negative. Care prior to arrival: None. 16:10 Method Of Arrival: EMS: [facility] [place] 16:10 Acuity: THAD 3 ss Historical: - Allergies: 16:19 BACLOFEN; ss 16:19 Latex, Natural Rubber; ss - Home Meds: 16:19 enalapril maleate 10 mg Oral tab 1 tab once daily [Active]; clopidogrel 75 mg oral tab ss 1 tab once daily [Active]; carvedilol 3.125 mg oral tab 1 tab 2 times per day [Active]; atorvastatin 20 mg oral tab 1 tab [Active]; folic acid 400 mcg Oral tab 1 tab once daily [Active]; [place] 10-325 mg Oral tab unknown frequency [Active]; Soma 350 mg Oral tab [Active]; Lantus 100 unit/mL Sub-Q soln 27 unit nightly [Active]; - PMHx: 16:19 blood clots in legs; dka; Diabetes - IDDM; failed heart cath; heart blockage; ss Hypertension; sepsis with L leg; - PSHx: 16:19 Below the knee amputations sabrina; open heart sx- single bypass; staph sx; ss - Immunization history:: Adult Immunizations up to date. - Family history:: not pertinent. - Ebola Screening: : Patient negative for fever greater than or equal to 101.5 degrees Fahrenheit, and additional compatible Ebola Virus Disease symptoms Patient denies exposure to infectious person Patient denies travel to an Ebola-affected area in the 21 days before illness onset No symptoms or risks identified at this time. - Social history:: Smoking status: . Screenin:20 Abuse screen: Denies threats or abuse. Denies injuries from another. Nutritional ca1 screening: No deficits noted. Tuberculosis screening: No symptoms or risk factors identified. 16:20 Fall Risk No fall in past 12 months (0 pts). Secondary diagnosis (15 points) impaired ca1 mobility, IV access (20 points). Ambulatory Aid- None/Bed Rest/Nurse Assist (0 pts). Assessment: 16:20 General: Appears in no apparent distress. uncomfortable, obese, unkempt, Behavior is ca1 calm, cooperative, appropriate for age, Reports general body weakness for about a week now. Pain: Complains of pain in low back area and sacrum and right leg and right arm and palmar aspect of right forearm and right tricep and dorsal aspect of right forearm and right bicep Pain currently is 8 out of 10 on a pain scale. Is chronic, Aggravated by repositioning. Neuro: Level of Consciousness is awake, alert, obeys commands, Oriented to person, place, time, situation, Senior Regulatory Affairs Specialist are equal bilaterally Moves all extremities. Speech is normal, Facial symmetry appears normal. Cardiovascular: Heart tones S1 S2 present Capillary refill < 3 seconds Patient's skin is warm and dry. Pulses are all present. Rhythm is sinus rhythm. Respiratory: Airway is patent Respiratory effort is even, unlabored, Respiratory pattern is regular, symmetrical, Breath sounds are clear bilaterally. GI: Abdomen is round non-distended, Bowel sounds present X 4 quads. Abd is soft and non tender X 4 quads. : No deficits noted. No signs and/or symptoms were reported regarding the genitourinary system. EENT: No deficits noted. No signs and/or symptoms were reported regarding the EENT system. Derm: Skin is intact, is healthy with good turgor. Musculoskeletal: Circulation, motion, and sensation intact. Capillary refill < 3 seconds, Swelling present in right arm. 17:29 Reassessment: Patient appears in no apparent distress at this time. Patient and/or ca1 family updated on plan of care and expected duration. Pain level reassessed. Patient is alert, oriented x 3, equal unlabored respirations, skin warm/dry/pink. 18:35 Reassessment: Patient appears in no apparent distress at this time. Patient and/or ca1 family updated on plan of care and expected duration. Pain level reassessed. Patient is alert, oriented x 3, equal unlabored respirations, skin warm/dry/pink. 18:35 Reassessment: Called report. Nurse will call back. ca1 19:24 Reassessment: Patient appears in no apparent distress at this time. Patient and/or ca1 family updated on plan of care and expected duration. Pain level reassessed. Patient is alert, oriented x 3, equal unlabored respirations, skin warm/dry/pink. Vital Signs: 16:10 BP 126 / 84; Pulse 79; Resp 19 S; Temp 97.8(O); Pulse Ox 96% on R/A; Weight 108.86 kg ca1 (R); 17:24 BP 157 / 97; Pulse 75; Resp 19 S; Pulse Ox 96% on R/A; Pain 10/10; ca1 18:00 Weight 96.8 kg (M); ca1 18:35 BP 159 / 91; Pulse 77; Resp 17; Pulse Ox 99% on R/A; ca1 19:23 BP 129 / 66; Pulse 79; Resp 17 S; Temp 98.3(A); Pulse Ox 97% on R/A; ca1 20:02 BP 135 / 79; Pulse 93; Resp 17 S; Pulse Ox 95% on R/A; ca1 ED Course: 16:10 Patient arrived in ED. ss 16:10 Dana Medley, JUAN DIEGO is Primary Nurse. ca1 16:11 Abraham Mendieta MD is Attending Physician. massimo 16:11 Triage completed. ss 16:19 Arm band placed on right wrist. ss 16:20 Patient has correct armband on for positive identification. Placed in gown. Bed in low ca1 position. Call light in reach. Side rails up X2. engine builder on. Pulse ox on. NIBP on. Warm blanket given. 16:40 Initial lab(s) drawn, by me, sent to lab. Inserted saline lock: 22 gauge in left jp3 antecubital area, using aseptic technique. Blood collected. 16:41 EKG done, by technical specialist cytogenetics. reviewed by Abraham Mendieta MD. dt2 16:53 XRAY Chest (1 view) In Process Unspecified. EDMS 17:12 Ultrasound completed. Patient tolerated poorly. hr 17:21 US Extremity Venous Unilateral Ltd In Process Unspecified. EDMS 17:21 UPPER EXTREMITY VENOUS UNILATE In Process Unspecified. EDMS 18:13 Alissa Howard MD is Hospitalizing Provider. massimo 20:00 No provider procedures requiring assistance completed. Patient admitted, IV remains in ca1 place. Administered Medications: 16:45 Drug: NS 0.9% 500 ml Route: IV; Rate: bolus; Site: left antecubital; ca1 17:26 Follow up: Response: No adverse reaction; IV Status: Completed infusion ca1 16:48 Drug: Insulin Regular Human 10 units {Co-Signature: ca1 (Dana Medley RN).} Route: IVP; ss Site: left antecubital; 17:27 Follow up: Response: No adverse reaction; Blood sugar is lowered ca1 17:25 Drug: Zofran 4 mg Route: IVP; Site: left antecubital; ca1 18:54 Follow up: Response: No adverse reaction; Nausea is decreased ca1 17:27 Drug: morphine 4 mg Route: IVP; Site: left antecubital; ca1 18:00 Follow up: Response: No adverse reaction; Pain is unchanged, physician notified ca1 18:25 Drug: Aspirin 81 mg Route: PO; ca1 19:17 Follow up: Response: No adverse reaction ca1 18:25 Drug: PlaVIX 75 mg Route: PO; ca1 19:17 Follow up: Response: No adverse reaction; Pain is decreased ca1 18:30 Drug: morphine 4 mg Route: IVP; Site: left antecubital; ca1 19:18 Follow up: Response: No adverse reaction ca1 18:35 Drug: Pepcid 20 mg Route: IVP; Site: left antecubital; ca1 19:17 Follow up: Response: No adverse reaction ca1 18:49 Drug: Heparin (DVT/PE- Bolus per protocol) - HEParin 80 units/kg {Co-Signature: ss ca1 (Rita Schultz RN).} Route: IVP; Site: left antecubital; 19:16 Follow up: Response: No adverse reaction ca1 18:52 Drug: Heparin (DVT/PE Drip) 18 units/kg/hr - (HEParin 26158 units, D5W 500 ml) ca1 {Co-Signature: ss (Rita Smirch RN).} Route: IV; Rate: per protocol; Site: left antecubital; 19:16 Follow up: IV Status: Infusion continued upon admission ca1 Point of Care Testing: Blood Glucose: 16:19 Blood Glucose: 402 mg/dL; ss 17:20 Blood Glucose: 368 mg/dL; ca1 19:19 Blood Glucose: 291 mg/dL; ca1 Ranges: Outcome: 18:15 Decision to Hospitalize by Provider. massimo 20:00 Admitted to Tele accompanied by tech, family with patient, via stretcher, room 410, ca1 with chart, Report called to Jay Trejo RN 20:00 Condition: stable 20:00 Instructed on the need for admit. 20:19 Patient left the ED. ca1 Signatures: Dispatcher [employer] EDAbraham Villatoro MD MD cha Rod, Haley hr Smirch, Shelby, JUAN DIEGO RN ss Lenore Montesinos dt2 Paul Batres jp3 Dana Medley RN RN ca1 Dana Medley RN ca1 Rita Schultz RN Corrections: (The following items were deleted from the chart) 16:12 16:10 BP 126 / 84; Pulse 79bpm; Resp 22bpm; Pulse Ox 96% RA; Temp 97.8F Oral; 108.86 kg ca1 Reported; ca1
[2019-02-24] MEDS ORDERED: Enoxaparin 120 MG/0.8 ML SYR SQ SCH (18:30)
[2019-02-24] MEDS ORDERED: HEPARIN 5000 UNIT/ML 1 ML VIAL ONE (18:46)
[2019-02-24] MEDS ORDERED: CLOPIDOGREL 75 MG TABLET ONE (18:46)
[2019-02-24] MEDS ORDERED: FAMOTIDINE 20 MG/2 ML VIAL IV ONE (18:47)
[2019-02-24] MEDS ORDERED: ASPIRIN EC 81 MG TAB PO ONE (18:47)
[2019-02-24] MEDS ORDERED: HEPARIN/D5W 25,000 UNIT/500 ML BAG IV ONE (18:51)
[2019-02-24] MEDS ORDERED: NA CHLORIDE 0.9% 1,000 ML IV SCH (19:00)
[2019-02-24 19:13] LABS: Urine Blood 2+ (NEG); Urine Glucose 2+ (NEG); Urine Protein 3+ (NEG); Urine pH 6.5 (5.0-7.0)
--- NOTE | 2019-02-24 20:04 | EKG ---
Test Date: 2019-02-24 Test Time: 16:38:29 Electrical Sign Wirer Helper: CHAD MEASUREMENT RESULTS: Intervals: Rate: 81 VA: 194 QRSD: 130 QT: 408 QTc: 473 [place]: P: 69 VA: 194 QRS: -53 T: 121 INTERPRETIVE STATEMENTS: Normal sinus rhythm Left axis deviation Nonspecific intraventricular block Cannot rule out Anterior infarct, age undetermined T wave abnormality, consider lateral ischemia Abnormal ECG Compared to ECG 12/07/2017 11:39:21 Ventricular premature complex(es) no longer present Left ventricular hypertrophy no longer present Early repolarization no longer present Electronically Signed On 02-24-19 20:03:39 CDT by Donell Garay
[2019-02-24] MEDS ORDERED: ONDANSETRON 4 MG/2 ML VIAL IV PRN (20:18)
[2019-02-24] MEDS ORDERED: HEPARIN/D5W 25,000 UNIT/500 ML BAG IV SCH (21:00)
[2019-02-24] MEDS: INSULIN -REGULAR HUMAN 50 UNIT/0.5 ML ML SQ SCH (21:39)
[2019-02-24] MEDS: NA CHLORIDE 0.9% 1,000 ML IV SCH (21:40)
[2019-02-24] MEDS ORDERED: POTASSIUM 25 MEQ EFFERV TAB PO ONE (22:06)
[2019-02-24] MEDS ORDERED: MORPHINE 4 MG/ML SYR IV ONE (22:49)
--- NOTE | 2019-02-25 04:46 | P.HP ---
Certification for Inpatient Patient admitted to: Observation With expected LOS: <2 Midnights Patient will require the following post-hospital care: None Practitioner: I am a practitioner with admitting privileges, knowledge of patient current condition, hospital course, and medical plan of care. Services: Services provided to patient in accordance with Admission requirements found in Title 42 Section 412.3 of the Code of Federal Regulations Patient History Date of Service: 02/24/19 Reason for admission: Upper extremity swelling History of Present Illness: Patient is a 58-year-old gentleman who came into the hospital because his right upper extremity was swollen. He said it was painful and tender. He has been in and out of the hospital in the past. I have taking care of him on the couple of different occasions. He has PAD and required bilateral knee amputation in the past. Patient was admitted about a year ago and was diagnose with a stroke. It is a left GREENS KEEPER infarct. Patient states that he has been moving his right side fairly well. Unknown etiology as to the cause of the right upper extremity DVT. Workup will need to evaluate for hypercoagulability as well as possible malignancy. Patient be admitted to the hospital for further workup. Allergies hydromorphone HCl [From Dilaudid] Allergy (Severe, Verified 12/07/17 22:07) Nausea/Vomiting Latex, Natural Rubber Allergy (Verified 02/25/19 00:03) Itching BACLOFEN Allergy (Uncoded 02/25/19 00:03) Nausea/Vomiting Home Medications: Aspirin [Aspir-Low] 81 mg PO DAILY 02/25/19 Atorvastatin Calcium [Lipitor] 20 mg PO DAILY 02/25/19 Carisoprodol [Soma] 350 mg PO TID 02/25/19 Carvedilol 3.125 mg PO BID 02/25/19 Clopidogrel Bisulfate [Plavix] 75 mg PO DAILY 02/25/19 Enalapril [Vasotec] 10 mg PO DAILY 02/25/19 Folic Acid 0.4 mg PO DAILY 02/25/19 Hydrocodone Bit/Acetaminophen [[place] 10-325 Tablet] 1 each PO Q4H 02/25/19 Insulin Glargine Human [Lantus] 27 unit SQ BEDTIME 02/25/19 Insulin Regular, Human [Humulin R U-500 Kwikpen] 7 unit SQ AC 02/25/19 - Past Medical/Surgical History Has patient received pneumonia vaccine in the past: No Diabetic: Yes -: IDDM -: HTN -: herniation of neck -: [place] insufficiency -: UTI -: OSTEOMYELITIS -: CELLULITIS -: MRSA blood/wound -: left shoulder rotator cuff tear -: smoker -: CAD -: sabrina leg below knee amputation -: I&D, debridement sabrina feet -: bypass -: staph infection on back I&D. -: staph infection to scrotum I&D. - Family History Father Medical History: Heart disease, Hypertension, Diabetes Mother Medical History: Heart disease, Hypertension, Diabetes Brother Medical History: Heart disease, Hypertension, Diabetes Sister Medical History: Diabetes - Social History Smoking Status: Light Tobacco smoker (1-9 cigarettes/day) Alcohol use: No CD- Drugs: Yes Caffeine use: Yes Place of Residence: Home Review of Systems 10-point ROS is otherwise unremarkable Physical Examination - Vital Signs Temperature: 97.3 F Blood Pressure: 169/97 Pulse: 77 Respirations: 18 Pulse Ox (%): 98 - Physical Exam General: Alert, In no apparent distress, Oriented x3 HEENT: Atraumatic, PERRLA, Mucous membr. moist/pink, EOMI, Sclerae nonicteric Neck: Supple, 2+ carotid pulse no bruit, No LAD, Without JVD or thyroid abnormality Respiratory: Clear to auscultation bilaterally, Normal air movement Cardiovascular: Regular rate/rhythm, Normal S1 S2, Systolic murmur Gastrointestinal: Normal bowel sounds, Soft and benign, Non-distended, No tenderness Musculoskeletal: No clubbing, No swelling, No tenderness, Other (Bilateral below -knee amputation) Integumentary: No rashes Neurological: Normal gait, Normal speech, Normal strength at 5/5 x4 extr, Normal tone, Sensation intact, Cranial nerves 3-12 intact, Normal affect Lymphatics: No axilla or inguinal lymphadenopathy - Studies Laboratory Data (last 24 hrs) 02/24/19 16:40: PT 12.0, INR 1.02 02/24/19 16:40: WBC 7.5, Hgb 13.2 L, Hct 39.8, Plt Count 256 02/24/19 16:40: Sodium 138, Potassium 3.7, BUN 19 H, Creatinine 2.44 H, Glucose 407 H*, Magnesium 2.2, Total Bilirubin 0.4, AST 6 L, ALT 8 L, Alkaline Phosphatase 84 Assessment & Plan - Problems (Diagnosis) (1) Deep venous thrombosis of right upper extremity Current Visit: Yes Status: Acute (2) Cerebral infarction involving posterior cerebral artery Current Visit: Yes Status: Acute (3) Chronic renal disease Onset Date: 12/10/17 Current Visit: No Status: Chronic Qualifiers: Chronic kidney disease stage: stage 2 (mild) Qualified Code(s): N18.2 - Chronic kidney disease, stage 2 (mild) (4) DM type 2 (diabetes mellitus, type 2) Onset Date: 05/31/16 Current Visit: No Status: Chronic Qualifiers: Diabetes mellitus longterm insulin use: with intermediate project manager use Diabetes mellitus complication status: with neurologic complications Diabetes mellitus complication detail: with polyneuropathy Qualified Code(s): E11.42 - Type 2 diabetes mellitus with diabetic polyneuropathy; Z79.4 - terminal worker (current) use of insulin; Z79.4 - residential (current) use of insulin; Z79.4 - residential ( current) use of insulin; Z79.4 - residential (current) use of insulin (5) Hyperlipidemia Onset Date: 12/10/17 Current Visit: No Status: Chronic Qualifiers: Hyperlipidemia type: unspecified Qualified Code(s): E78.5 - Hyperlipidemia , unspecified (6) Hypertension Onset Date: 12/15/14 Current Visit: No Status: Chronic Qualifiers: Hypertension type: essential hypertension Qualified Code(s): I10 - Essential (primary) hypertension - Plan Plan: 1. Anti coagulation with heparin drip 2. Hypercoagulable workup 3. Rule out possible malignancy 4. Monitor renal function closely 5. Continue anti-platelet therapy with aspirin 6. GI prophylaxis Discharge Plan: Home Plan to discharge in: 48 Hours - Advance Directives Does patient have a Living Will: No Does patient have a Durable POA for Healthcare: No - Code Status/Comfort Care Code Status Assessed: Yes Code Status: Full Code Critical Care: No Time Spent Managing PTS Care (In Minutes): 45
[2019-02-25] MEDS: HYDROCODONE/APAP 10/325 TAB PO SCH ×5 (05:00→20:27)
[2019-02-25] MEDS ORDERED: HYDROCODONE/APAP 10/325 TAB PO SCH ×2 (06:00→09:00)
[2019-02-25 06:37] LABS: Absolute Lymphocytes (CBC) 1.6 K/uL (0.7-4.9); Basophils % 0.7 % (0-1.3); Hematocrit 36.1 % (39.6-49.0); Lymphocytes % 23.3 % (15.3-44.8); MPV 9.1 fL (7.6-11.3); RBC Red Blood Cell Count 4.17 M/uL (4.33-5.43)
[2019-02-25 06:57] LABS: Bilirubin Total 0.3 mg/dL (0.2-1.0); Potassium 4.2 mmol/L (3.5-5.1); Protein, Total 5.9 g/dL (6.4-8.2); Thyroid Stimulating Hormone 2.94 uIU/mL (0.360-3.740)
[2019-02-25 07:00] LABS: Platelet Estimate ADEQ
[2019-02-25 07:14] LABS: Folic Acid, (Folate) 10.6 ng/mL (3.1-17.5)
[2019-02-25] MEDS: INSULIN -REGULAR HUMAN 50 UNIT/0.5 ML ML SQ SCH ×4 (08:09→22:01)
[2019-02-25] MEDS: FOLIC ACID 1 MG TABLET PO SCH (08:10)
[2019-02-25] MEDS: ASPIRIN EC 81 MG TAB PO SCH (08:11)
[2019-02-25] MEDS: ATORVASTATIN 20 MG TAB PO SCH (08:13)
[2019-02-25] MEDS: CARISOPRODOL 350 MG TAB PO SCH ×3 (08:13→20:27)
[2019-02-25] MEDS: CLOPIDOGREL 75 MG TABLET PO SCH (08:13)
[2019-02-25] MEDS: ENALAPRIL 10 MG TAB PO SCH (08:13)
[2019-02-25] MEDS: CARVEDILOL 3.125 MG TAB PO SCH ×2 (08:14→20:26)
[2019-02-25] MEDS ORDERED: NA CHLORIDE 0.9% 500 ML IV ONE (11:30)
--- NOTE | 2019-02-25 11:37 | P.PN ---
Subjective Date of Service: 02/25/19 Chief Complaint: Upper extremity swelling Patient seen and examined at bedside with RN. Chart reviewed. Case discussed with family over the phone. This morning patient is doing better than before. No complaints to offer. Review of Systems 10-point ROS is otherwise unremarkable Physical Examination - Vital Signs Temperature: 97.8 F Blood Pressure: 142/79 Pulse: 61 Respirations: 20 Pulse Ox (%): 97 - Physical Exam General: Alert, In no apparent distress HEENT: Atraumatic, PERRLA, EOMI Neck: Supple, JVD not distended Respiratory: Clear to auscultation bilaterally, Normal air movement Cardiovascular: Regular rate/rhythm, Normal S1 S2 Gastrointestinal: Normal bowel sounds, No tenderness Musculoskeletal: Erythema, Other (Of right-sided arm with a limited mobility. Erythema noted.) Integumentary: No rashes Neurological: Normal speech, Normal tone, Normal affect Lymphatics: No axilla or inguinal lymphadenopathy - Studies Laboratory Data (last 24 hrs) 02/24/19 16:40: PT 12.0, INR 1.02 02/24/19 16:40: WBC 7.5, Hgb 13.2 L, Hct 39.8, Plt Count 256 02/24/19 16:40: Sodium 138, Potassium 3.7, BUN 19 H, Creatinine 2.44 H, Glucose 407 H*, Magnesium 2.2, Total Bilirubin 0.4, AST 6 L, ALT 8 L, Alkaline Phosphatase 84 Medications List Reviewed: Yes Assessment And Plan - Current Problems (Diagnosis) (1) Deep venous thrombosis of right upper extremity Current Visit: Yes Status: Acute Plan: Acute DVT of the right upper extremity in the brachial, axillary and subclavian vein -most likely secondary to an mobility of the right upper extremity and lower extremity secondary to the CVA -hypercoagulable workup pending at this time -started on weight based heparin at this time -was switched to Xarelto at this time Qualifiers: Affected thrombotic vein of extremity: brachial Chronicity: acute Qualified Code(s): I82.621 - Acute embolism and thrombosis of deep veins of right upper extremity (2) Chronic renal disease Onset Date: 12/10/17 Current Visit: No Status: Chronic Plan: Acute on chronic kidney disease -BUN and creatinine elevated at this time. Patient does appear to be on a dehydrated side -will give IV fluid bolus of 500 mL. Will monitor patient closely given the history of CHF Qualifiers: Chronic kidney disease stage: stage 2 (mild) Qualified Code(s): N18.2 - Chronic kidney disease, stage 2 (mild) (3) Local infection of wound Current Visit: No Status: Active Plan: Sacral wound infection. -wound culture pending at this time -appears to be a sacral pressure ulcer (4) Cerebral infarction involving posterior cerebral artery Current Visit: Yes Status: Chronic (5) CAD (coronary artery disease) Onset Date: 12/10/17 Current Visit: No Status: Chronic Qualifiers: Coronary Disease-Associated Artery/Lesion type: [place] artery [place] vs. transplanted heart: [place] heart Associated angina: with stable angina Qualified Code(s): I25.118 - Atherosclerotic heart disease of [place] coronary artery with other forms of angina pectoris (6) DM type 2 (diabetes mellitus, type 2) Onset Date: 05/31/16 Current Visit: No Status: Chronic Qualifiers: Diabetes mellitus terminal makeup operator insulin use: with halfway use Diabetes mellitus complication status: with neurologic complications Diabetes mellitus complication detail: with polyneuropathy Qualified Code(s): E11.42 - Type 2 diabetes mellitus with diabetic polyneuropathy; Z79.4 - intermodal owner operator truck driver (current) use of insulin; Z79.4 - shelter (current) use of insulin; Z79.4 - intermodal owner operator truck driver ( current) use of insulin; Z79.4 - shelter (current) use of insulin (7) Hyperlipidemia Onset Date: 12/10/17 Current Visit: No Status: Chronic Qualifiers: Hyperlipidemia type: unspecified Qualified Code(s): E78.5 - Hyperlipidemia , unspecified (8) Hypertension Onset Date: 12/15/14 Current Visit: No Status: Chronic Qualifiers: Hypertension type: essential hypertension Qualified Code(s): I10 - Essential (primary) hypertension (9) CHF (congestive heart failure) Onset Date: 12/10/17 Current Visit: No Status: Suspected Qualifiers: Heart failure type: diastolic Heart failure chronicity: chronic Qualified Code(s): I50.32 - Chronic diastolic (congestive) heart failure - Plan Pending clinical improvement at this time Discharge Plan: Home Plan to discharge in: 48 Hours - Code Status/Comfort Care Code Status Assessed: Yes Critical Care: No
[2019-02-25] MEDS: APIXABAN 5 MG TABLET PO SCH ×2 (12:22→22:13)
[2019-02-25] MEDS: INSULIN GLARGINE 100 UNITS/ML SQ SCH (20:26)
[2019-02-25] MEDS: JUVEN PACKET PO SCH (22:02)
[2019-02-25 22:35] LABS: RPR (Rapid Plasma Reagin) NON-REACT (NON-REACT)
[2019-02-26] MEDS: HYDROCODONE/APAP 10/325 TAB PO SCH ×6 (00:40→21:16)
[2019-02-26] MEDS: NA CHLORIDE 0.9% 1,000 ML IV SCH (04:52)
[2019-02-26 05:59] LABS: Absolute Lymphocytes (CBC) 1.7 K/uL (0.7-4.9); Basophils % 0.9 % (0-1.3); Hematocrit 32.2 % (39.6-49.0); Lymphocytes % 25.8 % (15.3-44.8); MPV 9.1 fL (7.6-11.3); RBC Red Blood Cell Count 3.74 M/uL (4.33-5.43)
[2019-02-26 06:20] LABS: Albumin 1.9 g/dL (3.4-5.0); Bilirubin Total 0.2 mg/dL (0.2-1.0); Potassium 5.2 mmol/L (3.5-5.1); Protein, Total 5.4 g/dL (6.4-8.2)
[2019-02-26] MEDS: INSULIN -REGULAR HUMAN 50 UNIT/0.5 ML ML SQ SCH ×4 (08:58→21:00)
[2019-02-26] MEDS: APIXABAN 5 MG TABLET PO SCH ×2 (08:58→21:13)
[2019-02-26] MEDS: CARVEDILOL 3.125 MG TAB PO SCH ×2 (08:59→21:13)
[2019-02-26] MEDS: FOLIC ACID 1 MG TABLET PO SCH (08:59)
[2019-02-26] MEDS: ATORVASTATIN 20 MG TAB PO SCH (09:00)
[2019-02-26] MEDS: ASPIRIN EC 81 MG TAB PO SCH (09:00)
[2019-02-26] MEDS: CARISOPRODOL 350 MG TAB PO SCH ×3 (09:01→21:13)
[2019-02-26] MEDS: CLOPIDOGREL 75 MG TABLET PO SCH (09:01)
[2019-02-26] MEDS: ENALAPRIL 10 MG TAB PO SCH (09:01)
[2019-02-26] MEDS: JUVEN PACKET PO SCH ×2 (09:03→21:14)
[2019-02-26] MEDS ORDERED: FUROSEMIDE 20 MG/ 2ML VIAL IV ONE (09:28)
--- NOTE | 2019-02-26 12:47 | P.PN ---
Subjective Date of Service: 02/26/19 Chief Complaint: Upper extremity swelling Patient seen and examined at bedside with RN. Chart reviewed. Case discussed with family over the phone. Patient states that he does not feel comfortable going home today. Does have nausea vomiting this morning. Has not been able to get up out of bed as well. Review of Systems 10-point ROS is otherwise unremarkable Physical Examination - Vital Signs Temperature: 97 F Blood Pressure: 114/63 Pulse: 68 Respirations: 18 Pulse Ox (%): 96 - Physical Exam General: Alert, In no apparent distress HEENT: Atraumatic, PERRLA, EOMI Neck: Supple, JVD not distended Respiratory: Clear to auscultation bilaterally, Normal air movement Cardiovascular: Regular rate/rhythm, Normal S1 S2 Gastrointestinal: Normal bowel sounds, No tenderness Musculoskeletal: Other (Bilateral BKA) Integumentary: No rashes Neurological: Normal speech, Normal tone, Normal affect Lymphatics: No axilla or inguinal lymphadenopathy - Studies Medications List Reviewed: Yes Assessment And Plan - Current Problems (Diagnosis) (1) Deep venous thrombosis of right upper extremity Current Visit: Yes Status: Acute Plan: Acute DVT of the right upper extremity in the brachial, axillary and subclavian vein -most likely secondary to immobility of the right upper extremity and lower extremity secondary to the CVA -hypercoagulable workup pending at this time -currently on eliqis Qualifiers: Affected thrombotic vein of extremity: brachial Chronicity: acute Qualified Code(s): I82.621 - Acute embolism and thrombosis of deep veins of right upper extremity (2) Chronic renal disease Onset Date: 12/10/17 Current Visit: No Status: Chronic Plan: Acute on chronic kidney disease -BUN and creatinine elevated with hyperkalemia at this time. Will give 1 tab IV Lasix -recheck BMP in about 6 hr Qualifiers: Chronic kidney disease stage: stage 2 (mild) Qualified Code(s): N18.2 - Chronic kidney disease, stage 2 (mild) (3) Local infection of wound Current Visit: No Status: Active Plan: Sacral wound infection. -wound culture pending at this time -appears to be a sacral pressure ulcer (4) Cerebral infarction involving posterior cerebral artery Current Visit: Yes Status: Chronic (5) CAD (coronary artery disease) Onset Date: 12/10/17 Current Visit: No Status: Chronic Qualifiers: Coronary Disease-Associated Artery/Lesion type: [place] artery [place] vs. transplanted heart: [place] heart Associated angina: with stable angina Qualified Code(s): I25.118 - Atherosclerotic heart disease of [place] coronary artery with other forms of angina pectoris (6) DM type 2 (diabetes mellitus, type 2) Onset Date: 05/31/16 Current Visit: No Status: Chronic Qualifiers: Diabetes mellitus terminal computer operator insulin use: with terminal computer operator use Diabetes mellitus complication status: with neurologic complications Diabetes mellitus complication detail: with polyneuropathy Qualified Code(s): E11.42 - Type 2 diabetes mellitus with diabetic polyneuropathy; Z79.4 - senior living (current) use of insulin; Z79.4 - senior living (current) use of insulin; Z79.4 - senior living ( current) use of insulin; Z79.4 - senior living (current) use of insulin (7) Hyperlipidemia Onset Date: 12/10/17 Current Visit: No Status: Chronic Qualifiers: Hyperlipidemia type: unspecified Qualified Code(s): E78.5 - Hyperlipidemia , unspecified (8) Hypertension Onset Date: 12/15/14 Current Visit: No Status: Chronic Qualifiers: Hypertension type: essential hypertension Qualified Code(s): I10 - Essential (primary) hypertension (9) CHF (congestive heart failure) Onset Date: 12/10/17 Current Visit: No Status: Suspected Qualifiers: Heart failure type: diastolic Heart failure chronicity: chronic Qualified Code(s): I50.32 - Chronic diastolic (congestive) heart failure - Plan Pending clinical improvement at this time will have patient worked with physical therapy and occupational therapy today. Will monitor patient closely here in the hospital. Will repeat BMP for changes in the creatinine and potassium. Discharge Plan: Home Plan to discharge in: 24 Hours - Code Status/Comfort Care Code Status Assessed: Yes Critical Care: No
[2019-02-26 15:24] LABS: Absolute Lymphocytes (CBC) 1.4 K/uL (0.7-4.9); Basophils % 0.9 % (0-1.3); Hematocrit 36.5 % (39.6-49.0); Lymphocytes % 21.6 % (15.3-44.8); MPV 9.3 fL (7.6-11.3); RBC Red Blood Cell Count 4.26 M/uL (4.33-5.43)
[2019-02-26 15:44] LABS: Potassium 4.8 mmol/L (3.5-5.1)
[2019-02-26] MEDS ORDERED: NA CHLORIDE 0.9% 500 ML IV ONE (16:24)
[2019-02-26] MEDS ORDERED: NA CHLORIDE 0.9% 1,000 ML IV SCH (19:00)
[2019-02-26 20:30] LABS: Urine Appearance TURBID; Urine Bilirubin NEGATIVE (NEG); Urine Blood TRACE (NEG); Urine Color YELLOW; Urine Glucose 3+ (NEG); Urine Protein 3+ (NEG); Urine Urobilinogen 0.2 mg/dL (0.2-1.0); Urine pH 5.5 (5.0-7.0)
[2019-02-26 20:33] LABS: Urine Microscopic Reflex ORDER UMIC
[2019-02-26 20:54] LABS: Urine Protein/Creatinine Ratio 6.27 ratio (<0.15)
[2019-02-26 21:08] LABS: Urine Bacteria <20 /HPF (NONE SEEN); Urine Culture Reflex Order NOT NEEDED; Urine RBC <5 /HPF (NONE SEEN)
[2019-02-26 21:09] LABS: Urine Amorphous Sediment 3+ /HPF (NONE SEEN)
[2019-02-26] MEDS: INSULIN GLARGINE 100 UNITS/ML SQ SCH (21:11)
--- NOTE | 2019-02-26 22:27 | CON ---
Date of Consultation: 02/26/2019 Reason For Consultation: Elevated BUN and creatinine, hypertension. History Of Present Illness: This is a pleasant, unfortunate 58-year-old gentleman with significant p ast medical history of diabetes complicated with neuropathy and retinopathy, legally blind, hypertens ion, hyperlipidemia, chronic kidney disease, baseline creatinine back in December 2017 1.8 with GFR of 38, osteomyelitis status post bilateral below-knee amputation, CVA without any residual colon artery dis ease status post bypass, peripheral vascular disease status post the below-knee amputation. Patient was in his regular state of health, came to the hospital because of swelling on the upper extremity, found to have DVT. Patient denied taking any nonsteroidal, no recent IV contrast. Upon admission to the hospital, patient's creatinine was 2.4 with GFR of 28. Gradually, creatinine s tarted rising. Today, creatinine 3.1 with GFR of 21. Patient had been on Lasix and MARILYN inhibitor. There is no IV contrast. No other insulting medication. Past Medical History: Includes: 1.Coronary artery disease. 2.Hypertension. 3.Hyperlipidemia. 4.CVA, no residual. 5.Peripheral vascular disease, status post bilateral below-knee amputation. 6.Diabetes complicated with neuropathy and nephropathy. 7.Chronic kidney disease, baseline creatinine 1.8, GFR of 38 back in December 2017. Allergies: HYDROMORPHONE, LATEX, AND BACLOFEN. Past Surgical History: Includes bypass, bilateral below-knee amputation. Family History: Positive for diabetes, coronary artery disease, and hypertension. Social History: Active smoker. Denied alcohol. Denied drug abuse. Review of Systems: Head and Neck: No red eye. No ear pain. GI: No nausea. No vomiting. : Has hesitancy. CORPORATE PILOT: Not applicable. Respiratory: No shortness of breath. Cardiovascular: No chest pain. Endocrine: No polydipsia. SKIN: No rash. Neuro: Has neuropathy. Musculoskeletal: Has low back pain. Physical Examination: Vital Signs: When I saw the patient, blood pressure of 105/56, pulse of 65. Chest: Clear to auscultation. Heart: S1, S2. Systolic murmur. Abdomen: Soft. Mild tenderness with dullness on the suprapubic area reached to above of the umbilic us. Extremities: Bilateral below-knee amputation. No edema. Laboratory Data: Sodium 135, potassium 4.8, bicarb 25, BUN 30, creatinine 3.1, GFR of 21, calcium 7. 4. Vitamin D of 11.3. Urinalysis; specific gravity of 1.020, +2 protein. Serology still pending fo r the hyper-coagulopathy. Medications: Current medications the patient on its include: 1.Eliquis. 2.Plavix. 3.Carvedilol 3.25. 4.Lasix. 5.Lisinopril. 6.Januvia. 7.Insulin. Home medication includes: 1.Insulin. 2.Hydrocodone. 3.Atorvastatin. 4.Enalapril. 5.Plavix. 6.Carvedilol. Imaging: Chest x-ray, no congestion. Assessment And Plan: 1.Acute kidney injury, possible secondary to MARILYN inhibitor and Lasix, prerenal, superimposed with ob structive uropathy given the finding on the exam. I going to go ahead and send for full workup inclu ding serology and we will go ahead and get renal ultrasound to rule out obstructive uropathy and we w ill start the patient on hydration. Discontinue lisinopril. Discontinue Lasix. I do not see any pe ripheral eosinophilia. We will go ahead and send for eosinophil in the urine. 2.Hypertension. Currently, blood pressure on the lower side with the presence of acute kidney injur y. Discontinue Lasix. Discontinue MARILYN inhibitor. We will start the patient on IV hydration and we will follow up the patient. 3.Deep venous thrombosis. Follow up with primary. Follow up serology. 4.Anemia with the presence of acute kidney injury. Light chain disease need to be ruled out. We wi ll send for serum protein electrophoresis. 5.Diabetes as by primary. Dr. Howard for allowing us to participate in the care of your patient. Case discussed with patient, v erbalized understanding. Discussed with the staff. BARBARA/STEPHANIE Voice ID: [id number] Report ID: [id number]
[2019-02-27] MEDS: HYDROCODONE/APAP 10/325 TAB PO SCH ×6 (01:00→20:49)
[2019-02-27 04:54] LABS: Absolute Lymphocytes (CBC) 1.1 K/uL (0.7-4.9); Basophils % 0.5 % (0-1.3); Hematocrit 32.2 % (39.6-49.0); Lymphocytes % 11.8 % (15.3-44.8); MPV 9.7 fL (7.6-11.3); RBC Red Blood Cell Count 3.74 M/uL (4.33-5.43)
[2019-02-27 05:30] LABS: Albumin 2.1 g/dL (3.4-5.0); Bilirubin Total 0.2 mg/dL (0.2-1.0); Ferritin 217.9 ng/mL (26-388); Folic Acid, (Folate) 12.2 ng/mL (3.1-17.5); Phosphorus 3.9 mg/dL (2.5-4.9); Potassium 4.5 mmol/L (3.5-5.1); Protein, Total 5.8 g/dL (6.4-8.2); Thyroid Stimulating Hormone 1.61 uIU/mL (0.360-3.740)
[2019-02-27] MEDS: INSULIN -REGULAR HUMAN 50 UNIT/0.5 ML ML SQ SCH ×4 (07:30→20:50)
--- NOTE | 2019-02-27 09:02 | RAD REPORT ---
EXAM DESCRIPTION: US - Renal Ultrasound-Complete - 02/27/2019 8:41 am CLINICAL HISTORY: IDALMIS Flank pain COMPARISON: RP EXAM COMPLETE dated 03/05/2013 FINDINGS: Both kidneys are normal in size, shape and echotexture. The right kidney measures 12.6 x 5.5 x 5.0 cm. No hydronephrosis, focal mass or perinephric fluid. The left kidney measures 11.4 x 5.8 x 5.7 cm. No hydronephrosis, focal mass or perinephric fluid. The urinary bladder is incompletely distended without gross abnormality seen. IMPRESSION: Unremarkable renal sonogram.
[2019-02-27] MEDS: CARVEDILOL 3.125 MG TAB PO SCH ×2 (09:41→20:49)
[2019-02-27] MEDS: ASPIRIN EC 81 MG TAB PO SCH (09:41)
[2019-02-27] MEDS: APIXABAN 5 MG TABLET PO SCH (09:42)
[2019-02-27] MEDS: CLOPIDOGREL 75 MG TABLET PO SCH (09:43)
[2019-02-27] MEDS: ATORVASTATIN 20 MG TAB PO SCH (09:43)
[2019-02-27] MEDS: CARISOPRODOL 350 MG TAB PO SCH ×3 (09:44→20:49)
[2019-02-27] MEDS: FOLIC ACID 1 MG TABLET PO SCH (09:44)
[2019-02-27] MEDS: NA CHLORIDE 0.9% 1,000 ML IV SCH (09:49)
[2019-02-27] MEDS: JUVEN PACKET PO SCH ×3 (10:11→21:00)
[2019-02-27 11:36] LABS: Rheumatoid Factor NEG (NEG)
--- NOTE | 2019-02-27 12:57 | P.PN ---
Subjective Date of Service: 02/27/19 Chief Complaint: Upper extremity swelling Pt with DM, CKD baseline Cr ~1.8 , PVD and CAD admitted for UE swelling, found to have DVT CR trending up, 3.2 today no new complaints Cr slightly elevated to 3.2 will cont gentle hydration agree to hold plavix no need for renal replacement therapy at this time Physical Examination - Vital Signs Temperature: 97.8 F Blood Pressure: 108/66 Pulse: 81 Respirations: 16 Pulse Ox (%): 99 - Physical Exam General: Alert, Mild distress HEENT: Atraumatic Neck: Supple, Without JVD or thyroid abnormality Respiratory: Clear to auscultation bilaterally, Normal air movement Cardiovascular: No edema, Other (B/l BKA ) Gastrointestinal: Soft and benign - Studies Medications List Reviewed: Yes Assessment And Plan - Current Problems (Diagnosis) (1) IDALMIS (acute kidney injury) Current Visit: Yes Status: Acute - Plan Acute kidney injury on CKD baseline Cr ~1.8 possible secondary to MARILYN inhibitor and Lasix, US: no hydro UPC 6.2, UA: bld, RBC <5 cont gentle hydration renal dose meds F/U urine eos and serology W/U pt can't follow commands and not candidate for renal biopsy no need for renal replacement therapy at this time HTN controlled of MARILYN DVT On eliquis DM as per PCP Anemia Iron sa 22, ferritin 220 will give IV iron when more stable
[2019-02-27 13:05] LABS: Protein C Antigen 100 % (70-140)
--- NOTE | 2019-02-27 13:11 | P.PN ---
Subjective Date of Service: 02/27/19 Chief Complaint: Upper extremity swelling Patient seen and examined at bedside with RN. Chart reviewed. Case discussed with family over the phone. Patient complains of having increasing pain and not feeling well today. Does have nausea vomiting this morning. Has not been able to get up out of bed as well. Review of Systems 10-point ROS is otherwise unremarkable Physical Examination - Vital Signs Temperature: 97.8 F Blood Pressure: 108/66 Pulse: 81 Respirations: 16 Pulse Ox (%): 99 - Physical Exam General: Alert, In no apparent distress HEENT: Atraumatic, PERRLA, EOMI Neck: Supple, JVD not distended Respiratory: Clear to auscultation bilaterally, Normal air movement Cardiovascular: Regular rate/rhythm, Normal S1 S2 Gastrointestinal: Normal bowel sounds, No tenderness Musculoskeletal: No tenderness Integumentary: No rashes Neurological: Normal speech, Normal tone, Normal affect Lymphatics: No axilla or inguinal lymphadenopathy - Studies Medications List Reviewed: Yes Assessment And Plan - Current Problems (Diagnosis) (1) Deep venous thrombosis of right upper extremity Current Visit: Yes Status: Acute Plan: Acute DVT of the right upper extremity in the brachial, axillary and subclavian vein -most likely secondary to immobility of the right upper extremity and lower extremity secondary to the CVA -hypercoagulable workup pending at this time -currently on eliqis -Dc Plavix and continue with asked Qualifiers: Affected thrombotic vein of extremity: brachial Chronicity: acute Qualified Code(s): I82.621 - Acute embolism and thrombosis of deep veins of right upper extremity (2) Chronic renal disease Onset Date: 12/10/17 Current Visit: No Status: Chronic Plan: Acute on chronic kidney disease -BUN and creatinine elevated with hyperkalemia at this time. -nephrology is consulted appreciated recommendations at this time -IV fluids started and has at 50 mL an hr Qualifiers: Chronic kidney disease stage: stage 2 (mild) Qualified Code(s): N18.2 - Chronic kidney disease, stage 2 (mild) (3) Local infection of wound Current Visit: No Status: Active Plan: Sacral wound infection. -wound culture positive for Klebsiella and Proteus -appears to be a sacral pressure ulcer -will start patient on IV ciprofloxacin (4) Cerebral infarction involving posterior cerebral artery Current Visit: Yes Status: Chronic (5) CAD (coronary artery disease) Onset Date: 12/10/17 Current Visit: No Status: Chronic Qualifiers: Coronary Disease-Associated Artery/Lesion type: [place] artery [place] vs. transplanted heart: [place] heart Associated angina: with stable angina Qualified Code(s): I25.118 - Atherosclerotic heart disease of [place] coronary artery with other forms of angina pectoris (6) DM type 2 (diabetes mellitus, type 2) Onset Date: 05/31/16 Current Visit: No Status: Chronic Qualifiers: Diabetes mellitus [facility] insulin use: with [facility] use Diabetes mellitus complication status: with neurologic complications Diabetes mellitus complication detail: with polyneuropathy Qualified Code(s): E11.42 - Type 2 diabetes mellitus with diabetic polyneuropathy; Z79.4 - alf (current) use of insulin; Z79.4 - manager terminal (current) use of insulin; Z79.4 - alf ( current) use of insulin; Z79.4 - alf (current) use of insulin (7) Hyperlipidemia Onset Date: 12/10/17 Current Visit: No Status: Chronic Qualifiers: Hyperlipidemia type: unspecified Qualified Code(s): E78.5 - Hyperlipidemia , unspecified (8) Hypertension Onset Date: 12/15/14 Current Visit: No Status: Chronic Qualifiers: Hypertension type: essential hypertension Qualified Code(s): I10 - Essential (primary) hypertension (9) CHF (congestive heart failure) Onset Date: 12/10/17 Current Visit: No Status: Suspected Qualifiers: Heart failure type: diastolic Heart failure chronicity: chronic Qualified Code(s): I50.32 - Chronic diastolic (congestive) heart failure - Plan Pending clinical improvement at this time will have patient worked with physical therapy and occupational therapy today. Will monitor patient closely here in the hospital. Worsening of creatinine here in the hospital along with the wound culture that is positive for Klebsiella and Proteus at this time. Discharge Plan: Home Plan to discharge in: Greater than 2 days - Code Status/Comfort Care Code Status Assessed: Yes Critical Care: No
[2019-02-27] MEDS: CIPROFLOXACIN 400mg IV 400 MG/200 ML BAG IV SCH (13:41)
[2019-02-27 18:18] LABS: Protime INR 1.94
[2019-02-27] MEDS: PANTOPRAZOLE 40 MG INJ IVP SCH (20:48)
[2019-02-27] MEDS: INSULIN GLARGINE 100 UNITS/ML SQ SCH (20:49)
[2019-02-28] MEDS: HYDROCODONE/APAP 10/325 TAB PO SCH ×7 (00:42→23:31)
[2019-02-28] MEDS: NA CHLORIDE 0.9% 1,000 ML IV SCH ×2 (06:06→18:10)
[2019-02-28 07:24] LABS: MPV 9.3 fL (7.6-11.3)
[2019-02-28] MEDS: JUVEN PACKET PO SCH ×2 (09:00→21:00)
[2019-02-28] MEDS: CIPROFLOXACIN 400mg IV 400 MG/200 ML BAG IV SCH (09:05)
[2019-02-28] MEDS: CARVEDILOL 3.125 MG TAB PO SCH ×2 (09:07→22:02)
[2019-02-28] MEDS: ATORVASTATIN 20 MG TAB PO SCH (09:14)
[2019-02-28] MEDS: PANTOPRAZOLE 40 MG INJ IVP SCH ×2 (09:14→22:03)
[2019-02-28] MEDS: FOLIC ACID 1 MG TABLET PO SCH (09:14)
[2019-02-28] MEDS: CARISOPRODOL 350 MG TAB PO SCH ×3 (09:14→22:03)
[2019-02-28 11:21] LABS: Platelet Estimate ADEQ
--- NOTE | 2019-02-28 11:28 | P.PN ---
Subjective Date of Service: 02/28/19 Chief Complaint: Upper extremity swelling Patient seen and examined at bedside with RN. Chart reviewed. Case discussed with family over the phone. Patient this morning complains of having generalized pain. Last night had nosebleed and coffee-ground emesis. Aspirin Plavix and liquids were on hold. PTT and PT were elevated. This morning continues to have a little bit of nose bleed but no coffee-ground emesis noted denies having any other problem Review of Systems 10-point ROS is otherwise unremarkable Physical Examination - Vital Signs Temperature: 97.2 F Blood Pressure: 110/78 Pulse: 76 Respirations: 18 Pulse Ox (%): 98 - Physical Exam General: Alert, In no apparent distress HEENT: Atraumatic, PERRLA, EOMI Neck: Supple, JVD not distended Respiratory: Clear to auscultation bilaterally, Normal air movement Cardiovascular: Regular rate/rhythm, Normal S1 S2 Gastrointestinal: Normal bowel sounds, No tenderness Musculoskeletal: No tenderness Integumentary: No rashes Neurological: Normal speech, Normal tone, Normal affect Lymphatics: No axilla or inguinal lymphadenopathy - Studies Laboratory Data (last 24 hrs) 02/28/19 07:11: Plt Count 227 02/27/19 17:20: PT 22.3 H, INR 1.94, APTT 40.6 H Microbiology Data (last 24 hrs): 02/28/19 04:20 Stool Occult Blood - Final 02/25/19 03:20 Wound - Sacral Gram Stain - Final 02/25/19 03:20 Wound - Sacral Culture & Sensitivity - Final Klebsiella Pneumoniae Enterococcus Faecalis Proteus Vulgaris 02/24/19 19:06 Clean Catch Urine [place] Count - Final BETWEEN 10,000 & 100,000 CFU/ML 02/24/19 19:06 Clean Catch Urine - Final MIXED NANY. Medications List Reviewed: Yes Assessment And Plan - Current Problems (Diagnosis) (1) Deep venous thrombosis of right upper extremity Current Visit: Yes Status: Acute Plan: Acute DVT of the right upper extremity in the brachial, axillary and subclavian vein -most likely secondary to immobility of the right upper extremity and lower extremity secondary to the CVA -hypercoagulable workup pending at this time -Eliquis, aspirin, Plavix on hold at this time due to nosebleed and coffee- ground emesis yesterday -hemoglobin and platelets are stable at this time will monitor for next 24 hr Qualifiers: Affected thrombotic vein of extremity: brachial Chronicity: acute Qualified Code(s): I82.621 - Acute embolism and thrombosis of deep veins of right upper extremity (2) Chronic renal disease Onset Date: 12/10/17 Current Visit: No Status: Chronic Plan: Acute on chronic kidney disease -BUN and creatinine elevated again today no improvement -nephrology is consulted appreciated recommendations at this time -IV fluids started and has at 50 mL an hr -status post IV Lasix and fluids before as well -if no further improvement patient may require dialysis versus biopsy per nephrology Qualifiers: Chronic kidney disease stage: stage 2 (mild) Qualified Code(s): N18.2 - Chronic kidney disease, stage 2 (mild) (3) Local infection of wound Current Visit: No Status: Active Plan: Sacral wound infection. -wound culture positive for enterococcus Klebsiella and Proteus -appears to be a sacral pressure ulcer -currently on IV ciprofloxacin (4) Cerebral infarction involving posterior cerebral artery Current Visit: Yes Status: Chronic (5) CAD (coronary artery disease) Onset Date: 12/10/17 Current Visit: No Status: Chronic Qualifiers: Coronary Disease-Associated Artery/Lesion type: [place] artery [place] vs. transplanted heart: [place] heart Associated angina: with stable angina Qualified Code(s): I25.118 - Atherosclerotic heart disease of [place] coronary artery with other forms of angina pectoris (6) DM type 2 (diabetes mellitus, type 2) Onset Date: 05/31/16 Current Visit: No Status: Chronic Qualifiers: Diabetes mellitus buttermaker continuous churn insulin use: with [facility] use Diabetes mellitus complication status: with neurologic complications Diabetes mellitus complication detail: with polyneuropathy Qualified Code(s): E11.42 - Type 2 diabetes mellitus with diabetic polyneuropathy; Z79.4 - ocean transportation intermediary (current) use of insulin; Z79.4 - ocean transportation intermediary (current) use of insulin; Z79.4 - shelter ( current) use of insulin; Z79.4 - shelter (current) use of insulin (7) Hyperlipidemia Onset Date: 12/10/17 Current Visit: No Status: Chronic Qualifiers: Hyperlipidemia type: unspecified Qualified Code(s): E78.5 - Hyperlipidemia , unspecified (8) Hypertension Onset Date: 12/15/14 Current Visit: No Status: Chronic Qualifiers: Hypertension type: essential hypertension Qualified Code(s): I10 - Essential (primary) hypertension (9) CHF (congestive heart failure) Onset Date: 12/10/17 Current Visit: No Status: Suspected Qualifiers: Heart failure type: diastolic Heart failure chronicity: chronic Qualified Code(s): I50.32 - Chronic diastolic (congestive) heart failure - Plan Pending clinical improvement at this time will have patient worked with physical therapy and occupational therapy today. Worsening of creatinine here in the hospital. Continue with the fluids if no improvement in next 24-48 hr. Will need to consider biopsy versus hemodialysis initiation. Patient is currently making minimal urine. Wound culture on top of it is positive for 3 organism continue on IV ciprofloxacin at this time. Patient also had nosebleed along with coffee-ground emesis therefore Eliquis with aspirin and Plavix were on hold. Discharge Plan: Home Plan to discharge in: Greater than 2 days - Code Status/Comfort Care Code Status Assessed: Yes Critical Care: No
[2019-02-28 11:41] LABS: Albumin 1.8 g/dL (3.4-5.0); Phosphorus 3.9 mg/dL (2.5-4.9)
[2019-02-28 11:42] LABS: Potassium 5.6 mmol/L (3.5-5.1)
[2019-02-28] MEDS ORDERED: CALCIUM GLUC 10% INJ 4.65 MEQ in NA CHLORIDE 0.9% 100 ML IV ONE (12:22)
[2019-02-28] MEDS ORDERED: FUROSEMIDE 20 MG/ 2ML VIAL IV ONE (12:22)
[2019-02-28] MEDS ORDERED: ALBUTEROL 2.5 MG/3 ML NEB SOL NEB ONE (12:22)
[2019-02-28] MEDS ORDERED: SOD POLYSTYREN SUL 15 GM/60 ML UCUP PO ONE (12:22)
--- NOTE | 2019-02-28 19:59 | P.PN ---
Subjective Date of Service: 02/28/19 Chief Complaint: Upper extremity swelling Pt with DM, CKD baseline Cr ~1.8 , PVD and CAD admitted for UE swelling, found to have DVT CR trending up, 3.2 today Pt is more alert today labs pending UO ~1100 ml last 24hrs eliquis, ASA< and plavix on hold as pt had epistaxis with coffe ground emesis yesterday will consider biopsy and renal replacement therapy if RFT cont to deteriorate discussed with Pt Physical Examination - Vital Signs Temperature: 97.4 F Blood Pressure: 113/57 Pulse: 83 Respirations: 18 Pulse Ox (%): 97 - Physical Exam General: Alert, In no apparent distress HEENT: Atraumatic Neck: Supple, JVD not distended, Without JVD or thyroid abnormality Respiratory: Clear to auscultation bilaterally, Normal air movement Cardiovascular: No edema, Regular rate/rhythm, Normal S1 S2, No gallops, No rubs , No murmurs Gastrointestinal: Normal bowel sounds, Soft and benign Musculoskeletal: Other (B/ BKA ) - Studies Laboratory Data (last 24 hrs) 02/28/19 07:11: Plt Count 227 Microbiology Data (last 24 hrs): 02/28/19 04:20 Stool Occult Blood - Final Medications List Reviewed: Yes Assessment And Plan - Current Problems (Diagnosis) (1) IDALMIS (acute kidney injury) Current Visit: Yes Status: Acute - Plan Acute kidney injury on CKD baseline Cr ~1.8 possible secondary to MARILYN inhibitor and Lasix, US: no hydro UPC 6.2, UA: bld, RBC <5 cont gentle hydration renal dose meds F/U urine eos and serology W/U Pt more alert today , labs today pending, will consider SMALLTALK DEVELOPER and biopsy if RFT cont to deteriorate HTN controlled of MARILYN DVT On eliquis DM as per PCP Anemia Iron sa 22, ferritin 220 will give IV iron when more stable CAD off asa and plavix due to epistaxis and coffe ground emesis sacral wound infection started on Cipro
[2019-02-28] MEDS: INSULIN GLARGINE 100 UNITS/ML SQ SCH (22:03)
[2019-03-01 02:07] LABS: Potassium 5.9 mmol/L (3.5-5.1)
[2019-03-01] MEDS ORDERED: SOD POLYSTYREN SUL 15 GM/60 ML UCUP PO ONE (02:35)
[2019-03-01] MEDS ORDERED: D50W 25 GM/50 ML SYRINGE IV ONE ×2 (02:36→03:28)
[2019-03-01] MEDS ORDERED: INSULIN -REGULAR HUMAN 50 UNIT/0.5 ML ML IV ONE (02:38)
[2019-03-01] MEDS: HYDROCODONE/APAP 10/325 TAB PO SCH ×2 (02:54→06:52)
[2019-03-01] MEDS ORDERED: SODIUM BICARB 50 MEQ/50ML VIAL IV ONE (03:00)
[2019-03-01 05:00] LABS: Albumin, (SPE) 2.2 g/dL (3.8-4.8); Alpha-1-Globulins 0.3 g/dL (0.2-0.3); Alpha-2-Globulins 0.9 g/dL (0.5-0.9); Gamma Globulins 0.9 g/dL (0.8-1.7); INTERPRETATION REPORT
[2019-03-01 06:58] LABS: MPV 9.4 fL (7.6-11.3)
[2019-03-01] MEDS: NA CHLORIDE 0.9% 1,000 ML IV SCH (07:00)
[2019-03-01 07:20] LABS: Phosphorus 4.6 mg/dL (2.5-4.9); Potassium 5.3 mmol/L (3.5-5.1)
[2019-03-01 08:02] LABS: Platelet Estimate ADEQ
[2019-03-01] MEDS: PANTOPRAZOLE 40 MG INJ IVP SCH ×2 (08:10→20:33)
[2019-03-01] MEDS: ATORVASTATIN 20 MG TAB PO SCH (08:11)
[2019-03-01] MEDS: FOLIC ACID 1 MG TABLET PO SCH (08:11)
[2019-03-01] MEDS: CARVEDILOL 3.125 MG TAB PO SCH ×2 (08:11→20:32)
[2019-03-01] MEDS: CARISOPRODOL 350 MG TAB PO SCH ×3 (08:11→20:34)
[2019-03-01] MEDS: JUVEN PACKET PO SCH ×2 (08:12→20:33)
[2019-03-01] MEDS: SODIUM CHLORIDE 0.9% 10ML INJ IV PRN (08:12)
[2019-03-01] MEDS: CIPROFLOXACIN 400mg IV 400 MG/200 ML BAG IV SCH (08:12)
[2019-03-01 10:52] LABS: HIV AG/AB 4TH GEN Non-reactive (Non-reactive)
--- NOTE | 2019-03-01 12:20 | P.PN ---
Subjective Date of Service: 03/01/19 Chief Complaint: Upper extremity swelling Patient seen and examined at bedside with RN. Chart reviewed. Case discussed with family over the phone. No complaints to offer overnight. Day before yesterday patient had nosebleed and coffee-ground emesis. Aspirin Plavix and Eliquis were on hold. PTT and PT were elevated. This morning continues to have a little bit of nose bleed but no coffee-ground emesis noted. Review of Systems 10-point ROS is otherwise unremarkable Physical Examination - Vital Signs Temperature: 97.8 F Blood Pressure: 124/60 Pulse: 79 Respirations: 16 Pulse Ox (%): 96 - Physical Exam General: Alert, In no apparent distress HEENT: Atraumatic, PERRLA, EOMI Neck: Supple, JVD not distended Respiratory: Clear to auscultation bilaterally, Normal air movement Cardiovascular: Regular rate/rhythm, Normal S1 S2 Gastrointestinal: Normal bowel sounds, No tenderness Musculoskeletal: Other (Bilateral BKA) Integumentary: No rashes Neurological: Normal speech, Normal tone, Normal affect Lymphatics: No axilla or inguinal lymphadenopathy - Studies Medications List Reviewed: Yes Assessment And Plan - Current Problems (Diagnosis) (1) Chronic renal disease Onset Date: 12/10/17 Current Visit: No Status: Chronic Plan: Acute on chronic kidney disease with no improvement -BUN and creatinine elevated again today no improvement -nephrology is consulted appreciated recommendations at this time -IV fluids at 50 mL an hr -status post IV Lasix and fluids before as well -if no further improvement patient may require dialysis versus biopsy per nephrology Qualifiers: Chronic kidney disease stage: stage 2 (mild) Qualified Code(s): N18.2 - Chronic kidney disease, stage 2 (mild) (2) Deep venous thrombosis of right upper extremity Current Visit: Yes Status: Acute Plan: Acute DVT of the right upper extremity in the brachial, axillary and subclavian vein -most likely secondary to immobility of the right upper extremity and lower extremity secondary to the CVA -hypercoagulable workup done here in the hospital -Eliquis, aspirin, Plavix on hold at this time due to nosebleed and coffee- ground emesis -hemoglobin is stable at this time. Will follow up with PT, PTT, INR Qualifiers: Affected thrombotic vein of extremity: brachial Chronicity: acute Qualified Code(s): I82.621 - Acute embolism and thrombosis of deep veins of right upper extremity (3) Local infection of wound Current Visit: No Status: Active Plan: Sacral wound infection. -wound culture positive for enterococcus Klebsiella and Proteus -appears to be a sacral pressure ulcer -currently on IV ciprofloxacin (4) Cerebral infarction involving posterior cerebral artery Current Visit: Yes Status: Chronic (5) CAD (coronary artery disease) Onset Date: 12/10/17 Current Visit: No Status: Chronic Qualifiers: Coronary Disease-Associated Artery/Lesion type: [place] artery [place] vs. transplanted heart: [place] heart Associated angina: with stable angina Qualified Code(s): I25.118 - Atherosclerotic heart disease of [place] coronary artery with other forms of angina pectoris (6) DM type 2 (diabetes mellitus, type 2) Onset Date: 05/31/16 Current Visit: No Status: Chronic Qualifiers: Diabetes mellitus exterminator insulin use: with care home use Diabetes mellitus complication status: with neurologic complications Diabetes mellitus complication detail: with polyneuropathy Qualified Code(s): E11.42 - Type 2 diabetes mellitus with diabetic polyneuropathy; Z79.4 - exterminator (current) use of insulin; Z79.4 - prison (current) use of insulin; Z79.4 - prison ( current) use of insulin; Z79.4 - exterminator (current) use of insulin (7) Hyperlipidemia Onset Date: 12/10/17 Current Visit: No Status: Chronic Qualifiers: Hyperlipidemia type: unspecified Qualified Code(s): E78.5 - Hyperlipidemia , unspecified (8) Hypertension Onset Date: 12/15/14 Current Visit: No Status: Chronic Qualifiers: Hypertension type: essential hypertension Qualified Code(s): I10 - Essential (primary) hypertension (9) CHF (congestive heart failure) Onset Date: 12/10/17 Current Visit: No Status: Suspected Qualifiers: Heart failure type: diastolic Heart failure chronicity: chronic Qualified Code(s): I50.32 - Chronic diastolic (congestive) heart failure - Plan Pending clinical improvement at this time will have patient worked with physical therapy and occupational therapy today. Worsening of creatinine here in the hospital. Will need to consider biopsy versus hemodialysis initiation. Patient is currently making minimal urine. Wound culture on top of it is positive for 3 organism continue on IV ciprofloxacin at this time. Patient also had nosebleed along with coffee-ground emesis therefore Eliquis with aspirin and Plavix were on hold. Discharge Plan: Home Plan to discharge in: Greater than 2 days - Code Status/Comfort Care Code Status Assessed: Yes Critical Care: No
[2019-03-01 13:12] LABS: Protime INR 1.08
[2019-03-01 13:43] LABS: Prothrombin Gene Analysis Test REPORT
[2019-03-01] MEDS: HYDROCODONE/APAP 10/325 TAB PO PRN ×2 (14:36→20:39)
--- NOTE | 2019-03-01 16:34 | PN ---
Date of Progress Note: 03/01/2019 Patient was admitted with DVT. Kidney function gradually started improving recover Physical Examination: Vital Signs: Blood pressure 124/60, pulse of 79. Chest: Clear to auscultation. Heart: S1, S2 regular. Abdomen: Soft, nontender. Extremities: Bilateral below-knee amputation. Laboratory Data: H and H 11 and 32.2, eosinophil 300. Sodium 134, potassium 5.3, bicarb 24, BUN 69, creatinine 3.7, GFR of 17, calcium 7.4, phosphorus 4.6, albumin of 2, serology was negative. Vitamin D of 11. PTH of 210. Serologies and anti-myeloperoxidase were negative. Anticardiolipin negative. RF negative. Current Medications: The patient on includes: 1. Aspirin. 2. Cipro. 3. Soma. 4. Eliquis. 5. Atorvastatin. 6. Lasix. 7. Folic acid. 8. Pantoprazole. 9. IV fluid at 50 per hour. Assessment And Plan: 1. Acute kidney injury, normal-size kidney, proteinuric with nephrotic-range proteinuria and unknown etiology. Patient continued to decline. The patient will need renal replacement therapy and we going to proceed with kidney biopsy. Keep holding aspirin for the time being. We will consider switch from Eliquis to Lovenox. 2. Hypertension, controlled, optimal. We will monitor. 3. DVT. Given that we plan for biopsy, will consider switch to Lovenox. BRITTANI Voice ID: [id number] Report ID: [id number] [place]
[2019-03-01 19:12] LABS: Hepatitis C Virus RNA (PCR)log <1.18 log IU/mL
[2019-03-01 20:23] LABS: HBsAG Nonreactive (Nonreactive)
[2019-03-01] MEDS: INSULIN GLARGINE 100 UNITS/ML SQ SCH (20:33)
[2019-03-01 21:35] VITALS: BMI 27.6
[2019-03-02 04:52] LABS: Albumin, (SPE) 2.3 g/dL (3.8-4.8); Alpha-1-Globulins 0.3 g/dL (0.2-0.3); Alpha-2-Globulins 0.8 g/dL (0.5-0.9); Gamma Globulins 0.9 g/dL (0.8-1.7); INTERPRETATION REPORT
[2019-03-02 06:58] LABS: Albumin 1.8 g/dL (3.4-5.0); Phosphorus 4.5 mg/dL (2.5-4.9); Potassium 4.8 mmol/L (3.5-5.1)
[2019-03-02] MEDS: ATORVASTATIN 20 MG TAB PO SCH (07:57)
[2019-03-02] MEDS: CARISOPRODOL 350 MG TAB PO SCH ×3 (07:57→21:46)
[2019-03-02] MEDS: CARVEDILOL 3.125 MG TAB PO SCH (07:58)
[2019-03-02] MEDS: FOLIC ACID 1 MG TABLET PO SCH (07:58)
[2019-03-02] MEDS: PANTOPRAZOLE 40 MG INJ IVP SCH ×2 (07:59→21:46)
[2019-03-02] MEDS: CIPROFLOXACIN 400mg IV 400 MG/200 ML BAG IV SCH (08:05)
[2019-03-02] MEDS: HYDROCODONE/APAP 10/325 TAB PO PRN ×2 (08:06→21:43)
[2019-03-02] MEDS: JUVEN PACKET PO SCH ×2 (08:59→21:45)
--- NOTE | 2019-03-02 11:52 | P.PN ---
Subjective Date of Service: 03/02/19 Chief Complaint: Upper extremity swelling Patient seen and examined at bedside with RN. Chart reviewed. Case discussed with family over the phone. No complaints to offer overnight. Doing well overall. General surgery consulted for HD catheter placement tomorrow. Will follow up with nephrology Review of Systems 10-point ROS is otherwise unremarkable Physical Examination - Vital Signs Temperature: 98.2 F Blood Pressure: 165/77 Pulse: 87 Respirations: 16 Pulse Ox (%): 95 - Physical Exam General: Alert, In no apparent distress Respiratory: Clear to auscultation bilaterally, Normal air movement Cardiovascular: Regular rate/rhythm, Normal S1 S2 Gastrointestinal: Normal bowel sounds, No tenderness Musculoskeletal: No tenderness Integumentary: No rashes Neurological: Normal speech, Normal tone, Normal affect Lymphatics: No axilla or inguinal lymphadenopathy - Studies Medications List Reviewed: Yes Assessment And Plan - Current Problems (Diagnosis) (1) Chronic renal disease Onset Date: 12/10/17 Current Visit: No Status: Chronic Plan: Acute on chronic kidney disease with no improvement -BUN and creatinine mildly improved today -nephrology is consulted appreciated recommendations at this time -IV fluids at 50 mL an hr to continue -general surgery consulted for possible HD catheter placement -if no further improvement patient may require dialysis versus biopsy per nephrology Qualifiers: Chronic kidney disease stage: stage 2 (mild) Qualified Code(s): N18.2 - Chronic kidney disease, stage 2 (mild) (2) Deep venous thrombosis of right upper extremity Current Visit: Yes Status: Acute Plan: Acute DVT of the right upper extremity in the brachial, axillary and subclavian vein -most likely secondary to immobility of the right upper extremity and lower extremity secondary to the CVA -hypercoagulable workup done here in the hospital -Eliquis, aspirin, Plavix on hold at this time due to nosebleed and coffee- ground emesis -will start on weight based Lovenox at this time Qualifiers: Affected thrombotic vein of extremity: brachial Chronicity: acute Qualified Code(s): I82.621 - Acute embolism and thrombosis of deep veins of right upper extremity (3) Local infection of wound Current Visit: No Status: Active Plan: Sacral wound infection. -wound culture positive for enterococcus Klebsiella and Proteus -appears to be a sacral pressure ulcer -currently on IV ciprofloxacin (4) Cerebral infarction involving posterior cerebral artery Current Visit: Yes Status: Chronic (5) CAD (coronary artery disease) Onset Date: 12/10/17 Current Visit: No Status: Chronic Qualifiers: Coronary Disease-Associated Artery/Lesion type: [place] artery [place] vs. transplanted heart: [place] heart Associated angina: with stable angina Qualified Code(s): I25.118 - Atherosclerotic heart disease of [place] coronary artery with other forms of angina pectoris (6) DM type 2 (diabetes mellitus, type 2) Onset Date: 05/31/16 Current Visit: No Status: Chronic Qualifiers: Diabetes mellitus termination clerk insulin use: with termination clerk use Diabetes mellitus complication status: with neurologic complications Diabetes mellitus complication detail: with polyneuropathy Qualified Code(s): E11.42 - Type 2 diabetes mellitus with diabetic polyneuropathy; Z79.4 - exterminator termite (current) use of insulin; Z79.4 - [facility] (current) use of insulin; Z79.4 - [facility] ( current) use of insulin; Z79.4 - [facility] (current) use of insulin (7) Hyperlipidemia Onset Date: 12/10/17 Current Visit: No Status: Chronic Qualifiers: Hyperlipidemia type: unspecified Qualified Code(s): E78.5 - Hyperlipidemia , unspecified (8) Hypertension Onset Date: 12/15/14 Current Visit: No Status: Chronic Qualifiers: Hypertension type: essential hypertension Qualified Code(s): I10 - Essential (primary) hypertension (9) CHF (congestive heart failure) Onset Date: 12/10/17 Current Visit: No Status: Suspected Qualifiers: Heart failure type: diastolic Heart failure chronicity: chronic Qualified Code(s): I50.32 - Chronic diastolic (congestive) heart failure - Plan Pending clinical improvement at this time. Pending Cr Improvement, will decide on HD catheter placement. Discharge Plan: Home Plan to discharge in: Greater than 2 days - Code Status/Comfort Care Code Status Assessed: Yes Critical Care: No
[2019-03-02] MEDS ORDERED: GLUCAGON 1 MG/VIAL IM PRN (12:40)
[2019-03-02] MEDS ORDERED: D50W 25 GM/50 ML SYRINGE IV PRN (12:40)
[2019-03-02] MEDS: INSULIN -REGULAR HUMAN 50 UNIT/0.5 ML ML SQ SCH ×3 (12:48→21:45)
[2019-03-02] MEDS: HYDRALAZINE HCL 25 MG TABLET PO SCH ×2 (12:50→21:44)
--- NOTE | 2019-03-02 16:00 | PN ---
Date of Progress Note: 03/02/2019 Subjective: Patient was admitted with DVT, found to have acute kidney injury. Kidney function herbert nues to decline, nonoliguric. Physical Examination: Vital Signs: When I saw the patient, blood pressure was 165/77, pulse of 87, afebrile. Patient had a urine output of 1700. Chest: Clear to auscultation. Heart: S1, S2. Regular. Abdomen: Soft, nontender. Extremities: Bilateral below-knee amputation. Laboratory Data: H and H 32.2, platelets 258. Sodium 134, potassium 4.8, bicarb 24, BUN 60, crea tinine 3.5, GFR of 18, calcium 7.6. Phosphorus 4.5. Current Medications: 1.Ciprofloxacin. 2.Aspirin, being on hold. 3.Soma. 4.Eliquis. 5.Atorvastatin. 6.Carvedilol 12.5. 7.Folic acid. 8.Insulin. Assessment And Plan: 1.Acute kidney injury, normal-sized kidney, negative serology with nephrotic range of proteinuria, p ossible progression of the disease given the acuity. Serology is still pending. We will proceed wit h kidney biopsy. Patient is still nonoliguric. No hyperkalemia. No acidosis. I am going to watch for the kidney function for tomorrow. If kidney function continues to deteriorate tomorrow, we will proceed with PermCath and initiating dialysis. In the meantime, we are waiting to pass 5-6 days with out the aspirin to be able to do the biopsy. 2.Hypertension, not controlled. I am going to go ahead and add hydralazine for the patient regimen. We will just adjust the carvedilol. We will keep avoiding the MARILYN inhibitor or ARB given the acute kidney injury. 3.Deep venous thrombosis. We will follow up with the primary, continue current treatment. We will consider holding the Eliquis 48 hours before the biopsy, and we will place the patient on Lovenox at that time. 4.Follow up serology. BRITTANI Voice ID: [id number] Report ID: [id number]
[2019-03-02] MEDS: Enoxaparin 120 MG/0.8 ML SYR SQ SCH (17:09)
[2019-03-02] MEDS: CARVEDILOL 12.5 MG TAB PO SCH (21:44)
[2019-03-02] MEDS: INSULIN GLARGINE 100 UNITS/ML SQ SCH (21:44)
[2019-03-03] MEDS: HYDROCODONE/APAP 10/325 TAB PO PRN ×4 (03:19→21:14)
[2019-03-03 06:23] LABS: Albumin 1.6 g/dL (3.4-5.0); Magnesium 2.2 mg/dL (1.8-2.4); Phosphorus 4.2 mg/dL (2.5-4.9)
[2019-03-03] MEDS: INSULIN -REGULAR HUMAN 50 UNIT/0.5 ML ML SQ SCH ×4 (07:30→21:00)
[2019-03-03] MEDS: HYDRALAZINE HCL 25 MG TABLET PO SCH ×3 (08:45→21:01)
[2019-03-03] MEDS: FOLIC ACID 1 MG TABLET PO SCH (08:45)
[2019-03-03] MEDS: CARVEDILOL 12.5 MG TAB PO SCH ×2 (08:46→21:00)
[2019-03-03] MEDS: ATORVASTATIN 20 MG TAB PO SCH (08:46)
[2019-03-03] MEDS: PANTOPRAZOLE 40 MG INJ IVP SCH ×2 (08:47→21:00)
[2019-03-03] MEDS: CARISOPRODOL 350 MG TAB PO SCH ×3 (08:47→21:01)
[2019-03-03] MEDS: JUVEN PACKET PO SCH ×2 (08:49→21:15)
[2019-03-03] MEDS: CIPROFLOXACIN 400mg IV 400 MG/200 ML BAG IV SCH (09:09)
[2019-03-03] MEDS: Enoxaparin 120 MG/0.8 ML SYR SQ SCH (17:04)
--- NOTE | 2019-03-03 17:12 | P.PN ---
Subjective Date of Service: 03/03/19 Chief Complaint: Upper extremity swelling Patient seen and examined at bedside with RN. Chart reviewed. Case discussed with family over the phone. No complaints to offer overnight. Doing well overall. Review of Systems 10-point ROS is otherwise unremarkable Physical Examination - Vital Signs Temperature: 98.0 F Blood Pressure: 139/60 Pulse: 75 Respirations: 16 Pulse Ox (%): 96 - Physical Exam General: Alert, In no apparent distress HEENT: Atraumatic, PERRLA, EOMI Neck: Supple, JVD not distended Respiratory: Clear to auscultation bilaterally, Normal air movement Cardiovascular: Regular rate/rhythm, Normal S1 S2 Gastrointestinal: Normal bowel sounds, No tenderness Musculoskeletal: Other (BL BKA) Integumentary: No rashes Neurological: Normal speech, Normal tone, Normal affect Lymphatics: No axilla or inguinal lymphadenopathy - Studies Medications List Reviewed: Yes Assessment And Plan - Current Problems (Diagnosis) (1) Chronic renal disease Onset Date: 12/10/17 Current Visit: No Status: Chronic Plan: Acute on chronic kidney disease with no improvement -BUN and creatinine mildly improved today -nephrology is consulted appreciated recommendations at this time -IV fluids at 50 mL an hr to continue -Plan to monitor for further improvement, if no further improvement patient may require dialysis Qualifiers: Chronic kidney disease stage: stage 2 (mild) Qualified Code(s): N18.2 - Chronic kidney disease, stage 2 (mild) (2) Deep venous thrombosis of right upper extremity Current Visit: Yes Status: Acute Plan: Acute DVT of the right upper extremity in the brachial, axillary and subclavian vein -most likely secondary to immobility of the right upper extremity and lower extremity secondary to the CVA -hypercoagulable workup done here in the hospital -Eliquis, aspirin, Plavix on hold at this time due to nosebleed and coffee- ground emesis -Started on weight based Lovenox at this time Qualifiers: Affected thrombotic vein of extremity: brachial Chronicity: acute Qualified Code(s): I82.621 - Acute embolism and thrombosis of deep veins of right upper extremity (3) Local infection of wound Current Visit: No Status: Active Plan: Sacral wound infection. -wound culture positive for enterococcus, Klebsiella and Proteus -appears to be a sacral pressure ulcer -currently on IV ciprofloxacin (4) Cerebral infarction involving posterior cerebral artery Current Visit: Yes Status: Chronic (5) CAD (coronary artery disease) Onset Date: 12/10/17 Current Visit: No Status: Chronic Qualifiers: Coronary Disease-Associated Artery/Lesion type: [place] artery [place] vs. transplanted heart: [place] heart Associated angina: with stable angina Qualified Code(s): I25.118 - Atherosclerotic heart disease of [place] coronary artery with other forms of angina pectoris (6) DM type 2 (diabetes mellitus, type 2) Onset Date: 05/31/16 Current Visit: No Status: Chronic Qualifiers: Diabetes mellitus intermodal truck driver insulin use: with half-way use Diabetes mellitus complication status: with neurologic complications Diabetes mellitus complication detail: with polyneuropathy Qualified Code(s): E11.42 - Type 2 diabetes mellitus with diabetic polyneuropathy; Z79.4 - [facility] (current) use of insulin; Z79.4 - [facility] (current) use of insulin; Z79.4 - terminal block assembler ( current) use of insulin; Z79.4 - [facility] (current) use of insulin (7) Hyperlipidemia Onset Date: 12/10/17 Current Visit: No Status: Chronic Qualifiers: Hyperlipidemia type: unspecified Qualified Code(s): E78.5 - Hyperlipidemia , unspecified (8) Hypertension Onset Date: 12/15/14 Current Visit: No Status: Chronic Qualifiers: Hypertension type: essential hypertension Qualified Code(s): I10 - Essential (primary) hypertension (9) CHF (congestive heart failure) Onset Date: 12/10/17 Current Visit: No Status: Chronic Qualifiers: Heart failure type: diastolic Heart failure chronicity: chronic Qualified Code(s): I50.32 - Chronic diastolic (congestive) heart failure - Plan Pending clinical improvement at this time. Pending Cr Improvement, will decide on Dialysis or not per nephrology reccs Discharge Plan: Home Plan to discharge in: 48 Hours - Code Status/Comfort Care Code Status Assessed: Yes Critical Care: No
[2019-03-03] MEDS: INSULIN GLARGINE 100 UNITS/ML SQ SCH (21:15)
--- NOTE | 2019-03-03 21:33 | PN ---
Date of Progress Note: 03/03/2019 Chief Complaint: Acute kidney injury, nonoliguric. History Of Present Illness: Patient was found to have moderately severe acute kidney injury. Renal function has declined and creatinine level is 3.5 and BUN 60. Electrolytes as follow sodium 134, pot assium 4.8, bicarbonate 24, phosphorus 4.5, calcium 7.8. Renal ultrasound did not show obstructive u ropathy. Patient has normal size kidneys and negative serology of the ovaries. Progression of prote inuria. Plan is to proceed with renal biopsy. Review of Systems: Denies fever or chills. Physical Examination: Lungs: Clear to auscultation bilaterally. Heart: S1-S2. ABDOMEN: Soft and benign. Extremities: Edema present bilateral below-knee amputation. Laboratory Data: Hemoglobin 11.0, WBC 9.6, platelet count 258,000. Sodium 136, potassium 5.0, chlor haily 106, CO2 of 22, BUN 61, creatinine 3.39, glucose 139, calcium 7.6, phosphorus 4.2, magnesium 2.2. Impression And Plan: 1.Acute kidney injury. Renal function has not improved significantly, although there is some transf er improvement, creatinine level was 3.77 is improved to 3.39. Patient has nonoliguric urine output and electrolytes are stable. Continue to monitor renal function, range of proteinuria and monitor bl ood pressure closely. Avoid MARILYN inhibitor. The patient may need dialysis if renal function does not improve. So for diagnostic purpose, patient may need renal biopsy when a urinary tract infection is ruled out. 2.Hypertension. Monitor blood pressure. Plan is to avoid MARILYN inhibitor, angiotensin receptor pauline due to acute kidney and for blood pressure, we will continue carvedilol. EB/MODL Voice ID: [id number] Report ID: [id number]
[2019-03-04 03:04] LABS: Anti-Cardiolipin IgA Antibody 19 APL (<=11)
[2019-03-04] MEDS: HYDROCODONE/APAP 10/325 TAB PO PRN ×2 (04:34→10:18)
[2019-03-04] MEDS: FOLIC ACID 1 MG TABLET PO SCH (08:28)
[2019-03-04] MEDS: ATORVASTATIN 20 MG TAB PO SCH (08:28)
[2019-03-04] MEDS: CARISOPRODOL 350 MG TAB PO SCH ×3 (08:28→21:31)
[2019-03-04] MEDS: HYDRALAZINE HCL 25 MG TABLET PO SCH ×3 (08:29→21:30)
[2019-03-04] MEDS: CARVEDILOL 12.5 MG TAB PO SCH (08:29)
[2019-03-04] MEDS: CIPROFLOXACIN 400mg IV 400 MG/200 ML BAG IV SCH (08:31)
[2019-03-04] MEDS: PANTOPRAZOLE 40 MG INJ IVP SCH ×2 (08:31→21:31)
[2019-03-04] MEDS: INSULIN -REGULAR HUMAN 50 UNIT/0.5 ML ML SQ SCH ×4 (08:39→21:29)
[2019-03-04] MEDS: JUVEN PACKET PO SCH ×2 (08:44→21:32)
[2019-03-04] MEDS ORDERED: APIXABAN 5 MG TABLET PO SCH (09:00)
--- NOTE | 2019-03-04 15:30 | P.PN ---
Subjective Date of Service: 03/04/19 Chief Complaint: Upper extremity swelling Patient seen and examined at bedside with RN. Chart reviewed. Case discussed with family over the phone. No complaints to offer overnight. Doing well overall. Scheduled for some kidney biopsy tomorrow Review of Systems 10-point ROS is otherwise unremarkable Physical Examination - Vital Signs Temperature: 97.6 F Blood Pressure: 159/67 Pulse: 81 Respirations: 16 Pulse Ox (%): 95 - Physical Exam General: Alert, In no apparent distress HEENT: Atraumatic, PERRLA, EOMI Neck: Supple, JVD not distended Respiratory: Clear to auscultation bilaterally, Normal air movement Cardiovascular: Regular rate/rhythm, Normal S1 S2 Gastrointestinal: Normal bowel sounds, No tenderness Musculoskeletal: Other (Bilateral BKA and) Integumentary: No rashes Neurological: Normal speech, Normal tone, Normal affect Lymphatics: No axilla or inguinal lymphadenopathy - Studies Medications List Reviewed: Yes Assessment And Plan - Current Problems (Diagnosis) (1) Chronic renal disease Onset Date: 12/10/17 Current Visit: No Status: Chronic Plan: Acute on chronic kidney disease with no improvement -BUN and creatinine mildly improved today -nephrology is consulted appreciated recommendations at this time -patient is currently scheduled for biopsy tomorrow. -Will keep patient NPO after midnight Qualifiers: Chronic kidney disease stage: stage 2 (mild) Qualified Code(s): N18.2 - Chronic kidney disease, stage 2 (mild) (2) Deep venous thrombosis of right upper extremity Current Visit: Yes Status: Acute Plan: Acute DVT of the right upper extremity in the brachial, axillary and subclavian vein -most likely secondary to immobility of the right upper extremity and lower extremity secondary to the CVA -hypercoagulable workup done here in the hospital -Eliquis, aspirin, Plavix on hold at this time due to nosebleed and coffee- ground emesis -Started on weight based Lovenox at this time. -awaiting a wrap on due to swelling noted on the arm Qualifiers: Affected thrombotic vein of extremity: brachial Chronicity: acute Qualified Code(s): I82.621 - Acute embolism and thrombosis of deep veins of right upper extremity (3) Local infection of wound Current Visit: No Status: Active Plan: Sacral wound infection. -wound culture positive for enterococcus, Klebsiella and Proteus -appears to be a sacral pressure ulcer -currently on IV ciprofloxacin (4) Cerebral infarction involving posterior cerebral artery Current Visit: Yes Status: Chronic (5) CAD (coronary artery disease) Onset Date: 12/10/17 Current Visit: No Status: Chronic Qualifiers: Coronary Disease-Associated Artery/Lesion type: [place] artery [place] vs. transplanted heart: [place] heart Associated angina: with stable angina Qualified Code(s): I25.118 - Atherosclerotic heart disease of [place] coronary artery with other forms of angina pectoris (6) DM type 2 (diabetes mellitus, type 2) Onset Date: 05/31/16 Current Visit: No Status: Chronic Qualifiers: Diabetes mellitus terminal operations manager insulin use: with terminal operations manager use Diabetes mellitus complication status: with neurologic complications Diabetes mellitus complication detail: with polyneuropathy Qualified Code(s): E11.42 - Type 2 diabetes mellitus with diabetic polyneuropathy; Z79.4 - group home (current) use of insulin; Z79.4 - group home (current) use of insulin; Z79.4 - group home ( current) use of insulin; Z79.4 - group home (current) use of insulin (7) Hyperlipidemia Onset Date: 12/10/17 Current Visit: No Status: Chronic Qualifiers: Hyperlipidemia type: unspecified Qualified Code(s): E78.5 - Hyperlipidemia , unspecified (8) Hypertension Onset Date: 12/15/14 Current Visit: No Status: Chronic Qualifiers: Hypertension type: essential hypertension Qualified Code(s): I10 - Essential (primary) hypertension (9) CHF (congestive heart failure) Onset Date: 12/10/17 Current Visit: No Status: Chronic Qualifiers: Heart failure type: diastolic Heart failure chronicity: chronic Qualified Code(s): I50.32 - Chronic diastolic (congestive) heart failure - Plan Pending clinical improvement at this time. Pending Cr Improvement, scheduled for kidney biopsy will keep patient NPO after midnight Discharge Plan: Home Plan to discharge in: Greater than 2 days - Code Status/Comfort Care Code Status Assessed: Yes Critical Care: No
[2019-03-04 16:48] LABS: Albumin 1.6 g/dL (3.4-5.0); Phosphorus 3.3 mg/dL (2.5-4.9); Potassium 4.8 mmol/L (3.5-5.1)
--- NOTE | 2019-03-04 19:04 | PN ---
Date of Progress Note: 03/04/2019 Subjective: Patient was admitted with acute kidney injury, unknown etiology, possible toxic ATN. Vignesh treviño still not showing any recovery, but nonoliguric. No hyperkalemia. No uremic symptoms. Physical Examination: Vital Signs: Blood pressure 159/67, pulse of 80. Chest: Clear to auscultation. Heart: S1, S2. Regular. Abdomen: Soft, nontender. Extremities: Bilateral below-knee amputation. Laboratory Data: WBC 9.6, H and H 11/32.2, platelets 258. Sodium of 136, potassium 5, bicarb 22, BU N 61, creatinine 3.3, calcium 7.6. Patient's serum protein electrophoresis did not show any monoclon al. Serology completely negative. Complement within normal limit. GERARD negative. Current Medications: The patient on include Soma, Lovenox, folic acid, Zofran, pantoprazole. Assessment And Plan: 1.Acute kidney injury, unknown etiology. Full workup including serology, ultrasound within normal l imit. Nonoliguric, no hyperkalemia. No acidosis. Patient not requiring urgent dialysis for the manjit e being. We will continue to monitor. We will go ahead and proceed with a kidney biopsy. I am antonio g to hold the Lovenox for today. Patient has been off aspirin since the . 2.Hypertension, not controlled. I am going to go ahead and increase carvedilol to 25 mg, increase h ydralazine to 50 mg, and we will follow up the patient. 3.Deep vein thrombosis. As by Primary. BARBARA/STEPHANIE Voice ID: [id number] Report ID: [id number]
[2019-03-04] MEDS: INSULIN GLARGINE 100 UNITS/ML SQ SCH (21:29)
[2019-03-04] MEDS: CARVEDILOL 25 MG TAB PO SCH (21:30)
[2019-03-04] MEDS: AMOX/K CLAV 500 MG TAB PO SCH (21:31)
[2019-03-05 07:12] LABS: Protime INR 0.96
[2019-03-05 07:15] LABS: Albumin 1.7 g/dL (3.4-5.0); Potassium 5.1 mmol/L (3.5-5.1)
[2019-03-05] MEDS: INSULIN -REGULAR HUMAN 50 UNIT/0.5 ML ML SQ SCH ×4 (07:30→22:07)
[2019-03-05] MEDS: AMOX/K CLAV 500 MG TAB PO SCH ×2 (09:00→22:02)
[2019-03-05] MEDS: HYDRALAZINE HCL 25 MG TABLET PO SCH ×3 (09:00→22:07)
[2019-03-05] MEDS: CARVEDILOL 25 MG TAB PO SCH ×2 (09:00→22:02)
[2019-03-05] MEDS: JUVEN PACKET PO SCH ×2 (09:00→21:00)
[2019-03-05] MEDS: FOLIC ACID 1 MG TABLET PO SCH (09:00)
[2019-03-05] MEDS: CARISOPRODOL 350 MG TAB PO SCH ×3 (09:00→22:07)
[2019-03-05] MEDS: ATORVASTATIN 20 MG TAB PO SCH (09:00)
[2019-03-05] MEDS: PANTOPRAZOLE 40 MG INJ IVP SCH ×2 (09:28→22:07)
[2019-03-05] MEDS ORDERED: NALOXONE 0.4 MG/ML VIAL ONE (10:06)
[2019-03-05] MEDS ORDERED: FENTANYL CITR 100 MCG/2 ML ONE ×2 (10:07→10:52)
[2019-03-05] MEDS ORDERED: MIDAZOLAM HCL 2 MG/2 ML INJ ONE (10:08)
[2019-03-05] MEDS ORDERED: NA CHLORIDE 0.9% 500 ML ONE (10:17)
[2019-03-05] MEDS ORDERED: cloNIDine HCl 0.1 MG TAB ONE (11:47)
[2019-03-05] MEDS ORDERED: HYDRALAZINE HCL 20 MG/ML VIAL IV PRN (12:22)
--- NOTE | 2019-03-05 12:39 | P.PN ---
Subjective Date of Service: 03/05/19 Chief Complaint: Upper extremity swelling Patient seen and examined at bedside with RN. Chart reviewed. Case discussed with family over the phone. No complaints to offer overnight. Doing well overall. Kidney biopsy not being able to complete today due to patient having elevated blood pressure. P.r.n. medication placed Review of Systems 10-point ROS is otherwise unremarkable Physical Examination - Vital Signs Temperature: 99.1 F Blood Pressure: 141/66 Pulse: 84 Respirations: 18 Pulse Ox (%): 94 - Physical Exam General: Alert, In no apparent distress HEENT: Atraumatic, PERRLA, EOMI Neck: Supple, JVD not distended Respiratory: Clear to auscultation bilaterally, Normal air movement Cardiovascular: Regular rate/rhythm, Normal S1 S2 Gastrointestinal: Normal bowel sounds, No tenderness Musculoskeletal: Other (BL BKA) Integumentary: No rashes Neurological: Normal tone, Normal affect Lymphatics: No axilla or inguinal lymphadenopathy - Studies Medications List Reviewed: Yes Assessment And Plan - Current Problems (Diagnosis) (1) Chronic renal disease Onset Date: 12/10/17 Current Visit: No Status: Chronic Plan: Acute on chronic kidney disease with no improvement -BUN and creatinine mildly improved today -nephrology is consulted appreciated recommendations at this time -patient is currently scheduled for biopsy tomorrow. Unsuccessful today. -Will keep patient NPO after midnight Qualifiers: Chronic kidney disease stage: stage 2 (mild) Qualified Code(s): N18.2 - Chronic kidney disease, stage 2 (mild) (2) Deep venous thrombosis of right upper extremity Current Visit: Yes Status: Acute Plan: Acute DVT of the right upper extremity in the brachial, axillary and subclavian vein -most likely secondary to immobility of the right upper extremity and lower extremity secondary to the CVA -hypercoagulable workup done here in the hospital -Eliquis, aspirin, Plavix on hold at this time due to nosebleed and coffee- ground emesis -Started on weight based Lovenox at this time. Will need this on DC. Coumadin not a good option due to high risk of fall and possible brain bleed Qualifiers: Affected thrombotic vein of extremity: brachial Chronicity: acute Qualified Code(s): I82.621 - Acute embolism and thrombosis of deep veins of right upper extremity (3) Local infection of wound Current Visit: No Status: Active Plan: Sacral wound infection. -wound culture positive for enterococcus, Klebsiella and Proteus -appears to be a sacral pressure ulcer -currently on IV ciprofloxacin (4) Cerebral infarction involving posterior cerebral artery Current Visit: Yes Status: Chronic (5) CAD (coronary artery disease) Onset Date: 12/10/17 Current Visit: No Status: Chronic Qualifiers: Coronary Disease-Associated Artery/Lesion type: [place] artery [place] vs. transplanted heart: [place] heart Associated angina: with stable angina Qualified Code(s): I25.118 - Atherosclerotic heart disease of [place] coronary artery with other forms of angina pectoris (6) DM type 2 (diabetes mellitus, type 2) Onset Date: 05/31/16 Current Visit: No Status: Chronic Qualifiers: Diabetes mellitus group home insulin use: with group home use Diabetes mellitus complication status: with neurologic complications Diabetes mellitus complication detail: with polyneuropathy Qualified Code(s): E11.42 - Type 2 diabetes mellitus with diabetic polyneuropathy; Z79.4 - correction (current) use of insulin; Z79.4 - terminal system operator (current) use of insulin; Z79.4 - terminal system operator ( current) use of insulin; Z79.4 - terminal system operator (current) use of insulin (7) Hyperlipidemia Onset Date: 12/10/17 Current Visit: No Status: Chronic Qualifiers: Hyperlipidemia type: unspecified Qualified Code(s): E78.5 - Hyperlipidemia , unspecified (8) Hypertension Onset Date: 12/15/14 Current Visit: No Status: Chronic Qualifiers: Hypertension type: essential hypertension Qualified Code(s): I10 - Essential (primary) hypertension (9) CHF (congestive heart failure) Onset Date: 12/10/17 Current Visit: No Status: Chronic Qualifiers: Heart failure type: diastolic Heart failure chronicity: chronic Qualified Code(s): I50.32 - Chronic diastolic (congestive) heart failure - Plan Pending clinical improvement at this time. Patient is again scheduled for kidney biopsy tomorrow. Kidney biopsy not being able to complete today due to patient having elevated blood pressure. P.r.n. medication placed patient will be getting biopsy done again tomorrow Discharge Plan: Home Plan to discharge in: Greater than 2 days - Code Status/Comfort Care Code Status Assessed: Yes Critical Care: No
--- NOTE | 2019-03-05 13:36 | RAD REPORT ---
EXAM DESCRIPTION: CT - Abdomen Wo Contrast - 03/05/2019 12:06 pm CLINICAL HISTORY: Abnormal renal function, renal biopsy COMPARISON: None. TECHNIQUE: Axial [address] imaging of the abdomen was performed. No IV contrast was adm inistered. All CT scans are performed using dose optimization technique as appropriate and may include automated exposure control or mA/KV adjustment according to patient size. FINDINGS: The patient presented for CT-guided diagnostic renal biopsy. IV access had rt been placed in the upper left arm. Patient has history of DVT in the right upper extremity in the patient is a bi lateral below knee amputee. The CT-guided renal biopsy procedure, risks and alternatives were discussed with the patient in [facility]. After answering all questions, both oral and written consent were obtained. Patient had no contrai ndicated allergy or medication history. PT/INR values within acceptable limits. Patient was placed prone on the CT table. Patient indicated a significant level of pain and discomfor t in this positioning. Patient was pre-medicated with 100 micrograms fentanyl. Patient remained uncom parable asking for additional pain medication. Preliminary imaging of the kidneys obtained to determi ne access site. Patient was administered 1.0 milligrams IV Versed. Blood pressure measurements were obtained using th e left forearm. There was variability in blood pressure. Systolic values range from 158- 178 mmHg wit h diastolic values reaching as high as 86 mm Hg. These values are borderline to abnormally high for r enal biopsy. Patient continued to complain of pain and discomfort. Access site was selected. The skin was prepped and draped in the usual sterile fashion. Skin and deep er tissues were anesthetized with 1% lidocaine. An introducer needle was advanced 5 cm reaching the p osterior fascia but not extending into the retroperitoneal space. Due to the elevated blood pressures, uncertainty of the blood pressure values and patient's limited a bility to maintain positioning due to pain, the biopsy procedure was stopped. The introducer needle w as withdrawn. Bandage placed at the puncture site. The patient was transferred back to the floor. The events from today's unsuccessful biopsy were discussed with Dr. Howard. Prior to any repeat proced ure, primary service will work to control blood pressure prior to the procedure as well as initiating some degree of pain control. IMPRESSION: Noncontrast CT abdomen imaging was performed as part of an unsuccessful renal biopsy as detailed above.
--- NOTE | 2019-03-05 17:56 | PN ---
Date of Progress Note: 03/05/2019 Subjective: Patient was admitted with acute kidney injury, unknown etiology. All workup been negati ve. Patient with nephrotic range proteinuria. Objective: Vital Signs: Blood pressure 141/66, pulse of 84. Chest: Clear to auscultation. Heart: S1, S2, regular. Abdomen: Soft, nontender. Extremities: Bilateral below-knee amputation. Laboratory Data: H and H 11 and 32.2. Sodium of 135, potassium 5.1, bicarb 25, BUN 59, creatinine 3 .1, GFR of 21, calcium 7.9, phosphor of 3. Current Medications: The patient on its include: 1.Normal saline. 2.Hydrocodone. 3.Insulin. 4.Folic acid. 5.Soma. 6.Lovenox. 7.Atorvastatin. 8.Carvedilol. 9.Hydralazine 50 t.i.d. Assessment And Plan: 1.Acute kidney injury, unknown etiology. Normal size kidney with nephrotic range proteinuria. We w ill proceed with the biopsy today. 2.Hypertension, controlled, optimal. 3.Nephrotic range proteinuria. Unfortunately, we cannot add MARILYN inhibitor or ARB for the time being until kidney function stabilize. We will follow up the kidney biopsy. 4.Deep venous thrombosis, discussed with Dr. Howard the option of treatment. Agreed to initiate Lovenox, we will follow up. 5.Urinary tract infection. Continue Augmentin. BRITTANI Voice ID: [id number] Report ID: [id number]
[2019-03-05] MEDS: INSULIN GLARGINE 100 UNITS/ML SQ SCH (22:07)
[2019-03-06] MEDS: INSULIN -REGULAR HUMAN 50 UNIT/0.5 ML ML SQ SCH ×4 (07:30→20:43)
[2019-03-06] MEDS: ATORVASTATIN 20 MG TAB PO SCH ×2 (09:00→13:45)
[2019-03-06] MEDS: HYDRALAZINE HCL 25 MG TABLET PO SCH ×3 (09:00→20:41)
[2019-03-06] MEDS: CARISOPRODOL 350 MG TAB PO SCH ×3 (09:00→20:42)
[2019-03-06] MEDS: JUVEN PACKET PO SCH ×3 (09:00→20:44)
[2019-03-06] MEDS: FOLIC ACID 1 MG TABLET PO SCH ×2 (09:00→13:44)
[2019-03-06] MEDS: CARVEDILOL 25 MG TAB PO SCH ×3 (09:00→20:42)
[2019-03-06] MEDS: AMOX/K CLAV 500 MG TAB PO SCH ×3 (09:00→20:42)
[2019-03-06] MEDS: PANTOPRAZOLE 40 MG INJ IVP SCH ×2 (09:20→20:41)
[2019-03-06] MEDS ORDERED: HYDRALAZINE HCL 20 MG/ML VIAL ONE (11:30)
[2019-03-06] MEDS ORDERED: MIDAZOLAM HCL 2 MG/2 ML INJ ONE (11:30)
[2019-03-06] MEDS ORDERED: FENTANYL CITR 100 MCG/2 ML ONE (11:31)
[2019-03-06] MEDS ORDERED: NALOXONE 0.4 MG/ML VIAL ONE (11:31)
[2019-03-06] MEDS ORDERED: NA CHLORIDE 0.9% 500 ML ONE (11:45)
[2019-03-06] MEDS: HYDROCODONE/APAP 10/325 TAB PO PRN ×2 (13:44→17:53)
--- NOTE | 2019-03-06 14:52 | P.PN ---
Subjective Date of Service: 03/06/19 Chief Complaint: Upper extremity swelling Patient seen and examined at bedside with RN. No family at bedside. Chart reviewed. No complaints to offer overnight. Doing well overall. Kidney biopsy not being able to complete again today due to patient having elevated blood pressure even with prn IV HTN medications Review of Systems 10-point ROS is otherwise unremarkable Physical Examination - Vital Signs Temperature: 97.4 F Blood Pressure: 148/67 Pulse: 86 Respirations: 16 Pulse Ox (%): 97 - Physical Exam General: Alert, In no apparent distress HEENT: Atraumatic, PERRLA, EOMI Neck: Supple, JVD not distended Respiratory: Clear to auscultation bilaterally, Normal air movement Cardiovascular: Regular rate/rhythm, Normal S1 S2 Gastrointestinal: Normal bowel sounds, No tenderness Musculoskeletal: No tenderness, Other (BL BKA) Integumentary: No rashes Neurological: Normal speech, Normal tone, Normal affect Lymphatics: No axilla or inguinal lymphadenopathy - Studies Medications List Reviewed: Yes Assessment And Plan - Current Problems (Diagnosis) (1) IDALMIS (acute kidney injury) Current Visit: Yes Status: Acute Plan: Acute on chronic kidney disease with no improvement -BUN and creatinine mildly improved today -nephrology is consulted appreciated recommendations at this time -patient is currently scheduled for biopsy tomorrow. Unsuccessful again today. -Will keep patient NPO after midnight. We will go ahead and give PO HTN medications tomorrow am, prior to biopsy attempt. Discussed with Dr. Bergman. (2) Deep venous thrombosis of right upper extremity Current Visit: Yes Status: Acute Plan: Acute DVT of the right upper extremity in the brachial, axillary and subclavian vein -most likely secondary to immobility of the right upper extremity and lower extremity secondary to the CVA -hypercoagulable workup done here in the hospital -Eliquis, aspirin, Plavix on hold at this time due to nosebleed and coffee- ground emesis -Started on weight based Lovenox at this time. Will need this on DC. Coumadin not a good option due to high risk of fall and possible brain bleed Qualifiers: Affected thrombotic vein of extremity: brachial Chronicity: acute Qualified Code(s): I82.621 - Acute embolism and thrombosis of deep veins of right upper extremity (3) Local infection of wound Current Visit: No Status: Active Plan: Sacral wound infection. -wound culture positive for enterococcus, Klebsiella and Proteus -appears to be a sacral pressure ulcer -currently on IV ciprofloxacin (4) Cerebral infarction involving posterior cerebral artery Current Visit: Yes Status: Chronic (5) CAD (coronary artery disease) Onset Date: 12/10/17 Current Visit: No Status: Chronic Qualifiers: Coronary Disease-Associated Artery/Lesion type: [place] artery [place] vs. transplanted heart: [place] heart Associated angina: with stable angina Qualified Code(s): I25.118 - Atherosclerotic heart disease of [place] coronary artery with other forms of angina pectoris (6) CHF (congestive heart failure) Onset Date: 12/10/17 Current Visit: No Status: Chronic Qualifiers: Heart failure type: diastolic Heart failure chronicity: chronic Qualified Code(s): I50.32 - Chronic diastolic (congestive) heart failure (7) DM type 2 (diabetes mellitus, type 2) Onset Date: 05/31/16 Current Visit: No Status: Chronic Qualifiers: Diabetes mellitus intermodal customer service insulin use: with shelter use Diabetes mellitus complication status: with neurologic complications Diabetes mellitus complication detail: with polyneuropathy Qualified Code(s): E11.42 - Type 2 diabetes mellitus with diabetic polyneuropathy; Z79.4 - technician terminal and repeater (current) use of insulin; Z79.4 - jail (current) use of insulin; Z79.4 - technician terminal and repeater ( current) use of insulin; Z79.4 - technician terminal and repeater (current) use of insulin (8) Hyperlipidemia Onset Date: 12/10/17 Current Visit: No Status: Chronic Qualifiers: Hyperlipidemia type: unspecified Qualified Code(s): E78.5 - Hyperlipidemia , unspecified (9) Hypertension Onset Date: 12/15/14 Current Visit: No Status: Chronic Qualifiers: Hypertension type: essential hypertension Qualified Code(s): I10 - Essential (primary) hypertension - Plan Pending clinical improvement at this time. Patient is again scheduled for kidney biopsy tomorrow. Kidney biopsy not being able to complete today due to patient having elevated blood pressure. Will provide patient with PO HTN medications prior to biopsy tomorrow.
[2019-03-06] MEDS: Enoxaparin 120 MG/0.8 ML SYR SQ SCH (17:14)
--- NOTE | 2019-03-06 20:27 | PN ---
Date of Progress Note: 03/06/2019 Subjective: Patient was admitted with acute kidney injury, DVT on the upper extremity. Patient was started on Eliquis. Because of the bleed, Eliquis has been discontinued. Patient was placed on Love nox, tolerated very well. Physical Examination: Vital Signs: Blood pressure 128/60, pulse of 77, afebrile. Chest: Clear to auscultation. Heart: S1, S2. Regular. Abdomen: Soft, nontender. Extremities: Bilateral below-knee amputation. Laboratory Data: WBC 9.6, H and H 11 and 32.2. Sodium of 135 potassium 5.1, bicarb 25, BUN 59, crea tinine down to 3.1, GFR of 21, calcium 7.9, phosphor of 3, albumin 1.7. Patient's serology completel y negative, except cardiolipin IgA. The rest of the serology was negative including serum protein el ectrophoresis. A couple of the attempt to do kidney biopsy was unsuccessful, because the patient for patient feeling anxious and because of the pain blood pressure shoot higher, that is the reason clifford wills biopsy was consulted. Current Medications: The patient on its include; 1.Amoxicillin and clavulanate. 2.Augmentin. 3.Soma. 4.Lovenox. 5.Atorvastatin 20. 6.Carvedilol 25. 7.Hydralazine 50 t.i.d.. 8.Folic acid. 9.Pantoprazole. 10.Hydrocodone. Assessment And Plan: 1.Acute kidney injury nephrotic range proteinuria, normal sized kidney mostly secondary to diabetes. Patient does not have any hyperkalemia. No acidosis. I do not see the need for initiating any servando al replacement therapy. 2.Given the difficulty obtaining the biopsy and given improvement in the kidney function, I am going defer the biopsy to be done as outpatient. We will follow up the patient. 3.Hypertension, controlled, optimal. Continue current medication. 4.Nephrotic range proteinuria, negative serology. As above, we will plan for the biopsy as outpatie nt. 5.Deep venous thrombosis agree with the Lovenox. 6.We will follow up with the primary. Patient cleared from the renal standpoint for discharge plann ing to follow up in the office in 2-3 weeks. BRITTANI Voice ID: [id number] Report ID: [id number]
[2019-03-06] MEDS: INSULIN GLARGINE 100 UNITS/ML SQ SCH (20:43)
[2019-03-07 06:23] LABS: Albumin 1.6 g/dL (3.4-5.0); Magnesium 2.1 mg/dL (1.8-2.4); Phosphorus 3.6 mg/dL (2.5-4.9); Potassium 5.2 mmol/L (3.5-5.1)
[2019-03-07] MEDS: PANTOPRAZOLE 40 MG INJ IVP SCH (08:43)
[2019-03-07] MEDS: SODIUM CHLORIDE 0.9% 10ML INJ IV PRN (08:43)
[2019-03-07] MEDS: INSULIN -REGULAR HUMAN 50 UNIT/0.5 ML ML SQ SCH ×3 (08:44→16:08)
[2019-03-07] MEDS: HYDROCODONE/APAP 10/325 TAB PO PRN (08:46)
[2019-03-07] MEDS: CARVEDILOL 25 MG TAB PO SCH (08:47)
[2019-03-07] MEDS: HYDRALAZINE HCL 25 MG TABLET PO SCH ×2 (08:47→14:09)
[2019-03-07] MEDS: AMOX/K CLAV 500 MG TAB PO SCH ×2 (08:48→12:23)
[2019-03-07] MEDS: JUVEN PACKET PO SCH (08:50)
[2019-03-07] MEDS: FOLIC ACID 1 MG TABLET PO SCH ×2 (08:50→12:23)
[2019-03-07] MEDS: ATORVASTATIN 20 MG TAB PO SCH ×2 (08:50→12:24)
[2019-03-07] MEDS: CARISOPRODOL 350 MG TAB PO SCH ×2 (09:00→14:09)
[2019-03-07 09:56] VITALS: O2SAT 97
[2019-03-07] MEDS ORDERED: BUMETANIDE 1 MG TABLET PO SCH (11:22)
[2019-03-07 12:46] VITALS: TEMP 98.3
--- NOTE | 2019-03-07 13:26 | P.PN ---
Subjective Date of Service: 03/07/19 Chief Complaint: Upper extremity swelling Subjective: Improving Pt with DM, CKD baseline Cr ~1.8 , PVD and CAD admitted for UE swelling, found to have DVT CR trending up, 3.2 today no new complaints Cr stable K 5,2 can be discharged from nephrology point of view [facility].4gm daily Physical Examination - Vital Signs Temperature: 98.3 F Blood Pressure: 145/65 Pulse: 70 Respirations: 16 Pulse Ox (%): 95 - Physical Exam General: Alert, In no apparent distress HEENT: Atraumatic Neck: Supple, Without JVD or thyroid abnormality Respiratory: Clear to auscultation bilaterally, Normal air movement Cardiovascular: Normal pulses, Regular rate/rhythm, Normal S1 S2, No gallops, No rubs, No murmurs Gastrointestinal: Normal bowel sounds, Soft and benign Musculoskeletal: Other (B/l BKA ) - Studies Medications List Reviewed: Yes Assessment And Plan - Current Problems (Diagnosis) (1) IDALMIS (acute kidney injury) Current Visit: Yes Status: Acute - Plan Acute kidney injury on CKD baseline Cr ~1.8 likely progressing Dm nephropathy US: no hydro UPC 6.2, UA: bld, RBC <5 Serology W/U -ve biopsy aborted due to high BP and pt didint feel comfortable with severe pain Cr stable now might try biopsy again as an OP HTN better controlled now DVT On eliquis DM as per PCP Anemia stable CAD off asa and plavix due to epistaxis and coffe ground emesis sacral wound infection cont wound care and Abx
[2019-03-07 17:33] VITALS: BP 140/66
--- NOTE | 2019-03-07 17:35 | P.DS ---
Admission Date: 02/28/19 Discharge Date: 03/07/19 Disposition: ROUTINE DISCHARGE Discharge Condition: FAIR Reason for Admission: Upper extremity swelling Consultations: Nephrology Procedures: Attempted kidney biopsy x2, unsuccessful - Problems (1) IDALMIS (acute kidney injury) Current Visit: Yes Status: Acute (2) Deep venous thrombosis of right upper extremity Current Visit: Yes Status: Acute Qualifiers: Affected thrombotic vein of extremity: brachial Chronicity: acute Qualified Code(s): I82.621 - Acute embolism and thrombosis of deep veins of right upper extremity (3) Local infection of wound Current Visit: No Status: Active (4) Cerebral infarction involving posterior cerebral artery Current Visit: Yes Status: Chronic (5) CAD (coronary artery disease) Onset Date: 12/10/17 Current Visit: No Status: Chronic Qualifiers: Coronary Disease-Associated Artery/Lesion type: [place] artery [place] vs. transplanted heart: [place] heart Associated angina: with stable angina Qualified Code(s): I25.118 - Atherosclerotic heart disease of [place] coronary artery with other forms of angina pectoris (6) CHF (congestive heart failure) Onset Date: 12/10/17 Current Visit: No Status: Chronic Qualifiers: Heart failure type: diastolic Heart failure chronicity: chronic Qualified Code(s): I50.32 - Chronic diastolic (congestive) heart failure (7) DM type 2 (diabetes mellitus, type 2) Onset Date: 05/31/16 Current Visit: No Status: Chronic Qualifiers: Diabetes mellitus [facility] insulin use: with [facility] use Diabetes mellitus complication status: with neurologic complications Diabetes mellitus complication detail: with polyneuropathy Qualified Code(s): E11.42 - Type 2 diabetes mellitus with diabetic polyneuropathy; Z79.4 - long term care social worker (current) use of insulin; Z79.4 - long term care social worker (current) use of insulin; Z79.4 - [facility] ( current) use of insulin; Z79.4 - long term care social worker (current) use of insulin (8) Hyperlipidemia Onset Date: 12/10/17 Current Visit: No Status: Chronic Qualifiers: Hyperlipidemia type: unspecified Qualified Code(s): E78.5 - Hyperlipidemia , unspecified (9) Hypertension Onset Date: 12/15/14 Current Visit: No Status: Chronic Qualifiers: Hypertension type: essential hypertension Qualified Code(s): I10 - Essential (primary) hypertension Brief History of Present Illness: Patient is a 58-year-old gentleman who came into the hospital because his right upper extremity was swollen. He said it was painful and tender. He has been in and out of the hospital in the past. I have taking care of him on the couple of different occasions. He has PAD and required bilateral knee amputation in the past. Patient was admitted about a year ago and was diagnose with a stroke. It is a left SUPPORT REPRESENTATIVE infarct. Patient states that he has been moving his right side fairly well. Unknown etiology as to the cause of the right upper extremity DVT. Workup will need to evaluate for hypercoagulability as well as possible malignancy. Patient be admitted to the hospital for further workup. Hospital Course: Patient was admitted for DVT of right upper extremity. Was likely secondary to immobility of right upper extremity secondary to CVA. He was started on weight based heparin and switched to Eliquis. He had episodes of nosebleed and coffee- ground emesis. His aspirin, Plavix and Eliquis were put on hold. He was then started on weight based Lovenox. His bleeding from the nose and coffee-ground emesis resolves. His hemoglobin remained stable. He was discharged on weight based Lovenox injections. For his acute on chronic kidney disease, he did have elevation of BUN and creatinine. Nephrology was consulted. He was given IV fluid as well as IV Lasix throughout this stay depending on volume status. Kidney biopsy was attempted x2. This was unable to be done due to patient being hypertensive during procedure despite IV blood pressure medications. His kidney function remained stable, therefore it was decided that patient would get kidney biopsy as an outpatient if needed. He was also started on Augmentin for his local infection in the sacral area. Wound cultures were positive for Klebsiella pneumonia and enterococcus, sensitive to Augmentin. He was discharged on oral Augmentin to complete a 10 day course. He otherwise remained stable throughout the stay. He was then cleared for discharge by nephrology. His diagnoses and treatment plan explained to him. All questions were answered and he verbalized understanding. He was then discharged home in a safe and stable manner. He will be following up with his primary care physician along with nephrology within the next week. Vital Signs/Physical Exam: Temp Pulse Resp BP Pulse Ox 98.3 F 70 16 145/65 H 95 03/07/19 13:26 03/07/19 13:26 03/07/19 13:26 03/07/19 13:26 03/07/19 13:26 General: Alert, In no apparent distress, Oriented x3 HEENT: Atraumatic, PERRLA, EOMI Neck: Supple, JVD not distended Respiratory: Clear to auscultation bilaterally, Normal air movement Cardiovascular: Regular rate/rhythm, Normal S1 S2, Edema Gastrointestinal: Normal bowel sounds, No tenderness Musculoskeletal: No tenderness, Swelling Integumentary: No rashes Neurological: Normal speech, Normal tone, Normal affect Lymphatics: No axilla or inguinal lymphadenopathy Laboratory Data at Discharge: WBC 9.6 K/uL (4.3-10.9) D 02/27/19 04:18 Hgb 11.0 g/dL (13.6-17.9) L 02/27/19 04:18 Hct 32.2 % (39.6-49.0) L 02/27/19 04:18 Plt Count 219 K/uL (152-406) 03/01/19 06:30 PT 11.4 SECONDS (9.5-12.5) 03/05/19 06:35 INR 0.96 03/05/19 06:35 APTT 23.8 SECONDS (24.3-36.9) L 03/05/19 06:35 Sodium 139 mmol/L (136-145) 03/07/19 05:20 Potassium 5.2 mmol/L (3.5-5.1) H 03/07/19 05:20 BUN 67 mg/dL (7-18) H 03/07/19 05:20 Creatinine 3.12 mg/dL (0.55-1.3) H 03/07/19 05:20 Glucose 215 mg/dL (74-106) H 03/07/19 05:20 Uric Acid 8.0 mg/dL (3.5-7.2) H 02/27/19 04:18 Phosphorus 3.6 mg/dL (2.5-4.9) 03/07/19 05:20 Magnesium 2.1 mg/dL (1.8-2.4) 03/07/19 05:20 Total Bilirubin 0.2 mg/dL (0.2-1.0) 02/27/19 04:18 AST 22 U/L (15-37) 02/27/19 04:18 ALT 14 U/L (12-78) 02/27/19 04:18 Alkaline Phosphatase 83 U/L (45-117) 02/27/19 04:18 Triglycerides 75 mg/dL (<150) 03/02/19 05:14 Cholesterol 79 mg/dL (<200) 03/02/19 05:14 HDL Cholesterol 31 mg/dL (40-60) L 03/02/19 05:14 Cholesterol/HDL Ratio 2.55 03/02/19 05:14 Home Medications: Atorvastatin Calcium [Lipitor*] 20 mg PO DAILY 02/25/19 Carisoprodol [Soma] 350 mg PO TID 02/25/19 Carvedilol 3.125 mg PO BID 02/25/19 Enalapril [Vasotec*] 10 mg PO DAILY 02/25/19 Folic Acid 0.4 mg PO DAILY 02/25/19 Hydrocodone Bit/Acetaminophen [[place] 10-325 Tablet] 1 each PO Q4HP PRN 02/25/19 Insulin Glargine Human [Lantus*] 27 unit SQ BEDTIME 02/25/19 Insulin Regular, Human [Humulin R U-500 Kwikpen] 7 unit SQ AC 02/25/19 Amox/Clavulanate [Augmentin 500-125 mg Tab*] 500 mg PO BID #10 tab 03/07/19 Bumetanide [Bumex*] 2 mg PO BID 03/07/19 Bumetanide [Bumex*] 2 mg PO BID tab 03/07/19 Enoxaparin Sodium [Lovenox 30 MG INJ] 30 mg SQ DAILY #30 syr 03/07/19 Enoxaparin Sodium [Lovenox 80 MG INJ] 80 mg SQ DAILY #30 syr 03/07/19 Hydralazine [Apresoline*] 50 mg PO TID #90 tab 03/07/19 New Medications: Amox/Clavulanate [Augmentin 500-125 mg Tab*] 500 mg PO BID #10 tab Enoxaparin Sodium [Lovenox 80 MG INJ] 80 mg SQ DAILY #30 syr Enoxaparin Sodium [Lovenox 30 MG INJ] 30 mg SQ DAILY #30 syr Hydralazine [Apresoline*] 50 mg PO TID #90 tab Diet: Renal Activity: Ad davis Followup: Regina Flores MD [ACTIVE - CAN ADMIT] - 1 Week Michael Marshall MD [Primary Care Provider] - 2-3 Days Time spent managing pt's care (in minutes): 55
[2019-03-07] MEDS: Enoxaparin 120 MG/0.8 ML SYR SQ SCH (18:10)
== END 2019-03-07 19:15 | disposition home or self-care (01) | DRG 300 ==
LOC: ER 16:08 → ERHOLD 18:19 → 4TH 19:59 → OBSVTOIN 02-28 10:18 → 2ND 03-02 18:11
PROVIDERS: ADMIT Family Medicine; ATTEND Family Medicine
PROC: 0JJT3ZZ Inspection of Trunk Subcutaneous Tissue and Fascia, Percutaneous Approach (ICD-10-PCS; principal; 2019-03-05)
DX: I82.621 Acute embolism and thrombosis of deep veins of right upper extremity (principal); I13.0 Hypertensive heart and chronic kidney disease with heart failure and stage 1 through stage 4 chronic kidney disease, or unspecified chronic kidney disease; I50.32 Chronic diastolic (congestive) heart failure; N17.9 Acute kidney failure, unspecified; K92.0 Hematemesis; I82.A11 Acute embolism and thrombosis of right axillary vein; I82.B11 Acute embolism and thrombosis of right subclavian vein; I69.331 Monoplegia of upper limb following cerebral infarction affecting right dominant side; E11.22 Type 2 diabetes mellitus with diabetic chronic kidney disease; N18.2 Chronic kidney disease, stage 2 (mild); E11.51 Type 2 diabetes mellitus with diabetic peripheral angiopathy without gangrene; E11.42 Type 2 diabetes mellitus with diabetic polyneuropathy; E11.40 Type 2 diabetes mellitus with diabetic neuropathy, unspecified; E11.319 Type 2 diabetes mellitus with unspecified diabetic retinopathy without macular edema; L89.159 Pressure ulcer of sacral region, unspecified stage; B96.1 Klebsiella pneumoniae [K. pneumoniae] as the cause of diseases classified elsewhere; B96.4 Proteus (mirabilis) (morganii) as the cause of diseases classified elsewhere; B95.2 Enterococcus as the cause of diseases classified elsewhere; D64.9 Anemia, unspecified; R04.0 Epistaxis; Z53.09 Procedure and treatment not carried out because of other contraindication; I25.10 Atherosclerotic heart disease of native coronary artery without angina pectoris; E78.5 Hyperlipidemia, unspecified; F17.210 Nicotine dependence, cigarettes, uncomplicated; Z79.4 Long term (current) use of insulin; Z79.82 Long term (current) use of aspirin; Z89.512 Acquired absence of left leg below knee; Z89.511 Acquired absence of right leg below knee; Z95.1 Presence of aortocoronary bypass graft; Z88.5 Allergy status to narcotic agent; Z88.1 Allergy status to other antibiotic agents; Z91.040 Latex allergy status
CPT/HCPCS: 36415; 71045; 74150; 76770; 80048; 80053; 80061; 80069; 80076; 81003; 81015; 81240; 81241; 82274; 82306; 82570; 82607; 82728; 82746; 82962; 83090; 83520; 83540; 83735; 83880; 83970; 84132; 84156; 84165; 84443; 84466; 84484; 84550; 85025; 85044; 85049; 85300; 85302; 85305; 85306; 85610; 85730; 86021; 86038; 86147; 86160; 86225; 86317; 86430; 86592; 86704; 86706; 87070; 87077; 87086; 87088; 87186; 87205; 87340; 87389; 87522; 93005; 93971; 94640; 96361; 96365; 96375; 97110; 97163; 97166; 97530; 99285; C9113; G0103; G0378; J0360; J0610; J0744; J1644; J1650; J1940; J2250; J2310; J2405; J3010; J7030

== ENCOUNTER 2019-03-11 16:44 | Inpatient (IN) | payer OTHER ==
--- OUTSIDE RECORDS SUMMARY | 2019-03-11 16:46 | XMS REPORT ---
:1960 [facility] Address [address] [place] [address] Care Team Providers Name Role Phone Unavailable Unavailable Unavailable Problems This patient has no known problems. Allergies, Adverse Reactions, Alerts This patient has no known allergies or adverse reactions. Medications This patient has no known medications.
[2019-03-11 18:11] LABS: Absolute Lymphocytes (CBC) 1.2 K/uL (0.7-4.9); Basophils % 1.5 % (0-1.3); Hematocrit 27.7 % (39.6-49.0); Lymphocytes % 12.5 % (15.3-44.8); MPV 8.2 fL (7.6-11.3); RBC Red Blood Cell Count 3.17 M/uL (4.33-5.43)
[2019-03-11 18:12] LABS: Protime INR 1.07
[2019-03-11] MEDS ORDERED: MORPHINE 4 MG/ML SYR ONE (18:15)
[2019-03-11] MEDS ORDERED: ONDANSETRON 4 MG/2 ML VIAL ONE (18:16)
[2019-03-11 18:32] LABS: ALT/SGPT 8 U/L (12-78); AST/SGOT 7 U/L (15-37); Albumin 2.1 g/dL (3.4-5.0); Alkaline Phosphatase 74 U/L (45-117); BUN Blood Urea Nitrogen 41 mg/dL (7-18); Bicarbonate 27 mmol/L (21-32); Bilirubin Direct < 0.1 mg/dL (0-0.2); Bilirubin Total 0.1 mg/dL (0.2-1.0); Glucose Level 205 mg/dL (74-106); Magnesium 1.9 mg/dL (1.8-2.4); NT PRO-BNP 21625 pg/mL (<125); Potassium 4.3 mmol/L (3.5-5.1); Protein, Total 6.6 g/dL (6.4-8.2); Sodium Level 142 mmol/L (136-145); Troponin (Emerg Dept Use Only) 0.02 ng/mL (0.0-0.045)
--- NOTE | 2019-03-11 20:16 | RAD REPORT ---
EXAM DESCRIPTION: US - Scrotum Testicles - 03/11/2019 7:15 pm CLINICAL HISTORY: Scrotal pain and swelling COMPARISON: None. FINDINGS: A 5 mm cyst is present in a normal size right epididymis. Right testicle shows homogeneous echogenicity with no intratesticular mass. Left epididymis is normal in size. No mass of the left te sticle. Doppler evaluation shows blood flow within each testicle. Trace hydroceles are present. There is prominent scrotal wall edema and thickening. No abscess or drainable fluid collections seen. IMPRESSION: Prominent thickening and edema throughout the scrotal tissues. No abscess or drainable f luid collection. Normal blood flow within each testicle. No acute testicle or epididymis finding.
[2019-03-11] MEDS ORDERED: HYDROMORPHONE HCL 1 MG/ML INJ ONE ×2 (20:37→22:41)
[2019-03-11] MEDS ORDERED: NA CHLORIDE 0.9% 100 ML IV ONE ×2 (20:37→22:44)
[2019-03-11] MEDS ORDERED: ACETAMINOPHEN 500 MG TAB PO PRN (22:30)
[2019-03-11] MEDS ORDERED: FUROSEMIDE 40 MG/4 ML VIAL IV ONE (22:30)
[2019-03-11] MEDS ORDERED: ALBUMIN HUMAN 25% 100 ML IV ONE (22:30)
[2019-03-11] MEDS ORDERED: MORPHINE 2 MG/ML SYR IV PRN (22:30)
[2019-03-11] MEDS ORDERED: ONDANSETRON 4 MG/2 ML VIAL IV PRN (22:30)
--- NOTE | 2019-03-11 22:30 | ER ---
Nurse's Notes [facility] Name: Sami Garcias Age: 58 yrs Sex: Male : 1960 Arrival Date: 03/11/2019 Time: 16:46 Bed 17 Private MD: Diagnosis: Scrotal pain/swelling, urinary retention, Presentation: 03/11 16:47 Presenting complaint: EMS states: Pt recently hospitalized for swelling of R side and ph blood clot in R arm, d/c home , instructed to return if swelling worsens, c/o swelling to R arm and genitals, reports that they were unable to afford Lovenox and she has been giving aspirin and plavix instead, pt c/o sever pain to genital area, states, " It feel like a dog kicked me in the nuts.". Transition of care: patient was not received from another setting of care. Onset of symptoms was March 11, 2019. Risk Assessment: Do you want to hurt yourself or someone else? Patient reports no desire to harm self or others. Initial Sepsis Screen: Does the patient meet any 2 criteria? No. Patient's initial sepsis screen is negative. Does the patient have a suspected source of infection? No. Patient's initial sepsis screen is negative. Care prior to arrival: Glucose check: 253. 16:47 Method Of Arrival: EMS: [facility] ph 16:47 Acuity: THAD 3 ph Historical: - Allergies: 16:53 BACLOFEN; ph 16:53 Latex, Natural Rubber; ph - Home Meds: 18:13 aspirin 81 mg Oral TbEC 1 tab once daily [Active]; atorvastatin 20 mg Oral tab 1 tab ph [Active]; bumetanide 1 mg Oral tab 2 tabs once daily [Active]; carvedilol 3.125 mg Oral tab 1 tab 2 times per day [Active]; clopidogrel 75 mg Oral tab 1 tab once daily [Active]; enalapril maleate 10 mg Oral tab 1 tab once daily [Active]; folic acid 400 mcg Oral tab 1 tab once daily [Active]; Humalog 100 unit/mL Sub-Q crtg 7 unit with meals [Active]; Lantus 100 unit/mL Sub-Q soln 27 unit nightly [Active]; metformin 1,000 mg Oral tr24 1 tab twice a day [Active]; [place] 10-325 mg Oral tab unknown frequency [Active]; Soma 350 mg Oral tab [Active]; - PMHx: 16:53 blood clots in legs; Diabetes - IDDM; dka; failed heart cath; heart blockage; ph Hypertension; sepsis with L leg; - PSHx: 16:53 Below the knee amputations sabrina; open heart sx- single bypass; staph sx; ph - Immunization history:: Adult Immunizations up to date. - Social history:: Smoking status: Patient/guardian denies using tobacco. - Ebola Screening: : No symptoms or risks identified at this time. Screenin:06 Abuse screen: Denies threats or abuse. Denies injuries from another. Nutritional ph screening: No deficits noted. Tuberculosis screening: No symptoms or risk factors identified. Fall Risk No fall in past 12 months (0 pts). Secondary diagnosis (15 points) impaired mobility, IV access (20 points). Ambulatory Aid- None/Bed Rest/Nurse Assist (0 pts). Gait- Impaired (20 pts.). Mental Status- Oriented to own ability (0 pts). Total Burr Fall Scale indicates High Risk Score (45 or more points). Fall prevention measures have been instituted. Side Rails Up X 2 Placed Close to Nursing Station Family Present and informed to notify staff if the need to leave the bedside As available patient and family educated on Fall Prevention Program and Strategies. Assessment: 18:08 General: Appears in no apparent distress. uncomfortable, obese, well groomed, Behavior ph is cooperative, appropriate for age, anxious, Denies fever. Pain: Complains of pain in scrotum. Neuro: Level of Consciousness is awake, alert, obeys commands, Oriented to person, place, time, situation, Denies weakness dizziness. Cardiovascular: Denies chest pain, lightheadedness, nausea, shortness of breath, Capillary refill < 3 seconds in bilateral fingers Patient's skin is warm and dry. Edema is 1+ to right upper arm, right forearm, right wrist and right hand. Cardiovascular: Edema is 2+ to pubic area. Respiratory: Airway is patent Respiratory effort is even, unlabored, Respiratory pattern is regular, symmetrical, Denies cough, shortness of breath. GI: Patient currently denies abdominal pain, diarrhea, nausea, vomiting. : Swelling noted on scrotum. Derm: Skin is intact, Skin is pale. Musculoskeletal: Amputation of Other: bilateral BKA Circulation, motion, and sensation intact. 18:14 Reassessment: Patient appears in no apparent distress at this time. Patient and/or ph family updated on plan of care and expected duration. Pain level reassessed. Patient is alert, oriented x 3, equal unlabored respirations, skin warm/dry/pink. Dr Howard at bedside to speak w/ pt. 19:20 Reassessment: Patient appears in no apparent distress at this time. Patient and/or cc3 family updated on plan of care and expected duration. Pain level reassessed. Patient is alert, oriented x 3, equal unlabored respirations, skin warm/dry/pink. Received this male patient from morning shift JUAN DIEGO Wheeler as a case of testicular and right arm swelling with IV cannula gauge 22 at the left forearm saline locked. Patient just came back from ultrasound department, awaiting result. General: Appears in no apparent distress. uncomfortable, obese, Behavior is calm, cooperative, appropriate for age, Denies fever. Pain: Complains of pain in pubic area and scrotum. Neuro: Level of Consciousness is awake, alert, obeys commands, Oriented to person, place, time, situation, Denies weakness dizziness. Cardiovascular: Denies chest pain, lightheadedness, nausea, shortness of breath, Capillary refill < 3 seconds Patient's skin is warm and dry. Edema is 1+ to right hand and right wrist and right forearm and right upper arm is 2+ to pubic area. Respiratory: Airway is patent Respiratory effort is even, unlabored, Respiratory pattern is regular, symmetrical. GI: Abdomen is round obese, Patient currently denies abdominal pain, diarrhea, nausea, vomiting. : Swelling noted on scrotum. EENT: No signs and/or symptoms were reported regarding the EENT system. Derm: Skin is intact, Skin is pale. Musculoskeletal: Amputation of Other: bilateral BKA Circulation, motion, and sensation intact. 20:13 Reassessment: Patient appears in no apparent distress at this time. Patient and/or cc3 family updated on plan of care and expected duration. Pain level reassessed. Patient is alert, oriented x 3, equal unlabored respirations, skin warm/dry/pink. Patient said his pain's not relieved with the Morphine that he received earlier and is still in pain now, Dr. Li informed and ordered for Dilaudid 1mg IV in 100 mL NS over 30 minutes. 21:04 Reassessment: Patient appears in no apparent distress at this time. Patient and/or cc3 family updated on plan of care and expected duration. Pain level reassessed. Patient is alert, oriented x 3, equal unlabored respirations, skin warm/dry/pink. Patient said his scrotal pain's not relieved as well with the Dilaudid, Dr. Li informed. 22:30 Reassessment: Patient appears in no apparent distress at this time. Patient and/or cc3 family updated on plan of care and expected duration. Pain level reassessed. Patient is alert, oriented x 3, equal unlabored respirations, skin warm/dry/pink. Dr. Li ordered for another Dilaudid 1mg IV in 100 mL NS over 30 minutes. ophthalmic technician Maria E inserted indwelling gillis's catheter Fr. 18 aseptically as ordered, patient tolerated well and said he was slightly relieved of pain after draining his urine out. Patient states feeling better. 23:05 Reassessment: Patient appears in no apparent distress at this time. Patient and/or cc3 family updated on plan of care and expected duration. Pain level reassessed. Patient is alert, oriented x 3, equal unlabored respirations, skin warm/dry/pink. Patient for admission. Room available at 414, called for report but was told that the nurse who will receive the patient will just call me back. 23:25 Reassessment: JUAN DIEGO San called and report handed over to her for continuity of care and cc3 management. 23:37 Reassessment: Patient appears in no apparent distress at this time. Patient and/or cc3 family updated on plan of care and expected duration. Pain level reassessed. Patient is alert, oriented x 3, equal unlabored respirations, skin warm/dry/pink. Patient left ER for admission vitally stable by stretcher escorted by ophthalmic technician Maria E and the patient's . No valuables left in the patient's room. Patient states feeling better. Patient states symptoms have improved. Vital Signs: 16:51 BP 151 / 73; Pulse 85; Resp 18; Temp 98.3; Pulse Ox 96% on R/A; Weight 100.24 kg; ph 18:13 BP 140 / 84; Pulse 83; Resp 18; Pulse Ox 97% on R/A; ph 19:40 BP 139 / 69; Pulse 74; Resp 17 S; Temp 98.7(O); Pulse Ox 98% on R/A; cc3 20:08 BP 144 / 69; Pulse 72; Resp 17 S; Pulse Ox 97% on R/A; Pain 10/10; cc3 21:30 BP 124 / 65; Pulse 69; Resp 15 S; Pulse Ox 97% on R/A; cc3 22:30 BP 146 / 77; Pulse 89; Resp 15 S; Pulse Ox 96% on R/A; Pain 10/10; cc3 23:20 BP 138 / 71; Pulse 72; Resp 17 S; Pulse Ox 97% on R/A; Pain 8/10; cc3 ED Course: 16:46 Patient arrived in ED. ph 16:51 Triage completed. ph 17:00 Saeid Li MD is Attending Physician. kdr 17:04 Summer Pimentel RN is Primary Nurse. ph 17:50 Initial lab(s) drawn, by ma, sent to lab. Inserted saline lock: 22 gauge in left ph forearm, using aseptic technique. Blood collected. Missed attempt(s): 22 gauge in left forearm. Bleeding controlled, band aid applied, catheter tip intact. 17:56 EKG done, by fire management technician. reviewed by Saeid Li MD. at1 18:07 Arm band placed on Patient placed in an exam room, on a stretcher, on monitor technician, ph on pulse oximetry. 18:07 Patient has correct armband on for positive identification. Bed in low position. Call ph light in reach. Side rails up X2. school lunch monitor on. Pulse ox on. NIBP on. Door closed. Noise minimized. Head of bed elevated. 18:09 XRAY Chest (1 view) In Process Unspecified. EDMS 19:19 US Scrotum Testicles In Process Unspecified. EDMS 22:28 Shima Rowe MD is Hospitalizing Provider. kdr 22:30 Gillis cath inserted, using sterile technique, 18 Fr., by driver license examiner, balloon inflated, to cm6 gravity drainage, urine specimen collected. returned cloudy urine. Patient tolerated well. 23:40 No provider procedures requiring assistance completed. Patient admitted, IV remains in cc3 place. Administered Medications: 18:04 Drug: morphine 4 mg Route: IVP; Site: left forearm; ph 19:07 Follow up: Response: No adverse reaction; Pain is decreased ph 18:05 Drug: Zofran 4 mg Route: IVP; Site: left forearm; ph 19:07 Follow up: Response: No adverse reaction ph 20:22 Drug: Dilaudid 1 mg Route: IVP; Site: left forearm; cc3 21:00 Follow up: Response: No adverse reaction; Pain is unchanged, physician notified cc3 22:30 Drug: Dilaudid 1 mg Route: IVP; Site: left forearm; cc3 23:00 Follow up: Response: No adverse reaction cc3 Outcome: 22:29 Decision to Hospitalize by Provider. kdr 23:37 Patient left the ED. cc3 23:37 Admitted to Tele accompanied by tech, family with patient, via stretcher, room 414, cc3 with chart, Report called to JUAN DIEGO San 23:37 Condition: stable 23:37 Instructed on the need for admit, Demonstrated understanding of instructions. Signatures: Dispatcher [employer] Saeid Dhaliwal MD MD kdr Gonzales, Amanda, chip crusher operator EKG Tat1 Summer Pimentel RN RN Araceli Jimenez cc3 Maria E Charles cm6 Corrections: (The following items were deleted from the chart) : 20:13 Reassessment: Patient appears in no apparent distress at this time. Patient cc3 and/or family updated on plan of care and expected duration. Pain level reassessed. Patient is alert, oriented x 3, equal unlabored respirations, skin warm/dry/pink. Patient said his pain's not relieved with the Morphine that he received earlier and is still in pain now, Dr. Li informed. cc3 03/12 00:25 03/11 23:37 Reassessment: Patient appears in no apparent distress at this time. Patient cc3 and/or family updated on plan of care and expected duration. Pain level reassessed. Patient is alert, oriented x 3, equal unlabored respirations, skin warm/dry/pink. Patient left ER for admission vitally stable by stretcher escorted by ophthalmic techniciansteven Sanderson and the patient's . No valuables left in the patient's room. Patient states feeling better. cc3 03/12 00:03/11 20:08 BP 144 / 69; Pulse 72bpm; Resp 17bpm; Spontaneous; Pulse Ox 97% RA; cc3 cc3 03/12 00:03/11 22:30 BP 146 / 77; Pulse 89bpm; Resp 15bpm; Spontaneous; Pulse Ox 96% RA; cc3 cc3 03/12 00:03/11 23:20 BP 138 / 71; Pulse 72bpm; Resp 17bpm; Spontaneous; Pulse Ox 97% RA; cc3 cc3
--- NOTE | 2019-03-11 22:31 | EDPHYS ---
Physician Documentation [facility] Name: Sami Garcias Age: 58 yrs Sex: Male : 1960 Arrival Date: 03/11/2019 Time: 16:46 Bed 17 Private MD: ED Physician Saeid Li HPI: 03/11 21:33 This 58 yrs old Male presents to ER via EMS with complaints of Testicular kdr Swelling, Arm Problem. 21:33 The patient was recently admitted for right arm swelling and groin/scrotal pain. He was kdr discharged on the and has continued to have pain in his arm and also in his scrotum has continued to be swollen and painful. Onset: The symptoms/episode began/occurred at an unknown time. Severity of symptoms: At their worst the symptoms were mild moderate just prior to arrival, in the emergency department the symptoms are unchanged. The patient has experienced similar episodes in the past, chronically. The patient has been recently seen by a physician: The patient has been recently been admitted at [facility], was discharged last week. Historical: - Allergies: 16:53 BACLOFEN; ph 16:53 Latex, Natural Rubber; ph - Home Meds: 18:13 aspirin 81 mg Oral TbEC 1 tab once daily [Active]; atorvastatin 20 mg Oral tab 1 tab ph [Active]; bumetanide 1 mg Oral tab 2 tabs once daily [Active]; carvedilol 3.125 mg Oral tab 1 tab 2 times per day [Active]; clopidogrel 75 mg Oral tab 1 tab once daily [Active]; enalapril maleate 10 mg Oral tab 1 tab once daily [Active]; folic acid 400 mcg Oral tab 1 tab once daily [Active]; Humalog 100 unit/mL Sub-Q crtg 7 unit with meals [Active]; Lantus 100 unit/mL Sub-Q soln 27 unit nightly [Active]; metformin 1,000 mg Oral tr24 1 tab twice a day [Active]; [place] 10-325 mg Oral tab unknown frequency [Active]; Soma 350 mg Oral tab [Active]; - PMHx: 16:53 blood clots in legs; Diabetes - IDDM; dka; failed heart cath; heart blockage; ph Hypertension; sepsis with L leg; - PSHx: 16:53 Below the knee amputations sabrina; open heart sx- single bypass; staph sx; ph - Immunization history:: Adult Immunizations up to date. - Social history:: Smoking status: Patient/guardian denies using tobacco. - Ebola Screening: : No symptoms or risks identified at this time. ROS: 21:33 Constitutional: Negative for fever, chills, and weight loss, Eyes: Negative for injury, kdr pain, redness, and discharge, ENT: Negative for injury, pain, and discharge, Neck: Negative for injury, pain, and swelling, Cardiovascular: Negative for chest pain, palpitations, and edema, Respiratory: Negative for shortness of breath, cough, wheezing, and pleuritic chest pain, Abdomen/GI: Negative for abdominal pain, nausea, vomiting, diarrhea, and constipation, Back: Negative for injury and pain, Skin: Negative for injury, rash, and discoloration, Neuro: Negative for headache, weakness, numbness, tingling, and seizure activity. Psych: Negative for depression, anxiety, suicide ideation, homicidal ideation, and hallucinations. 21:33 : Positive for testicular pain Negative for urinary symptoms, hematuria, pelvic pain, flank pain, burning with urination, difficulty urinating. Exam: 21:33 Constitutional: This is a well developed, well nourished patient who is awake, alert, kdr and in no acute distress. Head/Face: Normocephalic, atraumatic. Eyes: Pupils equal round and reactive to light, extra-ocular motions intact. Lids and lashes normal. Conjunctiva and sclera are non-icteric and not injected. Cornea within normal limits. Periorbital areas with no swelling, redness, or edema. Neck: Trachea midline, no thyromegaly or masses palpated, and no cervical lymphadenopathy. Supple, full range of motion without nuchal rigidity, or vertebral point tenderness. No Meningismus. Chest/axilla: Normal chest wall appearance and motion. Nontender with no deformity. No lesions are appreciated. Cardiovascular: Regular rate and rhythm with a normal S1 and S2. No gallops, murmurs, or rubs. Normal PMI, no JVD. No pulse deficits. Respiratory: Lungs have equal breath sounds bilaterally, clear to auscultation and percussion. No rales, rhonchi or wheezes noted. No increased work of breathing, no retractions or nasal flaring. Abdomen/GI: Soft, non-tender, with normal bowel sounds. No distension or tympany. No guarding or rebound. No evidence of tenderness throughout. Back: No spinal tenderness. No costovertebral tenderness. Full range of motion. Skin: Warm, dry with normal turgor. Normal color with no rashes, no lesions, and no evidence of cellulitis. Neuro: Awake and alert, GCS 15, oriented to person, place, time, and situation. Cranial nerves II-XII grossly intact. Motor strength 5/5 in all extremities. Sensory grossly intact. Cerebellar exam normal. Normal gait. Psych: Awake, alert, with orientation to person, place and time. Behavior, mood, and affect are within normal limits. 21:33 : Male external genitalia: swelling, scrotal, that is severe, tenderness, of the scrotum is noted, that is moderate. 21:33 Musculoskeletal/extremity: Bilateral partial amputations of the lower extremities. Vital Signs: 16:51 BP 151 / 73; Pulse 85; Resp 18; Temp 98.3; Pulse Ox 96% on R/A; Weight 100.24 kg; ph 18:13 BP 140 / 84; Pulse 83; Resp 18; Pulse Ox 97% on R/A; ph 19:40 BP 139 / 69; Pulse 74; Resp 17 S; Temp 98.7(O); Pulse Ox 98% on R/A; cc3 20:08 BP 144 / 69; Pulse 72; Resp 17 S; Pulse Ox 97% on R/A; Pain 10/10; cc3 21:30 BP 124 / 65; Pulse 69; Resp 15 S; Pulse Ox 97% on R/A; cc3 22:30 BP 146 / 77; Pulse 89; Resp 15 S; Pulse Ox 96% on R/A; Pain 10/10; cc3 23:20 BP 138 / 71; Pulse 72; Resp 17 S; Pulse Ox 97% on R/A; Pain 8/10; cc3 MDM: 21:33 Data reviewed: vital signs, nurses notes, lab test result(s), radiologic studies. kdr Counseling: I had a detailed discussion with the patient and/or guardian regarding: the historical points, exam findings, and any diagnostic results supporting the discharge/admit diagnosis, lab results, radiology results. ED course: D/w Dr. Howard since she had been involved in his prior care. After her evaluation, she felt that he may be safely discharged if all of the labs and US were negative. The patient has continued to have pain despite several rounds of pain medication. Have consulted Dr. Rowe to give final evaluation for admission for pain control. 22:29 Patient medically screened. [facility] 03/11 17:24 Order name: Basic Metabolic Panel; Complete Time: 19:28 03/11 17:24 Order name: CBC with Diff; Complete Time: : 03/11 17:24 Order name: LFT's; Complete Time: : 03/11 17:24 Order name: Magnesium; Complete Time: : 03/11 17:24 Order name: NT PRO-BNP; Complete Time: : 03/11 17:24 Order name: PT-INR; Complete Time: : 03/11 17:24 Order name: Troponin (emerg Dept Use Only); Complete Time: 19: 03/11 22:35 Order name: CBC with Automated Diff [facility] 03/11 22:35 Order name: CBC with Automated Diff [facility] 03/11 22:35 Order name: Comprehensive Metabolic Panel [facility] 03/11 22:35 Order name: Comprehensive Metabolic Panel [facility] 03/11 22:35 Order name: Protime (+INR) [facility] 03/11 22:35 Order name: Protime (+INR) [facility] 03/11 22:35 Order name: PTT, Activated Partial Thromb [facility] 03/11 17:24 Order name: XRAY Chest (1 view) 03/11 17:24 Order name: EKG; Complete Time: 17:30 03/11 17:24 Order name: Cardiac monitoring; Complete Time: 17:45 03/11 17:24 Order name: EKG - Nurse/Tech; Complete Time: 18:05 03/11 17:24 Order name: IV Saline Lock; Complete Time: 18:05 03/11 17:24 Order name: Labs collected and sent; Complete Time: 18:05 03/11 18:08 Order name: US Scrotum Testicles; Complete Time: 20:50 [facility] 03/11 22:35 Order name: CONS Pharmacy Consult [facility] 03/11 22:35 Order name: Regular [facility] 03/11 22:35 Order name: PTT, Activated Partial Thromb [facility] 03/11 22:37 Order name: Urine Dipstick--Ancillary (enter results) ar5 03/11 23:34 Order name: Urine Dipstick-Ancillary [facility] 03/11 17:24 Order name: O2 Per Protocol; Complete Time: 17:49 ph 03/11 17:24 Order name: O2 Sat Monitoring; Complete Time: 17:49 ph 03/11 22:10 Order name: Barron; Complete Time: 22:48 kdr Administered Medications: 18:04 Drug: morphine 4 mg Route: IVP; Site: left forearm; ph 19:07 Follow up: Response: No adverse reaction; Pain is decreased ph 18:05 Drug: Zofran 4 mg Route: IVP; Site: left forearm; ph 19:07 Follow up: Response: No adverse reaction ph 20:22 Drug: Dilaudid 1 mg Route: IVP; Site: left forearm; cc3 21:00 Follow up: Response: No adverse reaction; Pain is unchanged, physician notified cc3 22:30 Drug: Dilaudid 1 mg Route: IVP; Site: left forearm; cc3 23:00 Follow up: Response: No adverse reaction cc3 Disposition: 03/11/19 22:29 Hospitalization ordered by Shima Rowe for Observation. Preliminary diagnosis is Scrotal pain/swelling, urinary retention,. - Bed requested for Telemetry/MedSurg (observation). - Status is Observation. cc3 - Condition is Fair. - Problem is an acute exacerbation. - Symptoms have improved. UTI on Admission? Yes Signatures: Dispatcher [employer] [facility] Saeid Li MD MD [facility] Summer Pimentel RN RN Melissa Alfredo RN RN Araceli Jimenez cc3 Corrections: (The following items were deleted from the chart) 22:44 22:29 Hospitalization Ordered by Shima Rowe MD for Observation. Preliminary cg diagnosis is Scrotal pain/swelling, urinary retention,. Bed requested for Telemetry/MedSurg (observation). Status is Observation. Condition is Fair. Problem is an acute exacerbation. Symptoms have improved. UTI on Admission? Yes. kdr 23:37 22:44 03/11/2019 22:29 Hospitalization Ordered by Shima Rowe MD for Observation. cc3 Preliminary diagnosis is Scrotal pain/swelling, urinary retention,. Bed requested for Telemetry/MedSurg (observation). Status is Observation. Condition is Fair. Problem is an acute exacerbation. Symptoms have improved. UTI on Admission? Yes. cg
[2019-03-11] MEDS ORDERED: HYDROMORPHONE HCL 1 MG/ML INJ IV PRN (22:46)
[2019-03-11] MEDS ORDERED: CEFTRIAXONE/SWI 1gm 1 GM/10 ML SYR IV SCH (23:00)
[2019-03-11 23:33] LABS: Urine Blood 2+ (NEG); Urine Glucose TRACE (NEG); Urine Protein 3+ (NEG); Urine Specific Gravity 1.025 (1.005-1.030); Urine pH 5.5 (5.0-7.0)
[2019-03-11] MEDS ORDERED: FUROSEMIDE 40 MG/4 ML VIAL ONE (23:42)
[2019-03-11] MEDS: MORPHINE 4 MG/ML SYR IV PRN (23:59)
[2019-03-12] MEDS: ALBUTEROL 2.5 MG/3 ML NEB SOL NEB SCH ×4 (01:20→20:00)
[2019-03-12] MEDS: IPRATROPIUM BROM 0.5MG/2.5ML NEB SCH ×4 (01:20→20:00)
[2019-03-12 01:39] VITALS: BMI 29.9
[2019-03-12] MEDS: HYDROCODONE/APAP 10/325 TAB PO PRN ×3 (03:24→17:03)
[2019-03-12] MEDS: MORPHINE 4 MG/ML SYR IV PRN ×2 (04:15→08:23)
[2019-03-12 06:01] LABS: Albumin 2.2 g/dL (3.4-5.0); Bilirubin Total 0.2 mg/dL (0.2-1.0); Protein, Total 6.2 g/dL (6.4-8.2)
[2019-03-12 06:03] LABS: Absolute Lymphocytes (CBC) 1.3 K/uL (0.7-4.9); Basophils % 0.9 % (0-1.3); Lymphocytes % 15.9 % (15.3-44.8); MPV 8.3 fL (7.6-11.3); RBC Red Blood Cell Count 2.67 M/uL (4.33-5.43)
[2019-03-12 06:06] LABS: Protime INR 1.11
--- NOTE | 2019-03-12 07:45 | P.HP ---
Certification for Inpatient Patient admitted to: Observation With expected LOS: <2 Midnights Patient will require the following post-hospital care: None Practitioner: I am a practitioner with admitting privileges, knowledge of patient current condition, hospital course, and medical plan of care. Services: Services provided to patient in accordance with Admission requirements found in Title 42 Section 412.3 of the Code of Federal Regulations Patient History Date of Service: 03/12/19 Reason for admission: Fluid retention/urinary retention History of Present Illness: Patient is a 58-year-old gentleman who came to the hospital with bladder retention and urinary retention. Patient has not voided for the last 24 hr. In the emergency room patient had a Sharpe catheter with over 1 L of urine. It was clamped and patient put out about 500 more. Patient also has anasarca however the family states that that is slightly improved. They did not pickling solution maker their Lovenox injection because it was too expensive. Patient has only been on aspirin Plavix were right upper extremity DVT. Will restart Lovenox while in the hospital here. Patient will also need outpatient follow-up with Urology. The main concern is the swelling on the right side which has progressed since discharge. Will place patient on albumin and Lasix drip for 24 hr and then possibly discharge home with outpatient follow-up with your urology. Will get case management assistance for anti coagulation treatment for at least 1 month. Allergies hydromorphone HCl [From Dilaudid] Allergy (Severe, Verified 12/07/17 22:07) Nausea/Vomiting Latex, Natural Rubber Allergy (Verified 02/25/19 00:03) Itching BACLOFEN Allergy (Uncoded 02/25/19 00:03) Nausea/Vomiting Home Medications: Atorvastatin Calcium [Lipitor*] 20 mg PO DAILY 02/25/19 Carisoprodol [Soma] 350 mg PO TID 02/25/19 Carvedilol 3.125 mg PO BID 02/25/19 Enalapril [Vasotec*] 10 mg PO DAILY 02/25/19 Folic Acid 0.4 mg PO DAILY 02/25/19 Hydrocodone Bit/Acetaminophen [[place] 10-325 Tablet] 1 each PO Q4HP PRN 02/25/19 Insulin Glargine Human [Lantus*] 27 unit SQ BEDTIME 02/25/19 Insulin Regular, Human [Humulin R U-500 Kwikpen] 7 unit SQ AC 02/25/19 Amox/Clavulanate [Augmentin 500-125 mg Tab*] 500 mg PO BID #10 tab 03/07/19 Bumetanide [Bumex*] 2 mg PO BID 03/07/19 Bumetanide [Bumex*] 2 mg PO BID tab 03/07/19 Enoxaparin Sodium [Lovenox 30 MG INJ] 30 mg SQ DAILY #30 syr 03/07/19 Enoxaparin Sodium [Lovenox 80 MG INJ] 80 mg SQ DAILY #30 syr 03/07/19 Hydralazine [Apresoline*] 50 mg PO TID #90 tab 03/07/19 - Past Medical/Surgical History Diabetic: Yes -: IDDM -: HTN -: herniation of neck -: KIdney insufficiency -: UTI -: OSTEOMYELITIS -: CELLULITIS -: MRSA blood/wound -: left shoulder rotator cuff tear -: smoker -: CAD -: CVA -: sabrina leg below knee amputation -: I&D, debridement sabrina feet -: bypass -: staph infection on back I&D. -: staph infection to scrotum I&D. - Family History Father Medical History: Heart disease, Hypertension, Diabetes Mother Medical History: Heart disease, Hypertension, Diabetes Brother Medical History: Heart disease, Hypertension, Diabetes Sister Medical History: Diabetes - Social History Smoking Status: Unknown if ever smoked Alcohol use: No Caffeine use: Yes Place of Residence: Home Review of Systems 10-point ROS is otherwise unremarkable Physical Examination - Vital Signs Temperature: 97.0 F Blood Pressure: 119/56 Pulse: 85 Respirations: 17 Pulse Ox (%): 95 - Physical Exam General: Alert, In no apparent distress, Oriented x2, Confused HEENT: Atraumatic, PERRLA, Mucous membr. moist/pink, EOMI, Sclerae nonicteric Neck: Supple, 2+ carotid pulse no bruit, No LAD, Without JVD or thyroid abnormality Respiratory: Clear to auscultation bilaterally, Normal air movement Cardiovascular: Regular rate/rhythm, Normal S1 S2, Systolic murmur Gastrointestinal: Normal bowel sounds, Soft and benign, Non-distended, No tenderness Musculoskeletal: No tenderness, Other ( BILATERAL AKA) Integumentary: No rashes Neurological: Normal speech, Normal tone, Sensation intact, Cranial nerves 3-12 intact, Abnormal gait, Abnormal strength Lymphatics: No axilla or inguinal lymphadenopathy - Studies Laboratory Data (last 24 hrs) 03/11/19 17:45: PT 12.6 H, INR 1.07 03/11/19 17:45: WBC 9.9, Hgb 9.3 L, Hct 27.7 L, Plt Count 438 H D 03/11/19 17:45: Sodium 142, Potassium 4.3, BUN 41 H D, Creatinine 2.54 H, Glucose 205 H, Magnesium 1.9, Total Bilirubin 0.1 L, AST 7 L, ALT 8 L, Alkaline Phosphatase 74 Assessment & Plan - Problems (Diagnosis) (1) Bladder retention Current Visit: Yes Status: Acute (2) Anasarca Current Visit: Yes Status: Acute (3) Hypoalbuminemia Current Visit: Yes Status: Acute (4) Swelling of limb Current Visit: No Status: Active (5) CVA (cerebral vascular accident) Onset Date: 12/10/17 Current Visit: No Status: Acute Qualifiers: CVA mechanism: stenosis Precerebral and cerebral artery: middle cerebral artery Laterality of affected vessel: left Qualified Code(s): I63.512 - Cerebral infarction due to unspecified occlusion or stenosis of left middle cerebral artery (6) Deep venous thrombosis of right upper extremity Current Visit: No Status: Acute Qualifiers: Affected thrombotic vein of extremity: brachial Chronicity: acute Qualified Code(s): I82.621 - Acute embolism and thrombosis of deep veins of right upper extremity (7) Fever Onset Date: 10/26/14 Current Visit: No Status: Acute (8) Hyperglycemia Onset Date: 10/02/14 Current Visit: No Status: Acute (9) CAD (coronary artery disease) Onset Date: 12/10/17 Current Visit: No Status: Chronic Qualifiers: Coronary Disease-Associated Artery/Lesion type: [place] artery [place] vs. transplanted heart: tetlin heart Associated angina: with stable angina Qualified Code(s): I25.118 - Atherosclerotic heart disease of tetlin coronary artery with other forms of angina pectoris (10) CHF (congestive heart failure) Onset Date: 12/10/17 Current Visit: No Status: Chronic Qualifiers: Heart failure type: diastolic Heart failure chronicity: chronic Qualified Code(s): I50.32 - Chronic diastolic (congestive) heart failure (11) DM type 2 (diabetes mellitus, type 2) Onset Date: 05/31/16 Current Visit: No Status: Chronic Qualifiers: Diabetes mellitus termite control technician insulin use: with termite control technician use Diabetes mellitus complication status: with neurologic complications Diabetes mellitus complication detail: with polyneuropathy Qualified Code(s): E11.42 - Type 2 diabetes mellitus with diabetic polyneuropathy; Z79.4 - salvage determiner (current) use of insulin; Z79.4 - salvage determiner (current) use of insulin; Z79.4 - salvage determiner ( current) use of insulin; Z79.4 - salvage determiner (current) use of insulin (12) Hyperlipidemia Onset Date: 12/10/17 Current Visit: No Status: Chronic Qualifiers: Hyperlipidemia type: unspecified Qualified Code(s): E78.5 - Hyperlipidemia , unspecified (13) Hypertension Onset Date: 12/15/14 Current Visit: No Status: Chronic Qualifiers: Hypertension type: essential hypertension Qualified Code(s): I10 - Essential (primary) hypertension - Plan PLAN: 1. SHARPE CATHETER IN PLACE 2. STRICT I&OS 3. MONITOR LABS INCLUDING ELECTROLYTES AND H&H 4. OUTPATIENT FOLLOW-UP WITH UROLOGY 5. INCREASE NUTRITIONAL SUPPLEMENTATION 6. GI AND DVT PROPHYLAXIS - Advance Directives Does patient have a Living Will: No Does patient have a Durable POA for Healthcare: No - Code Status/Comfort Care Code Status Assessed: Yes Code Status: Full Code Critical Care: No Time Spent Managing PTS Care (In Minutes): 45
[2019-03-12] MEDS ORDERED: ALBUMIN HUMAN 25% 12.5 GM, FUROSEMIDE 100 MG in NA CHLORIDE 0.9% 40 ML IV SCH (08:00)
--- NOTE | 2019-03-12 10:49 | EKG ---
Test Date: 2019-03-11 Test Time: 17:55:42 Plant And Equipment Worker: FLAVIO MEASUREMENT RESULTS: Intervals: Rate: 86 WY: 192 QRSD: 124 QT: 376 QTc: 449 [place]: P: 40 WY: 192 QRS: -37 T: 127 INTERPRETIVE STATEMENTS: Sinus rhythm with premature atrial complexes Left axis deviation Left ventricular hypertrophy with QRS widening and repolarization abnormality Anterior infarct Abnormal ECG Compared to ECG 02/24/2019 16:38:29 Atrial premature complex(es) now present Left ventricular hypertrophy now present Electronically Signed On 03-12-19 10:48:32 CDT by Donell Garay
[2019-03-12] MEDS ORDERED: SODIUM CHLORIDE 0.9% 10ML INJ IV PRN (10:57)
[2019-03-12] MEDS ORDERED: D50W 25 GM/50 ML SYRINGE IV PRN (11:52)
[2019-03-12] MEDS ORDERED: GLUCAGON 1 MG/VIAL IM PRN (11:52)
[2019-03-12] MEDS: INSULIN -REGULAR HUMAN 50 UNIT/0.5 ML ML SQ SCH ×3 (12:01→21:00)
[2019-03-12 12:13] LABS: Hematocrit 24.4 % (39.6-49.0)
[2019-03-12] MEDS: ENOXAPARIN 100 MG/ML SYR SQ SCH ×2 (12:32→19:57)
--- NOTE | 2019-03-12 16:02 | CON ---
Date of Consultation: 03/12/2019 Reason For Consultation: Elevated BUN and creatinine, anasarca. History Of Present Illness: This is a pleasant 58-year-old gentleman well-known to me from previous admission with significant past medical history of diabetes complicated with neuropathy and nephropat hy, legally blind, retinopathy, hypertension, hyperlipidemia, chronic kidney disease used to have bas stevenson creatinine back in December 2017 of 1.8, GFR of 38, had acute kidney injury on last admission second toya to MARILYN inhibitor over diuresis. His kidney function declined, GFR down to the 10. Patient on ge ntle hydration. Kidney function has been improved. Workup, all serology was negative, but was nephr otic range proteinuria with normal-sized kidney. As the kidney function improved, we did not proceed to any kidney biopsy and we are assuming his disease secondary to diabetes. The patient also was ad mitted with DVT on the right upper extremity. The patient had CVA without any residual. Coronary ar oliver disease, status post bypass. Peripheral vascular disease, status post bilateral below-knee ampu tations. The patient apparently when he went home he came with swelling on the scrotum and found to have elevated BUN and creatinine and when they placed Barron in the ER, had hematuria with significant urine output more than 700. Primary workup for the patient shows anemia with H and H 7.9/23, creatinine 2.6 which is b prashant than his creatinine when he was discharged on the . Chest x-ray did show congestion with elevation in BNP. The patient was admitted over the night. The patient was given Lasix. The patient is slightly feeling better, but still has edema. Past Medical History: Includes: 1.Coronary artery disease, status post bypass. 2.Hypertension. 3.Hyperlipidemia. 4.CVA without any residual. 5.Peripheral vascular disease, status post bilateral below-knee amputations. 6.Diabetes complicated with neuropathy, nephropathy, and retinopathy, legally blind. 7.Chronic kidney disease with normal size kidney with nephrotic range proteinuria, status post acute kidney injury in last month. Did not require any dialysis. Allergies: HYDROMORPHONE, LATEX, AND BACLOFEN. Past Surgical History: Includes: 1.Bypass. 2.Bilateral below-knee amputations. Family History: Positive for diabetes, hypertension, coronary artery disease. Social History: Active smoking. Denied alcohol. Denied drug abuse. Lives with the family. Review of Systems: Head and Neck: No red eye. No ear pain. GI: No nausea, no vomiting. : Has scrotal swelling. Has urine retention. GLUE COOK: Not applicable. Respiratory: Has shortness of breath. Cardiovascular: Has orthopnea. Endocrine: No polydipsia. Skin: No rash. Neuro: Has neuropathy. Musculoskeletal: Has low back pain. Physical Examination: General: When I saw the patient, patient was lying in bed. Vital Signs: Blood pressure 173/81, pulse of 73. Chest: Faint crackles on the base. Heart: S1, S2. Regular. Abdomen: Soft, nontender. Extremities: +2 edema. Has bilateral below-knee amputations. Neuro: Alert and oriented. Nonfocal except legally blind. Laboratory Data: Sodium 140, potassium 4, bicarb 27, BUN 41, creatinine 2.6, calcium 7.7. TSH of 1. 6. PTH 210. Protein electrophoresis done on the last admission, no monoclonal. PC ratio 6. Again, as I mentioned his serology was negative. Chest x-ray with congestion. Current Medications: The patient is on include: Ceftriaxone, albuterol, albumin, Lovenox, Tylenol, Lasix 40 daily, ipratropium, Zofran, and hydrocodone. Assessment And Plan: 1.Chronic kidney disease, nephrotic range proteinuria, normal size kidney with over volume. I am go ing to increase the Lasix to 40 mg daily and we will monitor the patient. The patient's kidney funct ion is slightly better than the previous admission. We are going to continue diuresis. 2.Urine retention. I am going to start the patient on Flomax and we will monitor the patient. 3.Hypertension, control not optimal. We will utilize blood pressure for more diuresis. Continue on the Flomax. 4.Deep venous thrombosis. Continue Lovenox as by hospitalist. 5.Hematuria, mostly traumatic. We will follow up the patient. BRITTANI Voice ID: [id number] Report ID: [id number]
--- NOTE | 2019-03-12 16:52 | P.PN ---
Subjective Date of Service: 03/12/19 Chief Complaint: Fluid retention/urinary retention Patient seen and examined at bedside with RN. Chart reviewed. Case discussed with nephrology at this time. Attempted to call urology however urology is not on-call today. Patient has been complaining of pain in the scrotal area and no further complaints to offer. Denies having nausea vomiting at this time. States that his scrotal area has been hurting more than usual. Review of Systems 10-point ROS is otherwise unremarkable Physical Examination - Vital Signs Temperature: 97.6 F Blood Pressure: 158/76 Pulse: 75 Respirations: 20 Pulse Ox (%): 100 - Physical Exam General: Alert, In no apparent distress, Oriented x2 Respiratory: Clear to auscultation bilaterally, Normal air movement Cardiovascular: Regular rate/rhythm, Normal S1 S2 Gastrointestinal: Normal bowel sounds, No tenderness Musculoskeletal: Other (Bilateral bka) Integumentary: No rashes Neurological: Normal speech, Normal tone, Normal affect Lymphatics: No axilla or inguinal lymphadenopathy External genitalia: Edema, Tenderness - Studies Laboratory Data (last 24 hrs) 03/11/19 17:45: PT 12.6 H, INR 1.07 03/11/19 17:45: WBC 9.9, Hgb 9.3 L, Hct 27.7 L, Plt Count 438 H D 03/11/19 17:45: Sodium 142, Potassium 4.3, BUN 41 H D, Creatinine 2.54 H, Glucose 205 H, Magnesium 1.9, Total Bilirubin 0.1 L, AST 7 L, ALT 8 L, Alkaline Phosphatase 74 Medications List Reviewed: Yes Assessment And Plan - Current Problems (Diagnosis) (1) Scrotal swelling Current Visit: Yes Status: Acute Plan: Patient with acute worsening of chronic scrotal swelling most likely secondary to volume overload secondary to dependent edema and CHF also with urinary retention -will go ahead and elevate the area at this time -scrotal ultrasound is negative for fluid collection or abscess on the consistent with edema -IV Lasix 40 mg b.i.d. and Flomax -urology is unavailable at this time (2) IDALMIS (acute kidney injury) Current Visit: No Status: Acute Plan: IDALMIS on chronic kidney disease stage 3 -BUN and creatinine improved today than yesterday -continue with IV Lasix here in the hospital -nephrology consulted appreciated recommendations at this time (3) Deep venous thrombosis of right upper extremity Current Visit: No Status: Acute Plan: Patient with DVT that was diagnosed with last admission -currently on weight based Lovenox Qualifiers: Affected thrombotic vein of extremity: brachial Chronicity: acute Qualified Code(s): I82.621 - Acute embolism and thrombosis of deep veins of right upper extremity (4) CAD (coronary artery disease) Onset Date: 12/10/17 Current Visit: No Status: Chronic Plan: Patient with history of CAD will restart home medication Qualifiers: Coronary Disease-Associated Artery/Lesion type: [place] artery [place] vs. transplanted heart: [place] heart Associated angina: with stable angina Qualified Code(s): I25.118 - Atherosclerotic heart disease of [place] coronary artery with other forms of angina pectoris (5) CHF (congestive heart failure) Onset Date: 12/10/17 Current Visit: No Status: Chronic Plan: Patient with congestive heart failure, now with acute worsening continue on IV Lasix at this time Qualifiers: Heart failure type: diastolic Heart failure chronicity: chronic Qualified Code(s): I50.32 - Chronic diastolic (congestive) heart failure (6) Cerebral infarction involving posterior cerebral artery Current Visit: No Status: Chronic Plan: With residual right-sided weakness (7) DM type 2 (diabetes mellitus, type 2) Onset Date: 05/31/16 Current Visit: No Status: Chronic Plan: Insulin sliding scale along with Accu-Cheks -with bilateral BKA with has a circulatory complication of diabetes Qualifiers: Diabetes mellitus jail insulin use: with computer terminal operator use Diabetes mellitus complication status: with neurologic complications Diabetes mellitus complication detail: with polyneuropathy Qualified Code(s): E11.42 - Type 2 diabetes mellitus with diabetic polyneuropathy; Z79.4 - correction (current) use of insulin; Z79.4 - correction (current) use of insulin; Z79.4 - correction ( current) use of insulin; Z79.4 - correction (current) use of insulin (8) Hyperlipidemia Onset Date: 12/10/17 Current Visit: No Status: Chronic Qualifiers: Hyperlipidemia type: unspecified Qualified Code(s): E78.5 - Hyperlipidemia , unspecified (9) Hypertension Onset Date: 12/15/14 Current Visit: No Status: Chronic Qualifiers: Hypertension type: essential hypertension Qualified Code(s): I10 - Essential (primary) hypertension - Plan Pending clinical improvement at this time Discharge Plan: Home Plan to discharge in: Greater than 2 days - Code Status/Comfort Care Code Status Assessed: Yes Critical Care: No
--- NOTE | 2019-03-12 16:53 | ECHO ---
HEIGHT: 6 ft 0 in WEIGHT: 221 lb 0 oz DATE OF STUDY: 03/12/[address]: Regina Flores MD 2-DIMENSIONAL: YES M.MODE: YES DOPPLER: YES COLOR FLOW: YES TDS: YES PORTABLE: DEFINITY: BUBBLE STUDY: DIAGNOSIS: ANASARCA CARDIAC HISTORY: CATHERIZATION: NO SURGERY: YES PROSTHETIC VALVE: NO PACEMAKER: NO MEASUREMENTS (cm) DIASTOLIC (NORMALS) SYSTOLIC (NORMALS) IVSd 1.0 (0.6-1.2) LA Diam 3.6 (1.9-4.0) LVEF 41% LVIDd 5.2 (3.5-5.7) LVIDs 4.1 (2.0-3.5) %FS 20% LVPWd 1.2 (0.6-1.2) Ao Diam 2.6 (2.0-3.7) 2 DIMENSIONAL ASSESSMENT: RIGHT ATRIUM: NORMAL LEFT ATRIUM: NORMAL RIGHT VENTRICLE: NORMAL LEFT VENTRICLE: NORMAL TRICUSPID VALVE: NORMAL MITRAL VALVE: NORMAL PULMONIC VALVE: NORMAL AORTIC VALVE: NORMAL PERICARDIAL EFFUSION: NONE AORTIC ROOT: NORMAL LEFT VENTRICULAR WALL MOTION: ANTERIOR APICAL AKINESIS DOPPLER/COLOR FLOW: NORMAL COMMENTS: DEPRESSED LEFT VENTRICULAR EJECTION FRACTION WITH WALL MOTION ABNORMALITY. TECHNOLOGIST: DANNA KELLY
[2019-03-12] MEDS: PANTOPRAZOLE 40 MG INJ IVP SCH (19:57)
[2019-03-12] MEDS: CARVEDILOL 6.25 MG TAB PO SCH (19:58)
[2019-03-12] MEDS ORDERED: CEFTRIAXONE/SWI 1gm 1 GM/10 ML SYR IV SCH (21:00)
[2019-03-13] MEDS: IPRATROPIUM BROM 0.5MG/2.5ML NEB SCH ×4 (02:00→20:15)
[2019-03-13] MEDS: INSULIN -REGULAR HUMAN 50 UNIT/0.5 ML ML SQ SCH ×3 (07:30→16:27)
[2019-03-13] MEDS: ALBUTEROL 2.5 MG/3 ML NEB SOL NEB SCH (08:05)
[2019-03-13] MEDS: HYDROCODONE/APAP 10/325 TAB PO PRN ×3 (08:12→19:56)
[2019-03-13] MEDS: PANTOPRAZOLE 40 MG INJ IVP SCH (08:12)
[2019-03-13] MEDS: ENOXAPARIN 100 MG/ML SYR SQ SCH ×2 (08:12→19:56)
[2019-03-13] MEDS: TAMSULOSIN 0.4 MG SR CAP PO SCH (08:12)
[2019-03-13] MEDS: CARVEDILOL 6.25 MG TAB PO SCH ×2 (08:13→19:56)
[2019-03-13] MEDS ORDERED: FUROSEMIDE 40 MG/4 ML VIAL IV SCH (09:00)
[2019-03-13] MEDS ORDERED: ONDANSETRON 4 MG (ODT) TAB PO PRN (11:26)
[2019-03-13 12:08] LABS: Albumin 2.1 g/dL (3.4-5.0); Bilirubin Total 0.2 mg/dL (0.2-1.0); Potassium 4.8 mmol/L (3.5-5.1); Protein, Total 5.8 g/dL (6.4-8.2)
--- NOTE | 2019-03-13 12:10 | P.PN ---
Subjective Date of Service: 03/13/19 Chief Complaint: Fluid retention/urinary retention Subjective: Improving today scrotal edema improving and similar from last admission US : edema cont lasix RFT stable can be discharged from nephrology point of view if RFt stable Physical Examination - Vital Signs Temperature: 97.6 F Blood Pressure: 156/74 Pulse: 74 Respirations: 17 Pulse Ox (%): 98 - Physical Exam General: In no apparent distress, Oriented x3 HEENT: Atraumatic Neck: Supple, Without JVD or thyroid abnormality Respiratory: Clear to auscultation bilaterally, Normal air movement Cardiovascular: Regular rate/rhythm, Normal S1 S2, No gallops, No rubs, Other ( Scrotal edema ) Musculoskeletal: No clubbing, No swelling - Studies Medications List Reviewed: Yes Assessment And Plan - Current Problems (Diagnosis) (1) Hypoalbuminemia Current Visit: Yes Status: Acute (2) Scrotal swelling Current Visit: Yes Status: Acute - Plan Chronic kidney disease, due to DM nephritic range proteinuria renal dose meds HTN controlled on Coreg Deep venous thrombosis. On Lovenox Dm as per primary team scrotal edema cont lasix pt also with low Albumin which can contribute to the edema
[2019-03-13 12:12] LABS: Absolute Lymphocytes (CBC) 1.1 K/uL (0.7-4.9); Lymphocytes % 11.7 % (15.3-44.8); MPV 8.8 fL (7.6-11.3); RBC Red Blood Cell Count 3.47 M/uL (4.33-5.43)
--- NOTE | 2019-03-13 12:51 | P.PN ---
Subjective Date of Service: 03/13/19 Chief Complaint: Fluid retention/urinary retention Patient seen and examined at bedside with RN. Chart reviewed. Case discussed with nephrology at this time. Attempted to call urology however urology is not on-call. Patient has been complaining of pain in the scrotal area and no further complaints to offer. Denies having nausea vomiting at this time. Review of Systems 10-point ROS is otherwise unremarkable Physical Examination - Vital Signs Temperature: 97.6 F Blood Pressure: 156/74 Pulse: 74 Respirations: 17 Pulse Ox (%): 98 - Physical Exam General: Alert, In no apparent distress HEENT: Atraumatic, PERRLA, EOMI Neck: Supple, JVD not distended Respiratory: Clear to auscultation bilaterally, Normal air movement Cardiovascular: Regular rate/rhythm, Normal S1 S2 Gastrointestinal: Normal bowel sounds, No tenderness Musculoskeletal: No tenderness Integumentary: No rashes Neurological: Normal speech, Normal tone, Normal affect Lymphatics: No axilla or inguinal lymphadenopathy External genitalia: Lesions, Tenderness - Studies Medications List Reviewed: Yes Assessment And Plan - Current Problems (Diagnosis) (1) Scrotal swelling Current Visit: Yes Status: Acute Plan: Patient with acute worsening of chronic scrotal swelling most likely 2.2 to volume overload secondary to dependent edema and CHF also with urinary retention -will go ahead and elevate the area at this time -scrotal ultrasound is negative for fluid collection or abscess just consistent with edema -IV Lasix 40 mg b.i.d. and Flomax -urology is unavailable at this time (2) IDALMIS (acute kidney injury) Current Visit: No Status: Acute Plan: IDALMIS on chronic kidney disease stage 3 -BUN and creatinine improved today -continue with IV Lasix here in the hospital -nephrology consulted appreciated recommendations at this time (3) Deep venous thrombosis of right upper extremity Current Visit: No Status: Acute Plan: Patient with DVT that was diagnosed with last admission -currently on weight based Lovenox Qualifiers: Affected thrombotic vein of extremity: brachial Chronicity: acute Qualified Code(s): I82.621 - Acute embolism and thrombosis of deep veins of right upper extremity (4) CHF (congestive heart failure) Onset Date: 12/10/17 Current Visit: No Status: Chronic Plan: Patient with congestive heart failure, now with acute worsening -continue on IV Lasix at this time -Fluid restriction and low sodium diet Qualifiers: Heart failure type: diastolic Heart failure chronicity: chronic Qualified Code(s): I50.32 - Chronic diastolic (congestive) heart failure (5) CAD (coronary artery disease) Onset Date: 12/10/17 Current Visit: No Status: Chronic Plan: Patient with history of CAD will restart home medication Qualifiers: Coronary Disease-Associated Artery/Lesion type: [place] artery [place] vs. transplanted heart: [place] heart Associated angina: with stable angina Qualified Code(s): I25.118 - Atherosclerotic heart disease of [place] coronary artery with other forms of angina pectoris (6) Cerebral infarction involving posterior cerebral artery Current Visit: No Status: Chronic Plan: With residual right-sided weakness (7) DM type 2 (diabetes mellitus, type 2) Onset Date: 05/31/16 Current Visit: No Status: Chronic Plan: Insulin sliding scale along with Accu-Cheks -with bilateral BKA with has a circulatory complication of diabetes Qualifiers: Diabetes mellitus care home insulin use: with terminal gauger supervisor use Diabetes mellitus complication status: with neurologic complications Diabetes mellitus complication detail: with polyneuropathy Qualified Code(s): E11.42 - Type 2 diabetes mellitus with diabetic polyneuropathy; Z79.4 - custodial (current) use of insulin; Z79.4 - intermodal owner operator truck driver (current) use of insulin; Z79.4 - intermodal owner operator truck driver ( current) use of insulin; Z79.4 - intermodal owner operator truck driver (current) use of insulin (8) Hyperlipidemia Onset Date: 12/10/17 Current Visit: No Status: Chronic Qualifiers: Hyperlipidemia type: unspecified Qualified Code(s): E78.5 - Hyperlipidemia , unspecified (9) Hypertension Onset Date: 12/15/14 Current Visit: No Status: Chronic Qualifiers: Hypertension type: essential hypertension Qualified Code(s): I10 - Essential (primary) hypertension - Plan Pending clinical improvement at this time Discharge Plan: Home Plan to discharge in: 48 Hours - Code Status/Comfort Care Code Status Assessed: Yes Critical Care: No
[2019-03-13] MEDS: DOXYCYCLINE 100 MG CAP PO SCH (19:56)
[2019-03-13] MEDS ORDERED: ENOXAPARIN 100 MG/ML SYR SQ SCH (21:00)
[2019-03-14] MEDS: INSULIN -REGULAR HUMAN 50 UNIT/0.5 ML ML SQ SCH ×3 (01:02→12:28)
[2019-03-14] MEDS: IPRATROPIUM BROM 0.5MG/2.5ML NEB SCH ×3 (02:00→14:00)
[2019-03-14] MEDS: HYDROCODONE/APAP 10/325 TAB PO PRN ×3 (04:29→14:18)
[2019-03-14] MEDS ORDERED: PANTOPRAZOLE 40MG TABLET PO SCH (06:30)
[2019-03-14 06:32] LABS: Absolute Lymphocytes (CBC) 1.3 K/uL (0.7-4.9); Basophils % 0.9 % (0-1.3); Lymphocytes % 15.7 % (15.3-44.8); MPV 8.5 fL (7.6-11.3); RBC Red Blood Cell Count 2.92 M/uL (4.33-5.43)
[2019-03-14 07:00] LABS: AST/SGOT 4 U/L (15-37); Albumin 2.2 g/dL (3.4-5.0); Alkaline Phosphatase 68 U/L (45-117); BUN Blood Urea Nitrogen 36 mg/dL (7-18); Bicarbonate 27 mmol/L (21-32); Bilirubin Total 0.2 mg/dL (0.2-1.0); Glucose Level 169 mg/dL (74-106); Potassium 4.3 mmol/L (3.5-5.1); Protein, Total 6.4 g/dL (6.4-8.2); Sodium Level 140 mmol/L (136-145)
[2019-03-14 07:03] LABS: ALT/SGPT < 6 U/L (12-78)
[2019-03-14] MEDS ORDERED: FUROSEMIDE 40 MG TABLET PO SCH (09:00)
[2019-03-14] MEDS: DOXYCYCLINE 100 MG CAP PO SCH (09:15)
[2019-03-14] MEDS: TAMSULOSIN 0.4 MG SR CAP PO SCH (09:15)
[2019-03-14] MEDS: ENOXAPARIN 100 MG/ML SYR SQ SCH (09:15)
[2019-03-14] MEDS: CARVEDILOL 6.25 MG TAB PO SCH (09:16)
[2019-03-14 11:52] VITALS: O2SAT 95
[2019-03-14 12:49] VITALS: TEMP 97.6
--- NOTE | 2019-03-14 13:13 | P.PN ---
Subjective Date of Service: 03/14/19 Chief Complaint: Fluid retention/urinary retention Pt with hx of DM ,and CKD , admitted for scrotal edema started on lasix today no new complaints edema improved Cr improving can switch lasix to PO RFT stable can be discharged from nephrology point of view Physical Examination - Vital Signs Temperature: 97.6 F Blood Pressure: 163/74 Pulse: 75 Respirations: 18 Pulse Ox (%): 95 - Physical Exam General: In no apparent distress, Oriented x3 HEENT: Atraumatic Neck: Supple, Without JVD or thyroid abnormality Respiratory: Clear to auscultation bilaterally, Normal air movement (scrotal edema ) Cardiovascular: Regular rate/rhythm, Normal S1 S2, No gallops Gastrointestinal: Other (scrotal edema ) Musculoskeletal: Other (scrotal edema , B/l BKA ) - Studies Medications List Reviewed: Yes Assessment And Plan - Current Problems (Diagnosis) (1) Hypoalbuminemia Current Visit: Yes Status: Acute (2) Scrotal swelling Current Visit: Yes Status: Acute - Plan Chronic kidney disease, due to DM with nephotic range proteinuria renal dose meds HTN controlled on Coreg Deep venous thrombosis. On Lovenox Dm as per primary team scrotal edema cont lasix pt also with low Albumin which can contribute to the edema
[2019-03-14 15:14] VITALS: BP 155/71
--- NOTE | 2019-03-14 17:07 | P.DS ---
Admission Date: 03/13/19 Discharge Date: 03/14/19 Disposition: ROUTINE DISCHARGE Discharge Condition: GOOD Reason for Admission: Fluid retention/urinary retention Consultations: Nephrology - Problems (1) Scrotal swelling Status: Acute (2) IDALMIS (acute kidney injury) Status: Acute (3) Deep venous thrombosis of right upper extremity Status: Acute Qualifiers: Affected thrombotic vein of extremity: brachial Chronicity: acute Qualified Code(s): I82.621 - Acute embolism and thrombosis of deep veins of right upper extremity (4) CHF (congestive heart failure) Onset Date: 12/10/17 Status: Chronic Qualifiers: Heart failure type: diastolic Heart failure chronicity: chronic Qualified Code(s): I50.32 - Chronic diastolic (congestive) heart failure (5) CAD (coronary artery disease) Onset Date: 12/10/17 Status: Chronic Qualifiers: Coronary Disease-Associated Artery/Lesion type: [place] artery [place] vs. transplanted heart: [place] heart Associated angina: with stable angina Qualified Code(s): I25.118 - Atherosclerotic heart disease of [place] coronary artery with other forms of angina pectoris (6) Cerebral infarction involving posterior cerebral artery Status: Chronic (7) DM type 2 (diabetes mellitus, type 2) Onset Date: 05/31/16 Status: Chronic Qualifiers: Diabetes mellitus shelter insulin use: with shelter use Diabetes mellitus complication status: with neurologic complications Diabetes mellitus complication detail: with polyneuropathy Qualified Code(s): E11.42 - Type 2 diabetes mellitus with diabetic polyneuropathy; Z79.4 - assisted (current) use of insulin; Z79.4 - local intermodal truck driver (current) use of insulin; Z79.4 - assisted ( current) use of insulin; Z79.4 - assisted (current) use of insulin (8) Hyperlipidemia Onset Date: 12/10/17 Status: Chronic Qualifiers: Hyperlipidemia type: unspecified Qualified Code(s): E78.5 - Hyperlipidemia , unspecified (9) Hypertension Onset Date: 12/15/14 Status: Chronic Qualifiers: Hypertension type: essential hypertension Qualified Code(s): I10 - Essential (primary) hypertension Brief History of Present Illness: See HPI Hospital Course: Overall during the hospital stay patient remained stable Patient was initially admitted to the hospital for scrotal swelling in urinary retention. Patient was started on IV Lasix here in the hospital in urinary catheter was placed. Nephrology was consulted along with urology. Urology was not available for consult here at this time and recommended outpatient follow up after he was discharged from the hospital. For scrotal swelling patient had an ultrasound done which was consistent with ID mad no access for fluid collection was noted. Patient had marked improvement in his symptoms once he was started on IV antibiotics along with IV Lasix and ask oral swelling and erythema. Patient was doing well overall and thus was discharged home after that to follow up with primary care provider along with nephrology outpatient. Patient was given a prescription for p.o. Lasix to be taken outpatient set of Bumex. Patient was also asked to follow up with Dr. osullivan who is a urologist for urinary retention. Patient was educated extensively regarding the disease process and the consequences and the complications from it. Patient demonstrate understanding and was discharged home under stable condition. Vital Signs/Physical Exam: Temp Pulse Resp BP Pulse Ox 97.6 F 75 18 155/71 H 95 03/14/19 13:13 03/14/19 13:13 03/14/19 13:13 03/14/19 15:00 03/14/19 13:13 General: Alert, In no apparent distress HEENT: Atraumatic, PERRLA, EOMI Neck: Supple, JVD not distended Respiratory: Clear to auscultation bilaterally, Normal air movement Cardiovascular: Regular rate/rhythm, Normal S1 S2 Gastrointestinal: Normal bowel sounds, No tenderness Musculoskeletal: No tenderness Integumentary: No rashes Neurological: Normal speech, Normal tone, Normal affect Lymphatics: No axilla or inguinal lymphadenopathy Laboratory Data at Discharge: WBC 8.2 K/uL (4.3-10.9) 03/14/19 05:41 Hgb 8.4 g/dL (13.6-17.9) L 03/14/19 05:41 Hct 25.0 % (39.6-49.0) L D 03/14/19 05:41 Plt Count 389 K/uL (152-406) D 03/14/19 05:41 PT 13.0 SECONDS (9.5-12.5) H 03/12/19 05:24 INR 1.11 03/12/19 05:24 APTT 31.7 SECONDS (24.3-36.9) 03/12/19 05:24 Sodium 140 mmol/L (136-145) 03/14/19 05:41 Potassium 4.3 mmol/L (3.5-5.1) 03/14/19 05:41 BUN 36 mg/dL (7-18) H 03/14/19 05:41 Creatinine 2.42 mg/dL (0.55-1.3) H 03/14/19 05:41 Glucose 169 mg/dL (74-106) H 03/14/19 05:41 Magnesium 1.9 mg/dL (1.8-2.4) 03/11/19 17:45 Total Bilirubin 0.2 mg/dL (0.2-1.0) 03/14/19 05:41 AST 4 U/L (15-37) L 03/14/19 05:41 ALT < 6 U/L (12-78) L 03/14/19 05:41 Alkaline Phosphatase 68 U/L (45-117) 03/14/19 05:41 Home Medications: Atorvastatin Calcium [Lipitor*] 20 mg PO DAILY 02/25/19 Carisoprodol [Soma] 350 mg PO TID 02/25/19 Carvedilol 3.125 mg PO BID 02/25/19 Folic Acid 0.4 mg PO DAILY 02/25/19 Hydrocodone Bit/Acetaminophen [[place] 10-325 Tablet] 1 each PO Q4HP PRN 02/25/19 Insulin Glargine Human [Lantus*] 27 unit SQ BEDTIME 02/25/19 Insulin Regular, Human [Humulin R U-500 Kwikpen] 7 unit SQ AC 02/25/19 Hydralazine [Apresoline*] 50 mg PO TID #90 tab 03/07/19 Doxycycline Monohydrate 100 mg PO BID #14 capsule 03/14/19 Enoxaparin Sodium [Lovenox 100 MG INJ*] 100 mg SQ Q12HR #60 syr 03/14/19 Furosemide [Lasix] 40 mg PO BID #60 tablet 03/14/19 Tamsulosin [Flomax] 0.4 mg PO DAILY #30 cap 03/14/19 New Medications: Enoxaparin Sodium [Lovenox 100 MG INJ*] 100 mg SQ Q12HR #60 syr Doxycycline Monohydrate 100 mg PO BID #14 capsule Furosemide [Lasix] 40 mg PO BID #60 tablet Tamsulosin [Flomax] 0.4 mg PO DAILY #30 cap Diet: Regular Activity: Ad davis Followup: Regina Flores MD [ACTIVE - CAN ADMIT] - 1 Week (kidney doctor- call to schedule an appointment) Michael Marshall MD [Primary Care Provider] - 1-2 Weeks (Call to schedule an appointment)
== END 2019-03-14 15:13 | disposition home or self-care (01) | DRG 682 ==
LOC: ER 16:44 → ERHOLD 22:30 → 4TH 23:19 → OBSVTOIN 03-13 16:42
PROVIDERS: ADMIT Hospitalist; ATTEND Family Medicine
DX: N17.9 Acute kidney failure, unspecified (principal); I50.33 Acute on chronic diastolic (congestive) heart failure; I82.621 Acute embolism and thrombosis of deep veins of right upper extremity; I69.351 Hemiplegia and hemiparesis following cerebral infarction affecting right dominant side; I13.0 Hypertensive heart and chronic kidney disease with heart failure and stage 1 through stage 4 chronic kidney disease, or unspecified chronic kidney disease; R33.9 Retention of urine, unspecified; E88.09 Other disorders of plasma-protein metabolism, not elsewhere classified; E11.22 Type 2 diabetes mellitus with diabetic chronic kidney disease; E11.51 Type 2 diabetes mellitus with diabetic peripheral angiopathy without gangrene; E11.40 Type 2 diabetes mellitus with diabetic neuropathy, unspecified; E11.21 Type 2 diabetes mellitus with diabetic nephropathy; E11.319 Type 2 diabetes mellitus with unspecified diabetic retinopathy without macular edema; N18.3 Chronic kidney disease, stage 3 (moderate); I25.10 Atherosclerotic heart disease of native coronary artery without angina pectoris; E78.5 Hyperlipidemia, unspecified; N50.89 Other specified disorders of the male genital organs; Z95.1 Presence of aortocoronary bypass graft; Z89.512 Acquired absence of left leg below knee; Z89.511 Acquired absence of right leg below knee; Z91.040 Latex allergy status
CPT/HCPCS: 36415; 51702; 71045; 76870; 80048; 80053; 80076; 81003; 82962; 83735; 83880; 84484; 85014; 85018; 85025; 85610; 85730; 93005; 93306; 94640; 96374; 96375; 99285; C9113; G0378; J0696; J1170; J1650; J1940; J2405; P9047